=== PATIENT | female | born 1960 | race Caucasian/White ===

== ENCOUNTER 2020-01-01 11:15 | Outpatient (REF) | payer OTHER, SELFPAY ==
[2020-01-05 07:42] LABS: HPV mRNA E6/E7 rflx Not Detected (Not Detected)
== END 2020-01-01 11:16 | disposition home or self-care (01) ==
LOC: HO.LNP 11:15
PROVIDERS: PCP Internal Medicine; Referring Provider Internal Medicine; Visit Provider Obstetrics & Gynecology
DX: Z12.4 Encounter for screening for malignant neoplasm of cervix (principal); N87.0 Mild cervical dysplasia; Z78.0 Asymptomatic menopausal state
CPT/HCPCS: 87624; 87625; 88142

== ENCOUNTER 2020-01-02 09:49 | Outpatient (REF) | payer OTHER, SELFPAY | END 2020-01-02 09:50 | disposition home or self-care (01) | LOC: HO.LAB 09:49 | PROVIDERS: Visit Provider Obstetrics & Gynecology | DX: N87.1 Moderate cervical dysplasia (principal); Z78.0 Asymptomatic menopausal state | CPT/HCPCS: 88141; 88142 ==

== ENCOUNTER 2020-01-29 14:01 | Outpatient (REF) | payer OTHER, SELFPAY | END 2020-01-29 14:02 | disposition home or self-care (01) | LOC: HO.LNP 14:01 | PROVIDERS: Visit Provider Obstetrics & Gynecology | DX: R87.610 Atypical squamous cells of undetermined significance on cytologic smear of cervix (ASC-US) (principal) | CPT/HCPCS: 57455; 88305; 88341; 88342; 88360 ==

== ENCOUNTER → 2020-02-18 15:10 | Outpatient (BNVA) | payer OTHER, SELFPAY | PROVIDERS: Visit Provider Obstetrics & Gynecology | DX: Z76.89 Persons encountering health services in other specified circumstances (principal) ==

== ENCOUNTER 2020-03-19 13:57 | Outpatient (REF) | payer OTHER, SELFPAY ==
--- NOTE | ~2020-03-19 | MM_ITS ---
EXAMINATION: MM SCREENING DIGITAL BREAST TOMOSYNTHESIS, BILATERAL CLINICAL INFORMATION: Screening. Asymptomatic. The lifetime risk of breast cancer based on the Tyrer-Cuzick Model is 5.9%. COMPARISON: Mammography: July 19, 2018 and studies dating back to May 13, 2011 TECHNIQUE: Digital breast tomosynthesis is performed in both the craniocaudal and mediolateral oblique views along with computer-aided detection (CAD). Synthesized 2D images are generated from the tomosynthesis. FINDINGS: The breasts are extremely dense, which lowers the sensitivity of mammography (ACR BI-RADS breast composition Category d). There are no significant masses, abnormal calcifications, or other abnormalities. MM/MM tomosynthesis screening BI IMPRESSION: There are no significant changes from prior study. ASSESSMENT: BI-RADS 1: Negative RECOMMENDATION: Routine annual mammography screening. This patient's information was entered into a reminder system with a target due date for their next mammogram.
== END 2020-03-19 13:58 | disposition home or self-care (01) ==
LOC: HO.MAMMO 13:57
PROVIDERS: PCP Internal Medicine; Visit Provider Internal Medicine
DX: Z12.31 Encounter for screening mammogram for malignant neoplasm of breast (principal)
CPT/HCPCS: 77063; 77067

== ENCOUNTER 2020-07-15 10:12 | Outpatient (REF) | payer OTHER, SELFPAY ==
[2020-07-15 12:22] LABS: Free T4 (Free Thyroxine) 1.21 ng/dL (0.71-1.85); Thyroid Stimulating Hormone 1.14 uIU/mL (0.32-4.0)
[2020-07-19 06:11] LABS: Thyroglobulin Antibody <1 IU/mL (<=1); Thyroglobulin Level <0.1 ng/mL
== END 2020-07-15 10:13 | disposition home or self-care (01) ==
LOC: HO.HMGCLDS 10:12
PROVIDERS: PCP Internal Medicine; Visit Provider Internal Medicine Endocrinology, Diabetes & Metabolism
DX: C73 Malignant neoplasm of thyroid gland (principal)
CPT/HCPCS: 36415; 84432; 84439; 84443; 86800

== ENCOUNTER 2021-02-18 15:14 | Outpatient (REF) | payer OTHER, SELFPAY ==
[2021-02-21 17:07] LABS: HPV mRNA E6/E7 rflx Not Detected (Not Detected)
== END 2021-02-18 15:15 | disposition home or self-care (01) ==
LOC: HO.LAB 15:14
PROVIDERS: Visit Provider Advanced Practice Midwife
DX: Z01.419 Encounter for gynecological examination (general) (routine) without abnormal findings (principal); Z11.51 Encounter for screening for human papillomavirus (HPV); E89.0 Postprocedural hypothyroidism; M81.0 Age-related osteoporosis without current pathological fracture; N95.1 Menopausal and female climacteric states; Z88.2 Allergy status to sulfonamides
CPT/HCPCS: 87624; 88142

== ENCOUNTER 2021-05-01 13:37 | Outpatient (REF) | payer OTHER, SELFPAY ==
--- NOTE | ~2021-05-01 | MM_ITS ---
EXAMINATION: MM SCREENING DIGITAL BREAST TOMOSYNTHESIS, BILATERAL CLINICAL INFORMATION: Screening. Asymptomatic. The lifetime risk of breast cancer based on the Tyrer-Cuzick Model is 5.7%. COMPARISON: Mammography: March 19, 2020 and studies dating back to September 27, 2013 TECHNIQUE: Digital breast tomosynthesis is performed in both the craniocaudal and mediolateral oblique views along with computer-aided detection (CAD). Synthesized 2D images are generated from the tomosynthesis. FINDINGS: The breasts are extremely dense, which lowers the sensitivity of mammography (ACR BI-RADS breast composition Category d). There are no significant masses, abnormal calcifications, or other abnormalities. MM/MM tomosynthesis screening BI IMPRESSION: There are no significant changes from prior study. ASSESSMENT: BI-RADS 1: Negative RECOMMENDATION: Routine annual mammography screening. This patient's information was entered into a reminder system with a target due date for their next mammogram.
== END 2021-05-01 13:38 | disposition home or self-care (01) ==
LOC: HO.MAMMO 13:37
PROVIDERS: PCP Internal Medicine; Visit Provider Internal Medicine
DX: Z12.31 Encounter for screening mammogram for malignant neoplasm of breast (principal)
CPT/HCPCS: 77063; 77067

== ENCOUNTER 2021-05-19 06:23 | Outpatient (REF) | payer OTHER, SELFPAY ==
[2021-05-19 06:49] LABS: MANUAL DIFF FLAG NO
[2021-05-19 07:40] LABS: Basophils Absolute Auto 0.1 X10*3/uL (0.0-0.2); Basophils Percent Auto 1.2 % (0-2); Eosinophils Absolute Auto 0.2 X10*3/uL (0.0-0.4); Eosinophils Percent Auto 3.4 % (0-4); Hematocrit 41.8 % (37.0-47.0); Hemoglobin 13.7 g/dl (12.0-16.0); Imm Gran Abs Auto 0.01 X10*3/uL (0.00-0.03); Imm Gran Pct Auto 0.2 % (0.0-0.4); Lymphocytes Absolute Auto 1.6 X10*3/uL (1.2-4.9); Lymphocytes Percent Auto 33.1 % (20-40); Mean Corpuscular HGB Conc 32.8 g/dl (31.0-35.0); Mean Corpuscular Hemoglobin 30.1 pg (27.0-33.0); Mean Corpuscular Volume 91.9 fL (80.0-98.0); Mean Platelet Volume 10.9 fL (9.4-12.3); Monocytes Absolute Auto 0.4 X10*3/uL (0.1-1.2); Monocytes Percent Auto 7.7 % (2-11); Neutrophils Absolute Auto 2.7 x10*3/uL (2.0-8.3); Neutrophils Percent Auto 54.4 % (45-73); Platelet Count 212 X10*3/uL (160-400); Red Blood Count 4.55 X10*6/uL (4.20-5.50); Red Cell Distribution Width 13.4 % (11.0-16.0); White Blood Count 4.9 X10*3/uL (4.8-10.8)
[2021-05-19 08:07] LABS: Alanine Aminotransferase 13 U/L (0-31); Albumin Level 4.2 g/dL (3.5-5.0); Alkaline Phosphatase 79 U/L (39-117); Anion Gap 10 (12-20); Aspartate Amino Transferase 13 U/L (5-31); Bilirubin Total 0.4 mg/dL (0.0-1.0); Blood Urea Nitrogen 12 mg/dL (9-16); C Reactive Protein 0.02 mg/dL (< or = 0.50); Calcium 9.5 mg/dL (8.4-10.2); Carbon Dioxide 28 mmol/L (22-29); Chloride 107 mmol/L (96-108); Cholesterol 262 mg/dL; Estimated Glomerular Filt Rate > 60; Glucose Random 82 mg/dL (60-115); HDL Cholesterol 82 mg/dL; LDL Cholesterol Calculated 164 mg/dl; Potassium 4.3 mmol/L (3.3-5.1); Sodium 141 mmol/L (135-145); Total Protein 6.6 g/dL (6.5-8.0); Triglycerides 81 mg/dL
[2021-05-19 08:19] LABS: Erythrocyte Sedimentation Rate 2 MM/HR (0-20)
[2021-05-19 08:26] LABS: TSH reflex Free T4 0.54 uIU/mL (0.32-4.0)
[2021-05-19 08:46] LABS: Folate 12.3 ng/mL (> or = 4.0); Vitamin B12 390 pg/mL (200-900)
[2021-05-21 01:51] LABS: Lyme Abs Screen <0.90 index
[2021-05-22 23:28] LABS: Anti Nuclear Antibody Screen NEGATIVE (NEGATIVE)
[2021-05-24 13:42] LABS: Vitamin D 25-OH, D2 <4 ng/mL; Vitamin D 25-OH, D3 24 ng/mL; Vitamin D 25-OH, Total 24 ng/mL (30-100)
== END 2021-05-19 06:24 | disposition home or self-care (01) ==
LOC: HO.LAB 06:23
PROVIDERS: PCP Internal Medicine; Visit Provider Physician Assistant
DX: Z00.00 Encounter for general adult medical examination without abnormal findings (principal); M25.542 Pain in joints of left hand
CPT/HCPCS: 36415; 80053; 80061; 82306; 82607; 82746; 84443; 85025; 85652; 86038; 86039; 86140; 86617; 86618

== ENCOUNTER 2021-05-21 11:02 | Outpatient (REF) | payer OTHER, SELFPAY ==
--- NOTE | ~2021-05-21 | MR_ITS ---
EXAMINATION: MR BREAST WITHOUT AND WITH CONTRAST, BILATERAL CLINICAL INFORMATION: 60-year-old for MRI for dense breasts COMPARISON: Correlation to mammogram of 05/01/2021 TECHNIQUE: Imaging was performed with a dedicated breast coil. Prior to the administration of contrast, bilateral axial T1 and bilateral axial T2 weighted sequences were obtained. After the uneventful administration of?4.5 mL of Gadavist, dynamic contrast-enhanced VIBRANT series through the breasts in the axial plane were performed. Subtracted images were performed and reviewed. A delayed sagittal sequence through both breasts was acquired. Additionally, CAD post-processing, including maximum intensity projections, 3-D reconstructions and kinetic analysis, were performed an independent workstation and reviewed by the interpreting radiologist is a portion of this exam. FINDINGS: The patient's fibroglandular tissue demonstrates minimal background enhancement. LEFT BREAST: No suspicious masslike or non-masslike enhancement. No abnormal skin thickening or nipple retraction. No abnormal architectural distortion. Review of the T2 weighted images demonstrates no fibrocystic changes or dilated ducts. Review of kinetic images reveals no additional findings. RIGHT BREAST: No suspicious masslike or non-masslike enhancement. No abnormal skin thickening or nipple retraction. No abnormal architectural distortion. Review of the T2 weighted images demonstrates no fibrocystic changes or dilated ducts. Review of kinetic images reveals no additional findings. There is no suspicious internal mammary chain or axillary adenopathy. Limited views of the chest and abdomen are unremarkable. MR/MR breast BI wo/w con IMPRESSION: No MR specific evidence of malignancy. ASSESSMENT: LEFT BREAST: BI-RADS 1-Negative RIGHT BREAST: BI-RADS 1-Negative RECOMMENDATIONS: Routine mammographic imaging as per most recent study. MRI if patient meets screening criteria.
== END 2021-05-21 11:03 | disposition home or self-care (01) ==
LOC: HO.MRI 11:02
PROVIDERS: Visit Provider Physician Assistant
DX: R92.2 Inconclusive mammogram (principal)
CPT/HCPCS: 77049; A9585

== ENCOUNTER 2021-08-10 16:48 | Outpatient (REF) | payer OTHER, SELFPAY ==
[2021-08-10 18:29] LABS: Free T4 (Free Thyroxine) 1.09 ng/dL (0.71-1.85); Thyroid Stimulating Hormone 0.51 uIU/mL (0.32-4.0)
[2021-08-14 05:52] LABS: Thyroglobulin Antibody <1 IU/mL (<=1); Thyroglobulin Level <0.1 ng/mL
== END 2021-08-10 16:49 | disposition home or self-care (01) ==
LOC: HO.LAB 16:48
PROVIDERS: PCP Internal Medicine; Visit Provider Internal Medicine Endocrinology, Diabetes & Metabolism
DX: E89.0 Postprocedural hypothyroidism (principal); C73 Malignant neoplasm of thyroid gland
CPT/HCPCS: 36415; 84432; 84439; 84443; 86800

== ENCOUNTER → 2022-02-22 14:24 | Outpatient (BNVA) | payer OTHER, SELFPAY | PROVIDERS: PCP Internal Medicine; Visit Provider Advanced Practice Midwife | DX: Z13.89 Encounter for screening for other disorder (principal) ==

== ENCOUNTER 2022-05-28 13:46 | Outpatient (REF) | payer OTHER, SELFPAY ==
--- NOTE | ~2022-05-28 | MM_ITS ---
EXAMINATION: MM SCREENING DIGITAL BREAST TOMOSYNTHESIS, BILATERAL CLINICAL INFORMATION: Screening. Asymptomatic. The lifetime risk of breast cancer based on the Tyrer-Cuzick Model is 7.9%. COMPARISON: Mammography: May 21, 2021 and studies dating back to September 27, 2013 TECHNIQUE: Digital breast tomosynthesis is performed in both the craniocaudal and mediolateral oblique views along with computer-aided detection (CAD). Synthesized 2D images are generated from the tomosynthesis. FINDINGS: The breasts are extremely dense, which lowers the sensitivity of mammography (ACR BI-RADS breast composition Category d). There are no significant masses, abnormal calcifications, or other abnormalities. MM/MM tomosynthesis screening BI IMPRESSION: No significant changes ASSESSMENT: BI-RADS 1: Negative RECOMMENDATION: Routine annual mammography screening. This patient's information was entered into a reminder system with a target due date for their next mammogram.
== END 2022-05-28 13:47 | disposition home or self-care (01) ==
LOC: HO.MAMMO 13:46
PROVIDERS: PCP Advanced Practice Midwife; Visit Provider Advanced Practice Midwife
DX: Z12.31 Encounter for screening mammogram for malignant neoplasm of breast (principal)
CPT/HCPCS: 77063; 77067

== ENCOUNTER 2022-07-01 15:11 | Outpatient (REF) | payer OTHER, SELFPAY ==
[2022-07-08 09:23] LABS: HPV mRNA E6/E7 rflx Not Detected (Not Detected)
== END 2022-07-01 15:12 | disposition home or self-care (01) ==
LOC: HO.LNP 15:11
PROVIDERS: Visit Provider Advanced Practice Midwife
DX: Z01.419 Encounter for gynecological examination (general) (routine) without abnormal findings (principal); Z11.51 Encounter for screening for human papillomavirus (HPV); N87.1 Moderate cervical dysplasia; N95.2 Postmenopausal atrophic vaginitis
CPT/HCPCS: 87624; 88142

== ENCOUNTER 2022-08-02 07:41 | Outpatient (REF) | payer OTHER, SELFPAY ==
[2022-08-02 12:19] LABS: Free T4 (Free Thyroxine) 1.09 ng/dL (0.71-1.85); Thyroid Stimulating Hormone 1.58 uIU/mL (0.32-4.0)
[2022-08-05 04:28] LABS: Thyroglobulin Antibody <1 IU/mL (<=1); Thyroglobulin Level <0.1 ng/mL
== END 2022-08-02 07:42 | disposition home or self-care (01) ==
LOC: HO.HMGCLDS 07:41
PROVIDERS: Visit Provider Internal Medicine Endocrinology, Diabetes & Metabolism
DX: E89.0 Postprocedural hypothyroidism (principal); C73 Malignant neoplasm of thyroid gland
CPT/HCPCS: 36415; 84432; 84439; 84443; 86800

== ENCOUNTER 2022-08-24 12:44 | Outpatient (AMB) | payer OTHER, SELFPAY ==
--- NOTE | 2022-08-24 12:46 | MHC.OFFVIS ---
Intake Vital Signs 08/24/22 12:51 Height 5 ft 2 in Weight 107 lb BMI 19.6 BP 134/80 Intake Visit Reasons: Colposcopy Tool Shaper Set Up Operator Required: No Information Interpreted: non-clinical & clinical Bondactor Machine Operator: Bondactor Machine Operator Present (Viry) Allergies Sulfa (Sulfonamide Antibiotics) Allergy (Unknown, Verified 08/24/22 12:52) UNKNOWN Sulfamethoxazole Allergy (Unknown, Uncoded 08/24/22 12:52) Unknown Is last menstrual period known: No Post menopausal: Yes PFSH Medical History EVELINE II (cervical intraepithelial neoplasia II) History of colon polyps Hypothyroid Osteoporosis Thyroid cancer Surgical History History of bunionectomy History of loop electrical excision procedure (LEEP) History of thyroidectomy Family History Father Malignant melanoma Mother Dementia Social History Household Members: None Housing: House Alcohol intake: never Patient Tobacco Use Status: Never used Tobacco service: No Current occupational status: employed 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[employer] [place] Sexual orientation: Straight/Heterosexual Gender identity: Female Female Reproductive History Menstrual Date of last pap smear: 07/06/22 (ASCUS) History of abnormal pap smear: Yes Date of Mammogram: 05/28/22 Physical Exam Vital Signs: Last Vital Signs BP 134/80 08/24/22 12:51 BMI result Body Mass Index 19.6 Office Procedures Colposcopy Before the procedure was started discussed with the patient the procedure, alternatives & all the risks associated with the procedure (bleeding, infection, injury to vagina, bladder, vessels, possible need for transfusion with all its risks) then patient signed the consent Pap smear = ascus/HPV negative, history of EVELINE 2 status post LEEP in 2019 Speculum inserted, acetic acid used Colposcopy done Transformation zone seen, acetowhite lesions identified at 6 o?clock, cervical biopsies taken from 6 o?clock, ECC done afterwards. Vaginoscopy of the upper vagina showed no evidence of any aceto-white lesions Monsel solution used for hemostasis. The patient tolerated well . At the end the patient was instructed to call if temp>100.4, abdominal pain, n/v, bleeding; The patient was given the following instructions: nothing per vagina, no intercourse or bath tub use. All questions answered the patient verbalized understanding. Instructed the patient to make an appointment in 2 weeks for follow-up This note was generated with a voice recognition program. Some errors may have been overlooked during the review of this note. Sometimes these errors may affect the content or meaning of a given sentence. 33300-[id number] of cervix including upper vagina with biopsy and ECC Procedure code (CPT) selection complete Assessment & Plan Assessment & Plan Orders: Orders AMB Colposcopy Today R87.610 - Atypical squamous cells of undetermined significance on cytologic smear of cervix (ASC-US) Coding Level of Care Code Procedure Only Diagnoses CPT Codes Colposcopy - CPT: 13574-Grljwyhxz of cervix including upper vagina with biopsy and ECC ([id number])
[2022-08-24 12:51] VITALS: BP 134/80; BMI 19.6
== END 2022-08-24 13:25 | disposition home or self-care (01) ==
LOC: HO.HWS 12:44
PROVIDERS: Visit Provider Obstetrics & Gynecology
DX: R87.610 Atypical squamous cells of undetermined significance on cytologic smear of cervix (ASC-US) (principal)
CPT/HCPCS: 57454

== ENCOUNTER 2022-08-24 12:44 | Outpatient (REF) | payer OTHER, SELFPAY | END 2022-08-24 12:45 | disposition home or self-care (01) | LOC: HO.LNP 12:44 | PROVIDERS: Visit Provider Obstetrics & Gynecology | DX: R87.610 Atypical squamous cells of undetermined significance on cytologic smear of cervix (ASC-US) (principal) | CPT/HCPCS: 57454; 88305 ==

== ENCOUNTER 2022-09-01 09:25 | Outpatient (AMB) | payer OTHER, SELFPAY ==
--- NOTE | 2022-09-01 09:23 | A.OFFVIS_ITS ---
Intake Vital Signs 09/01/22 09:26 Height 5 ft 2 in Weight 105 lb 13.15 oz BMI 19.4 BP 118/80 Intake Visit Reasons: post colpo bleeding Computer Numerical Control Operator Required: No Information Interpreted: non-clinical & clinical Restoration Ecologist: Restoration Ecologist Present Accompanied by: Self / Same As Patient Allergies Sulfa (Sulfonamide Antibiotics) Allergy (Unknown, Verified 09/01/22 09:27) UNKNOWN Sulfamethoxazole Allergy (Unknown, Uncoded 09/01/22 09:27) Unknown Post menopausal: Yes HPI HPI Comments History of Present Illness Details Presenting 1 week post colposcopy an episode of vaginal bleeding that started yesterday and and resolved this morning. The patient did not have any vaginal bleeding immediately post colposcopy. 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[employer] [place] Sexual orientation: Straight/Heterosexual Gender identity: Female Review of Systems Const All systems reviewed & are unremarkable except as noted in HPI and below Physical Exam Vital Signs: Last Vital Signs BP 118/80 09/01/22 09:26 BMI result Body Mass Index 19.4 General: Yes no CVA tenderness External Female Exam: normal external appearance and normal appearance of the urethra Speculum Exam - Vagina: normal appearance of the vagina, normal palpation, laceration (Small left vaginal wall abrasion), no lesions and no masses Speculum Exam - Cervix: normal palpation, no lesions, no masses, nontender and Other cervical findings present (Erythema of the cervix with no evidence of active bleeding) Bimanual exam- vagina & uterus: normal bimanual exam, normal palpation, uterine size normal, normal palpation, uterine shape normal, No Cervical tenderness present and non-tender Bimanual Exam- Adnexa, other: normal adnexae Back/Spine/Pelvis Back: no CVA tenderness Assessment & Plan Assessment & Plan (1) Vaginal bleeding: Code(s): N93.9 - Abnormal uterine and vaginal bleeding, unspecified Plan: Discussed with the patient the findings on pelvic exam and the possible causes of vaginal bleeding post colposcopy bleeding , including left vaginal wall abrasion, cervical biopsy site bleeding or uterine in origin. Monsel's solution was applied at the cervix and left vaginal wall, bleeding resolved. instructions given to patient to call in case bleeding recurs (2) Postmenopausal bleeding: Code(s): N95.0 - Postmenopausal bleeding Plan: Since the differential diagnosis includes postmenopausal bleeding. Discussed with the patient the differential diagnosis of post menopausal bleeding with normal pelvic exam including but not limited to, endometrial hyperplasia, cancer, polyps and other causes; co testing done, recommended ultrasound to measure the endometrial stripe; discussed with the patient that if the endometrial thickness is 4 mm or less the negative predictive value of endometrial pathology is 99%, otherwise If endometrial thickness is more than 4 mm will proceed with endometrial sampling versus hysteroscopy D&C polypectomy depending on the ultrasound findings. Instructed the patient to schedule an ultrasound follow-up appointment in 2 weeks. All questions answered, the patient verbalized understanding and agreed with the plan. Orders: Orders US pelvic and transvaginal Today N95.0 - Postmenopausal bleeding Coding Level of Care Code Est Pt Level 3 (59082) Diagnoses Vaginal bleeding N93.9 Postmenopausal bleeding N95.0
[2022-09-01 09:26] VITALS: BP 118/80; BMI 19.4
== END 2022-09-01 10:14 | disposition home or self-care (01) ==
LOC: HO.HWS 09:25
PROVIDERS: Visit Provider Obstetrics & Gynecology
DX: N93.9 Abnormal uterine and vaginal bleeding, unspecified (principal); N95.0 Postmenopausal bleeding
CPT/HCPCS: 99213

== ENCOUNTER → 2022-09-01 09:25 | Outpatient (BNVA) | payer OTHER, SELFPAY | PROVIDERS: Visit Provider Obstetrics & Gynecology ==

== ENCOUNTER 2022-09-10 12:53 | Outpatient (REF) | payer OTHER, SELFPAY ==
--- NOTE | ~2022-09-10 | US_ITS ---
EXAMINATION: US PELVIS CLINICAL INFORMATION: Postmenopausal bleeding. COMPARISON: 06/09/2019. TECHNIQUE: Ultrasound of the pelvis is performed using both transabdominal and transvaginal transducers along with Doppler. Transvaginal imaging is performed due to inadequate visualization transabdominally. FINDINGS: Uterus: The uterus is anteverted and measures 4.5 x 2.2 x 3.3 cm. The double wall endometrial thickness is 5 mm. Trace amount of fluid in the endometrial canal. The uterus is smooth in contour and has normal myometrial echogenicity. No visible fibroid. Adnexa: Both ovaries are visualized. There is normal color flow to the adnexa. There is no ovarian torsion. There is no pelvic ascites or fluid collection. Right ovary measures 1.6 x 0.8 x 1.2 cm. 0.8 mL. Left ovary measures 2.6 x 1.5 x 0.9 cm. 1.8 mL. US/US pelvic and transvaginal IMPRESSION: Trace fluid in the endometrial canal consistent with the history of bleeding. No discrete uterine or endometrial lesion.
== END 2022-09-10 12:54 | disposition home or self-care (01) ==
LOC: HO.US 12:53
PROVIDERS: Visit Provider Obstetrics & Gynecology
DX: N95.0 Postmenopausal bleeding (principal)
CPT/HCPCS: 76830; 76856

== ENCOUNTER 2022-09-16 10:12 | Outpatient (AMB) | payer OTHER, SELFPAY ==
--- NOTE | 2022-09-16 10:14 | MHC.OFFVIS ---
Intake Vital Signs 09/16/22 10:16 Height 5 ft 2 in Weight 105 lb 13.15 oz BMI 19.4 BP 120/68 Intake Visit Reasons: Colpo/ultra sound follow up Allergies Sulfa (Sulfonamide Antibiotics) Allergy (Unknown, Verified 09/01/22 09:27) UNKNOWN Sulfamethoxazole Allergy (Unknown, Uncoded 09/01/22 09:27) Unknown HPI HPI Comments History of Present Illness Details Presenting post colpo for follow-up. The patient is doing well with no complaints. The pathology showed the following: A. Cervix, biopsy: Predominantly denuded squamous and endocervical mucosa; negative for squamous intraepithelial lesion. B. Endocervix, curettage: Fragments of squamous mucosa with reactive epithelial changes and few fragments of benign endocervical mucosa; negative for a squamous intraepithelial lesion. COMMENT: The atypical cells noted on the patient's previous Pap smear ([id number]; ASCUS; HPV-) may represent the reactive changes seen above. Pelvic ultrasound showed the following: Uterus: The uterus is anteverted and measures 4.5 x 2.2 x 3.3 cm. The double wall endometrial thickness is 5 mm. Trace amount of fluid in the endometrial canal. The uterus is smooth in contour and has normal myometrial echogenicity. ? No visible fibroid. Adnexa: Both ovaries are visualized. There is normal color flow to the adnexa. There is no ovarian torsion.? There is no pelvic ascites or fluid collection. Right ovary measures 1.6 x 0.8 x 1.2 cm. 0.8 mL. Left ovary measures 2.6 x 1.5 x 0.9 cm. 1.8 mL. 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[employer] [place] Sexual orientation: Straight/Heterosexual Gender identity: Female Review of Systems Const All systems reviewed & are unremarkable except as noted in HPI and below Reports as per HPI and Reports no additional complaints GI Reports no additional complaints Reports no additional complaints Assessment & Plan Assessment & Plan (1) ASCUS of cervix with negative high risk HPV: Code(s): R87.610 - Atypical squamous cells of undetermined significance on cytologic smear of cervix (ASC-US) Plan: Discussed with the patient the pathology results of the colposcopy biopsies & endocervical curettage ( negative). Discussed with the patient the sensitivity specificity, positive and negative predictive value in detecting cervical cancer in addition discussed the regression, persistence and progression rates. Recommended co-testing in 12 months, if cytology and or HPV are abnormal will proceed was colposcopy biopsy and endocervical curettage. Instructions given to the patient to schedule a co test appointment in 1 year. All questions answered the patient verbalized understanding. (2) Postmenopausal bleeding: Code(s): N95.0 - Postmenopausal bleeding Plan: Discussed with the patient the pelvic ultrasound findings, the endometrial stripe thickenss measured by ultrasound was more than 4mm. The negative predictive value, positive predictive value, Sensitivity, specificity of using ultrasound measurement of endometrial stripe to detecting endometrial pathology including hyperplasia , polyp or cancer were discussed with the patient. Recommended to the patient that the next step is an endometrial sampling via hysteroscopy D&C possible polypectomy versus endometrial biopsy to r/o endometrial pathology including hyperplasia or cancer. All the pros and cons risks and benefits of each approach were discussed with the patient, endometrial biopsy being less invasive, office procedure with less sensitivity and inability diagnose a polyp and removal versus hysteroscopy done under anesthesia more invasive more sensitive to endometrial cancer and possibility of diagnosing and endometrial polyp with the possibility of polypectomy. All questions were answered pt verbalized understanding and decided to proceed with endometrial biopsy. Instructions given the patient to schedule endometrial biopsy in 2 weeks Coding Level of Care Code Est Pt Level 3 (33484) Diagnoses ASCUS of cervix with negative high risk HPV R87.610 Postmenopausal bleeding N95.0
[2022-09-16 10:16] VITALS: BP 120/68; BMI 19.4
== END 2022-09-16 12:50 | disposition home or self-care (01) ==
LOC: HO.HWS 10:12
PROVIDERS: Visit Provider Obstetrics & Gynecology
DX: R87.610 Atypical squamous cells of undetermined significance on cytologic smear of cervix (ASC-US) (principal); N95.0 Postmenopausal bleeding
CPT/HCPCS: 99213

== ENCOUNTER → 2022-09-16 10:12 | Outpatient (BNVA) | payer OTHER, SELFPAY | PROVIDERS: Visit Provider Obstetrics & Gynecology ==

== ENCOUNTER 2022-10-04 09:32 | Outpatient (AMB) | payer OTHER, SELFPAY ==
--- NOTE | 2022-10-04 09:34 | A.OFFVIS_ITS ---
Intake Vital Signs 10/04/22 09:37 Height 5 ft 2 in Weight 105 lb 13.15 oz BMI 19.4 BP 110/66 Intake Visit Reasons: EMB Clinical Orthoptist Required: No Information Interpreted: non-clinical & clinical Wind Turbine Design Engineer: Wind Turbine Design Engineer Present (Brittney ONEIL) Accompanied by: Self / Same As Patient Allergies Sulfa (Sulfonamide Antibiotics) Allergy (Unknown, Verified 10/04/22 09:42) UNKNOWN Sulfamethoxazole Allergy (Unknown, Uncoded 10/04/22 09:42) Unknown Post menopausal: Yes [facility] Medical History EVELINE II (cervical intraepithelial neoplasia II) History of colon polyps Hypothyroid Osteoporosis Thyroid cancer Surgical History History of bunionectomy History of loop electrical excision procedure (LEEP) History of thyroidectomy Family History Father Malignant melanoma Mother Dementia Social History Household Members: None Housing: House Alcohol intake: never Patient Tobacco Use Status: Never used Tobacco service: No Current occupational status: employed 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 hysteroscopy D&C) & the risks were discussed with the patient including but not limited: pain, uterine perforation, bleeding, infection, possible injury to bladder, bowel, ureter, possible need for blood transfusion with all its possible risks. The patient verbalized understanding all questions answered and signed consent. The patient was placed into the dorsal lithotomy position; a speculum was inserted in the vagina. Using aseptic technique for the procedure, the cervix was cleansed with Betadine. The anterior lip of the cervix was grasped with a single tooth tenaculum. The uterus was sounded to 7 cm with a 4 mm Pipelle was used. Tissues samples were obtained and placed in formalin, in a patient labeled container and sent to the pathology department. At the end of the procedure, there was minimal bleeding noted The patient tolerated the procedure well and was discharged in good condition with the following instructions: Nothing in the vagina until the bleeding stops. No sex until the bleeding stops, to call if any of the following occurs: fever (>100.4), flu-like symptoms, abdominal pain, heavy bleeding, four smelling vaginal discharge. The patient was instructed to schedule a Follow up appointment in 2 weeks to discuss pathology results of the biopsy and treatment options. This note was generated with a voice recognition program. Some errors may have been overlooked during the review of this note. Sometimes these errors may affect the content or meaning of a given sentence. [id number] Biopsy Assessment & Plan Assessment & Plan (1) Postmenopausal bleeding: Code(s): N95.0 - Postmenopausal bleeding Orders: Orders AMB Endometrial Biopsy Today N95.0 - Postmenopausal bleeding Coding Level of Care Code Procedure Only Diagnoses Postmenopausal bleeding N95.0 CPT Codes Endometrial Biopsy - CPT: 32504-Unzmjxkpsat Biopsy ([id number])
[2022-10-04 09:37] VITALS: BP 110/66; BMI 19.4
== END 2022-10-04 10:28 | disposition home or self-care (01) ==
LOC: HO.HWS 09:32
PROVIDERS: Visit Provider Obstetrics & Gynecology
DX: N95.0 Postmenopausal bleeding (principal)
CPT/HCPCS: 58100

== ENCOUNTER 2022-10-04 09:32 | Outpatient (REF) | payer OTHER, SELFPAY | END 2022-10-04 09:33 | disposition home or self-care (01) | LOC: HO.LNP 09:32 | PROVIDERS: Visit Provider Obstetrics & Gynecology | DX: N95.0 Postmenopausal bleeding (principal) | CPT/HCPCS: 58100; 88305 ==

== ENCOUNTER 2022-10-25 07:35 | Outpatient (AMB) | payer OTHER, SELFPAY ==
--- NOTE | 2022-10-25 07:37 | MHC.OFFVIS ---
Intake Vital Signs 10/25/22 07:39 Height 5 ft 2 in Weight 105 lb 13.15 oz BMI 19.4 BP 120/72 Intake Visit Reasons: pre op Sugar Drier Required: No Information Interpreted: non-clinical & clinical Assisted Living Housekeeper: Assisted Living Housekeeper Present Accompanied by: Self / Same As Patient Allergies Sulfa (Sulfonamide Antibiotics) Allergy (Unknown, Verified 10/25/22 07:41) UNKNOWN Sulfamethoxazole Allergy (Unknown, Uncoded 10/25/22 07:41) Unknown Is last menstrual period known: Yes Last menstrual period: 12/13/19 Post menopausal: Yes Patient : No Do you need a note to return to daycare/school/sports/work: Yes (for surgery on tuesday) HPI HPI Comments History of Present Illness Details Presenting post endometrial biopsy for follow-up. The pathology showed the following: Endometrium, biopsy: Predominantly blood and mucus with rare atrophic endometrial cells and scant benign endocervical glandular epithelium; insufficient for endometrial evaluation PFSH Medical History History of colon polyps Osteoporosis EVELINE II (cervical intraepithelial neoplasia II) Thyroid cancer Hypothyroid Surgical History History of loop electrical excision procedure (LEEP) History of thyroidectomy History of bunionectomy Family History Father Malignant melanoma Mother Dementia Social History Household Members: None Housing: House Alcohol intake: never Patient Tobacco Use Status: Never used Tobacco service: No Current occupational status: employed 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 [employer] Sexual orientation: Straight/Heterosexual Gender identity: Female Female Reproductive History Menstrual Date of last menstrual period: 12/13/19 Total pregnancies: 2 Full term: 2 Review of Systems Card Reports as per HPI and Reports no additional complaints Resp Reports as per HPI and Reports no additional complaints GI Reports as per HPI and Reports no additional complaints Reports as per HPI Physical Exam Const General: cooperative, healthy appearing and comfortable Chest Chest palpation & inspection: normal inspection of the chest and normal palpation of entire chest wall Breast/axilla inspection: normal inspection of the breasts and normal inspection of the axillae Breast/axilla palpation: normal palpation of the breasts, normal palpation of the axillae and no axillary lymphadenopathy Resp Effort & Inspection: normal respiratory effort Auscultation: clear to auscultation bilaterally Percussion: percussion normal Cardio Palpation: normal PMI Rate: regular rate Rhythm: regular rhythm Heart sounds: no murmurs and no rubs Peripheral pulses: Peripheral pulses 2+ throughout GI Inspection: Yes normal to inspection Palpation (GI): Soft to palpation, nontender, no guarding, not rigid and No hepatosplenomegaly present Percussion: Yes normal to percussion Auscultation: normal bowel sounds Rectal Exam - Female: deferred Assessment & Plan Assessment & Plan (1) Postmenopausal bleeding: Code(s): N95.0 - Postmenopausal bleeding Plan: Discussed with the patient the results of endometrial biopsy , insufficient for endometrial evaluation, recommended hysteroscopy D&C possible polypectomy/myomectomy. Discussed with the patient the procedure , all benefits and risks including but not limited to inability to complete the procedure , bleeding, infection, possible need for blood transfusion with all its risk ( HIV,syphilis, Hepatitis, anaphylaxis shock, others..), injury to bladder, rectum, possible need for laparoscopy/laparotomy or hysterectomy. The patient verbalized understanding and signed the consent. Instructions given the patient to schedule a 2 week postoperative appointment Coding Level of Care Code Est Pt Level 3 (12645) Diagnoses Postmenopausal bleeding N95.0
[2022-10-25 07:39] VITALS: BP 120/72; BMI 19.4
== END 2022-10-25 07:54 | disposition home or self-care (01) ==
PROVIDERS: Visit Provider Obstetrics & Gynecology
DX: N95.0 Postmenopausal bleeding (principal)
CPT/HCPCS: 99213

== ENCOUNTER → 2022-10-25 07:35 | Outpatient (BNVA) | payer OTHER, SELFPAY | PROVIDERS: Visit Provider Obstetrics & Gynecology ==

== ENCOUNTER 2022-11-01 08:37 | Emergency (ER) | payer OTHER, SELFPAY ==
--- NOTE | ~2022-11-01 | XR_ITS ---
EXAMINATION: XR CHEST 2 VIEW CLINICAL INFORMATION: Chest tightness COMPARISON: None TECHNIQUE: PA and lateral views of the chest obtained. FINDINGS: The lungs are clear. There are no pleural effusions. The cardiomediastinal silhouette is normal. XR/XR chest 2V IMPRESSION: No acute cardiopulmonary disease.
[2022-11-01 08:45] VITALS: BP 145/87; PULSE 78; RESP 18; TEMP 36.2; O2SAT 97; BMI 19.2
--- NOTE | 2022-11-01 09:45 | ECG_ITS ---
Test Reason : chest tightness Blood Pressure : / mmHG Vent. Rate : 071 BPM Atrial Rate : 071 BPM P-R Int : 140 ms QRS Dur : 128 ms QT Int : 396 ms P-R-T Axes : 072 074 051 degrees QTc Int : 430 ms Normal sinus rhythm with sinus arrhythmia Right bundle branch block Abnormal ECG When compared with ECG of 14-OCT-2009 15:40, No significant change was found Referred By: Marquita Aranda Electronically Signed By:LAN ARRIETA
--- NOTE | 2022-11-01 09:45 | ED_ITS ---
HPI - General Adult General Chief complaint: Upper Respiratory Symptoms Stated complaint: Chemical exposure Time Seen by Provider: 11/01/22 09:11 Source: patient and RN notes reviewed Mode of arrival: ambulatory Limitations: no limitations History of Present Illness HPI narrative: This is a 62-year-old female, with a past medical history of thyroid cancer with thyroidectomy, presenting to the emergency department for evaluation of sore throat, chest tightness and chest burning sensation x4 days. Patient reports that her house is being worked on with a chemical called [employer] on . She states that when she returned back into her home she noticed a chemical like smell. She states that she had no where else to go therefore she spent the night in her home. She states that Tuesday while she was at work she noticed that she had increasing burning in her chest and her throat. She states that she decided to open up her windows however her symptoms have remained. She states that her symptoms have improved. She describes this chest tightness as a burning and pressure like sensation, she denies any chest pain. She denies any fevers, chills headaches, dizziness, lightheadedness, chest pain, shortness of breath, difficulty swallowing, abdominal pain, nausea or vomiting. She denies history of similar symptoms in the past. She is concerned as she looked up the chemical and this is a known carcinogen and was not told by the company that this is a dangerous chemical. No other complaints or concerns at this time. complaint: Chemical exposure Onset (ago): day(s) Radiation: non-radiation Quality: burning Pain Consistency: constant Relieving factors: none Exacerbating factors: none Associated symptoms: chest pain Treatments prior to arrival: none Related Data Home Medications Medication Instructions Recorded Confirmed levothyroxine 88 mcg tablet 88 mcg PO DAILY 01/01/20 08/06/22 Previous Rx's Medication Instructions Recorded estradiol 10 mcg vaginal tablet 10 mcg vaginal DAILY 4 weeks #20 07/22/22 (Vagifem) tabs cyclobenzaprine 10 mg tablet 10 mg PO BEDTIME #14 tabs 08/06/22 meloxicam 15 mg tablet 15 mg PO DAILY #14 tabs 08/06/22 Allergies Allergy/AdvReac Type Severity Reaction Status Date / Time Sulfa (Sulfonamide Allergy Unknown UNKNOWN Verified 11/01/22 08:48 Antibiotics) Sulfamethoxazole Allergy Unknown Unknown Uncoded 09/11/23 07:41 Review of Systems 2 Review of Systems: Yes all other systems are reviewed and are negative Constitutional: Constitutional: Reports as per [facility] Past Medical History Attestation statement: The following information was validated with the patient. 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 Tolerating secretions well without any difficulty. No trismus, drooling or dysphonia. Head: Yes normal to inspection, Yes normocephalic and Yes atraumatic Ears: hearing grossly normal bilaterally General nose exam: Normal external nose present Face and sinus: Yes normal facial exam Throat: Yes posterior oropharynx normal Eyes General: appearance normal, both eyes and all related structures Eyelids: Yes eyelids normal Conjunctivae: conjunctivae normal Sclerae: sclerae normal Pupils: Equal, round and reactive pupils present EOM: EOMs intact bilaterally Neck Neck: Yes normal visual inspection, Yes full ROM and Yes no lymphadenopathy Lymphatic: no lymphadenopathy noted Chest Chest palpation & inspection: normal inspection of the chest Resp Effort & Inspection: normal respiratory effort and able to speak in complete sentences Auscultation: clear to auscultation bilaterally, no crackles, no rales, no rhonchi and no wheezes Cardio Rate: regular rate Rhythm: regular rhythm Heart sounds: S1 normal heart sound present and S2 normal heart sound present GI Inspection: Yes normal to inspection Skin General skin exam: no rashes or lesions noted Trauma: no lacerations or abrasions Wounds: no wounds Neuro General: patient oriented x3 and moves all extremities Cranial nerves: Yes Equal, round and reactive pupils present Extrem General: Yes normal to inspection Right upper extremity: normal to inspection Left upper extremity: normal to inspection Right lower extremity: normal to inspection Left lower extremity: normal to inspection Course Reevaluation(s) Reevaluation #1: Chest x-ray normal. CBC within normal limits, chemistry nondiagnostic. Negative viral swabs, negative strep. EKG with right bundle branch block that was seen on previous EKGs. Otherwise no ST elevation or depression. Troponin negative, carbon monoxide within normal limits. I discussed this workup with patient, likely chemical irritant versus reactive airway disease. Advised patient to stay well hydrated and to follow-up with primary care physician as needed. Given return precautions. Patient understands and agrees with plan. Patient stable for discharge. Time: 11:25 Medical Decision Making Medical Decision Making [facility] Narrative: 62-year-old female presenting to the emergency department for evaluation of chest tightness, chest burning, pressure, sore throat x4 days. She was recently exposed to a chemical called [employer] and is concerned as there are known carcinogenic products in the seal. Patient mildly hypertensive at 145/87, oxygen saturation 97% on room air. Oropharynx is mildly erythematous, no tonsillar hypertrophy or exudates. Lungs are clear to auscultation bilaterally. Patient is in no acute distress. Discussed case with my attending physician Dr. James. Will obtain chest x-ray, EKG, basic labs, cover monoxide. Also will get viral swabs and strep culture to rule out viral etiology. Differential Diagnosis Differential Diagnoses: The differential diagnosis associated with the presentation includes Reactive airway disease, chemical exposure, strep pharyngitis, viral pharyngitis, pneumonia Admission/Observation Consideration of admission/observation: Escalation of care including admission/observation considered Patient would have been admitted to the hospital had her work up had any findings where hospital admission was appropriate and her clinical presentation warranted hospital admission. Lab Data [facility] Lab Attestation statement: I reviewed the patient's lab results. See course 11/01/22 10:00 11/01/22 10:03 Labs: Lab Results 11/01/22 11/01/22 11/01/22 Range/Units 09:46 10:00 10:03 WBC 9.4 (4.8-10.8) X10*3/uL RBC 4.75 (4.20-5.50) X10*6/uL Hgb 14.1 (12.0-16.0) g/dl Hct 43.1 (37.0-47.0) % MCV 90.7 (80.0-98.0) fL MCH 29.7 (27.0-33.0) pg MCHC 32.7 (31.0-35.0) g/dl RDW 13.3 (11.0-16.0) % Plt Count 234 (160-400) X10*3/uL MPV 10.4 (9.4-12.3) fL Immature Gran % (Auto) 0.6 H (0.0-0.4) % Neut % (Auto) 78.7 H (45-73) % Lymph % (Auto) 14.0 L (20-40) % [place] % (Auto) 4.4 (2-11) % Eos % (Auto) 1.5 (0-4) % Baso % (Auto) 0.8 (0-2) % Lymph # (Auto) 1.3 (1.2-4.9) X10*3/uL [place] # (Auto) 0.4 (0.1-1.2) X10*3/uL Eos # (Auto) 0.1 (0.0-0.4) X10*3/uL Baso # (Auto) 0.1 (0.0-0.2) X10*3/uL Abs Immat Gran (auto) 0.06 H (0.00-0.03) X10*3/uL Absolute Neuts (auto) 7.4 (2.0-8.3) x10*3/uL Absolute Nucleated RBC 0.000 (0.0-0.012) X10*3/uL Nucleated RBC % (auto) 0.0 (0.0-0.2) /100WBC Carboxyhemoglobin % % Sodium 139 (135-145) mmol/L Potassium 4.2 (3.3-5.1) mmol/L Chloride 107 (96-108) mmol/L Carbon Dioxide 26 (22-29) mmol/L Anion Gap 10 L (12-20) BUN 11 (9-16) mg/dL Creatinine 0.86 (0.5-1.4) mg/dL Estim Creat Clear Calc 50.9 Estimated GFR > 60 Random Glucose 91 (60-115) mg/dL Calcium 9.9 (8.4-10.2) mg/dL Total Bilirubin 0.4 (0.0-1.0) mg/dL Direct Bilirubin 0.2 (0.0-0.5) mg/dL AST 15 (5-31) U/L ALT 10 (0-31) U/L Alkaline Phosphatase 78 (39-117) U/L Troponin I High Sens < 2.7 (<3.5-17.0) ng/L Total Protein 7.1 (6.5-8.0) g/dL Albumin 4.4 (3.5-5.0) g/dL Influenza Type A (PCR) NEGATIVE (Negative) Influenza Type B (PCR) NEGATIVE (Negative) RSV RNA Qual (PCR) NEGATIVE (Negative) SARS-CoV-2 RNA (RT-PCR) NEGATIVE (Negative) S. pyogenes GrpA SARABJIT Negative (Negative) 11/01/22 Range/Units 10:18 WBC (4.8-10.8) X10*3/uL RBC (4.20-5.50) X10*6/uL Hgb (12.0-16.0) g/dl Hct (37.0-47.0) % MCV (80.0-98.0) fL MCH (27.0-33.0) pg MCHC (31.0-35.0) g/dl RDW (11.0-16.0) % Plt Count (160-400) X10*3/uL MPV (9.4-12.3) fL Immature Gran % (Auto) (0.0-0.4) % Neut % (Auto) (45-73) % Lymph % (Auto) (20-40) % [place] % (Auto) (2-11) % Eos % (Auto) (0-4) % Baso % (Auto) (0-2) % Lymph # (Auto) (1.2-4.9) X10*3/uL [place] # (Auto) (0.1-1.2) X10*3/uL Eos # (Auto) (0.0-0.4) X10*3/uL Baso # (Auto) (0.0-0.2) X10*3/uL Abs Immat Gran (auto) (0.00-0.03) X10*3/uL Absolute Neuts (auto) (2.0-8.3) x10*3/uL Absolute Nucleated RBC (0.0-0.012) X10*3/uL Nucleated RBC % (auto) (0.0-0.2) /100WBC Carboxyhemoglobin % 2.2 % Sodium (135-145) mmol/L Potassium (3.3-5.1) mmol/L Chloride (96-108) mmol/L Carbon Dioxide (22-29) mmol/L Anion Gap (12-20) BUN (9-16) mg/dL Creatinine (0.5-1.4) mg/dL Estim Creat Clear Calc Estimated GFR Random Glucose (60-115) mg/dL Calcium (8.4-10.2) mg/dL Total Bilirubin (0.0-1.0) mg/dL Direct Bilirubin (0.0-0.5) mg/dL AST (5-31) U/L ALT (0-31) U/L Alkaline Phosphatase (39-117) U/L Troponin I High Sens (<3.5-17.0) ng/L Total Protein (6.5-8.0) g/dL Albumin (3.5-5.0) g/dL Influenza Type A (PCR) (Negative) Influenza Type B (PCR) (Negative) RSV RNA Qual (PCR) (Negative) SARS-CoV-2 RNA (RT-PCR) (Negative) S. pyogenes GrpA SARABJIT (Negative) Independent Interpretation I performed an independent interpretation of an: EKG Interpretation: EKG normal sinus rhythm with sinus arrhythmia without right bundle-branch block. Ventricular rate 71 beats per minute, AL interval 140, QTC 430. No ST elevation or depression noted. Similar appearing EKG from previous in 2009. I reviewed the chest x-ray, no consolidation appreciated. Radiology Impression Discussion of test interpretation with radiology: I have reviewed the radiologist's reading. Radiologist Impression: EXAMINATION: XR CHEST 2 VIEW CLINICAL INFORMATION: Chest tightness COMPARISON: None TECHNIQUE: PA and lateral views of the chest obtained. FINDINGS: The lungs are clear. There are no pleural effusions. The cardiomediastinal silhouette is normal. XR/XR chest 2V IMPRESSION: No acute cardiopulmonary disease. Dictated By: Donovan Bergman MD Discharge Plan Discharge Clinical Impression: Exposure to chemical inhalation Reactive airway disease Qualifiers: Asthma severity: unspecified severity Patient Disposition: Home, Self-Care Additional Instructions: You likely have irritated your trachea and the lining of your lungs due to the chemical exposure. Your labs were reassuring today. Your carbon monoxide level was within normal limits. You tested negative for COVID, RSV, flu, and strep throat. Your chest x-ray was normal. Your EKG shows a right bundle branch block which you had on your EKG previously. Please follow-up with your primary care physician regarding this visit. Please stay well hydrated and get plenty of rest. Keep your windows open as often as possible. Please return with any new or worsening symptoms including but not limited to chest pain, shortness of breath, difficulty swallowing or breathing. Prescriptions: No Action estradiol [Vagifem] 10 mcg tablet 10 mcg vaginal DAILY 28 Days Qty: 20 0RF Rx Instructions: start insertion at bedtime for 2 weeks, then use twice week meloxicam 15 mg tablet 15 mg PO DAILY Qty: 14 0RF cyclobenzaprine 10 mg tablet 10 mg PO BEDTIME Qty: 14 0RF levothyroxine 88 mcg tablet 88 mcg PO DAILY Interventions: ED Discharge Assessment Last Done: 11/01/22 11:56 Discharge Date/Time: 11/01/22 11:58
[2022-11-01 10:17] LABS: MANUAL DIFF FLAG NO
[2022-11-01 10:22] LABS: Carbon Monoxide Refer to POC result
[2022-11-01 10:22] LABS: Carbon Monoxide POC 2.2 %
[2022-11-01 10:24] LABS: Basophils Absolute Auto 0.1 X10*3/uL (0.0-0.2); Basophils Percent Auto 0.8 % (0-2); Eosinophils Absolute Auto 0.1 X10*3/uL (0.0-0.4); Eosinophils Percent Auto 1.5 % (0-4); Hematocrit 43.1 % (37.0-47.0); Hemoglobin 14.1 g/dl (12.0-16.0); Imm Gran Abs Auto 0.06 X10*3/uL (0.00-0.03); Imm Gran Pct Auto 0.6 % (0.0-0.4); Lymphocytes Absolute Auto 1.3 X10*3/uL (1.2-4.9); Mean Corpuscular HGB Conc 32.7 g/dl (31.0-35.0); Mean Corpuscular Hemoglobin 29.7 pg (27.0-33.0); Mean Corpuscular Volume 90.7 fL (80.0-98.0); Mean Platelet Volume 10.4 fL (9.4-12.3); Monocytes Absolute Auto 0.4 X10*3/uL (0.1-1.2); Monocytes Percent Auto 4.4 % (2-11); Neutrophils Absolute Auto 7.4 x10*3/uL (2.0-8.3); Neutrophils Percent Auto 78.7 % (45-73); Platelet Count 234 X10*3/uL (160-400); Red Blood Count 4.75 X10*6/uL (4.20-5.50); Red Cell Distribution Width 13.3 % (11.0-16.0); White Blood Count 9.4 X10*3/uL (4.8-10.8)
[2022-11-01 10:32] LABS: IDNOW Serial# 08D9AD1C; Strep A Nucleic Acid Negative (Negative)
[2022-11-01 11:11] LABS: Alanine Aminotransferase 10 U/L (0-31); Albumin Level 4.4 g/dL (3.5-5.0); Alkaline Phosphatase 78 U/L (39-117); Anion Gap 10 (12-20); Aspartate Amino Transferase 15 U/L (5-31); Bilirubin Direct 0.2 mg/dL (0.0-0.5); Bilirubin Total 0.4 mg/dL (0.0-1.0); Blood Urea Nitrogen 11 mg/dL (9-16); Calcium 9.9 mg/dL (8.4-10.2); Carbon Dioxide 26 mmol/L (22-29); Chloride 107 mmol/L (96-108); Creatinine Clr Calc Pharmacy 50.9; Estimated Glomerular Filt Rate > 60; Glucose Random 91 mg/dL (60-115); Potassium 4.2 mmol/L (3.3-5.1); Sodium 139 mmol/L (135-145); Total Protein 7.1 g/dL (6.5-8.0)
[2022-11-01 11:12] LABS: Troponin-I High Sensitivity < 2.7 ng/L (<3.5-17.0)
[2022-11-01 11:13] LABS: Influenza A PCR NEGATIVE (Negative); Influenza B PCR NEGATIVE (Negative); Resp Syncy Virus RNA Qual PCR NEGATIVE (Negative); SARS COV2 PCR INHOUSE NEGATIVE (Negative)
== END 2022-11-01 11:58 | disposition home or self-care (01) ==
PROVIDERS: Physician Assistant Medical; Emergency Provider Emergency Medicine
DX: R07.89 Other chest pain (principal); R06.02 Shortness of breath; Z57.5 Occupational exposure to toxic agents in other industries; Z20.822 Contact with and (suspected) exposure to COVID-19; Z20.828 Contact with and (suspected) exposure to other viral communicable diseases; Z79.899 Other long term (current) drug therapy
CPT/HCPCS: 0241U; 36415; 71046; 80048; 80076; 82375; 84484; 85025; 87651; 93005; 99283

== ENCOUNTER 2022-11-05 06:28 | Day surgery (SDC) | payer OTHER, SELFPAY ==
[2022-11-03 07:14] VITALS: BMI 19.2
--- NOTE | 2022-11-04 08:49 | P.CONAN_ITS ---
Documented by User: Ada Piedra NP 11/04/22 08:53 HPI - Anesthesia Eval Consult details Narrative: 62yo F for D&C Hysteroscopy,poss myomectomy,poss polpectomy [facility] [place] ED 11/01/22 for chest burning r/t chemical exposure. All work up negative and symptoms improved per pt. PMFSH Active Problems Active Problems: All Active Problems (Updated 11/02/22 @ 00:00 by Background Daemon) Postmenopausal bleeding (Acute) Vaginal bleeding (Acute) ASCUS of cervix with negative high risk HPV (Acute) Chronic lower back pain (Acute) EVELINE II (cervical intraepithelial neoplasia II) (Acute) Past Medical History Medical History History of colon polyps Osteoporosis EVELINE II (cervical intraepithelial neoplasia II) Thyroid cancer Hypothyroid Family History Family History Father Malignant melanoma Mother Dementia Surgical History Surgical History History of facial surgery History of loop electrical excision procedure (LEEP) History of thyroidectomy History of bunionectomy Social History Household Members: None Housing: House Alcohol intake: never Patient Tobacco Use Status: Never used Tobacco service: No Current occupational status: employed 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[employer] Sexual orientation: Straight/Heterosexual Gender identity: Female Meds Allergies Allergy/AdvReac Type Severity Reaction Status Date / Time Sulfa (Sulfonamide Allergy Severe Rash Verified 11/23/22 09:30 Antibiotics) Sulfamethoxazole Allergy Severe Rash Uncoded 11/17/22 10:53 Home Medications Medication Instructions Recorded Confirmed Last Taken Type levothyroxine 88 mcg tablet 88 mcg PO DAILY 01/01/20 11/17/22 Unknown History Exam Exam Date and Time: November 04, 2022 0849 Height,Weight and Vital Signs: Height 5 ft 2 in Weight 47.627 kg Pertinent Lab Results Pertinent Lab Results: Laboratory Tests 11/01/22 11/01/22 10:00 10:03 WBC 9.4 Hgb 14.1 Hct 43.1 Plt Count 234 Sodium 139 Potassium 4.2 Chloride 107 Carbon Dioxide 26 BUN 11 Creatinine 0.86 Narrative Narrative: EKG 10/2022 Vent. Rate : 071 BPM Atrial Rate : 071 BPM P-R Int : 140 ms QRS Dur : 128 ms QT Int : 396 ms P-R-T Axes : 072 074 051 degrees QTc Int : 430 ms Normal sinus rhythm with sinus arrhythmia Right bundle branch block Abnormal ECG When compared with ECG of 14-OCT-2009 15:40, No significant change was found Assessment and Plan Assessment Anesthesia Assessment: Chart Reviewed Documented by User: Waldemar Conway MD 01/06/23 19:32 [facility] Past Medical History Medical History History of colon polyps Osteoporosis EVELINE II (cervical intraepithelial neoplasia II) Thyroid cancer Hypothyroid Functional capacity: independent ambulation Family History Family History Father Malignant melanoma Mother Dementia Family history of problems with anesthesia: No Surgical History Surgical History History of facial surgery History of loop electrical excision procedure (LEEP) History of thyroidectomy History of bunionectomy History of Problems with Anesthesia: No Social History Household Members: None Housing: House Alcohol intake: never Patient Tobacco Use Status: Never used Tobacco service: No Current occupational status: employed 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[employer] [place] Sexual orientation: Straight/Heterosexual Gender identity: Female Meds Allergies Allergy/AdvReac Type Severity Reaction Status Date / Time Sulfa (Sulfonamide Allergy Severe Rash Verified 11/23/22 09:30 Antibiotics) Sulfamethoxazole Allergy Severe Rash Uncoded 11/17/22 10:53 Home Medications Medication Instructions Recorded Confirmed Last Taken Type levothyroxine 88 mcg tablet 88 mcg PO DAILY 01/01/20 11/17/22 Unknown History Exam Airway Mallampati Class: III Loose/Missing/Broken Teeth: Yes Assessment and Plan Assessment Anesthesia Assessment: Anesthesia Plan Discussed Final Anesthetic Review Family History of Problems with Anesthesia: No History of Problems with Anesthesia: No NPO: Yes ASA Class: III Final Preanesthetic Review: Meds/Allgs Chart Reviewed, Consent Obtained/Reviewed and Anes Risks/Benef Reviewed Patient Risk: Intermediate Procedure Risk: Intermediate Anesthetic Plan Anesthetic Plan: GA and Agree w/ Assess. and Plan Disposition: Standard PACU
[2022-11-05] VITALS (7 sets, daily range): BP systolic 135–165; BP diastolic 76–91; PULSE 58–76; RESP 16–17; TEMP 36.1–37.3; O2SAT 98–100; BMI 19.2
[2022-11-05] MEDS: Lactated Ringers 1,000 ML 100 ML IVCONT (07:32)
--- NOTE | 2022-11-05 07:52 | MHC.SHP ---
Pre-Procedural Eval Section A Date of Service: 11/05/22 The patient is an INPATIENT: No Changes since office visit: No Cold of Flu in the past 2 weeks, No New Medical Problems, No Changes in Medication and No Patient answered all questions The History & Physical has been completed within 30 days and I have reviewed it.: Yes Section B Chief Complaint: Postmenopausal bleeding Allergies: Allergies Allergy/AdvReac Type Severity Reaction Status Date / Time Sulfa (Sulfonamide Allergy Severe Rash Verified 11/05/22 07:12 Antibiotics) Sulfamethoxazole Allergy Severe Rash Uncoded 11/05/22 07:12 Plan Diagnosis/Plan: Unchanged I have reviewed the history and physical and performed a pertinent physical examination on my patient. No changes have occurred unless specified. Time Spent With Patient Time: Total time managing care of this patient today ____ minutes.
--- NOTE | 2022-11-05 10:01 | P.BOP_ITS ---
Brief Operative Note Date of Service: 11/05/22 Pre-op diagnosis: Postmenopausal bleed Post-op diagnosis: same (Normal endometrial cavity) Procedure: Hysteroscopy D&C Surgeon: Kenton Mckeon MD Anesthesia: GLMA Was an Crepe Machine Operator used for this Procedure?: No Estimated blood loss (mL): 0 Pathology: other (Endometrial Scrapping) Condition: stable Disposition: PACU
--- NOTE | 2022-11-05 10:02 | W.PM.OPN ---
Operative Note Operative Note Date of Service: 11/05/22 Narrative: Preop Diagnosis: Post Menopausal bleeding Operation: Diagnostic Hysteroscopy, Dilataion & Curettage Post Op Diagnosis: Normal endometrial cavity QBL: Minimal Anesthesia: GLMA Surgeon: Kenton Mckeon MD Dock Operations Supervisor: None Complication: None Pathology: Endometrial Scrapings Procedure: The patient was put in the dorsal lithotomy position, scrubbed, and draped in the usual manner. A sterile speculum was inserted in the patient's vagina. The anterior lip of the cervix was grasped with a single tooth tenaculum. The cervix was dilated up to 5 mm, then the scope was inserted in the patient's uterus. Inspection revealed Normal endometrial cavity. The Myosure Reach device was used; the scope was removed from the endometrial cavity , sharp curettings was carried on with minimal amount of tissues retrieved. At the end of the procedure, all instruments were taken out of the patient uterine and vaginal cavity. The single tooth tenaculum was removed and homeostasis was assured using pressure,. The patient tolerated the procedure well and was transferred to the PACU in a stable condition.
[2022-11-05] MEDS: Acetaminophen 325 MG TABLET 650 MG PO (10:45)
== END 2022-11-05 11:52 | disposition home or self-care (01) ==
PROVIDERS: Visit Provider Obstetrics & Gynecology
PROC: 0UDB8ZZ Extraction of Endometrium, Via Natural or Artificial Opening Endoscopic (ICD-10-PCS; CPT 58558; principal; 2022-11-05 08:30)
DX: N95.0 Postmenopausal bleeding (principal); M81.0 Age-related osteoporosis without current pathological fracture; E03.9 Hypothyroidism, unspecified; Z85.850 Personal history of malignant neoplasm of thyroid; Z86.010 Personal history of colon polyps; Z79.899 Other long term (current) drug therapy; Z88.2 Allergy status to sulfonamides
CPT/HCPCS: 58558; 88305; J1100; J2250; J2405; J3010

== ENCOUNTER → 2022-11-05 06:28 | Outpatient (BNV) | payer OTHER, SELFPAY | PROVIDERS: Visit Provider Obstetrics & Gynecology | DX: N95.0 Postmenopausal bleeding (principal) | CPT/HCPCS: 58558 ==

== ENCOUNTER 2022-11-17 10:40 | Outpatient (AMB) | payer OTHER, SELFPAY ==
--- NOTE | 2022-11-17 10:48 | A.OFFVIS_ITS ---
Intake Vital Signs 11/17/22 10:49 Height 5 ft 2 in Weight 104 lb BMI 19.0 BP 118/62 Blood Pressure Location Rt brachial Position Sitting Pulse 84 Pulse Source Pulse Oximeter Pulse Oximetry (%) 100 Intake Visit Reasons: Chemical Exposure Family Preservation Officer Required: No Clinical Engineer: Clinical Engineer offered & declined Accompanied by: Self / Same As Patient Allergies Sulfa (Sulfonamide Antibiotics) Allergy (Severe, Verified 11/17/22 10:53) Rash Sulfamethoxazole Allergy (Severe, Uncoded 11/17/22 10:53) Rash Medication List - Last Reconciled 11/17/22 by Brittney Alarcon LPN levothyroxine 88 mcg PO DAILY HPI Chemical Exposure HPI Details Bee is a pleasant 62 year old female, never smoker, with underlying hypothyroidism. She was referred by PCP for pulmonary evaluation after chemical exposure. She reports two weeks ago, she had her home foundation sealed on the outside with a product called solar seal. She states upon awakening the morning after it was applied, her entire home smelled of the product and had a burning sensation in the chest, throat and nose as well as intermittent cough. She denied any dyspnea or wheeze.She was evaluated in the ED with mild erythema of the oropharynx and CXR unremarkable. Today she states her symptoms are slowly improving and her upstairs no longer smells of the product but continues with intermittent cough and chest congestion/irritation. She denies any personal or family history of any respiratory conditions. Denies any history of environmental allergies. Denies any history of occupational exposures. [facility] Medical History (Updated 11/17/22 @ 13:14 by Марина Dill NP) History of colon polyps Osteoporosis EVELINE II (cervical intraepithelial neoplasia II) Thyroid cancer Hypothyroid Surgical History (Updated 11/05/22 @ 07:12 by Estelita Diez) History of facial surgery History of loop electrical excision procedure (LEEP) History of thyroidectomy History of bunionectomy Family History Father Malignant melanoma Mother Dementia Social History (Updated 11/17/22 @ 10:54 by Brittney Alarcon LPN) Household Members: None Housing: House Alcohol intake: never Patient Tobacco Use Status: Never used Tobacco service: No Current occupational status: employed 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[employer] [place] Sexual orientation: Straight/Heterosexual Gender identity: Female Review of Systems Const Denies chills, Denies excessive sweating, Denies fever(s), Denies headache(s) and Denies night sweats Eyes Denies dry eyes, Denies irritation and Denies itchy eyes ENT Reports Normal hearing present, Denies headache(s), Denies nasal congestion, Denies nasal discharge, Denies post nasal drip and Denies sore throat Card Denies chest pain, Denies chest pain at rest, Denies chest pain with activity, Denies claudication, Denies leg edema, Denies dyspnea, Denies dyspnea on exertion, Denies orthopnea and Denies paroxysmal nocturnal dyspnea Resp Denies excessive phlegm production, Denies pain on inspiration, Denies pain with cough, Denies dyspnea, Denies dyspnea on exertion, Denies stridor and Denies wheezing Musc Denies myalgias Neuro Reports Normal hearing present and Denies headache(s) Endo Denies excessive sweating John/Lymph Denies lymphadenopathy Aller/Immun Denies itchy eyes, Denies seasonal rhinorrhea and Denies wheezing Physical Exam Vital Signs: Last Vital Signs Pulse 84 11/17/22 10:49 BP 118/62 11/17/22 10:49 Pulse Ox 100 11/17/22 10:49 BMI result Body Mass Index 19.0 Const General: cooperative, healthy appearing, comfortable, no acute distress, well developed and alert Orientation/consciousness: patient oriented x3 Limitations: no limitations HEENT Head: Yes normal to inspection, Yes normocephalic and Yes atraumatic Ears: hearing grossly normal bilaterally and external ears normal Eyes General: appearance normal, both eyes and all related structures Eyelids: Yes eyelids normal Sclerae: sclerae normal EOM: EOMs intact bilaterally Neck Neck: Yes normal visual inspection and Yes no lymphadenopathy Lymphatic: no lymphadenopathy noted Chest Chest palpation & inspection: normal inspection of the chest Resp Effort & Inspection: normal respiratory effort, able to speak in complete sentences, no audible wheezes, no cough, no stridor, not tachypneic, no tripod positioning and no use of accessory muscles Auscultation: clear to auscultation bilaterally Cardio Jugular venous distension: no JVD Rate: regular rate Rhythm: regular rhythm Skin Other: warm, dry General skin exam: no rashes or lesions noted Neuro General: patient oriented x3 Cranial nerves: Yes Normal hearing present Cognition (Neuro): normal cognition Gait exam (Neuro): Normal gait present Extrem General: Yes normal to inspection, Yes capillary refill normal, Yes no clubbing, cyanosis or edema and Yes no pedal edema Psych Appearance: grossly normal and well kempt Speech and movement: Normal speech and movement present and Clear speech present Affect: normal affect Attitude: cooperative Thought process: Normal thought process present Thought content: Normal thought content present Insight: Good insight present (Psych) Judgement: Good judgement present (Psych) Results Reviewed Results Reviewed: [address] [address] XRay Report Signed Patient: Bee Zhou MR#: [id number] : 1960 Acct:[id number] Age/Sex: 62 / F ADM Date: 11/01/22 Loc: .ED Attending Dr: Ordering Physician: Marquita Aranda Date of Service: 11/01/22 Procedure(s): XR chest 2V Accession Number(s): [id number] cc: Marquita Aranda; Physician,None ~ EXAMINATION: XR CHEST 2 VIEW CLINICAL INFORMATION: Chest tightness COMPARISON: None TECHNIQUE: PA and lateral views of the chest obtained. FINDINGS: The lungs are clear. There are no pleural effusions. The cardiomediastinal silhouette is normal. XR/XR chest 2V IMPRESSION: No acute cardiopulmonary disease. Assessment & Plan Assessment & Plan (1) Cough: Code(s): R05.9 - Cough, unspecified (2) Exposure to chemical inhalation: Code(s): Z77.098 - Contact with and (suspected) exposure to other hazardous, chiefly nonmedicinal, chemicals Plan Bee presents with new onset burning sensation throughout upper airways after exposure to a product called solar seal. Two weeks post exposure she continues with intermittent symptoms, including cough. Likely resolving inflammatory process, will send in prednisone and send for PFT as well as Chest CT to thor oughly evaluate. All questions were answered and patient is in agreement of plan. Will follow up in 6 weeks to review results. Orders: Orders PFT pulmonary function test Today R05.9 - Cough, unspecified CT chest wo IV con Today R05.9 - Cough, unspecified Medications: New prednisone 40 mg (2 x 20 mg) PO DAILY 10 tabs 0RF Coding Level of Care Code New Pt Level 4 (37971) Diagnoses Cough R05.9 Exposure to chemical inhalation Z77.098
[2022-11-17 10:49] VITALS: BP 118/62; PULSE 84; O2SAT 100; BMI 19.0
== END 2022-11-17 11:23 | disposition home or self-care (01) ==
LOC: HO.HPSW 10:40
PROVIDERS: PCP Internal Medicine; Referring Provider Internal Medicine; Visit Provider Nurse Practitioner Family
DX: R05.9 Cough, unspecified (principal); Z77.098 Contact with and (suspected) exposure to other hazardous, chiefly nonmedicinal, chemicals
CPT/HCPCS: 99204

== ENCOUNTER 2022-11-23 09:25 | Outpatient (AMB) | payer OTHER, SELFPAY ==
[2022-11-23 09:30] VITALS: BP 122/72; BMI 19.0
--- NOTE | 2022-11-23 09:30 | MHC.OFFVIS ---
Intake Vital Signs 11/23/22 09:30 Height 5 ft 2 in Weight 104 lb BMI 19.0 BP 122/72 Intake Visit Reasons: post op Allergies Sulfa (Sulfonamide Antibiotics) Allergy (Severe, Verified 11/23/22 09:30) Rash Sulfamethoxazole Allergy (Severe, Uncoded 11/17/22 10:53) Rash HPI HPI Comments History of Present Illness Details The patient is presenting post hysteroscopy D&C no complaints minimal vaginal bleeding no feverishness chills or abdominal pain. The pathology showed the following: Endometrium, curettage: Superficial fragments of benign endometrium and blood; no atypia or hyperplasia identified [facility] Medical History History of colon polyps Osteoporosis EVELINE II (cervical intraepithelial neoplasia II) Thyroid cancer Hypothyroid Surgical History History of facial surgery History of loop electrical excision procedure (LEEP) History of thyroidectomy History of bunionectomy Family History Father Malignant melanoma Mother Dementia Social History Household Members: None Housing: House Alcohol intake: never Patient Tobacco Use Status: Never used Tobacco service: No Current occupational status: employed 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[employer] – [place] Sexual orientation: Straight/Heterosexual Gender identity: Female Review of Systems Const All systems reviewed & are unremarkable except as noted in HPI and below Reports as per HPI and Reports no additional complaints GI Reports no additional complaints Reports no additional complaints Physical Exam Vital Signs: Last Vital Signs BP 122/72 11/23/22 09:30 BMI result Body Mass Index 19.0 Assessment & Plan Assessment & Plan (1) Postmenopausal bleeding: Code(s): N95.0 - Postmenopausal bleeding Plan: Discussed with the patient the results of the pathology of D&C showing benign endometrium with no evidence of endometrial hyperplasia or malignant. Discussed with the patient the sensitivity, specificity, positive and negative predictive value, of endometrial biopsy in detecting endometrial pathology including but not limited to endometrial hyperplasia, cancer and other pathology; instructed the patient to call in case is vaginal bleeding bleeding recurs, the next step will be to proceed with further endometrial sampling evaluation to rule out endometrial pathology. All questions answered and the patient verbalized understanding and agreed with the plan. Coding Level of Care Code Est Pt Level 3 (72167) Diagnoses Postmenopausal bleeding N95.0
== END 2022-11-23 10:00 | disposition home or self-care (01) ==
PROVIDERS: Visit Provider Obstetrics & Gynecology
DX: N95.0 Postmenopausal bleeding (principal)
CPT/HCPCS: 99213

== ENCOUNTER → 2022-11-23 09:25 | Outpatient (BNVA) | payer OTHER, SELFPAY | PROVIDERS: Visit Provider Obstetrics & Gynecology ==

== ENCOUNTER 2022-12-22 07:22 | Outpatient (REF) | payer OTHER, SELFPAY ==
--- NOTE | ~2022-12-22 | CT_ITS ---
EXAMINATION: CT CHEST WITHOUT CONTRAST CLINICAL INFORMATION: Cough. COMPARISON: CTA chest 10/14/2009. TECHNIQUE: Multidetector volumetric CT imaging of the chest was done. Axial MIP volume rendering provided. Sagittal and coronal reformatted images were obtained. This CT examination was performed using dose optimization techniques as appropriate, variously including the following: *Automated exposure control *Adjustment of mA and/or kV according to patient size (this includes techniques or standardized protocols for targeted exams where dose is matched to indication/reason for exam; i.e. extremities or head) *Use of iterative reconstruction technique DLP: 86 mGy-cm FINDINGS: LUNGS: Mild airway wall thickening. Small airway nonocclusive filling defects in the right lower lobe. No consolidation. Subpleural micronodules in the right upper lobe are likely parenchymal lymph nodes. No follow-up imaging is recommended as per Fleischner Society guidelines.. MEDIASTINUM: No adenopathy. No pericardial effusion. Ascending aorta measures 3.1 cm. CORONARY ARTERY CALCIFICATION: None visualized on this study. PLEURA: There is no pleural effusion. No pleural mass or thickening. AXILLA: No adenopathy. UPPER ABDOMEN: No adrenal nodule. Small simple cyst in the upper pole of the left kidney. No follow-up imaging is recommended. OSSEOUS STRUCTURES: No suspicious osseous lesions. CT/CT chest wo IV con IMPRESSION: Mild diffuse airway wall thickening nonobstructive filling defects in subsegmental airways of the right lower lobe consistent with bronchitis. No focal pneumonia. Fleischner guidelines were followed.
== END 2022-12-22 07:23 | disposition home or self-care (01) ==
LOC: HO.CT 07:22
PROVIDERS: Visit Provider Nurse Practitioner Family
DX: R05.9 Cough, unspecified (principal)
CPT/HCPCS: 71250

== ENCOUNTER 2023-01-18 09:02 | Outpatient (REF) | payer OTHER, SELFPAY ==
--- NOTE | 2023-01-18 12:57 | PFT_ITS ---
Indication: Cough Spirometry [FEV1 to FVC 75%; FEV1 2.18 L which is 99% predicted; FVC 2.89 L which is 102% predicted. No significant response to bronchodilators noted. Maximum voluntary ventilation 116% predicted.] Lung Volumes [Total lung capacity 99% predicted] Diffusion Capacity [DLCO 103% predicted] Comparisons [None] Interpretation [No obstructive nor restrictive ventilatory defects identified. No significant response to bronchodilators noted. Normal maximum voluntary ventilation. Lung volumes and diffusing capacity also within normal limits. No clear explanation for the patient's symptoms at this time. If asthma is in the differential methacholine challenge may be helpful in assessing for hyperreactive airways. Otherwise clinical correlation warranted.] MTDD
== END 2023-01-18 09:03 | disposition home or self-care (01) ==
LOC: HO.RESP 09:02
PROVIDERS: Visit Provider Nurse Practitioner Family
DX: R05.9 Cough, unspecified (principal)
CPT/HCPCS: 94010; 94727; 94729

== ENCOUNTER 2023-01-19 13:09 | Outpatient (AMB) | payer OTHER, SELFPAY ==
[2023-01-19 13:10] VITALS: BP 114/64; PULSE 65; O2SAT 100; BMI 19.0
--- NOTE | 2023-01-19 13:10 | A.OFFVIS_ITS ---
Intake Vital Signs 3 01/19/23 13:10 Height 5 ft 2 in Weight 104 lb BMI 19.0 BP 114/64 Blood Pressure Location Rt brachial Position Sitting Pulse 65 Pulse Source Pulse Oximeter Pulse Oximetry (%) 100 Oxygen Delivery Method Room Air Intake Visit Reasons: Cough Toggler Required: No Car Shakeout Operator: Car Shakeout Operator offered & declined Accompanied by: Self / Same As Patient Allergies Sulfa (Sulfonamide Antibiotics) Allergy (Severe, Verified 01/19/23 13:16) Rash Sulfamethoxazole Allergy (Severe, Uncoded 01/19/23 13:16) Rash Medication List - Last Reconciled 01/19/23 by Brittney Alarcon LPN levothyroxine 88 mcg PO DAILY HPI Cough 2 HPI0 Details Bee is a pleasant 62 year old female, never smoker, with underlying hypothyroidism. She was referred by PCP for pulmonary evaluation after chemical exposure. Patient had her home foundation sealed on the outside with a product called solar seal and upon awakening the morning after it was applied, her entire home smelled of the product and had a burning sensation in the chest, throat and nose as well as intermittent cough. She denied any dyspnea or wheeze. She was evaluated in the ED with mild erythema of the oropharynx and CXR unremarkable. At the last visit, she was prescribed prednisone and notes symptoms are very mild and intermittent. Today she presents to review PFT and chest CT results. 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[employer] [place] Sexual orientation: Straight/Heterosexual Gender identity: Female Review of Systems Const Denies chills, Denies excessive sweating, Denies fever(s), Denies headache(s) and Denies night sweats Eyes Denies dry eyes, Denies irritation and Denies itchy eyes ENT Reports Normal hearing present, Denies headache(s), Denies nasal congestion, Denies nasal discharge, Denies post nasal drip and Denies sore throat Card Denies chest pain, Denies chest pain at rest, Denies chest pain with activity, Denies claudication, Denies leg edema, Denies dyspnea, Denies dyspnea on exertion, Denies orthopnea and Denies paroxysmal nocturnal dyspnea Resp Denies excessive phlegm production, Denies pain on inspiration, Denies pain with cough, Denies dyspnea, Denies dyspnea on exertion, Denies stridor and Denies wheezing Musc Denies myalgias Neuro Reports Normal hearing present and Denies headache(s) Endo Denies excessive sweating John/Lymph Denies lymphadenopathy Aller/Immun Denies itchy eyes, Denies seasonal rhinorrhea and Denies wheezing Physical Exam Vital Signs: Last Vital Signs Pulse 65 01/19/23 13:10 BP 114/64 01/19/23 13:10 Pulse Ox 100 01/19/23 13:10 Oxygen Delivery Method Room Air 01/19/23 13:10 BMI result Body Mass Index 19.0 Const General: cooperative, healthy appearing, comfortable, no acute distress, well developed and alert Orientation/consciousness: patient oriented x3 Limitations: no limitations HEENT Head: Yes normal to inspection, Yes normocephalic and Yes atraumatic Ears: hearing grossly normal bilaterally and external ears normal Eyes General: appearance normal, both eyes and all related structures Eyelids: Yes eyelids normal Sclerae: sclerae normal EOM: EOMs intact bilaterally Neck Neck: Yes normal visual inspection and Yes no lymphadenopathy Lymphatic: no lymphadenopathy noted Chest Chest palpation & inspection: normal inspection of the chest Resp Effort & Inspection: normal respiratory effort, able to speak in complete sentences, no audible wheezes, no cough, no stridor, not tachypneic, no tripod positioning and no use of accessory muscles Auscultation: clear to auscultation bilaterally Cardio Jugular venous distension: no JVD Rate: regular rate Rhythm: regular rhythm Skin Other: warm, dry General skin exam: no rashes or lesions noted Neuro General: patient oriented x3 Cranial nerves: Yes Normal hearing present Cognition (Neuro): normal cognition Gait exam (Neuro): Normal gait present Extrem General: Yes normal to inspection, Yes capillary refill normal, Yes no clubbing, cyanosis or edema and Yes no pedal edema Psych Appearance: grossly normal and well kempt Speech and movement: Normal speech and movement present and Clear speech present Affect: normal affect Attitude: cooperative Thought process: Normal thought process present Thought content: Normal thought content present Insight: Good insight present (Psych) Judgement: Good judgement present (Psych) Results Reviewed Results Reviewed: [address] [address] [address] Scan Report Signed Patient: Bee Zhou MR#: [id number] : 1960 Acct:[id number] Age/Sex: 62 / F ADM Date: 12/22/22 Loc: .CT Attending Dr: Марина Dill NP Ordering Physician: Марина Dill NP Date of Service: 12/22/22 Procedure(s): CT chest wo IV con Accession Number(s): [id number] cc: Physician,None ; Марина Dill NP~ EXAMINATION: CT CHEST WITHOUT CONTRAST CLINICAL INFORMATION: Cough. COMPARISON: CTA chest 10/14/2009. TECHNIQUE: Multidetector volumetric CT imaging of the chest was done. Axial MIP volume rendering provided. Sagittal and coronal reformatted images were obtained. This CT examination was performed using dose optimization techniques as appropriate, variously including the following: *Automated exposure control *Adjustment of mA and/or kV according to patient size (this includes techniques or standardized protocols for targeted exams where dose is matched to indication/reason for exam; i.e. extremities or head) *Use of iterative reconstruction technique DLP: 86 mGy-cm FINDINGS: LUNGS: Mild airway wall thickening. Small airway nonocclusive filling defects in the right lower lobe. No consolidation. Subpleural micronodules in the right upper lobe are likely parenchymal lymph nodes. No follow-up imaging is recommended as per Fleischner Society guidelines.. MEDIASTINUM: No adenopathy. No pericardial effusion. Ascending aorta measures 3.1 cm. CORONARY ARTERY CALCIFICATION: None visualized on this study. PLEURA: There is no pleural effusion. No pleural mass or thickening. AXILLA: No adenopathy. UPPER ABDOMEN: No adrenal nodule. Small simple cyst in the upper pole of the left kidney. No follow-up imaging is recommended. OSSEOUS STRUCTURES: No suspicious osseous lesions. CT/CT chest wo IV con IMPRESSION: Mild diffuse airway wall thickening nonobstructive filling defects in subsegmental airways of the right lower lobe consistent with bronchitis. No focal pneumonia. Fleischner guidelines were followed. Assessment & Plan Assessment & Plan (1) Cough: Code(s): R05.9 - Cough, unspecified (2) Exposure to chemical inhalation: Code(s): Z77.098 - Contact with and (suspected) exposure to other hazardous, chiefly nonmedicinal, chemicals (3) Multiple pulmonary nodules: Code(s): R91.8 - Other nonspecific abnormal finding of lung field Plan Reviewed PFT which revealed no obstructive or restrictive ventilatory defect. There was no significant response to bronchodilators. Lung volumes and diffusing capacity also within normal limits. She notes her cough has almost completely resolved. Reviewed chest CT which revealed mild diffuse airway wall thickening consistent with bronchitis and multiple small pulmonary nodules. Will send for repeat chest CT in one year to assess stability of nodules, unless new symptoms warrant repeat imaging sooner. All questions were answered and patient is in agreement of plan. Will follow up after repeat chest CT or sooner if needed. Orders: Orders 2 CT chest wo IV con 11 Months R91.8 - Other nonspecific abnormal finding of lung field Coding Level of Care Code Est Pt Level 4 (63365) Diagnoses Cough R05.9 Exposure to chemical inhalation Z77.098 Multiple pulmonary nodules R91.8
== END 2023-01-19 13:42 | disposition home or self-care (01) ==
PROVIDERS: Visit Provider Nurse Practitioner Family
DX: R05.9 Cough, unspecified (principal); Z77.098 Contact with and (suspected) exposure to other hazardous, chiefly nonmedicinal, chemicals; R91.8 Other nonspecific abnormal finding of lung field
CPT/HCPCS: 99214

== ENCOUNTER → 2023-01-19 13:09 | Outpatient (BNVA) | payer OTHER, SELFPAY | PROVIDERS: Visit Provider Nurse Practitioner Family ==

== ENCOUNTER 2023-03-08 13:47 | Outpatient (REF) | payer OTHER, SELFPAY ==
[2023-03-19 03:44] LABS: HPV mRNA E6/E7 rflx Not Detected (Not Detected)
== END 2023-03-08 13:48 | disposition home or self-care (01) ==
LOC: HO.LNP 13:47
PROVIDERS: Visit Provider Advanced Practice Midwife
DX: Z01.419 Encounter for gynecological examination (general) (routine) without abnormal findings (principal); Z11.51 Encounter for screening for human papillomavirus (HPV); N87.1 Moderate cervical dysplasia
CPT/HCPCS: 87491; 87591; 87624; 87661; 88142

== ENCOUNTER 2023-03-08 13:47 | Outpatient (AMB) | payer OTHER, SELFPAY ==
--- NOTE | 2023-03-08 13:50 | MHC.OFFVIS ---
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 She is doing well with no concerns. Attempting to eat a healthy diet with calcium and vitamin D and stays active with exercise. She is not sexually active. Denies any vaginal dryness or irritation. Last pap smear; colpo 2022. Last mammogram; 2022. Denies any family history of breast, ovarian or colon cancer. [facility] Medical History History of colon polyps Osteoporosis EVELINE II (cervical intraepithelial neoplasia II) Thyroid cancer Hypothyroid Surgical History Hx of dilation and curettage H/O colonoscopy History of facial surgery History of loop electrical excision procedure (LEEP) History of thyroidectomy History of bunionectomy Family History Father Malignant melanoma Mother Dementia Family/Other Uterine cancer Social History Household Members: None Housing: House Alcohol intake: never Patient Tobacco Use Status: Never used Tobacco service: No Current occupational status: employed 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 [employer] Sexual orientation: Straight/Heterosexual Gender identity: Female Female Reproductive History Menstrual Menopause type: natural Total pregnancies: 0 Date of last pap smear: 07/01/22 (ascus neg hpv) History of abnormal pap smear: Yes (see intake note) Date of Mammogram: 05/28/22 (Birad 1) Review of Systems Const All systems reviewed & are unremarkable except as noted in HPI and below Reports as per HPI Eyes Reports no additional complaints ENT Reports no additional complaints Card Reports no additional complaints Resp Reports no additional complaints GI Reports as per HPI and Reports no additional complaints Reports as per HPI Musc Reports no additional complaints Skin/Breast Reports as per HPI Neuro Reports no additional complaints Psych Reports no additional complaints Endo Reports no additional complaints John/Lymph Reports no additional complaints Aller/Immun Reports no additional complaints Physical Exam Vital Signs: Last Vital Signs BP 112/60 03/08/23 13:53 BMI result Body Mass Index 19.6 Const General: cooperative, healthy appearing, no acute distress, well developed and alert Orientation/consciousness: patient oriented x3 HEENT Head: Yes normal to inspection Eyes General: appearance normal, both eyes and all related structures Neck Neck: Yes normal visual inspection Thyroid: Thyroid normal Chest Chest palpation & inspection: normal inspection of the chest and other (no puckering, dimpling, peau de orange, retraction, discharge, masses) Breast/axilla inspection: normal inspection of the breasts Breast/axilla palpation: normal palpation of the breasts Resp Effort & Inspection: normal respiratory effort GI Inspection: Yes normal to inspection Palpation (GI): Soft to palpation Rectal Exam - Female: deferred Other: Vaginal atrophy loss of depth appears to have a fusion at the base of the vagina, cervix not visualized, blood with Pap General: Yes bladder normal to palpation External Female Exam: normal external appearance and normal appearance of the urethra Speculum Exam - Vagina: normal appearance of the vagina, normal palpation, normal vaginal discharge, vagina atrophic (Very short vaginal canal with significant atrophic changes ) and other (Small vaginal canal appears fused at the base not to visualize the cervix) Speculum Exam - Cervix: normal appearance of the cervix and normal palpation Bimanual exam- vagina & uterus: normal bimanual exam, normal palpation, uterine size normal, bladder normal to palpation, normal palpation and non-tender Bimanual Exam- Adnexa, other: no masses Skin General skin exam: no rashes or lesions noted Rashes: no rashes Neuro General: patient oriented x3 Cognition (Neuro): normal cognition Extrem General: Yes normal to inspection Psych Attitude: cooperative Thought process: Normal thought process present Assessment & Plan Assessment & Plan (1) Encounter for well woman exam with routine gynecological exam: Code(s): Z01.419 - Encounter for gynecological examination (general) (routine) without abnormal findings (2) Status post LEEP (loop electrosurgical excision procedure) of cervix: Code(s): Z98.890 - Other specified postprocedural states (3) History of abnormal cervical Pap smear: Code(s): Z87.42 - Personal history of other diseases of the female genital tract (4) Vaginal atrophy: Code(s): N95.2 - Postmenopausal atrophic vaginitis Plan Discussed: Current recommendations for pap smears per ASCCP guidelines. Breast awareness, periodic self breast exams and yearly mammogram. Maintain a healthy lifestyle, well balanced diet including Calcium 1,200 mg and Vitamin D 600 IU daily, and routine exercise. Contact the office with any postmenopausal bleeding. All of her questions and concerns were addressed to the best of my ability. RTO in 1 year for annual violin restorer exam. This note is constructed using voice recognition software. While every effort has been made to ensure accuracy, telecommunications facility examiner errors may have been included. Orders: Orders Pap Smear Today N87.1 - Moderate cervical dysplasia, Z01.419 - Encounter for gynecological examination (general) (routine) without abnormal findings MM tomosynthesis screening BI Today Z12.31 - Encounter for screening mammogram for malignant neoplasm of breast Coding Level of Care Code Est Pt Prev Care 40-64y(35952) Diagnoses Encounter for well woman exam with routine gynecological exam Z01.419 Status post LEEP (loop electrosurgical excision procedure) of cervix Z98.890 History of abnormal cervical Pap smear Z87.42 Vaginal atrophy N95.2
[2023-03-08 13:53] VITALS: BP 112/60; BMI 19.6
== END 2023-03-08 14:54 | disposition home or self-care (01) ==
LOC: HO.HWS 13:47
PROVIDERS: Visit Provider Advanced Practice Midwife
DX: Z01.419 Encounter for gynecological examination (general) (routine) without abnormal findings (principal); Z98.890 Other specified postprocedural states; Z87.42 Personal history of other diseases of the female genital tract; N95.2 Postmenopausal atrophic vaginitis
CPT/HCPCS: 99396

== ENCOUNTER 2023-06-17 14:56 | Outpatient (REF) | payer OTHER, SELFPAY ==
--- NOTE | ~2023-06-17 | MM_ITS ---
EXAMINATION: MM SCREENING DIGITAL BREAST TOMOSYNTHESIS, BILATERAL CLINICAL INFORMATION: Screening. Asymptomatic. COMPARISON: Mammography: This study is compared with prior exams dating back to 2018. TECHNIQUE: Digital breast tomosynthesis is performed in both the craniocaudal and mediolateral oblique views along with computer-aided detection (CAD). Synthesized 2D images are generated from the tomosynthesis. FINDINGS: The breasts are extremely dense, which lowers the sensitivity of mammography (ACR BI-RADS breast composition Category d). There are no significant masses, abnormal calcifications, or other abnormalities. MM/MM tomosynthesis screening BI IMPRESSION: No mammographic evidence of malignancy. ASSESSMENT: BI-RADS BI-RADS 1 - Negative RECOMMENDATION: Routine annual mammography screening. 1 year F/U This examination should not preclude the clinical evaluation of a suspicious palpable abnormality. This patient's information was entered into a reminder system with a target due date for their next mammogram.
== END 2023-06-17 14:57 | disposition home or self-care (01) ==
LOC: HO.MAMMO 14:56
PROVIDERS: Visit Provider Advanced Practice Midwife
DX: Z12.31 Encounter for screening mammogram for malignant neoplasm of breast (principal)
CPT/HCPCS: 77063; 77067

== ENCOUNTER → 2023-06-17 15:15 | Outpatient (BNV) | payer OTHER, SELFPAY | PROVIDERS: Visit Provider Radiology Diagnostic Radiology | DX: Z12.31 Encounter for screening mammogram for malignant neoplasm of breast (principal) | CPT/HCPCS: 77063; 77067 ==

== ENCOUNTER → 2023-06-28 14:17 | Outpatient (BNVA) | payer OTHER, SELFPAY | PROVIDERS: Visit Provider Obstetrics & Gynecology ==

== ENCOUNTER 2023-07-04 15:06 | Outpatient (AMB) | payer OTHER, SELFPAY ==
--- NOTE | 2023-07-04 15:46 | MHC.OFFVIS ---
Vital Signs 07/04/23 15:47 Height 5 ft 2 in Weight 105 lb 13.15 oz BMI 19.4 BP 130/88 Intake Visit Reasons: repeat pap per Francheska Allergies Sulfa (Sulfonamide Antibiotics) Allergy (Severe, Verified 06/28/23 14:17) Rash HPI Comments Details: Presenting for repeat Pap smear. Pap smear done in 03/09 was unsatisfactory , obscured by blood HPV negative [facility] Medical History History of colon polyps Osteoporosis EVELINE II (cervical intraepithelial neoplasia II) Thyroid cancer Hypothyroid Surgical History Hx of dilation and curettage H/O colonoscopy History of facial surgery History of loop electrical excision procedure (LEEP) History of thyroidectomy History of bunionectomy Family History Father Malignant melanoma Mother Dementia Family/Other Uterine cancer Social History Household Members: None Housing: House Alcohol intake: never Patient Tobacco Use Status: Never used Tobacco service: No Current occupational status: employed 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 Sexual orientation: Straight/Heterosexual Gender identity: Female Review of Systems Const All systems reviewed & are unremarkable except as noted in HPI and below Physical Exam Vital Signs: Last Vital Signs BP 130/88 07/04/23 15:47 BMI result Body Mass Index 19.4 General: Yes no CVA tenderness External Female Exam: normal external appearance and normal appearance of the urethra Speculum Exam - Vagina: normal palpation, no lesions, no masses and other (Vaginal atrophy with mid vaginal narrowing) Speculum Exam - Cervix: normal appearance of the cervix, normal palpation, no lesions, no masses and nontender Bimanual exam- vagina & uterus: normal bimanual exam, normal palpation, uterine size normal, normal palpation, uterine shape normal, No Cervical tenderness present and non-tender Bimanual Exam- Adnexa, other: normal adnexae Back/Spine/Pelvis Back: no CVA tenderness Assessment & Plan Assessment & Plan (1) Unsatisfactory cervical cytology smear: Comment: blood, HPV neg Code(s): R87.615 - Unsatisfactory cytologic smear of cervix Category: Medical Plan: Pap smear repeated. Will check the results and treat accordingly Discussed with the patient the finding on pelvic exam mid vaginal narrowing, recommended serial vaginal dilatation using vaginal dilators with estradiol vaginal cream. All questions answered, the patient verbalized understanding Orders: Orders Pap Smear Today R87.615 - Unsatisfactory cytologic smear of cervix Coding Level of Care Code Est Pt Level 3 (98438) Diagnoses Unsatisfactory cervical cytology smear R87.615
[2023-07-04 15:47] VITALS: BP 130/88; BMI 19.4
== END 2023-07-05 08:05 | disposition home or self-care (01) ==
LOC: HO.HWS 15:06
PROVIDERS: Visit Provider Obstetrics & Gynecology
DX: R87.615 Unsatisfactory cytologic smear of cervix (principal)
CPT/HCPCS: 99213

== ENCOUNTER 2023-07-04 15:06 | Outpatient (REF) | payer OTHER, SELFPAY | END 2023-07-04 15:07 | disposition home or self-care (01) | LOC: HO.LNP 15:06 | PROVIDERS: Visit Provider Obstetrics & Gynecology | DX: R87.615 Unsatisfactory cytologic smear of cervix (principal) | CPT/HCPCS: 88142 ==

== ENCOUNTER 2023-08-31 10:06 | Outpatient (REF) | payer OTHER, SELFPAY ==
[2023-08-31 12:16] LABS: Free T4 (Free Thyroxine) 1.24 ng/dL (0.71-1.85)
[2023-09-04 03:53] LABS: Thyroglobulin Antibody <1 IU/mL (<=1); Thyroglobulin Level <0.1 ng/mL
== END 2023-08-31 10:07 | disposition home or self-care (01) ==
LOC: HO.10HDL 10:06
PROVIDERS: Visit Provider Internal Medicine Endocrinology, Diabetes & Metabolism
DX: E89.0 Postprocedural hypothyroidism (principal); C73 Malignant neoplasm of thyroid gland
CPT/HCPCS: 36415; 84432; 84439; 84443; 86800

== ENCOUNTER 2023-11-09 06:06 | Emergency (ER) | payer OTHER, SELFPAY ==
[2023-11-09] VITALS (9 sets, daily range): BP systolic 123–139; BP diastolic 60–82; PULSE 66–89; RESP 14–21; TEMP 36.6–37.3; O2SAT 96–100; BMI 18.7
--- NOTE | 2023-11-09 | ECG_ITS ---
Test Reason : CHEST PAIN Blood Pressure : / mmHG Vent. Rate : 080 BPM Atrial Rate : 080 BPM P-R Int : 142 ms QRS Dur : 124 ms QT Int : 382 ms P-R-T Axes : 073 074 051 degrees QTc Int : 440 ms Normal sinus rhythm Right bundle branch block Abnormal ECG When compared with ECG of 01-NOV-2022 09:50, No significant change was found Referred By: Generic ED Physician Electronically Signed By:LAN ARRIETA
--- NOTE | ~2023-11-09 | CT_ITS ---
EXAMINATION: CT HEAD WITHOUT CONTRAST CLINICAL INFORMATION: Headache. COMPARISON: None available. TECHNIQUE: Contiguous axial imaging was performed from the skull base to vertex without intravenous administration of contrast. This CT examination was performed using dose optimization techniques as appropriate, variously including the following: *Automated exposure control *Adjustment of mA and/or kV according to patient size (this includes techniques or standardized protocols for targeted exams where dose is matched to indication/reason for exam; i.e. extremities or head) *Use of iterative reconstruction technique DLP: 549 mGy-cm FINDINGS: There is a probable mass measuring 3.4 x 2.7 x 2.4 cm centered in the left parietal lobe with surrounding vasogenic edema and associated mass effect. There is effacement of the temporal horn of the left lateral ventricle. No midline shift. No extra-axial fluid collections are identified. No hydrocephalus. The osseous structures and soft tissues are intact. There is opacification of the right mastoid air cells. Imaged paranasal sinuses are clear. CT/CT head/brain wo IV con IMPRESSION: There is a probable mass measuring 3.4 x 2.7 x 2.4 cm centered in the left parietal lobe with surrounding vasogenic edema and associated mass effect. There is effacement of the temporal horn of the left lateral ventricle. No midline shift. MRI brain without and with contrast recommended for further characterization of this lesion. Findings were reviewed and discussed with Dr. Dagoberto Mancini at 8:38 AM on 11/09/2023. Electronically signed by: Howard Florence MD 11/09/2023 08:47 AM EDT
--- NOTE | ~2023-11-09 | XR_ITS ---
EXAMINATION: XR CHEST CLINICAL INFORMATION: Chest pain COMPARISON: Prior chest radiograph 11/01/2022 TECHNIQUE: Frontal view of the chest was obtained. FINDINGS: Lungs fully expanded and clear. No pleural effusions. Heart and pulmonary vessels are normal. XR/XR chest 1V IMPRESSION: No active disease. Electronically signed by: Henry Shine MD 11/09/2023 08:09 AM EDT
--- NOTE | 2023-11-09 06:59 | ECG_ITS ---
Test Reason : CHEST PAIN Blood Pressure : / mmHG Vent. Rate : 065 BPM Atrial Rate : 065 BPM P-R Int : 154 ms QRS Dur : 130 ms QT Int : 412 ms P-R-T Axes : 069 072 055 degrees QTc Int : 428 ms Normal sinus rhythm Right bundle branch block Abnormal ECG When compared with ECG of 09-NOV-2023 06:06, No significant change was found Referred By: Dagoberto Arenas Electronically Signed By:LAN ARRIETA
--- NOTE | 2023-11-09 07:01 | ED_ITS ---
HPI - Chest Pain General Chief Complaint: Chest Pain Stated Complaint: chest pain, headache Time Seen by Provider: 11/09/23 06:57 Source: patient Mode of arrival: ambulatory Limitations: no limitations History of Present Illness HPI narrative: 63 year old female PMH: thyroid CA status post thyroidectomy presents to the ER with chest pain and headache. Has had the headache for a week. Past few days with chest pain after loss of uncle. Admits to working long hours. States that her main concern was that she has trouble focusing words when she is reading his hitting her head she states she has never had had in the past. Patient states she talked to a cousin who told her this could be a stroke or part of the brain sitting down told that several days ago comes in today with chest pain and headache. Related Data Home Medications ?Medication ?Instructions ?Recorded ?Confirmed levothyroxine 88 mcg tablet 88 mcg PO DAILY 01/01/20 02/24/23 Previous Rx's ?Medication ?Instructions ?Recorded estradiol 10 mcg vaginal tablet 10 mcg vaginal DAILY 4 weeks #20 04/01/23 (Vagifem) tabs Allergies Allergy/AdvReac Type Severity Reaction Status Date / Time Sulfa (Sulfonamide Allergy Severe Rash Verified 11/09/23 06:13 Antibiotics) Review of Systems 2 Review of Systems: Review of systems: General: Patient denies any fever chills recent illness or falls Musculoskeletal: Denies back pain or body aches or other injuries HEENT: Headache denies, runny nose, ear pain Respiratory: denies shortness of breath, cough Cardiovascular: Intermittent chest pain and then at this time denies any palpitations : denies dysuria, frequency Abdomen: no nausea vomiting denies abdominal pain Extremities: no swelling, no pain Skin: no diaphoresis Yes all other systems are reviewed and are negative [facility] Past Medical History Medical History History of colon polyps Osteoporosis EVELINE II (cervical intraepithelial neoplasia II) Thyroid cancer Hypothyroid Surgical History Hx of dilation and curettage H/O colonoscopy History of facial surgery History of loop electrical excision procedure (LEEP) History of thyroidectomy History of bunionectomy Family History Family History Father Malignant melanoma Mother Dementia Family/Other Uterine cancer Social History Social History Household Members: None Housing: House Alcohol intake: never Patient Tobacco Use Status: Never used Tobacco Smoked in Last 30 Days: No Use of substances other than those prescribed or required for medical reasons: No Advance Directives: No Advance Directives Information Provided: Yes Do you have a plan to hurt others: No Plan Patient : No service: No Current occupational status: employed 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 Patient is alert and oriented to person place and time. Patient has no dysphagia or dysarthia, denies good vision in all four vision higgins no nystagmus on exam, good strength to upper and lower extremities with normal reflexes to brachioradialis, wrist, patella and achilles. Negative romberg, good finger to nose and heel to lara. General: Well-appearing well-nourished in no signs of distress HEENT: Normocephalic atraumatic Neck: No signs of JVD, no masses no tenderness or lymphadenopathy Cardiovascular: Regular rate and rhythm Respiratory: Clear to auscultation bilaterally Abdomen: Soft nontender no masses Extremities: Normal pedal pulses no signs of edema Skin: Dry warm no rashes Back: No tenderness full ROM NIH Stroke Scale Internal: Initial- Upon Arrival Level of Consciousness: Alert Level of Consciousness Questions: Answers both questions correctly Level of Consciousness Commands: Performs both tasks correctly Best Gaze: Normal Visual: No visual loss Facial Palsy: Normal Motor Arm (Right): No drift Motor Arm (Left): No drift Motor Leg (Right): No drift Motor Leg (Left): No drift Limb Ataxia: Absent Sensory: Normal Best Language: No aphasia Dysarthia: Normal Extinction and Inattention: No abnormality Score: 0 Course Reevaluation(s) Reevaluation #1: [id number] I got a call from [facility] about CT head. Concern for left parietal lobe mass. Has lots of edema around the area. Time: 08:53 Reevaluation #2: I did speak with [facility] about potential transfer Time: 09:48 Reevaluation #3: I spoke with Nataly at Neurosurgery at [facility] who accepted Will send for Neurosurgery. Wanted decadron started will need MRI. Unfortunately they will not be able to take the patient till tomorrow as they have no inpatient beds at this time. Time: 10:17 Additional Reevaluation(s): I called Katlin at [facility] and [facility] and got the patient accepted to Dr. Ponce. I explained to the patient who was agreeable. I will set up for transfer. I explained there is no history of cancer. they will take the patient to the ER. Medications Administered Discontinued Medications Generic Name Dose Route Start Last Admin Trade Name Freq PRN Reason Stop Dose Admin Dexamethasone Sodium Phosphate 8 mg 11/09/23 09:49 11/09/23 10:15 Dexamethasone Sod Phosphate 4 Mg/Ml Vial IVPUSH 11/09/23 09:50 8 mg ONCE ONE Administration Diphenhydramine HCl 25 mg 11/09/23 06:59 11/09/23 07:23 Diphenhydramine Hcl 50 Mg/Ml Vial IVPUSH 11/09/23 07:00 25 mg ONCE ONE Administration Famotidine 20 mg 11/09/23 09:50 11/09/23 10:15 Famotidine/Pf 20 Mg/2 Ml Vial IVPUSH 11/09/23 09:51 20 mg ONCE ONE Administration Sodium Chloride 1,000 mls @ 999 mls/hr 11/09/23 07:00 11/09/23 07:23 Ns IV 11/09/23 08:00 999 mls/hr .Q1H1M CANDIDO Administration Ketorolac Tromethamine 15 mg 11/09/23 06:59 11/09/23 07:22 Ketorolac Tromethamine 15 Mg/Ml Vial IVPUSH 11/09/23 07:00 15 mg ONCE ONE Administration Lorazepam 1 mg 11/09/23 06:59 11/09/23 07:23 Lorazepam 2 Mg/Ml Vial IVPUSH 11/09/23 07:00 1 mg ONCE ONE Administration Metoclopramide HCl 10 mg 11/09/23 06:59 11/09/23 07:23 Metoclopramide Hcl 10 Mg/2 Ml Vial IVPUSH 11/09/23 07:00 10 mg ONCE ONE Administration Medical Decision Making Medical Decision Making [facility] Narrative: 63-year-old sent for CT to rule out any acute intracranial injury she has no focal deficits not sound like a stroke her focused could be explained with lack of sleep or trouble with her eyes the patient does wear glasses at baseline. 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 Lab Data [facility] Lab Attestation statement: I reviewed the patient's lab results. 11/09/23 07:16 11/09/23 08:30 Labs: Lab Results 11/09/23 11/09/23 Range/Units 07:16 08:30 WBC 9.5 (4.8-10.8) X10*3/uL RBC 4.24 (4.20-5.50) X10*6/uL Hgb 13.0 (12.0-16.0) g/dl Hct 38.3 (37.0-47.0) % MCV 90.3 (80.0-98.0) fL MCH 30.7 (27.0-33.0) pg MCHC 33.9 (31.0-35.0) g/dl RDW 13.4 (11.0-16.0) % Plt Count 204 (160-400) X10*3/uL MPV 10.6 (9.4-12.3) fL Immature Gran % (Auto) 0.3 (0.0-0.4) % Neut % (Auto) 76.3 H (45-73) % Lymph % (Auto) 16.3 L (20-40) % [place] % (Auto) 6.6 (2-11) % Eos % (Auto) 0.1 (0-4) % Baso % (Auto) 0.4 (0-2) % Lymph # (Auto) 1.5 (1.2-4.9) X10*3/uL [place] # (Auto) 0.6 (0.1-1.2) X10*3/uL Eos # (Auto) 0.0 (0.0-0.4) X10*3/uL Baso # (Auto) 0.0 (0.0-0.2) X10*3/uL Abs Immat Gran (auto) 0.03 (0.00-0.03) X10*3/uL Absolute Neuts (auto) 7.2 (2.0-8.3) x10*3/uL Absolute Nucleated RBC 0.000 (0.0-0.012) X10*3/uL Nucleated RBC % (auto) 0.0 (0.0-0.2) /100WBC Sodium Cancelled 136 Potassium Cancelled 3.9 Chloride Cancelled 104 Carbon Dioxide Cancelled 24 Anion Gap Cancelled 12 BUN Cancelled 15 Creatinine Cancelled 0.83 Estim Creat Clear Calc Cancelled 50.7 Estimated GFR Cancelled > 60 Random Glucose Cancelled Fasting Glucose Cancelled 102 H Calcium Cancelled 9.5 Total Bilirubin Cancelled 0.6 Direct Bilirubin 0.2 (0.0-0.5) mg/dL AST Cancelled 13 ALT Cancelled 9 Alkaline Phosphatase Cancelled 68 Troponin I High Sens 2.7 (<3.5-17.0) ng/L Total Protein Cancelled 6.6 Albumin Cancelled 4.2 Lipase 20 (8-78) U/L Independent Interpretation I performed an independent interpretation of an: EKG, Plain X-Ray and CT Scan Interpretation: EKG rate 65 normal sinus rhythm right bundle-branch pattern other than slightly widening of the QRS there is no other significant abnormalities no signs of ischemia no previous for comparison interpreted by me Radiology Impression Discussion of test interpretation with radiology: I discussed test interpretation with the radiologist and I have reviewed the radiologist's reading. External Record Review External record reviewed: Inpatient record, Office record, Outpatient record and Prior outpatient labs Social Determinants Patient?s care significantly limited by Social Determinants of Health including: Other Social Determinant of Health Core Measures AMI core measures followed: Yes Critical Care Time Critical Care Time Critical Care Time: Yes Total Critical Care Time: 45 Attestation: Patient with headache seen immediately by me treated for her headache and had a cardiac workup found to have a left parietal mass I did speak with our radiologist as well as [facility]. Discussion Neurosurgery and Dr. Ponce at the [facility]. Arranging transfer Discharge Plan Discharge Clinical Impression: Headache, Left parietal mass Patient Disposition: er [facility] Transfer Details: [facility] Prescriptions: No Action estradiol [Vagifem] 10 mcg tablet 10 mcg vaginal DAILY 28 Days Qty: 20 2RF Rx Instructions: then twice week levothyroxine 88 mcg tablet 88 mcg PO DAILY Print Language: Jordanian
[2023-11-09 07:20] LABS: MANUAL DIFF FLAG NO
--- NOTE | 2023-11-09 07:20 | PC.NURSE ---
20gIV placed in the left forearm - labs obtained/sent to lab. IVF/mdication administered per provider order. effectiveness pending.
[2023-11-09] MEDS: Ketorolac Tromethamine 15 MG/ML VIAL IVPUSH (07:22)
[2023-11-09] MEDS: LORazepam 2 MG/ML VIAL 1 MG IVPUSH (07:23)
[2023-11-09] MEDS: Metoclopramide HCl 10 MG/2 ML VIAL IVPUSH (07:23)
[2023-11-09] MEDS: 0.9 % Sodium Chloride 1,000 ML 999 ML IV (07:23)
[2023-11-09] MEDS: diphenhydrAMINE HCL 50 MG/ML VIAL 25 MG IVPUSH (07:23)
[2023-11-09 07:26] LABS: Basophils Percent Auto 0.4 % (0-2); Eosinophils Percent Auto 0.1 % (0-4); Hematocrit 38.3 % (37.0-47.0); Imm Gran Abs Auto 0.03 X10*3/uL (0.00-0.03); Imm Gran Pct Auto 0.3 % (0.0-0.4); Lymphocytes Absolute Auto 1.5 X10*3/uL (1.2-4.9); Lymphocytes Percent Auto 16.3 % (20-40); Mean Corpuscular HGB Conc 33.9 g/dl (31.0-35.0); Mean Corpuscular Hemoglobin 30.7 pg (27.0-33.0); Mean Corpuscular Volume 90.3 fL (80.0-98.0); Mean Platelet Volume 10.6 fL (9.4-12.3); Monocytes Absolute Auto 0.6 X10*3/uL (0.1-1.2); Monocytes Percent Auto 6.6 % (2-11); Neutrophils Absolute Auto 7.2 x10*3/uL (2.0-8.3); Neutrophils Percent Auto 76.3 % (45-73); Platelet Count 204 X10*3/uL (160-400); Red Blood Count 4.24 X10*6/uL (4.20-5.50); Red Cell Distribution Width 13.4 % (11.0-16.0); White Blood Count 9.5 X10*3/uL (4.8-10.8)
[2023-11-09 07:41] LABS: Troponin-I High Sensitivity 2.7 ng/L (<3.5-17.0)
--- NOTE | 2023-11-09 07:52 | PC.NURSE ---
pt to CT at this time.
--- NOTE | 2023-11-09 08:20 | PC.NURSE ---
pt verbalizing pain has subsisded at this time but still states she is feeling drowsy. CT results pending at this time. plan of care ongoing.
[2023-11-09 08:48] LABS: Alanine Aminotransferase 9 U/L (0-31); Albumin Level 4.2 g/dL (3.5-5.0); Alkaline Phosphatase 68 U/L (39-117); Anion Gap 12 (12-20); Aspartate Amino Transferase 13 U/L (5-31); Bilirubin Direct 0.2 mg/dL (0.0-0.5); Bilirubin Total 0.6 mg/dL (0.0-1.0); Blood Urea Nitrogen 15 mg/dL (9-16); Calcium 9.5 mg/dL (8.4-10.2); Carbon Dioxide 24 mmol/L (22-29); Chloride 104 mmol/L (96-108); Creatinine Clr Calc Pharmacy 50.7; Estimated Glomerular Filt Rate > 60; Glucose Fasting 102 mg/dL (60-99); Lipase 20 U/L (8-78); Potassium 3.9 mmol/L (3.3-5.1); Sodium 136 mmol/L (135-145); Total Protein 6.6 g/dL (6.5-8.0)
--- NOTE | 2023-11-09 08:55 | PC.NURSE ---
MD bedside speaking w/ pt in regards to CT results at this time. pt notified/aware of CT results/aware of plan of care moving forward in regards to being [facility]. continues to rest comfortably in no apparent distress. BLS ETA unknown at this time. will notify pt when able. plan of care ongoing.
[2023-11-09] MEDS: Famotidine/PF 20 MG/2 ML VIAL IVPUSH (10:15)
[2023-11-09] MEDS: dexAMETHasone sod phosphate 4 MG/ML VIAL 8 MG IVPUSH (10:15)
--- NOTE | 2023-11-09 14:03 | PC.NURSE ---
pt continues to rest comfortably w/ lights dimmed in stretcher in no apparent distress. pt continues to wait to be transferred to another facility at this time. no sob/wob noted. respirations remain even/unlabored. plan of care ongoing. call pina placed within reach.
[2023-11-09] MEDS: Acetaminophen 1,000 MG/100 ML PIGGYBACK 400 MG IV (16:40)
--- NOTE | 2023-11-09 16:45 | PC.NURSE ---
pt verbalizing increase in headache. provider notified/aware. IV tylenol infusing at this time. effectiveness pending.
[2023-11-09] MEDS: levETIRAcetam in NaCl (iso-os) 500 MG/100 ML PIGGYBACK 400 MG IV (17:53)
--- NOTE | 2023-11-09 17:58 | PC.NURSE ---
ED MD bedside speaking w/ pt in regards to plan of care at this time.
--- NOTE | 2023-11-09 20:02 | PC.NURSE ---
report given to SWATI Brown at [facility] at this time. bed assignment assigned. BLS transport being arranged. ETA unknown.
[2023-11-09] MEDS: dexAMETHasone sod phosphate 4 MG/ML VIAL IVPUSH (20:29)
--- NOTE | 2023-11-09 21:40 | PC.NURSE ---
report given to CANDELARIO anderson. pt being transported at this time.
== END 2023-11-09 21:42 | disposition short-term general hospital (02) ==
PROVIDERS: Student in an Organized Health Care Education/Training Program; Emergency Provider Emergency Medicine
DX: G93.89 Other specified disorders of brain (principal); R51.9 Headache, unspecified; R07.9 Chest pain, unspecified; R29.700 NIHSS score 0; R22.0 Localized swelling, mass and lump, head; Z85.850 Personal history of malignant neoplasm of thyroid
CPT/HCPCS: 36415; 70450; 71045; 80053; 80076; 83690; 84484; 85025; 93005; 96361; 96365; 96367; 96375; 99285; J0131; J1100; J1200; J1885; J1953; J2060; J2765

== ENCOUNTER 2023-12-22 15:00 | Outpatient (REF) | payer OTHER, SELFPAY | END 2023-12-22 15:01 | disposition home or self-care (01) | LOC: HO.CT 15:00 | PROVIDERS: Visit Provider Nurse Practitioner Family | DX: R91.8 Other nonspecific abnormal finding of lung field (principal) | CPT/HCPCS: 71250 ==

== ENCOUNTER → 2023-12-22 15:03 | Outpatient (BNV) | payer OTHER, SELFPAY | PROVIDERS: Visit Provider Radiology Diagnostic Radiology | DX: R91.8 Other nonspecific abnormal finding of lung field (principal) | CPT/HCPCS: 71250 ==

== ENCOUNTER 2024-03-14 07:20 | Outpatient (REF) | payer OTHER, SELFPAY ==
--- NOTE | ~2024-03-14 | CT_ITS ---
CLINICAL HISTORY: MIXED HEARING LOSS CT temporal bone without contrast Comparison: None Findings: No exterrnal auditory canal pathology. Tympanic membranes intact. Middle ear ossicles are intact. Unremarkable cochlea and semicircular canals. Normal course of 7th nerves. Temporomandibular joints are intact. Orbital contents within normal limits. There is severe bilateral mastoiditis and otitis with complete opacification of the bilateral mastoid air cells, attic and antrum. No foreign bodies. 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 The patient is status post left temporal craniotomy and partial left mastoidectomy. IMPRESSION: 1. 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 2. The patient is status post left temporal craniotomy and partial left mastoidectomy. 3. There is severe bilateral mastoiditis and otitis with complete opacification of the bilateral mastoid air cells, attics and antra. This document has been electronically signed by: Fernandez Dye MD on 03/14/2024 09:00:40
--- OUTSIDE RECORDS SUMMARY | 2024-03-14 07:22 | XMS_ITS ---
Author Organization [facility] Address [address] [place] [address] Care Team Providers Care Motion Picture Projectionist Name Role Phone Pelon Oliver Primary Care Provider Joseph Wilson [phone] REASON FOR VISIT cancel procedure Encounters Encounter Location Date Provider Diagnosis [facility] [address] [place] [address] 10/21/2023 Joseph Nunez PLAN OF TREATMENT No Information
--- OUTSIDE RECORDS SUMMARY | 2024-03-14 07:22 | XMS_ITS ---
Author Organization [facility] Address [address] [place] [address] Care Team Providers Care Burn Crew Member Name Role Phone Pelon Oliver Primary Care Provider Joseph Wilson [phone] REASON FOR VISIT screening,hx polyps Encounters Encounter Location Date Provider Diagnosis [facility] [place] Out[place] [address] [place] [phone] 10/24/2023 Joseph Nunez PLAN OF TREATMENT No Information
--- OUTSIDE RECORDS SUMMARY | 2024-03-14 07:23 | XMS_ITS ---
Author Organization [facility] Address [address] [facility] [address] [place] [address] Care Team Providers Care Machining Associate Name Role Phone NO PCP, NO PCP Primary Care Provider Unavailamarilis Candelaria M.D, M.P.H, Britney Unavailable Allergies Allergen (clinical drug ingredient) Drug/Non Drug Allergy documented on EMR Reaction Allergy Type Onset Date Status atovaquone Mepron Unknown Drug Allergy Active Substance with sulfonamide structure and antibacterial mechanism of action (substance) Sulfa Antibiotics Unknown Drug Allergy Active Results Component Value Reference Range Notes CT Temporal bones Reviewed date:02/29/2024 10:09:25 AM Interpretation: Performing Lab: Notes/Report: REASON FOR VISIT Hearing difficulty Medications Medication SIG (Take, Route, Frequency, Duration) Notes Start Date End Date Status Dapsone 50mg 2 times a day Active Esomeprazole Sodium 20mg daily Active Ondansetron 8mg daily Active Levothyroxine Sodium 88mcg 1 tab daily Active dexAMETHasone Decadron 2 x daily Active Temozolomide 105mg daily Activ e Encounters Encounter Location Date Provider Diagnosis [facility] [address] [facility] [address] [place] [address] 02/24/2024 Britney Candelaria Mixed hearing loss, bilateral H90.6 Assessments Encounter Date Diagnosis (ICD Code) Assessment Notes Treatment Notes Treatment Clinical Notes Section Notes 02/24/2024 Mixed hearing loss, bilateral (ICD-10 - H90.6) Patient with severe to profound mixed hearing loss. She has a large conductive component and flat tymps as well. While it's certainly possible that she has serous effusion after prolonged hospitalization etc, I am concerned about the possibility of CSF leak given her history. Will eval with CT temporal bone first and then consider BMT. In the meantime, she will also explore amplification Plan Of Treatment Treatment Notes Assessment Notes Mixed hearing loss, bilateral Patient wi th severe to profound mixed hearing loss. She has a large conductive component and flat tymps as well. While it's certainly possible that she has serous effusion after prolonged hospitalization etc, I am concerned about the possibility of CSF leak given her history. Will eval with CT temporal bone first and then consider BMT. In the meantime, she will also explore amplification Next Appt Details Follow Up: schedule CT, see afterwards with procedure (30 min), please also give patient copy of audio and list of [facility] dispensaries, Reason: Provider Name:Britney Candelaria, 01:15:00 PM, [address] [facility], [address]LO[address], [place], [address], Progress Notes * Bee BERRIOS MDOB:1960 (63 yo F)Acc No.[id number]:02/24/2024 Progress Note Patient:?Bee BERRIOS Provider:?Britney Candelaria M.D.,M.P.H :1960???Age:63 Y???Sex:Female D ate:02/24/2024 Address:[address] [place], [place] [id number] Pcp:NO PCP NO PCP Subjective: * Chief Complaints: * ???1. Hearing difficulty. * HPI: ???General:?63 year old female, new patient seen by AMPARO Olvera 01/2024 for hearing loss She is accompanied by her cousin She thinks she had a hearing test 10-15 years ago. She had her surgery 2 months ago at [facility] for glioblastoma?followed by chemo and 6 weeks of radiation. She is currently on a 28 day cycle of Temedrol.?She has needed the ears cleaned year ago. She did have hearing loss right after surgery but since then, her hearing has continued to decline. She had an MRI on 02/[address] prior to that when she was still in the hospital. She was told that she does have some swelling of the ventricles. ?Denies : fever.?Denies : nausea.?Denies : vomiting.? * Medical History:?Patient Med ical History: Neck or throat cancer, Patient Medical History Continued: Thyroid issues, cancer: Head and neck cancer,Thyroid/Parathyroid cancer, Surgical History: Thyroid/Parathyroid or neck surgery. * Medications:?Taking Temozolo mide , Notes to Pharmacist: 105mg daily, Taking dexAMETHasone , Notes to Pharmacist: Decadron 2 x daily, Taking Levothyroxine Sodium , Notes to Pharmacist: 88mcg 1 tab daily, Taking Ondansetron , Notes to Pharmacist: 8mg daily, Taking Esomeprazole Sodium , Notes to Pharmacist: 20mg daily, Taking Dapsone , Notes to Pharmacist: 50mg 2 times a day, Medication List reviewed and reconciled with the patient * Allergies:?Sulfa Antibiotics : Allergy, Mepron: Allergy. Objective: * Vitals:? * Examination: ???General: ?General appearance?wdwn, NAD.?Eyes?Normal lids, EOM intact, no erythema.?Voice:?normal.?Ears?normal pinnae bilaterally, normal ear canal bilaterally - cerumen is removed under microscopy, TM with serous effusion bilaterally. nose:?dorsum straight, normal, septum midline, turbinates normal, middle meati normal, mucosa normal.?Oral Cavity/Oropharynx:?lips normal.?Neck:?No adenopathy, No masses. Head and Face:?normal facial features, large scalp incision on the left, well healed.? * Physical Examination:?AUDIOLOGY:?Information Technology Teacher:?Audio/tymps completed., Dory Rojo, DARIEL-A.? Assessment: * Assessment: 1.?Mixed hearing loss, bilat eral - H90.6 (Primary)??? Plan: * Treatment: * Procedure Codes:?30528 AUDIO -Comprehensive, 53440 Tympanometry, G9903 Pt scrn tbco id as non user * Follow Up:?schedule CT, see afterwards with procedure (30 min), please also give patient copy of audio and list of [facility] dispensaries * Images: * Sign off status: Completed true * Provider:?Britney Candelaria M.D.,M.P.H Date:?0 02/24/2024 Generated for Timai yonathan/Jad/eTransmitting on:?03/14/2024 07:22 AM EST History and Physical Notes * HPI (History of Present Illness) Category Sub-Category Detail Notes Category Not es General fever nausea vomiting Physical Examination Category Sub-Category Detail Notes Section Note s AUDIOLOGY Information Technology Teacher: Audio/tymps comp letiris., Dory Rojo, CCC-A Examination Category Sub-Category Detail Notes Category Not es General General appearance wdwn, NAD Voice: normal Ears normal pinnae bilate rally, normal ear canal bilaterally - cerumen is removed under microscopy, TM with serous effusion bilaterally nose: dorsum straight, nor mal, septum midline, turbinates normal, middle meati normal, mucosa normal Oral Cavity/Oropharynx: lips normal Neck: No adenopathy, No ma sses Head and Face: normal facial featur es, large scalp incision on the left, well healed Eyes Normal lids, EOM int act, no erythema
--- OUTSIDE RECORDS SUMMARY | 2024-03-14 07:23 | XMS_ITS | Patient Health Record ---
Author Organization [facility] Address [address] [facility] [address] [place] [address] Care Team Providers Care Precision Jig Grinder Name Role Phone NO PCP, NO PCP Primary Care Provider Unavailamarilis Candelaria M.D, M.P.HBritney Unavailable Citlalli Olvera Unavailable [phone] Thais García Unavailable [phone] Allergies Allergen (clinical drug ingredient) Drug/Non Drug Allergy documented on EMR Reaction Allergy Type Onset Date Status atovaquone Mepron Unknown Drug Allergy Active Substance with sulfonamide structure and antibacterial mechanism of action (substance) Sulfa Antibiotics Unknown Drug Allergy Active Results Component Value Reference Range Notes CT Temporal bones Reviewed date:02/29/2024 10:09:25 AM Interpretation: Performing Lab: Notes/Report: Reason For Referral No Information Medications Medication SIG (Take, Route, Frequency, Duration) Notes Start Date End Date Status Dapsone 50mg 2 times a day Active Esomeprazole Sodium 20mg daily Active Ondansetron 8mg daily Active Levothyroxine Sodium 88mcg 1 tab daily Active dexAMETHasone Decadron 2 x daily Active Temozolomide 105mg daily Activ e Social History Tobacco Use: Social History Observation Description Date Details (start date - stop date) Never Smoker NA - NA Smoking: Question Answer Notes Are you a : Never Smoker Alcohol Screen Question Answer Notes Did you have a drink containing alcohol in the p ast year? No Problems Problem Type SNOMED Code ICD Code Onset Dates Problem Status W/U Status Risk Notes Problem Mixed conductive and sensorineural hearing loss, bilateral (144255045) Mixed hearing loss, bilateral (H90.6) Active confirmed Problem Hearing difficulty (987187027) Hearing difficulty (H91.90) Active confirmed Vital Signs Blood pressure diastolic 80 mm Hg 01/24/2024 Height 0 in 01/24/2024 Blood pressure systolic 100 mm Hg 01/24/2024 Weight 98 lbs 01/24/2024 Encounters Encounter Location Date Provider Diagnosis [facility] [address] [place] [address] 01/24/2024 Citlalli Olvera Bilateral impacted cerumen H61.23 and Hearing difficulty H91.90 [facility] [address] [place] [address] 02/24/2024 Thais García Mixed hearing loss, bilateral H90.6 [facility] [address] [place] [address] 02/24/2024 Britney Candelaria Mixed hearing loss, bilateral H90.6 Assessments Encounter Date Diagnosis (ICD Code) Assessment Notes Treatment Notes Treatment Clinical Notes Section Notes 01/24/2024 Hearing difficulty (ICD-10 - H91.90) Discussed. Pt recently had major surgery and is having processing issues since. She was told she would have this for six months. Will order audiogram for full evaluation. 01/24/2024 Bilateral impacted cerumen (ICD-10 - H61.23) Cerumen is removed, pt tolerates this well. Pt does not feel hearing is back to baseline. 02/24/2024 Mixed hearing loss, bilateral (ICD-10 - H90.6) 02/24/2024 Mixed hearing loss, bilateral (ICD-10 - [...] will also explore amplification Plan Of Treatment Next Appt Details Provider Name:Britney Candelaria, 01:15:00 PM, [address] [facility], [address], [place], [address], Insurance Providers Payer Name Payer Address Payer Phone Subscriber Number Group Number Insured Name Patient Relationship to Insured Coverage Start Date Coverage End Date [employer] [address] [address] [place] [address] [id number] Bee Zhou Self - patient is the insured Medical (General) History Medical History History ICD Code Patient Medical History: Neck or throat cancer Patient Medical History Continued: Thyro id issues cancer: Head and neck cancer,Thyroid/Par athyroid cancer Surgical History: Thyroid/Parathyroid or neck surgery Surgical History Surgery Date(Month/Year) Glioblastoma Hospitalization History Reason Date(Month/Year) Glioblastoma -left side 11/15/2023
--- OUTSIDE RECORDS SUMMARY | 2024-03-14 07:23 | XMS_ITS | Patient Health Record ---
Author Organization [facility] Address [address] [place] [address] Care Team Providers Care Lead Nuclear Medicine Technologist Name Role Phone Pelon Oliver Primary Care Provider Joseph Wilson [phone] ALLERGIES Allergen (clinical drug ingredient) Drug/Non Drug Allergy documented on EMR Reaction Allergy Type Onset Date Status Substance with sulfonamide structure and antibacterial mechanism of action (substance) sulfa (uncoded) Unknown Allergy Active REASON FOR REFERRAL No Information MEDICATIONS Medication SIG (Take, Route, Fr equency, Duration) Notes Start Date End Date Status Ondansetron 4 MG 1 tablet on the tong ue and allow to dissolve Orally Use every 6 hours as needed for nausea. You can take it before you start the prep and then again later on. for 1 days 03/06/2023 Active Ondansetron 4 MG 1 or 2 tablet on the tongue and allow to dissolve Orally Take 1 or 2 before you start the colonoscopy prep, and then 1 or 2 every 4 to 6 hours as needed for nausea. for 1 days 03/01/2023 Active Synthroid 88 MCG 1 tablet in the morn ing on an empty stomach Orally Once a day Active SOCIAL HISTORY Sex Assigned At : Social History Observation Description Sex Assigned At Unknown PROBLEMS Problem Type ICD Code Onset Dates Problem Status W/U Status Risk SNOMED Code Notes Problem Encounter for screening for malignant neoplasm of colon (Z12.11) Active confirmed 128435350 Problem History of adenomatous polyp of colon (Z86.010) Active confirmed 528104396 Problem Nausea (R11.0) Active confirmed 0479774 07 Problem Preprocedural examination (Z01.818) Active confirmed 262854065 Encounters Encounter Location Date Provider Diagnosis [facility] [place] [address] [place], [place] [phone] 06/13/2023 Joseph Nunez [facility] [place] [address] [place], [place] [phone] 10/24/2023 Joseph Nunez [facility] [address] [place] [phone] 06/13/2023 Joseph Nunez [facility] [address] [place] [phone] 10/14/2023 Joseph Nunez Nausea R11.0 [facility] [address] [place] [phone] 10/21/2023 Joseph Nunez ASSESSMENTS Encounter Date Diagnosis Assessment Notes Treatment Notes Treatment Clinical Notes 10/14/2023 Nausea (ICD-10 - R11.0) PLAN OF TREATMENT Future Test Test Name Order Date COLONOSCOPY 08/11/2011 COLONOSCOPY 01/19/2017 COLONOSCOPY 09/07/2022 Insurance Providers Payer Name Payer Address Payer Phone Subscriber Number Group Number Insured Name Patient Relationship to Insured Coverage Start Date Coverage End Date [employer] OF [place] [address] [address] [place] [address] [id number] LATHA BERRIOS Self - patient is the insured MEDICAL (GENERAL) HISTORY Medical History History ICD Code Denies ME,DM,CVA,Lung disease,renal dise ase Thyroid cancer at age 29, see below Previous history of migraines Screening colonoscopy 08/2011 --2 tubular adenomas removed near hepatic flexure--had N/V after the procedure and a postpolypectomy bleed--did not need transfusions Screening colonoscopy 04/2017 with 1 smal l tubular adenoma Surgical History Surgery Date(Month/Year) Thyroidectomy for cancer in 1990 Bunionectomy Cosmetic surgery on chin and nose
--- OUTSIDE RECORDS SUMMARY | 2024-03-14 07:23 | XMS_ITS ---
Author Organization [facility] Address [address] [facility] [address] [place] [address] Care Team Providers Care Dietary Server Name Role Phone NO PCP, NO PCP Primary Care Provider Unavailamarilis Candelaria M.D, M.P.H, Britney Unavailable Citlalli Olvera Unavailable [phone] Allergies Allergen (clinical drug ingredient) Drug/Non Drug Allergy documented on EMR Reaction Allergy Type Onset Date Status atovaquone Mepron Unknown Drug Allergy Active Substance with sulfonamide structure and antibacterial mechanism of action (substance) Sulfa Antibiotics Unknown Drug Allergy Active REASON FOR VISIT cerumen Medications Medication SIG (Take, Route, Frequency, Duration) [...] Problem Status W/U Status Risk Notes Problem Hearing difficulty ([id number]) Hearing difficulty (H91.90) Active confirmed Vital Signs Blood pressure systolic 100 mm Hg 01/24/20 24 Blood pressure diastolic 80 mm Hg 024 Height 0 in 01/24/2024 Weight 98 lbs 01/24/2024 Encounters Encounter Location Date Provider Diagnosis [facility] [address] [place] [address] 01/24/2024 Citlalli Olvera Bilateral impacted cerumen H61.23 and Hearing difficulty H91.90 Assessments Encounter Date Diagnosis (ICD Code) Assessment Notes Treatment Notes Treatment Clinical Notes Section Notes 01/24/2024 Bilateral impacted cerumen (ICD-10 - H61.23) Cerumen is removed, pt tolerates this well. Pt does not feel hearing is back to baseline. 01/24/2024 Hearing difficulty (ICD-10 - H91.90) Discussed. Pt recently had major surgery and is having processing issues since. She was told she would have this for six months. Will order audiogram for full evaluation. Plan Of Treatment Treatment Notes Assessment Notes Bilateral impacted cerumen Cerumen is re moved, pt tolerates this well. Pt does not feel hearing is back to baseline. Hearing difficulty Discussed. Pt recent ly had major surgery and is having processing issues since. She was told she would have this for six months. Will order audiogram for full evaluation. Next Appt Details Follow Up: February audiogram first then appt with VICENTE SHEETS Du,, Reason: Provider Name:Britney Candelaria, 01:15:00 PM, [address], [place], [address], Progress Notes * Bee BERRIOS MDOB:1960 (63 yo F)Acc No.[id number]:01/24/2024 Progress Notes Patient:?Bee BERRIOS Provider:?Citlalli Olvera :1960???Age:63 Y???Sex:Female D ate:01/24/2024 Address:[address] [place] [address], [id number] Pcp:NO PCP NO PCP Subjective: * Chief Complaints: * ???1. Cerumen. * HPI: ???General:?63 year old female, new pt, presents today with concenrns with the ears. Seh is buzz hard of hearing - she reports she has not had her ears checked in year. She thinks she had a hearing test 10-15 years ago. Riley tells me the right is better, slightly, the left ear is totally blocked. She had her surgery 2 months ago at [facility] and is still following with them. She has needed the ears cleaned year ago. ?Denies : fever.?Denies : nausea.?Denies : vomiting.?Nose:?Denies : nasal congestion.?Denies : rhinorrhea.?Denies : nasal discomfort.?Throat:?Denies : sore throat.?Denies : cough.?Denies : dyspnea.?Neck:?Denies : pain.?Denies : mass/swelling.? * ROS:?CONSTITUTIONAL:?fever?No.?weight loss?No.?fatigue?Yes.?Night Sweats?No.?DERMATOLOGY:?rash?Yes.?hives?No.?skin cancer?No.?skin lesion change?No.?Eczema?No.?ENT:?hearing loss?Yes.?sore throat?No.?ringing in ears?No.?dizziness?No.?snoring?No.?post nasal drip?No.?discharge from ears?No.?heartburn?No.?nasal congestion?No.?lump in neck or face?No.?prior nasal injury?No.?nosebleeds?No.?hoarseness?No. ear pain?No.?Trouble Swallowing?No.?Trouble Speaking?No.?GASTROENTEROLOGY:?constipation?Yes.?diarrhea?No.?jaundice?No.?HEMATOLOGY/LYMPH:?easy bruising?No.?easy bleeding?No.?anemia?No.?NEUROLOGY:?headache?Yes.?tingling numbness?No.?face weakness?No.?Weakness?Yes.?PSYCHOLOGY:?anxiety?No.?depression?No.?Stress?Yes.?RESPIRATORY:?trouble breathing?No.?cough?No.?wheezing?No.?hemoptysis?No.? * Medical History:?Patient Med ical History: Neck or throat cancer, Patient Medical History Continued: Thyroid issues, cancer: Head and neck cancer,Thyroid/Parathyroid cancer, Surgical History: Thyroid/Parathyroid or neck surgery. * Surgical History:?Tima carrasquillo . * Hospitalization/Major Diagno stic Procedure:?Glioblastoma -left side 11/15/2023. * Family History:?Father: dece ased.?Mother: .?Siblings: alive.?1 brother(s) . .? NO children? No sisters. * Social History:?Smoking?Are you a :?Never Smoker.?Alcohol Screen?Did you have a drink containing alcohol in the past year??No.? * Medications:?Taking Temozolo mide , Notes to [...] Antibiotics : Allergy, Mepron: Allergy. Objective: * Vitals:?BP:100/80mm Hg, Ht: 0 in, Wt:98lbs. * Examination: ???General: ?General appearance?wdwn, NAD.?Eyes?Normal lids, EOM intact, no erythema.?Neurologic exam:?A & O x 3, CN II-XII intact.?Voice:?normal.?Ears?normal pinnae bilaterally, normal ear canal bilaterally - cerumen is removed under microscopy, normal TM bilaterally, og does not lateralize.?nose:?dorsum straight, normal, septum midline, turbinates normal, middle meati normal, mucosa normal.?Oral Cavity/Oropharynx:?lips normal.?Neck:?No adenopathy, No masses.?Head and Face:?normal facial features.? * Physical Examination:? Assessment: * Assessment: 1.?Bilateral impacted cerume n - H61.23 (Primary)???2.?Hearing difficulty - H91.90??? Plan: * Treatment: 2.?Hearing difficulty? Notes: Discussed. Pt recently had major surgery and is having processing issues since. She was told she would have this for six months. Will order audiogram for full evaluation. ?? * Procedures:?The patient was reclined in the exam chair, under microscopy using an otic speculum. The external auditory canal is visualized, impacted cerumen is removed using suction, micro-cup forceps, and/or a cerumen loop. The middle ear space is visualized through the translucent tympanic membrane. The findings are reported in the exam section. The patient tolerated this well without complications. ? * Procedure Codes:?G9903 Pt sc rn tbco id as non user * Preventive Medicine:? ??Immunizations:?Influenza Immunization?Influenza Immunization?Yes 2023.? * Follow Up:?February audiogram first then appt with SUDEEP, VICENTE, Bari, * Images: * Sign off status: Completed Addendum: * ? true * Provider:?Citlalli Olvera Date:?2023 Generated for Eamon mcmanus/Jad/eTransmitting on:?03/14/2024 07:23 AM EST History and Physical Notes * HPI (History of Present Illness) Category Sub-Category Detail Notes Category Not es Throat sore throat cough dyspnea Nose nasal congestion nasal discomfort rhinorrhea Neck pain mass/swelling General fever nausea vomiting Examination Category Sub-Category Detail Notes Category Not es General General appearance wdwn, NAD Neurologic exam: A & O x 3, CN II-XII intact Voice: normal Ears normal pinnae bilate rally, normal ear canal bilaterally - cerumen is removed under microscopy, normal TM bilaterally, og does not lateralize nose: dorsum straight, nor mal, septum midline, turbinates normal, middle meati normal, mucosa normal Oral Cavity/Oropharynx: lips normal Neck: No adenopathy, No ma sses Head and Face: normal facial featur es Eyes Normal lids, EOM int act, no erythema
--- OUTSIDE RECORDS SUMMARY | 2024-03-14 07:23 | XMS_ITS ---
Author Organization [facility] Address [address] [facility] [address] [place] [address] Care Team Providers Care Senior Solutions Engineer Name Role Phone Pelon Oliver Primary Care Provider Joseph Wilson Unavailable [phone] REASON FOR VISIT H & P MEDICATIONS Medication SIG (Take, Route, Fr equency, Duration) Notes Start Date End Date Status Ondansetron 4 MG 1 or 2 tablet on the tongue and allow to dissolve Orally Take 1 or 2 before you start the colonoscopy prep, and then 1 or 2 every 4 to 6 hours as needed for nausea. for 1 days 03/01/2023 Active Encounters Encounter Location Date Provider Diagnosis [facility] [address] [address] 10/14/2023 Joseph Nunez Nausea R11.0 ASSESSMENTS Encounter Date Diagnosis Assessment Notes Treatment Notes Treatment Clinical Notes 10/14/2023 Nausea (ICD-10 - R11.0) PLAN OF TREATMENT Medication Medication Name Sig Start Date Stop Date Notes Ondansetron 4 MG 1 or 2 tablet on the tongue and allow to dissolve Orally Take 1 or 2 before you start the colonoscopy prep, and then 1 or 2 every 4 to 6 hours as needed for nausea. for 1 days 03/01/2023
== END 2024-03-14 07:21 | disposition home or self-care (01) ==
LOC: HO.CT 07:20
PROVIDERS: Visit Provider Otolaryngology Sleep Medicine
DX: H90.6 Mixed conductive and sensorineural hearing loss, bilateral (principal)
CPT/HCPCS: 70480

== ENCOUNTER → 2024-03-14 07:23 | Outpatient (BNV) | payer OTHER, SELFPAY | PROVIDERS: Visit Provider Radiology Diagnostic Radiology | DX: G93.89 Other specified disorders of brain (principal); H70.003 Acute mastoiditis without complications, bilateral; H66.93 Otitis media, unspecified, bilateral | CPT/HCPCS: 70480 ==

== ENCOUNTER 2024-06-18 12:02 | Outpatient (REF) | payer OTHER, SELFPAY ==
--- OUTSIDE RECORDS SUMMARY | 2024-06-18 13:39 | XMS_ITS | Data Portability ---
Author Organization [facility] Home Service Address [address] [place] [address] Assessment Encounter Date Assessment Date Assessment LastModified by Organization Details LastModified Time 05/08/2021 05/08/2021 vertigo > dizziness, discussed medications to use multiple joint pain and OA > given rheum work up tinnitus > discussed flonase, lipo-flavanoid to use neck and back pain > has notable cyst? on the back of her neck neck msk are tight discussed hot compresses, advil [email or web address] Not available 05/08/2021 16:21:54 Plan of Treatment Reminders Order Date Submit Date Provider Last Modified By Organization Details Last Modified Time Details Appointments None recorded. Lab ESR (erythrocy te sedimentat ion rate), blood 2021 [facility], [address] [place] [address], [id number], 16:10:11 C-reactive protein, quantitati ve, serum or plasma 2021 [facility], [address] [place] [address], [address], 16:10:11 lyme disease igg+igm, serum, reflex western blot 2021 [facility], [address] [place] [address], [address], 12:00:17 HALINA + rf (antinucle ar antibodies + rheumatoid factor), quantitati ve, serum 2021 [facility], [address] [place] [address], [address], 11:56:03 TSH + free T4, serum 2021 [facility], [address] [place] [address], [address], 08:53:50 vitamin B12 + folate, serum or blood 2021 [facility], [address] [place] [address], [address], 16:10:11 vitamin D, 25-hydroxy , total, serum 2021 [facility], [address] [place] [address], [address], 12:06:54 CBC w/ auto diff 2021 [facility], [address] [place] [address], [address], 16:10:10 CMP, serum or plasma 2021 [facility], [address] [place] [address], [address], 08:53:50 lipid panel, blood 2021 [facility], [address] [place] [address], [address], 16:10:11 CMP, serum or plasma [address] [facility], [address] [place] [address], [address], 08:07:16 CBC [address] [facility] [address] [facility], [address] [facility], [place], [address], 9 08:07:16 urinalysis , dipstick 2018 019 ashu [facility], [address] [facility], [address], [place], [address], 9 09:23:08 Referral None recorded. Procedures None recorded. Surgeries None recorded. Imaging MRI, breast, bilateral, w/o contrast 2021 022 [facility], [address] [facility], [place], [address], 2 13:48:41 exercise stress test 2019 020 [facility], [address] [facility], [place], [address], 0 10:13:04 US, echocardio gram 2019 020 [facility], [address] [facility], [place], [address], 0 10:12:49 electrocar diogram 2019 020 [facility], [address] [facility], [address], [place], [address], 0 16:42:46 XR, cervical spine 2018 019 [facility], [address] [place] [address] [place], [address], 9 08:13:24 bone density 2018 019 [facility], [address] [place] [address] [place], [address], 9 08:39:01 Medication Orders lorazepam 0.5 mg tablet 2019 020 [id number], [address] [place], [place], [id number], 2 15:44:01 Patient TargetsNo targets recorded. Patient InstructionsNo instructions recorded. Reason for Referral None Reported. Results Created Date Observation Date Name Description Value Unit Range Abnormal Flag Note LastModifiedBy Organization Detail LastModifiedTime 02/28/1902/28/2018 urina lysis , dipst ick Leukocytes Trace Not Available [facility] [address] [facility] [address], [place], [address], 02/28/2018 09:13:10 02/28/1902/28/2018 urina lysis , dipst ick Nitrite negati ve Not Available [address], [place], [address], 02/28/2018 09:13:10 02/28/1902/28/2018 urina lysis , dipst ick Urobilinogen .2 Not Available [facility] [address] [facility] [address], [place], [address], 02/28/2018 09:13:10 02/28/1902/28/2018 urina lysis , dipst ick Protein Negati ve Not Available [facility] [address] [facility] [address], [place], [address], 02/28/2018 09:13:10 02/28/1902/28/2018 urina lysis , dipst ick pH 6.0 Not Available [facility] [address] [facility] [address], [place], [address], 02/28/2018 09:13:10 02/28/1902/28/2018 urina lysis , dipst ick Blood Non-He molyze d: Trace Not Available [facility] [address] [facility] [address], [place], [address], 02/28/2018 09:13:10 02/28/19 19 02/28/2018 urina lysis , dipst ick Specific Lillian 1.015 Not Available [facility] [address] [facility] [address], [place], [address], 02/28/2018 09:13:10 02/28/19 19 02/28/2018 urina lysis , dipst ick Ketone Negati ve Not Available [facility] [address] [facility] [address], [place], [address], 02/28/2018 09:13:10 02/28/1902/28/2018 urina lysis , dipst ick Bilirubin Negati ve Not Available [facility] [address] [facility] [address], [place], [address], 02/28/2018 09:13:10 02/28/1902/28/2018 urina lysis , dipst ick Glucose Negati ve Not Available [facility] [address] [facility] [address], [place], [address], 02/28/2018 09:13:10 02/28/1902/28/2018 urina lysis , dipst ick Appearance Clear Not Available [facility] [address] [facility] [address], [place], [address], 02/28/2018 09:13:10 02/28/1902/28/2018 urina lysis , dipst ick Color Pale Yellow Not Available [facility] [address] [facility] [address], [place], [address], 02/28/2018 09:13:10 04/18/1904/18/2019 elect bigg frank am Rate & Rhythm Not Available [facility] [address] [facility] [address], [place], [address], 04/18/2019 16:39:22 04/18/1904/18/2019 elect rocar diogr am QRS Not Available [facility] [address] [facility] [address], [place], [address], 04/18/2019 16:39:22 04/18/19 20 04/18/2019 elect rocar diogr am UT Interval Not Available [facility] [address] [facility] [address], [place], [address], 04/18/2019 16:39:22 04/18/19 20 04/18/2019 elect rocar diogr am QRS Duration Not Available [facility] [address] [facility] [address], [place], [address], 04/18/2019 16:39:22 04/18/19 20 04/18/2019 elect rocar diogr am QT Interval Not Available [facility] [address] [facility] [address], [place], [address], 04/18/2019 16:39:22 03/09/19 19 03/09/2018 bone densi ty No observ ation record ed. tbalii [facility] [address] [facility], [place], [address], 03/10/2018 10:43:06 04/18/19 20 04/18/2019 rhyth m strip , EKG* No observ ation record ed. BARCODE [facility] [address] [facility], [place], [address], 04/18/2019 14:51:08 03/20/19 21 03/19/2020 MAMMO , scree marian, digit al, bilat eral No observ ation record ed. [email or web address] [address] [place], [address], 03/21/2020 08:55:29 05/05/19 22 05/01/2021 MAMMO , scree marian, digit al, bilat eral No observ ation record ed. [email or web address] [address] [place], [address], 05/05/2021 08:30:04 05/23/19 22 05/21/2021 MRI, heenaas t, kofi almeidal, w/o contr ast No observ ation record ed. [facility] (Medical Records) [address] [facility], [place], [address], 05/22/2021 11:56:46 Result Notes None recorded. Problems Name Problem SNOMED Code Status Onset Date Resolution Date Notes Provider Name and Address Organization Details Recorded Time Hypothyro idism 04312725 Active 2017 Columba Bowers NP, S [address] [place] [address], [address], [facility] 8 16:45:31 Migraine 80554744 Active 2018 Melva Diallo [facility] 9 16:56:03 History of malignant neoplasm of thyroid 744035806 Active 2018 Melva Diallo [facility] 9 16:56:30 Tubular adenoma 819652654 Active 2018 Melvaeder Diallo [facility] 9 16:56:43 Pain of right shoulder joint 926263084304 66335 Active 2021 AMPARO LUND [address] [place] [address], [address], [facility] 2 15:00:07 Problem Notes None recorded. Procedures Surgical History Date Name Laterality Status Provider Name and Address Organization Details Recorded Time 018 colonoscopy completed Columba Bowers NP, S [address] [place] [address], [address], [facility] 02/28/2018 08:50:54 015 Date of Last [facility]/27[facility]2018 16:57:38 012 [facility] 02/27/2018 16:57:56 thyroidectomy completed [facility] 02/27/2018 16:57:07 Imaging Results Imaging Date Name Status LastModified by Organiz ation Details LastModified Time 03/09/2018 bone density completed [facility] [address] [facility], [place], [address], 03/10/2018 10:43:06 04/18/2019 rhythm strip, EKG* completed BARCODE [facility] [address] [place], [address], 04/18/2019 14:51:08 03/19/2020 MAMMO, screening, digital, bilateral completed [address] [place], [address], 03/21/2020 08:55:29 05/01/2021 MAMMO, screening, digital, bilateral completed [email or web address] [place], [address], 05/05/2021 08:30:04 05/21/2021 MRI, breast, bilateral, w/o contrast completed [facility] (Medical Records) [address] [place], [address], 05/22/2021 11:56:46 Procedure Notes None recorded. Medical Equipment None Reported. Allergies Allergen ID Allergen Name Allergen Category Reaction Reaction Severity Criticality Documentation Date Start Date Code Code System Note Provider Name and Address Organization Details Recorded Time 2704 Substance with sulfonami de structure and antibacte rial mechanism of action (substanc e) medicatio n Not available Not available Not available 02/27/2018 15706 8003 SNOMED [facility] 9 16:55:11 Medications Name Sig Start Date Stop Date Status Note LastModified by Organization Details LastModified Time levothyroxi ne 88 mcg tablet TAKE 1 TABLET BY MOUTH ONCE DAILY IN THE MORNING active Not Available Not Available No t Available lorazepam 0.5 mg tablet Take 2 tablets 3 times a day by oral route for 7 days. 03/04/ 2020 03/25 /2022 completed Not Available Not Available Not Available Synthroid 75 mcg tablet Take 1 tablet every day by oral route. 04/17 completed Not Available Not Available Not Available estradiol 0.01% (0.1 mg/gram) vaginal cream 04/17 completed Not Available Not Available Not Available sodium fluoride 1.1 %-potassium nitrate 5 % dental paste USE TO BRUSH TEETH THOROUGHL Y ONCE DAILY FOR 2 MINUTES, PREFERABL Y AT BEDTIME. DO NOT EAT, DRINK OR RINSE FOR 30 MINUTES. active Not Available Not Available No t Available Yuvafem 10 mcg vaginal tablet 05/08 completed Not Available Not Available Not Available Vitals Date Recorded Body weight Heart rate Oxygen saturation Oxygen saturation in Arterial blood by Pulse oximetry Systolic blood pressure Diastolic blood pressure Provider Name and Address Organization Details Last Updated DateTime 0 41193.8 3 g 75 /min 98 % 98 % 114 mm[Hg] 74 mm[Hg] Melva Diallo [facility] 0 13:36:05 Date Recorded Body height Body mass index (BMI) Body weight Oxygen saturation Oxygen saturation in Arterial blood by Pulse oximetry Heart rate Systolic blood pressure Diastolic blood pressure Provider Name and Address Organization Details Last Updated DateTime 2 157.48 cm 19.2 kg/m2 02757.2 g 99 % 99 % 98 /min 130 mm[Hg] 70 mm[Hg] Ruth Borrero [facility] 2 15:45:50 Date Recorded Heart rate Oxygen saturation Oxygen saturation in Arterial blood by Pulse oximetry Body weight Body mass index (BMI) Body height Systolic blood pressure Diastolic blood pressure Provider Name and Address Organization Details Last Updated DateTime 9 80 /min 97 % 97 % 55216.9 6 g 18.3 kg/m2 157.48 cm 104 mm[Hg] 70 mm[Hg] Melva Diallo [facility] 9 09:06:59 Social History Question Answer Notes LastModified by Organizat ion Details LastModified Time Tobacco Smoking Status Never Smoker Not Available [facility] 03:36:23 What Was The Date Of Your Most Recent Tobacco Screening? 05/08/2021 [email or web address] Information not available 05/08/2021 Sex: Unknown Functional Status None recorded. Mental Status None recorded. Family History Relationship Description Onset Age of this Age Resolved Age Notes LastModified by Organization Details LastModified Time Father Malignant melanoma 81 ashu Not available 2018 08:47:44 Mother Dementia now in nursin g home ashu Not available 02/28/2018 09:15:44 Medical History Condition Response Coronary Artery Disease N Gout N Blood Diseases N Kidney Stones N Hyperthyroidism N Blood Transfusion N Depression Y COPD N Anxiety Disorder Y Obesity N Arthritis Y Polyps Y Mental Disorder N Cancer Y Headaches Y Kidney Disease N Heart Problems N Hospitalizations N Tuberculosis N Asthma N Hepatitis N Autism Spectrum Disorder (ASD) N Thrombophilias N Breast Cancer N Lung Disease N Hypothyroidism Y Defects or Inherited Disease N Anesthesia Complications Y Meniere's disease N Bladder or Kidney Problems N High Cholesterol N Liver Disease N Allergies/Hayfever N Thyroid Problems Y Anemia N Diabetes N Ovarian Cancer N Congestive Heart Failure (CHF) N Abuse/Domestic Violence N Diverticulitis N Heart Disease N Hypertension N Gynecological History Statement/Question Response Date of Last Pap Smear 12/15/2014 Obstetrics History GPAL:G 0 P 0 0 0 0 Immunizations Vaccine Type Date Status Note Provider Nam e and Address Organization Details Recorded Time COVID-19, mRNA, LNP-S, PF, 30 mcg/0.3 mL dose 02/04/2020 completed Not Available [facility] 3 15:30:10 COVID-19, mRNA, LNP-S, PF, 30 mcg/0.3 mL dose 02/26/2020 completed Not Available [facility] 3 15:30:10 COVID-19, mRNA, LNP-S, PF, 30 mcg/0.3 mL dose 02/18/2021 completed Not Available [facility] 3 15:30:10 Past Encounters Encounter ID Performer Location Encounter Start Date Encounter Closed Date Diagnosis/Indication Diagnosis SNOMED-CT Code Diagnosis ICD10 Code Diagnosis Note [id number] DO [facility] [address] [facility],[place] [address] 02/28/2018 09:01:09 02/28/2018 10:49:10 Adult health examination 890103266 Z00.00 Up to date with bi data modeler MD Active or passive immunization 374051067 Z23 Screening procedure 2012 5006 Z13.9 Neck pain 66809697 M54.2 History of malignant neoplasm of thyroid 196328104 Z85.850 Tubular adenoma 94063038 7 D36.9 Up to date with colonoscop ies Hypothyroidism 75239515 E03.[address] Roberson, meds being adjusted [id number] Pelon Oliver [facility] [address] [facility],[place] [address] 04/18/2019 13:29:49 04/18/2019 14:45:25 Chest pain 58326082 R07.9 pt states she had been having chest discomfort with left arm pain for one day though has had episodes in the past similar since the of her mother EKG performed > notable RBBB but nothing else of concern (probably normal) pt is dealing with a lot of stress recently [id number] [facility] [address] [facility],[place] [address] 05/08/2021 15:39:37 05/08/2021 16:43:38 Active or passive immunization 985619814 Z23 up to date Adult heal th examination 600881321 Z00.00 BP is fine today Pain of mu ltiple joints 17008179 M25.542 will check labs Screening mammography 24 082396 Z12.31 will fu with breast MRI Health Concerns Section Related Observation LastModified by Organization Detai ls LastModified Time None Recorded Concern Status LastModified by Organization Details LastModified Time None Recorded Advance Directives Directive None Recorded Payers Encounter Date Sequence Insurance Name Policy Number Policy Gray Covered Member ID Gray Member ID Guarantor Name 02/28/2018 1 [employer] [id number] Bee Zhou [id number] Bee Zhou 04/18/2019 1 [employer] [place] [id number] Bee Zhou [id number] Bee Zhou 05/08/2021 1 [employer] [place] [id number] Bee Zhou [id number] Bee Zhou Notes Date Note Type Note Provider Name a nd Address Organization Details Recorded Time 9 text/html Annual WellnessReported bypatient.Diet and Nutrition:healthy diet Fracture Risk:no history of fractures; no recent explained fracture; no sudden unexplained fractures; no previous musculoskeletal injuries Physical Activity:does not exercise on a regular basis; discussed weightbearing activities Additional Lifestyle Factors:no tobacco use; drinks alcohol (mild-moderate) Depression Risk:no loss of interest in activities; no significant changes in weight; no loss of energy; no thoughts of suicide; no history of mood disorders;feels sad, empty, or tearful;history of depression Hearing:loss of hearing in one ear only; right side Vision:no vision problems; wears contacts Now on [address] 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, has found it really hard with her loss she has had an abnormal Pap smear, has to have a LEEP procedure states during that time she started experiencing the chest discomfort and left arm pain has been having a stressful home life with no support system retrosternal chest discomfort intermittently left arm pain, though hx of back pain and shoulder no sob no ankle swelling AMPARO LUND [address] [place], [address], [facility] 04/18/2019 16:42:15 2 text/html Annual WellnessReported bypatient.Diet and Nutrition:healthy diet; discussed vitamin and supplement use; discussed portion control; discussed maintaining calcium balance; discussed diet improvement Fracture Risk:no history of fractures; no recent explained fracture; no sudden unexplained fractures; no previous musculoskeletal injuries; the patient last spring tripped over her shoes down the stairs residual left thumb pain at the base of the thumb > will hold on XRs Physical Activity:exercises on a regular basis; recent increase in physical activity; good physical condition; discussed weightbearing activities; discussed exercise habits; hikes Additional Lifestyle Factors:no tobacco use; drinks alcohol (mild-moderate) Depression Risk:never feels sad, empty, or tearful; no loss of interest in activities; no significant changes in weight; no sleep disturbances or insomnia; no agitation; no loss of energy; no feelings of worthlessness or guilt; no thoughts of suicide; no history of depression; no history of mood disorders Hearing:no loss of hearing Vision:no vision problems AMPARO LUND [address] [place] [address], [address], [facility] 05/08/2021 16:24:27 OBGyn Episode No OBEpisode recorded.
== END 2024-06-18 12:03 | disposition home or self-care (01) ==
LOC: HO.MAMMO 12:02
PROVIDERS: PCP Pediatrics; Visit Provider Obstetrics & Gynecology
DX: Z12.31 Encounter for screening mammogram for malignant neoplasm of breast (principal)
CPT/HCPCS: 77063; 77067

== ENCOUNTER → 2024-06-18 12:04 | Outpatient (BNV) | payer OTHER, SELFPAY | PROVIDERS: PCP Pediatrics; Visit Provider Internal Medicine | DX: Z12.31 Encounter for screening mammogram for malignant neoplasm of breast (principal) | CPT/HCPCS: 77063; 77067 ==

== ENCOUNTER 2024-11-14 15:12 | Inpatient (IN) | payer MEDICAID, SELFPAY ==
--- OUTSIDE RECORDS SUMMARY | 2024-11-09 11:00 | XMS_ITS | Encounter Summary ---
Author Organization [facility] Address [address] [place] [phone] Phone Care Team Providers Care Production Tool Engineer Name Role Phone Merced Eddy MBBS Unavailable [phone] Bibi Thurston SULFATE DRIER MACHINE OPERATOR Unavailable Juan David Yanez DO Primary Care Provider Reason for Visit * Auth/Cert (Routine) Specialty Diagnoses / Procedures Referred By Davina t Referred To Contact Referral ID Status Reason Start Date Expiration Date Visits Re quested Visits Authorized [id number] 1 1 Encounter Details Date Type Department Care Team (Late st Contact Info) Description 11/09/2024 11:00 AM EDT Home Care Visit [facility] [address] [place] [address] Gissell Delarosa, PT [address] [place] [address] PT HOME VISIT Social History Tobacco Use Types Packs/Day Years Used Date Smoking Tobacco: Never Smokeless Tobacco: Never Alcohol Use Standard Drinks/Week Comments Not Currently 0 (1 standard drink = 0.6 oz pur e alcohol) previously Home Health Assessment: Transportation Answer Date Recorded Lack of Transportation (Medical) No 10/29/2024 Lack of Transportation (Non-Medical) No 10/29/2024 Patient Unable or Declines to Respond No 10/29/2024 Child or Family Care Answer Date Record ed Do you have problems with on e of the following making it difficult for you to work, study, or receive health care? No 05/19/2024 Education Answer Date Recorded Are you interested in help w ith more adult education (for example, completing high school, GED, job training, learning the [place] language, technical skills, or developing parenting skills)? No 05/19/2024 Are you concerned about learning? Not on file 05/19/2024 No 05/19/2024 Yes 05/19/2024 Food Answer Date Recorded Within the past 6 months we worried whether our food would run out before we got money to buy more. Never True 05/19/2024 Within the past 6 months the food we bought just didn't last and we didn't have enough money to get more. Never True Residential Stability Answer Date Recor ded What is your housing situation today? I have ana sing 05/19/2024 How many times have you move d in the past 12 months? Zero (I did not move) 05/19/2024 Paying for Meds Answer Date Recorded Do you have trouble paying for medicines? No 05/19/2024 Paying Utility Bills Answer Date Record ed Do you have trouble paying your heating or elect ricity bill? No 05/19/2024 Transportation Answer Date Recorded Has the lack of transportati on kept you from medical appointments or from getting medications? No 05/19/2024 Digital Access Answer Date Recorded No 05/19/2024 Yes 05/19/2024 Do you have reliable internet access at home? Ye s 05/19/2024 Do you have a device (e.g., phone, tablet, computer) with a working camera? Yes 05/19/2024 Intimate Partner Violence Answer Date R ecorded Are you denied basic needs s uch as food, clothing, or medical care? No 05/19/2024 In the past 12 months have y ou been in a relationship with a person who hurts, threatens, or tries to control you? No 05/19/2024 Are you denied basic needs s uch as food, clothing, or medical care? No 05/19/2024 In the past 12 months have y ou been in a relationship with a person who hurts, threatens, or tries to control you? No 05/19/2024 Comments No Sex and Gender Information Value Date Recorded Sex Assigned at Female 11/22/2023 9:57 AM EDT Legal Sex Female 10:09 AM EDT Gender Identity Female 11/22/2023 9:57 AM EDT Sexual Orientation Choose not to disclose 2023 9:57 AM EDT documented as of this encounter Last Filed Vital Signs Vital Sign Reading Time Taken Comments Blood Pressure 124/74 11/09/2024 11:36 AM EDT Pulse 75 11/09/2024 11:36 AM EDT Temperature 36.8 C (98.2 F) 11/09/2024 11:36 AM EDT Respiratory Rate 16 11/09/2024 11:36 AM EDT Oxygen Saturation 95% 11/09/2024 11:36 AM EDT Inhaled Oxygen Concentration - - Weight - - Height - - Body Mass Index - - documented in this encounter Plan of Treatment Upcoming Encounters Date Type Department Care Team (Late st Contact Info) Description 11/15/2024 Home Care Visit [facility] [address] [place] [address] Gissell Delarosa, PT [address] [place] [address] [email or web address] 11/21/2024 7:00 AM EDT Home Care Visit [facility] [address] [place] [address] Steffany Hernández, PHOTOGRAPHIC EQUIPMENT ASSEMBLER [address] [place] [address] [email or web address] 11/22/2024 Home Care Visit [facility] [address] [place] [address] Steffany Hernández, PHOTOGRAPHIC EQUIPMENT ASSEMBLER [address] [place] [address] [email or web address] 11/28/2024 1:45 AM EDT Home Care Visit [facility] [address] [place] [address] Gissell Delarosa, PT [address] [place] [address] 12/13/2024 2:30 PM EDT Office Visit [facility] [address] [place] [address] [place] [address] Juan David Yanez DO [address] [facility], [address]nd [place] [address] 12/21/2024 10:30 AM EST Appointment [facility] [address] [place] [address] Merced Eddy MBBS [address] [place] [address] [email or web address] 12/21/2024 11:30 AM EST Office Visit [facility] [address] [place] [address] Alisia Alejo NP [address] [place] [address] 03/28/2025 11:30 AM EST Office Visit [facility] [address] [place] [address] Darrius Roberson DO [address] [place] [address] documented as of this encounter Visit Diagnoses Not on filedocumented in this encounter Additional Health Concerns Assessment Noted Time PHQ-2 Depression Total Score: 0 05/20/19 25 12:21 AM EDT documented as of this encounter Home Health Visit - Care Plan Visit Details Visit Type -PT HOME VISIT Discipline -Physical Therapy Problems Problem Description Start Date Status Goals Interve ntions HH - Medication Management Disciplines: All Active Home Health Disciplines 10/29/2024 Active 1 goal linked to scheduled/document ed intervention 2 goal interventions scheduled/document ed in this visit HH - Health Maintenance Disciplines: All Active Home Health Disciplines 10/29/2024 Active 1 goal linked to scheduled/document ed intervention HH - Focus of Care and Teaching Disciplines: All Active Home Health Disciplines w/RD 10/29/2024 Active 1 goal linked to scheduled/document ed intervention 1 goal intervention scheduled/document ed in this visit HH - Emergency Planning - Knowledge of Disciplines: All Active Home Health Disciplines 10/29/2024 Active 1 goal linked to scheduled/document ed intervention 2 goal interventions scheduled/document ed in this visit HH - Community Resources - Lack of Knowledge/Access Disciplines: All Active Home Health Disciplines 10/29/2024 Active 1 goal linked to scheduled/document ed intervention 1 goal intervention scheduled/document ed in this visit HH - Standard of Care Disciplines: All Active Home Health Disciplines 10/29/2024 Active 1 goal linked to scheduled/document ed intervention 4 goal interventions scheduled/document ed in this visit HH - Pain Disciplines: All Active Home Health Disciplines 10/29/2024 Active 1 goal linked to scheduled/document ed intervention 1 goal intervention scheduled/document ed in this visit HH - Mobility and Activity Tolerance - Impaired Disciplines: Physical Therapy 10/29/2024 Active 1 goal linked to scheduled/document ed intervention 1 goal intervention scheduled/document ed in this visit Goals Goal Associated Problem Outcome Goal Met? Visit Notes HH - Safe medication management, avoid unnecessary harm related to medication errors and/or interactions HH - Medication Management No HH - Patient preferences will be utilized to achieve optimal wellness and home safety. HH - Health Maintenance Progressing No HH - Communication and collaboration to achieve patient goals HH - Focus of Care and Teaching Progressing No HH - Knowledge of options for managing care in the event of an emergency related situation. HH - Emergency Planning - Knowledge of No HH - Demonstrate/verbalize knowledge of community resources HH - Community Resources - Lack of Knowledge/Access No HH - Achieve care management for a safe to home/community discharge from homecare HH - Standard of Care Progressing No HH - Frequency of pain interfering with patient's activity or movement will improve with activity or movement by discharge. Description: Pain will be managed over the course of care. Patient's acceptable level of pain is 1 - pain that doesn't interfere. HH - Pain Progressing No HH - Demonstrate maximum mobility and activity level for safe function Description: PT GOAL: patient /cg will demonstrate knowledge in fall prevention techniques so patient can remain safe at home by 11/24/24 Patient/cg will demonstrates understanding and ability to perform HEP with 90% accuracy so patient/cg can continue program without direction after DC by 11/24/24 patient /cg will demonstrate understanding of energy conservation and pacing activities so patient can perform ADLs with reported perceived effort < 4/10 by 11/24/24 Patient/cg will demonstrates understanding of all equipment and all safety recommendations allowing patient to remain safely in home; 11/24/24 Pt. will demonstrate sit<>stand transfers from toilet, chairs, and recliner chair SAUL by 11/24/2024 Pt. will demonstrate household ambulation SAUL by 11/24/2024 Pt. will demonstrate transfers in and OOB as well as shower and auto transfers including lifting legs so patient can independently transition from room to room by 12/27/2024 Patient will demonstrate improved Tinetti score to > 19/28 demonstrating improved ambulation safety with gait at least 150' allowing patient to transition to gait on uneven terrain by 12/27/2024 HH - Mobility and Activity Tolerance - Impaired Progressing No Interventions Intervention Associated Problem/Goal Status Variance Visit Notes HH - I/E medication management: administration, purpose, dosages, preparation, setup, scheduling, side effects, food/drug interactions, and potential complications as indicated Description: Update patient's copy of medication list as needed. Problem:HH - Medication Management Goal:HH - Safe medication management, avoid unnecessary harm related to medication errors and/or interactions Completed HH - Complete medication review every visit and medication reconciliation as indicated. Pharmacy information: Problem:HH - Medication Management Goal:HH - Safe medication management, avoid unnecessary harm related to medication errors and/or interactions Completed HH - Focus of care, teaching completed and plan for next visit Problem:HH - Focus of Care and Teaching Goal:HH - Communication and collaboration to achieve patient goals Completed Primary Clinical Focus this Visit & Instruction Provided: bed mobility training, durable medical equipment training, gait/stair training, home modification, manual therapy/soft tissue mobilization , therapeutic exercise/home exercise program and transfer training, including bathroom transfers Instruction Provided to: patient and caregiver Response to Instruction/Teaching: Is partially able to teach back topics as evidenced by verbal understanding. Plan for Next Visit Specific Focus & Education Needed: on above interventions New Orders: requested WET MIXER, ? OT services Updated Discharge Plan: to be determined Arrived to home with patient resting in new recliner chair in living room, added pillows strapped to the chair to promote and erect posture which is what is most comfortable for Bee. New [employer] in the home, very attentive and supportive to Bee. Ap Thakur present and reporting on updates since last visit. States they have been working on promoting a bowel movement- small BM this am according to [employer]. Added in psyillium fiber, prune juice- already taking stool softeners and does have glycerin suppositories . Pt had a hx of constipation in the past when receiving chemotherapy- Ofe is used to needing to manage. Educated on alternate bowel management and options to support regularity. Verbalized understanding. Reports pain level escalated last night and they were very close to calling for ambulance transport to ED. Pt was experiencing abdominal pain in conjunction with back pain I think if it wasn't for the fact that we knew she was constipated we would have insisted that she go to the ED . Pain level reduced this amd, but still at a mod to severe level of reporting. Pt is now scheduled for PCP appt on Tuesday to address ongoing pain reports without resolution. Caregiver using muscle relaxant, tylenol and ibuprofen to manage and layer pain control- have inreased Tizanidine from 1 tab to 2 tabs and some improvement with increased med use. Currently limited in ability to participate in rehab interventions due to pain level. HH - I/E management of care in an urgent or emergency (ER) situation: When to call your Home Care Team/911, ER plans, supplies, evacuation, when to contact local ER officials and how to stay informed Problem:HH - Emergency Planning - Knowledge of Goal:HH - Knowledge of options for managing care in the event of an emergency related situation. Completed HH - Emergency planning assessment: the emergency plan, supplies needed, emergency contact numbers and an evacuation plan were reviewed Description: Caregiver is/are knowledgeable of emergency plans. Problem:HH - Emergency Planning - Knowledge of Goal:HH - Knowledge of options for managing care in the event of an emergency related situation. Completed HH - Assess need for community resources Problem:HH - Community Resources - Lack of Knowledge/Access Goal:HH - Demonstrate/verbalize knowledge of community resources Completed HH - Assess vital signs, pulse oximetry, pain, and as indicated, orthostatic vital signs Description: use agency-specific parameters Problem:HH - Standard of Care Goal:HH - Achieve care management for a safe to home/community discharge from homecare Completed HH - Assess skin integrity Problem:HH - Standard of Care Goal:HH - Achieve care management for a safe to home/community discharge from homecare Completed HH - Assess safety needs of patient (other than falls) Problem:HH - Standard of Care Goal:HH - Achieve care management for a safe to home/community discharge from homecare Completed HH - I/E discharge plan Problem:HH - Standard of Care Goal:HH - Achieve care management for a safe to home/community discharge from homecare Completed HH - Assess pain Problem:HH - Pain Goal:HH - Frequency of pain interfering with patient's activity or movement will improve with activity or movement by discharge. Completed HH - Therapeutic interventions, as indicated: Description: bed mobility training, durable medical equipment training, gait/stair training, home modification, manual therapy/soft tissue mobilization , therapeutic exercise/home exercise program and transfer training, including bathroom transfers Problem:HH - Mobility and Activity Tolerance - Impaired Goal:HH - Demonstrate maximum mobility and activity level for safe function Completed This visit -bed mobility training, durable medical equipment training, gait/stair training, home modification, manual therapy/soft tissue mobilization , therapeutic exercise/home exercise program and transfer training, including bathroom transfers documented in this encounter Care Teams Production Tool Engineer Relationship Specialty Start Date End Date Juan David Yanez DO [address] [place] [address], [address] [place] [address] [email or web address] PCP - General Internal Medicine 05/25/24 Merced Eddy MBBS [email or web address] Primary Oncologist Medical Oncology 12/15/23 Bibi Thurston CNP [address] [place] [address] [email or web address] Nurse Practitioner Medical Oncology 03/14/24 documented as of this encounter Additional Source Comments The information contained in this document represents components of the legal health record. It is not the complete legal health record.[facility]
--- OUTSIDE RECORDS SUMMARY | 2024-11-12 14:00 | XMS_ITS | Encounter Summary ---
Author Organization [facility] Address [address] [facility] [address] [place] [address] Phone Care Team Providers Care Plumber'S Assistant Name Role Phone Merced Eddy MBBS Unavailable [phone] Bibi Thurston BLOOD BANK ASSISTANT Unavailable Juan David Yanze DO Primary Care Provider Reason for Referral * Consultation (Within 2 weeks) - New Request Specialty Diagnoses / Procedures Referred By Conttomi lamb Referred To Contact Licensed Clinical Marketing Rep Diagnoses Chronic bilateral low back pain without sciatica Spasm of muscle of lower back Nontraumatic compression fracture of vertebra, initial encounter Glioma Seizure Juan David Yanez DO [address] [facility], 2nd [place] [address] Phone: tel: fax: mailto:[email or web address] [address] [address] Referral ID Status Reason Start Date Expiration Date V isits Requested Visits Authorized [id number] New Request 11/14/2024 11/14/2025 1 1 * MRI/CAT Scan - New Request Specialty Diagnoses / Procedures Referred By Contac t Referred To Contact Diagnoses Chronic bilateral low back pain without sciatica Nontraumatic compression fracture of vertebra, initial encounter Procedures MRI Thoracic Spine Juan David Yanez DO [address] [facility], [address] [place] [address] Phone: tel: fax: mailto: [place] [address] Phone: tel: Referral ID Status Reason Start Date Expiration Date V isits Requested Visits Authorized [id number] New Request 11/14/2024 1 1 * MRI/CAT Scan - New Request Specialty Diagnoses / Procedures Referred By Conttomi t Referred To Contact Diagnoses Chronic bilateral low back pain without sciatica Nontraumatic compression fracture of vertebra, initial encounter Procedures MRI Lumbar Spine Juan David Yanez DO [address] [place] [address], [address] [place] [address] Phone: tel: fax: mailto:[email or web address] [place] [address] Phone: tel: Referral ID Status Reason Start Date Expiration Date V isits Requested Visits Authorized [id number] New Request 11/14/2024 1 1 Reason for Visit * Reason Comments Follow-up Pain management Constipation Back Pain Encounter Details Date Type Department Care Team (Late st Contact Info) Description 11/12/2024 2:00 PM EDT Office Visit [facility] [address] [place] [address] [place] [address] Juan David Yanez DO [address] [place] [address], [address] [place] [address] [email or web address] Chronic bilateral low back pain without sciatica (Primary Dx); Spasm of muscle of lower back; Slow transit constipation; Nontraumatic compression fracture of vertebra, initial encounter; Glioma; Seizure Social History Tobacco Use Types Packs/Day Years [...] high school, GED, job training, learning the Portuguese language, technical skills, or developing parenting skills)? [...] Sign Reading Time Taken Comments Blood Pressure 112/60 11/12/2024 2:18 PM EDT Pulse 74 11/12/2024 2:18 PM EDT Temperature - - Respiratory Rate - - Oxygen Saturation 95% 11/12/2024 2:18 PM EDT Inhaled Oxygen Concentration - - Weight - - Height - - Body Mass Index - - documented in this encounter Patient Instructions * Patient Instructions* Juan David Yanez DO - 11/12/2024 2:00 PM EDT 1 oz oral mineral oil with 1 oz milk of magnesia up to twice a day Maintenance with 1/2- 1 cap of miralax, nightly senna. documented in this encounter Progress Notes * Juan David Yanez DO - 11/12/2024 2:00 PM EDT Subjective: Patient ID: Bee Zhou is a 64 y.o. female . Patient seen today for follow-up on low back pain. Chronic low back pain has been worse since last visit difficulty controlling pain due to sedation with medications, even with sedation recently painhas not been well-controlled. We discussed further evaluation needed with MRI, will obtain lumbar spine x-ray as initial testing. We discussed adding hydrocodone for pain control. Regarding prior seizure-will remain on Keppra. No change at this time to current regimen. No further seizures since last visit. Constipation is very problematic-patient with minimal mobility and increased difficulty moving bowels. Feels bloated and uncomfortable in her stomach. Unfortunately hydrocodone may make this part worse. We discussed adding bowel regimen with MiraLAX and senna. To get cleaned out would try oral mineral oil with milk of magnesia. Monitor for effect. Review of Systems Constitutional: Negative. HENT: Negative. Eyes: Negative. Respiratory: Negative. Cardiovascular: Negative. Gastrointestinal: Negative. Neurological: Negative. Skin: Negative. Objective: Physical Exam Vitals reviewed. Constitutional: General: She is not in acute distress. Appearance: Normal appearance. HENT: Head: Normocephalic and atraumatic. Abdominal: General: Bowel sounds are normal. There is distension (Mild). Palpations: Abdomen is soft. Tenderness: There is no abdominal tenderness. Neurological: Mental Status: She is alert. Assessment/Plan: Problem List Items Addressed This Visit None Visit Diagnoses Chronic bilateral low back pain without sciatica - Primary Bilateral low back pain with significant muscle spasm in the area. Pain difficult to control. We discussed adding hydrocodone, check lumbar spine x-ray and MRI Relevant Orders XR Lumbar Spine (Completed) MRI Lumbar Spine (Completed) MRI Thoracic Spine (Completed) Spasm of muscle of lower back Significant spasms in low back noted with patient discomfort to palpation in that area. Will check x-ray, proceed to MRI next. Will need upright MRI Relevant Orders XR Lumbar Spine (Completed) Slow transit constipation Suspect slow transit constipation due to lack of mobility and medication side effect. Supportive care advice given for good bowel regimen. Nontraumatic compression fracture of vertebra, initial encounter Seen on back [id number] compression fractures present. Needs evaluation with MRI for possible repair. Relevant Orders MRI Lumbar Spine (Completed) MRI Thoracic Spine (Completed) Return for Next scheduled follow up. Juan David Yanez DO This office note has been dictated using dictation software. documented in this encounter Plan of Treatment Upcoming Encounters Date Type Department Care Team (Late st Contact Info) Description 11/15/2024 Home Care Visit [facility] [address] [place] [phone] [place], Gissell, PT [address] [place] [address] 11/21/2024 7:00 AM EDT Home [facility] Visit [facility] [address] [place] [phone] Steffany Hernández, TECHNICAL AID [address] [place] [address] 11/22/2024 Home Care Visit [facility] [address] [place] [phone] Steffany Hernández, TECHNICAL AID [address] [place] [address] 11/28/2024 1:45 AM EDT Home Care Visit [facility] [address] [place] [phone] Gissell Delarosa, PT [address] [place] [address] 12/13/2024 2:30 PM EDT Office Visit [facility] [address] [place], [place] [address] [address] Juan David Yanez, [address] [place] [address], [address] [place] [address] 12/21/2024 10:30 AM EST Appointment [facility] [address] [place] [address] Merced Eddy MBBS [address] [place] [address] [email or web address] 12/21/2024 11:30 AM EST Office Visit [facility] at [address] [address] Alisia Alejo, TRUDY [address] [place] [address] [email or web address] 03/28/2025 11:30 AM EST Office Visit [facility] [address] [place] [address] [place] [address] [email or web address] Scheduled Referrals Name Type Priority Associated Diagnoses Orde r Schedule Ambulatory Referral Medical Group Social Work Outpatient Referral Routine Chronic bilateral low back pain without sciatica Spasm of muscle of lower back Nontraumatic compression fracture of vertebra, initial encounter Glioma Seizure Ordered: 11/14/2024 documented as of this encounter Procedures Procedure Name Priority Date/Time Associated Diagnosis Comments MRI THORACIC SPINE Routine 11/14/2024 12:32 PM ED T Chronic bilateral low back pain without sciatica Nontraumatic compression fracture of vertebra, initial encounter MRI LUMBAR SPINE Routine 11/14/2024 12:32 PM EDT Chronic bilateral low back pain without sciatica Nontraumatic compression fracture of vertebra, initial encounter documented in this encounter Results * XR LUMBOSACRAL SPINE 2-3 VIEWS (11/12/2024 3:41 PM EDT) [facility] IMG RECOMMENDATION COMMENT compression deformities T11; compression deformities T12; compression deformities L1; significant loss vertebral body height L5 [facility] Anatomical Region Laterality Modality L-spine Computed Radiogr aphy 11/13/2024 11:4 3 AM EDT Impressions 11/13/2024 11:48 AM EDT Abnormal exam. There are compression deformities of T11, T12, and L1 new since prior examination. There is significant loss of vertebral body height of L5 of uncertain chronicity. Follow-up MRI recommended. Narrative 11/13/2024 11:48 AM EDT XR LUMBOSACRAL SPINE 2-3 VIEWS Referring clinician's provided indication for this examination in Epic: Lumbar radiculopathy, > 6 wks; Pain COMPARISON: No prior lumbar spine study available for comparison. Comparison made to lateral chest x-ray from 11/09/2023 and selected images from chest CT dated 04/19/2024 FINDINGS: Normal lumbar lordosis. There is moderate anterior wedge compression deformity of L1 new since prior examination. There is also moderate anterior wedge compression deformity of T11 and superior endplate of T12 new since prior examination. The lumbosacral junction is poorly visualized but there does appear to be significant loss of the vertebral body height of L5 of uncertain chronicity. Mild disc space narrowing at L1-2 and L2-3. Remainder the disc spaces appear preserved. Procedure Note Juice Cao MD - 11/13/2024 XR LUMBOSACRAL SPINE 2-3 VIEWS Referring clinician's provided indication for this examination in [facility]:Lumbar radiculopathy, > 6 wks; Pain COMPARISON: No prior lumbar spine study available for comparison.Comparison made to lateral chest x-ray from 11/09/[address] dated 04/19/2024 FINDINGS: Normal lumbar lordosis. There is moderate anterior wedge compressiondeformity of L1 new since prior examination. There is also moderateanterior wedge compression deformity of T11 and superior endplate of T12new since prior examination. The lumbosacral junction is poorly visualizedbut there does appear to be significant loss of the vertebral body heightof L5 of uncertain chronicity. Mild disc space narrowing at L1-2 and L2-3.Remainder the disc spaces appear preserved. IMPRESSION: Abnormal exam. There are compression deformities of T11, T12, and L1 new since priorexamination. There is significant loss of vertebral body height of L5 of uncertainchronicity. Follow-up MRI recommended. us Juan David Yanez DO IMG XR SPINE Final R esult documented in this encounter Visit Diagnoses Diagnosis Chronic bilateral low back pain without sciatica- Primary Spasm of muscle of lower back Slow transit constipation Nontraumatic compression fracture of vertebra, initial encounter Glioma Seizure Other convulsions Chronic bilateral low back pain without sciatica Spasm of muscle of lower back documented in this encounter Additional Health Concerns Assessment Noted Time PHQ-2 Depression Total Score: 0 05/20/19 12:21 AM EDT documented as of this encounter Care Teams Plumber'S Assistant Relationship Specialty Start Date End Date Juan David Yanez DO [address] [place] [address], [address] [place] [address] [email or web address] PCP - General Internal Medicine 05/25/24 Merced Eddy MBBS [email or web address] Primary Oncologist Medical Oncology 12/15/23 Bibi Thurston CNP [address] [place] [phone] [email or web address] Nurse Practitioner Medical Oncology 03/14/24 documented as of this encounter Additional Source Comments The information contained in this document represents components of the legal health record. It is not the complete legal health record.[facility]
--- OUTSIDE RECORDS SUMMARY | 2024-11-12 15:04 | XMS_ITS | Encounter Summary ---
Author Organization [facility] Address [address] [facility] [address] [place] [address] Phone Care Team Providers Care Capacity Planning Engineer Name Role Phone NunuDinaradha Marley MBBS Unavailable Bbii Thurston PILOT SAFETY INSPECTOR Unavailable Juan David Yanez DO Primary Care Provider Encounter Details Date Type Department Care Team (Late st Contact Info) Description 11/12/2024 3:04 PM EDT - 11/12/2024 11:59 PM EDT Hospital Encounter [facility], X-Ray - [address] [place] [address] Juan David Yanez DO [address] [facility], 2nd [place] [address] [email or web address] Arrived Discharge Disposition: Home or Self Care Social History Tobacco Use Types Packs/Day Years [...] high school, GED, job training, learning the [place] language, technical skills, or developing parenting skills)? [...] AM EDT documented as of this encounter Medications at Time of Discharge acetaminophen (TYLENOL) 500 MG tablet Take 1,000 mg by mouth every 8 (eight) hours as needed for pain (specific location in comments). 5 cyanocobalamin, vitamin B-12, 500 MCG tablet Take 1 tablet (500 mcg total) by mouth daily. 90 tablet 3 5 dapsone 100 MG tabletIndications:G lioma TAKE 1/2 A TABLET (50MG) BY MOUTH TWICE DAILY 60 tablet 1 5 dexAMETHasone (DECADRON) 4 MG tabletIndications:G lioma TAKE ONE (1) TABLET BY MOUTH EACH MORNING AND 1/2 TAB EACH EVENING 60 tablet 1 5 ELIQUIS 5 mg tabletIndications:O ther chronic pulmonary embolism without acute cor pulmonale,Pulmonary embolism, unspecified chronicity, unspecified pulmonary embolism type, unspecified whether acute cor pulmonale present TAKE ONE (1) TABLET BY MOUTH TWICE DAILY 60 tablet 3 5 esomeprazole (NEXIUM) 20 MG capsule TAKE ONE (1) CAPSULE BY MOUTH EVERY DAY 30 capsule 6 5 furosemide (LASIX) 20 MG tabletIndications:B ilateral leg edema TAKE FOUR (4) TABLETS (80MG) BY MOUTH EVERY DAY 90 tablet 1 5 HYDROcodone-acetami nophen (NORCO) 5-325 mg per tablet Take 1 tablet by mouth every 6 (six) hours as needed for pain (specific location in comments). Partial fill ok 20 tablet 5 11/18/19 25 ibuprofen (ADVIL,MOTRIN) 600 MG tablet Take 600 mg by mouth every 8 (eight) hours as needed for pain (specific location in comments). taking every 8 hours for back pain management caregivers aware of bleeding risk 5 levETIRAcetam (KEPPRA) 750 MG IMMEDIATE release tabletIndications:G lioma Take 1 tablet (750 mg total) by mouth 2 (two) times a day. 60 tablet 6 5 levothyroxine (SYNTHROID, LEVOTHROID) 88 MCG tabletIndications:P ostoperative hypothyroidism Take 1 tablet (88 mcg total) by mouth daily. 90 tablet 3 5 nystatin (MYCOSTATIN) 100,000 units/mL suspensionIndicatio ns:Glioma Take 5 mL (500,000 Units total) by mouth 4 (four) times a day as needed (mucositis). 473 mL 3 5 ondansetron (ZOFRAN) 8 MG tabletIndications:G lioma Take 1 tablet (8 mg total) by mouth every 8 (eight) hours as needed for nausea. Take 30-60 minutes prior to oral anti-cancer medication. May repeat every 8 hours as needed for nausea. Follow instructions given by provider. 60 tablet 6 5 potassium chloride (KLOR-CON) 20 mEq packetIndications:H ypokalemia Take 20 mEq by mouth 2 (two) times a day. 60 packet 5 senna (SENOKOT) 8.6 mg tablet Take 1 tablet by mouth nightly at bedtime as needed for constipation. 5 sodium fluoride-potassium nitrate (PREVIDENT 5000 SENSITIVE) 1.1-5 % Pste USE TO BRUSH TEETH THOROUGHLY ONCE DAILY FOR 2 MINUTES, PREFERABLY AT BEDTIME. DO NOT EAT, DRINK OR RINSE FOR 30 MINUTES. 2 tiZANidine (ZANAFLEX) 2 MG tabletIndications:C hronic bilateral low back pain without sciatica,Spasm of muscle of lower back Take 1-2 tablets (2-4 mg total) by mouth every 8 (eight) hours as needed (for muscle tightness/spasm). 60 tablet 1 5 documented as of this encounter Plan of Treatment Upcoming Encounters Date Type Department Care Team (Late st Contact Info) Description 11/15/2024 [facility] [address] [place] [phone] Gissell Delarosa, PT [address] [place] [address] 11/21/2024 7:00 AM EDT Home [facility] Visit [facility] [address] [place] [phone] Steffany Hernández, AUTOMATIC RIVETING MACHINE OPERATOR [address] [place] [address] 11/22/2024 Home Care Visit [facility] [address] [place] [phone] Steffany Hernández, AUTOMATIC RIVETING MACHINE OPERATOR [address] [place] [address] 11/28/2024 1:45 AM EDT Home Care Visit [facility] [address] [place] [phone] Gissell Delarosa, PT [address] [place] [address] 12/13/2024 2:30 PM EDT Office Visit [facility] [address] [place] [address] [place] [address] Juan David Yanez, [address] [place] [address], 2[address] [place] [address] 12/21/2024 10:30 AM EST Appointment [facility] [address] [place] [address] Merced Eddy, WAYNE [address] [place] [address] [email or web address] 12/21/2024 11:30 AM EST [facility] Visit [facility] [address] [place] [address] Alisia Alejo, TRUDY [address] [place] [address] 03/28/2025 11:30 AM EST Office Visit [facility] [address] [place] [address] Darrius Roberson DO [address] [place] [phone] [email or web address] documented as of this encounter Procedures Procedure Name Priority Date/Time Associated Diagnosis Comments XR LUMBOSACRAL SPINE 2-3 VIEWS Routine 11/12/2024 3:41 PM EDT Chronic bilateral low back pain without sciatica Spasm of muscle of lower back documented in this encounter Results * XR LUMBOSACRAL SPINE 2-3 VIEWS (11/12/2024 3:41 PM EDT) [facility] IMG RECOMMENDATION COMMENT compression deformities T11; compression deformities T12; compression deformities L1; significant loss vertebral body height L5 [facility] Anatomical Region Laterality Modality L-spine Computed [...] clinician's provided indication for this examination in Epic:Lumbar radiculopathy, > 6 wks; Pain COMPARISON: No [...] of L5 of uncertainchronicity. Follow-up MRI recommended. Juan David Yanez DO IMG XR SPINE Final R esult documented in this encounter Visit Diagnoses Diagnosis Chronic bilateral low back pain without sciatica Spasm of muscle of lower back documented in this encounter Additional Health Concerns Assessment Noted Time PHQ-2 Depression Total Score: 0 05/20/19 12:21 AM EDT documented as of this encounter Care Teams Capacity Planning Engineer Relationship Specialty Start Date End Date Juan David Yanez DO [address] [place] [address], [address] [place] [address] [email or web address] PCP - General Internal Medicine 05/25/24 Merced Eddy MBBS [email or web address] Primary Oncologist Medical Oncology 12/15/23 Bibi Thurston CNP [address] [place] [phone] [email or web address] Nurse Practitioner Medical Oncology 03/14/24 documented as of this encounter Additional Source Comments The information contained in this document represents components of the legal health record. It is not the complete legal health record.[facility]
--- OUTSIDE RECORDS SUMMARY | 2024-11-13 13:30 | XMS_ITS | Encounter Summary ---
Author Organization [facility] Address [address] [facility] [address] [place] [address] [place] [address] Phone Care Team Providers Care Blueberry Grower Name Role Phone Merced Eddy MBBS Unavailable [phone] Bibi Thurston COAT JOINER Unavailable Juan David Yanez DO Primary Care Provider Reason for Visit * Auth/Cert (Routine) Specialty Diagnoses / Procedures Referred By Davina t Referred To Contact Referral ID Status Reason Start Date Expiration Date Visits Re quested Visits Authorized [id number] 1 1 Encounter Details Date Type Department Care Team (Late st Contact Info) Description 11/13/2024 1:30 PM EDT Home Care Visit [facility] [address] [place] [phone] Renee Polk, [facility] [address] [place] [address] LOGISTICS TEAM LEADER HOME VISIT Social History Tobacco Use Types [...] high school, GED, job training, learning the Nepalese language, technical skills, or developing parenting skills)? [...] AM EDT documented as of this encounter Plan of Treatment Upcoming Encounters Date Type Department Care Team (Late st Contact Info) Description 11/15/2024 [facility] [address] [place] [phone] Gissell Delarosa, PT [address] [place] [address] [email or web address] 11/21/2024 7:00 AM EDT [facility] [address] [place] [phone] Steffany Hernández, NUTRITION PARTNER [address] [place] [address] [email or web address] 11/22/2024 Home Care Visit [facility] [address] [place] [phone] Steffany Hernández, NUTRITION PARTNER [address] [place] [address] [email or web address] 11/28/2024 1:45 AM EDT Home Care Visit [facility] [address] [place] [phone] Gissell Delarosa, PT [address] [place] [address] [email or web address] 12/13/2024 2:30 PM EDT Office Visit [facility] [address] [place] [address] [place] [address] Juan David Yanez, [address] [facility], 2nd Floor [place], [place] 12/21/2024 10:30 AM EST Appointment [facility] [address] [place] [address] Merced Eddy MBBS [address] [place] [address] [email or web address] 12/21/2024 11:30 AM EST Office Visit [facility] [address] [place] [address] Alisia Alejo NP [address] [place] [address] [email or web address] 03/28/2025 11:30 AM EST Office Visit [facility] [address] [place] [address] Darrius Roberson DO [address] [place] [address] documented as of this encounter Visit Diagnoses Not on filedocumented in this encounter Additional Health Concerns Assessment Noted Time PHQ-2 Depression Total Score: 0 05/20/19 25 12:21 AM EDT documented as of this encounter Home Health Visit - Care Plan Visit Details Visit Type -LOGISTICS TEAM LEADER HOME VISIT Discipline -Medical Social Work Problems Problem Description Start Date Status Goals Interve ntions HH - Medication Management Disciplines: All Active Home Health Disciplines 10/29/2024 Active 1 goal linked to scheduled/document ed intervention 2 goal interventions scheduled/document ed in this visit HH - Focus of Care and Teaching [...] goal interventions scheduled/document ed in this visit Goals Goal Associated Problem Outcome Goal Met? Visit Notes HH - Safe medication management, avoid unnecessary harm related to medication errors and/or interactions HH - Medication Management No HH - Communication and collaboration to achieve patient goals HH - Focus of Care and Teaching No HH - Knowledge of options for managing care in the event of an emergency related situation. HH - Emergency Planning - Knowledge of No HH - Achieve care management for a safe to home/community discharge from homecare HH - Standard of Care No Interventions Intervention Associated Problem/Goal Status Variance Visit Notes HH - I/E medication management: administration, purpose, dosages, preparation, setup, scheduling, side effects, food/drug interactions, and potential complications as indicated Description: Update patient's copy of medication list as needed. Problem:HH - Medication Management Goal:HH - Safe medication management, avoid unnecessary harm related to medication errors and/or interactions Scheduled with variance Not Applicable for Visiting Discipline LOGISTICS TEAM LEADER visit HH - Complete medication review every visit and medication reconciliation as indicated. Pharmacy information: Problem:HH - Medication Management Goal:HH - Safe medication management, avoid unnecessary harm related to medication errors and/or interactions Scheduled with variance Not Applicable for Visiting Discipline LOGISTICS TEAM LEADER visit HH - Focus of care, teaching completed and plan for next visit Problem:HH - Focus of Care and Teaching Goal:HH - Communication and collaboration to achieve patient goals Completed Primary Clinical Focus this Visit & Instruction Provided: Pt's CG/cousin, Ofe, greeted LOGISTICS TEAM LEADER and brought LOGISTICS TEAM LEADER to the kitchen to say hi to pt, who was just sitting down to eat lunch. Pt appeared alert and oriented to person and situation, not readily choosing an item from a small smorgasboard of leftovers. Pt's teaching aide seemed to have a good rapport with pt (24-hour care having begun last week). Pt agreed to LOGISTICS TEAM LEADER and Ofe talking 1:1 in a breezeway. Ofe said that private duty care has gone well, recounting that some aides are more skilled than others, and that pt takes well to the social time she now has given aides ongoing presence. Their presence also provides respite. LOGISTICS TEAM LEADER asked after Ofe's ability to alert pt's legal team of [id number] re: Medicaid and Ofe said that she has so alerted the team, which relayed that it would take on this change in financial status as it relates to pt's Medicaid eligibility. LOGISTICS TEAM LEADER had noted from the chart that pt was enrolled, over this past summer, in Adult Foster Care and Ofe denied that this enrollment has occurred. It seems that the process was begun, but not executed to being implemented as private duty help has now occurred. LOGISTICS TEAM LEADER provided Ofe with resources re: glio, glioblastoma, including online support groups. LOGISTICS TEAM LEADER had cc'd with the [facility] cancer center honey processor about how Ofe can best learn pt's prognosis, and one suggested that at December 2024 oncology provider visit, Ofe ask questions. Ofe acknolwedged that it is difficult to prognoticate re: such cancer and attendant developments, as each pt may present differently. LOGISTICS TEAM LEADER also provided a list of private duty CGs/services, including home foot care, haircuts. Ofe noted that pt had gone to PCP appt yesterday due to pain, and does now have new pain meds. Ofe seems to give them at once, when LOGISTICS TEAM LEADER asked after getting nursing advice around perhaps staggering them to get ahead of pt pain. Ofe did not think such approach would be useful. Nor did she think a different system of transferring pt is in order (LOGISTICS TEAM LEADER asked after a [id number], as currently, CGs have pt elevate via lift chair and then pull on their hands to lift herself up to standing). Ofe said that in such manner, pt is able to control any pain she might encounter when transferring. LOGISTICS TEAM LEADER will inquire with PT. As LOGISTICS TEAM LEADER finds no outstanding SW concerns, LOGISTICS TEAM LEADER d/c's pt from discipline. Instruction Provided to: CG/cousin Response to Instruction/Teach ing: Appreciative Plan for Next Visit Specific Focus & Education Needed: None New Orders: None Updated Discharge Plan: Pt d/c'ing after this visit. HH - I/E management of care in an urgent or emergency (ER) situation: When to call your Home Care Team/911, ER plans, supplies, evacuation, when to contact local ER officials and how to stay informed Problem:HH - Emergency Planning - Knowledge of Goal:HH - Knowledge of options for managing care in the event of an emergency related situation. Scheduled with variance Not Applicable for Visiting Discipline LOGISTICS TEAM LEADER visit HH - Emergency planning assessment: the emergency plan, supplies needed, emergency contact numbers and an evacuation plan were reviewed Description: Caregiver is/are knowledgeable of emergency plans. Problem:HH - Emergency Planning - Knowledge of Goal:HH - Knowledge of options for managing care in the event of an emergency related situation. Scheduled with variance Not Applicable for Visiting Discipline LOGISTICS TEAM LEADER visit HH - Assess vital signs, pulse oximetry, pain, and as indicated, orthostatic vital signs Description: use agency-specific parameters Problem:HH - Standard of Care Goal:HH - Achieve care management for a safe to home/community discharge from homecare Scheduled with variance Not Applicable for Visiting Discipline LOGISTICS TEAM LEADER visit HH - Assess skin integrity Problem:HH - Standard of Care Goal:HH - Achieve care management for a safe to home/community discharge from homecare Scheduled with variance Not Applicable for Visiting Discipline LOGISTICS TEAM LEADER visit documented in this encounter Care Teams Blueberry Grower Relationship Specialty Start Date End Date Juan David Yanez DO [address] [place] [address], [address] [place] [address] [email or web address] PCP - General Internal Medicine 05/25/24 Merced Eddy MBBS [email or web address] Primary Oncologist Medical Oncology 12/15/23 Bibi Thurston CNP [address] [place] [address] [email or web address] Nurse Practitioner Medical Oncology 03/14/24 documented as of this encounter Additional Source Comments The information contained in this document represents components of the legal health record. It is not the complete legal health record.[facility]
--- NOTE | ~2024-11-14 | CT_ITS ---
CLINICAL HISTORY: sbo eval CT abdomen and pelvis with contrast Comparison: None provided Findings: Trace right pleural effusion. Bibasilar atelectasis and/or consolidation. Diffuse steatotic change in fat deposition of the liver. Gallbladder is distended. Pancreas partly obscured and otherwise unremarkable. The adrenal glands are normal. Spleen is nonenlarged and partly obscured by artifacts. Artifacts including from superficial metal and from positioning of the upper extremities. No hydronephrosis. No suspicious features of the imaged cystic lesions in the kidneys. Multiple small retroperitoneal and mesenteric lymph nodes are nonspecific and likely reactive. Fluid and multiple small-bowel loops is nonspecific and can be seen with enteritis. No small bowel obstruction. Severe stool burden noted, particularly distally. Areas of wall thickening of the large intestine are nonspecific. Differential considerations include colitis. Imaged appendix measures at the upper limits of normal with nonspecific wall enhancement of the appendix. Moderate to severe height loss of the L5 compression fracture is age indeterminate by CT and likely old/chronic given sclerosis. Partial lumbarization of the S1 noted. Mild-moderate height losses of the L1 and L2 are age indeterminate and likely old/chronic given sclerosis. Mild height losses of the imaged thoracic vertebrae also likely old/chronic. Vacuum disc phenomenon is multifocal. Mild-moderate osteoarthritis of the hips. Mild pelvis deformities appear old/chronic. Partial ankylosis of the right SI joint. IMPRESSION: 1. Severe stool burden, particularly distally. Areas of wall thickening of the large intestine are nonspecific. 2. No small bowel obstruction. 3. Appendix measures at the upper limits of normal. Please correlate for any potential appendicitis given mild enhancement of the appendix wall at this time. This document has been electronically signed by: John Prajapati MD on 11/14/2024 20:24:22
--- NOTE | ~2024-11-14 | CT_ITS ---
CLINICAL HISTORY: back pain CT lumbar spine with contrast Comparison: CT of the abdomen and pelvis from 11/14/2024 Findings: Moderate to severe height loss of the L5 compression fracture is age indeterminate by CT and likely old/chronic given sclerosis. Partial lumbarization of the S1 noted. Mild-moderate height losses of the L1 and L2 are age indeterminate and likely old/chronic given sclerosis. Mild height losses of the imaged thoracic vertebrae also likely old/chronic. Vacuum disc phenomenon is multifocal. No significant retropulsion or significant listhesis. Vacuum disc phenomenon is multifocal particularly in the imaged thoracolumbar junction. Degenerative disc changes and facet arthropathy are multifocal with mild/minimal spinal stenosis, including foraminal narrowing of the L4-L5. Please refer to separate report for CT of the abdomen pelvis for evaluation of the prevertebral soft tissues. Ankylosis of the imaged right SI joint. Low bone mineralization suggested. IMPRESSION: 1. Multifocal vertebral height losses including imaged thoracic lumbar junction and L5 are age indeterminate by CT. Point tenderness may be deformity of the and/or confirmatory for acuity. 2. Degenerative changes include degenerative disc changes and facet arthropathy. This document has been electronically signed by: John Prajapati MD on 11/14/2024 20:24:08
--- NOTE | ~2024-11-14 | XR_ITS ---
EXAMINATION: XR ABDOMEN KUB CLINICAL INDICATION: Constipation, abdominal distention, follow up xray COMPARISON: November 2024. Correlated to CT dated November 14, 2024. TECHNIQUE: AP view of the abdomen. FINDINGS: Gas filled prominent small bowel large intestine. Gas throughout the intestine. No gross air-fluid levels. No metallic or radiopaque foreign body. Multilevel spondylosis. Osteopenia versus osteoporosis. XR/XR abdomen 1V IMPRESSION: Distal bowel obstruction versus pseudoobstruction versus ileus. Electronically signed by: Deep Lopez MD 11/16/2024 09:12 AM EDT
--- NOTE | ~2024-11-14 | XR_ITS ---
EXAMINATION: XR ABDOMEN KUB CLINICAL INDICATION: check stool burden after BM COMPARISON: Correlated to CT dated November 14, 2024. TECHNIQUE: AP view of the abdomen. FINDINGS: Gas filled prominent small and large intestine. Contrast-filled bladder from recent imaging. Multilevel thoracolumbar spondylosis. Atelectasis versus infiltrate, lung bases. XR/XR KUB IMPRESSION: Distal bowel obstruction cannot be excluded. Electronically signed by: Deep Lopez MD 11/15/2024 08:29 AM EDT
--- OUTSIDE RECORDS SUMMARY | 2024-11-14 12:00 | XMS_ITS | Encounter Summary ---
Author Organization [facility] Address [address] [facility] [address] [place] [address] Phone Care Team Providers Care Hull Outfit Supervisor Name Role Phone NunuDinaradha Marley MBBS Unavailable [phone] Bibi Thurston CNP Unavailable Juan David Yanez DO Primary Care Provider Reason for Visit * Auth/Cert (Routine) Specialty Diagnoses / Procedures Referred By Davina t Referred To Contact Referral ID Status Reason Start Date Expiration Date Visits Re quested Visits Authorized [id number] 1 1 Encounter Details Date Type Department Care Team (Late st Contact Info) Description 11/14/2024 12:00 PM EDT Home Care Visit [facility] [address] [place] [phone] Steffany Hernández, INSTRUMENTS SALES REPRESENTATIVE [address] [place] [address] [email or web address] INSTRUMENTS SALES REPRESENTATIVE HOME VISIT Social History Tobacco Use Types [...] high school, GED, job training, learning the [place] language, technical skills, or developing parenting skills)? [...] Info) Description 11/15/2024 Home Care Visit [facility] [address] [place] [phone] Gissell Delarosa, PT [address] [place] [address] 11/21/2024 7:00 AM EDT Home [facility] [address] [place] [phone] Steffany Hernández, INSTRUMENTS SALES REPRESENTATIVE [address] [place] [address] 11/22/2024 Home Care Visit [facility] [address] [place] [phone] Steffany Hernández, INSTRUMENTS SALES REPRESENTATIVE [address] [place] [address] 11/28/2024 1:45 AM EDT Home Care Visit [facility] [address] [place] [phone] Gissell Delarosa, PT [address] [place] [address] 12/13/2024 2:30 PM EDT Office Visit [facility] [address] [place] [address] [place] [address] Juan David Yanez, [address] [facility], 2nd [place] [address] 12/21/2024 10:30 AM EST Appointment [facility] [address] [place] [address] Merced Eddy MBBS [address] [place] [address] [email or web address] 12/21/2024 11:30 AM EST Office Visit [facility] [address] [place] [address] Alisia Alejo NP [address] [place] [address] 03/28/2025 11:30 AM EST Office Visit [facility] [address] [place] [address] Darrius Roberson DO [address] [place] [address] documented as of this encounter Visit Diagnoses Not on filedocumented in this encounter Additional Health Concerns Assessment Noted Time PHQ-2 Depression Total Score: 0 05/20/19 25 12:21 AM EDT documented as of this encounter Home Health Visit - Care Plan Visit Details Visit Type -INSTRUMENTS SALES REPRESENTATIVE HOME VISIT Discipline -Physical Therapy Problems Problem [...] Intervention Associated Problem/Goal Status Variance Visit Notes - I/E medication management: administration, purpose, dosages, preparation, setup, scheduling, side effects, food/drug interactions, and potential complications as indicated Description: Update patient's copy of medication list as needed. Problem: - Medication Management Goal:HH - Safe medication management, avoid unnecessary harm related to medication errors and/or interactions Scheduled - Complete medication review every visit and medication reconciliation as indicated. Pharmacy information: Problem: - Medication Management Goal:HH - Safe medication management, avoid unnecessary harm related to medication errors and/or interactions Scheduled - Focus of care, teaching completed and plan for next visit Problem: - Focus of Care and Teaching Goal: - Communication and collaboration to achieve patient goals Scheduled HH - I/E management of care in an urgent or emergency (ER) situation: When to call your Home Care Team/911, ER plans, supplies, evacuation, when to contact local ER officials and how to stay informed Problem: - Emergency Planning - Knowledge of Goal:HH - Knowledge of options for managing care in the event of an emergency related situation. Scheduled - Emergency planning assessment: the emergency plan, supplies needed, emergency contact numbers and an evacuation plan were reviewed Description: Caregiver is/are knowledgeable of emergency plans. Problem: - Emergency Planning - Knowledge of Goal:HH - Knowledge of options for managing care in the event of an emergency related situation. Scheduled HH - Assess vital signs, pulse oximetry, pain, and as indicated, orthostatic vital signs Description: use agency-specific parameters Problem: - Standard of Care Goal:HH - Achieve care management for a safe to home/community discharge from homecare Scheduled HH - Assess skin integrity Problem: - Standard of Care Goal:HH - Achieve care management for a safe to home/community discharge from homecare Scheduled documented in this encounter Care Teams Hull Outfit Supervisor Relationship Specialty Start Date End Date Juan David Yanez DO [address] [place] [address], [address] [place] [address] [email or web address] PCP - General Internal Medicine 05/25/24 Merced Eddy MBBS [email or web address] Primary Oncologist Medical Oncology 12/15/23 Bibi Thurston CNP [address] [place] [address] [email or web address] Nurse Practitioner Medical Oncology 03/14/24 documented as of this encounter Additional Source Comments The information contained in this document represents components of the legal health record. It is not the complete legal health record.[facility]
[2024-11-14 15:25] VITALS: BP 128/78; PULSE 80; O2SAT 93
--- NOTE | 2024-11-14 15:31 | ECG_ITS ---
Test Reason : RENA Blood Pressure : */* mmHG Vent. Rate : 74 BPM Atrial Rate : 74 BPM P-R Int : 146 ms QRS Dur : 138 ms QT Int : 430 ms P-R-T Axes : 50 1 -4 degrees QTcB Int : 477 ms Normal sinus rhythm Right bundle branch block Minimal voltage criteria for LVH, may be normal variant ( R in aVL ) T wave abnormality, consider inferior ischemia Abnormal ECG When compared with ECG of 09-Nov-2023 07:13, Questionable change in QRS axis T wave inversion now evident in Inferior leads T wave inversion more evident in Anterior leads Referred By: Generic ED Physician Electronically Signed By: JORDAN RODRIGUEZ
[2024-11-14 15:32] VITALS: BP 136/58; PULSE 40; RESP 18; TEMP 36.5; O2SAT 95; BMI 21.4
--- NOTE | 2024-11-14 16:14 | ED_ITS ---
HPI - General Adult General Chief complaint: General Medical Stated complaint: BACK PAIN,CONSTIPATION X4D PER EMS Time Seen by Provider: 11/14/24 16:13 Source: patient Mode of arrival: ambulatory Limitations: no limitations History of Present Illness ED Provider: Dr. Helms [facility] narrative: 64-year-old female history of glioblastoma status post resection and radiation. There is remaining glioblastoma in her brain history of seizure presented hospital today for evaluation of worsening low back pain, difficulty passing her stool. According to patient's caretakers patient has not had pass her stool for the past 10 days. Patient is not complaining of any rectal pain denies any groin paresthesia. Patient is able to move her lower extremity however she does have excruciating lower back pain. [employer] was concerned about this worsening lower back pain. Therefore patient was brought to the ER. They stated that patient mentation is normal for her after her surgery and her radiation. She is not altered. Patient's sister stated that patient may have a compression fracture based on the x-ray done at [facility]. However does not know the official results. Patient is able to make urine without any issues. No signs of bowel incontinence Related Data Home Medications ?Medication ?Instructions ?Recorded ?Confirmed levothyroxine 88 mcg tablet 88 mcg PO DAILY 01/01/20 0 02/24/23 dexamethasone 4 mg tablet 4 mg PO 03/13/24 esomeprazole magnesium 20 mg 20 mg PO DAILY 03/13/24 capsule,delayed release temozolomide 140 mg capsule mg PO 03/13/24 Allergies Allergy/AdvReac Type Severity Reaction Status Date / Time Sulfa (Sulfonamide Allergy Severe Rash Verified 11/14/24 15:35 Antibiotics) Review of Systems 2 Review of Systems: Pertinent review of systems as mentioned in [facility]. All other system otherwise negative. [facility] Past Medical History [facility] Narrative: Medical history as mentioned in [facility] Medical History (Updated 11/15/24 @ 03:25 by Penny Helms DO) Chronic confusion Decreased visual acuity Hearing loss Low back pain History of colon polyps Osteoporosis EVELINE II (cervical intraepithelial neoplasia II) Thyroid cancer Hypothyroid Surgical History Hx of dilation and curettage H/O colonoscopy History of facial surgery History of loop electrical excision procedure (LEEP) History of thyroidectomy History of bunionectomy Family History Family History Father Malignant melanoma Mother Dementia Family/Other Uterine cancer Social History Social History Household Members: None Housing: House Alcohol intake: never Patient Tobacco Use Status: Never used Tobacco Smoked in Last 30 Days: No Use of substances other than those prescribed or required for medical reasons: No Advance Directives: No Advance Directives Information Provided: No Patient : No service: No Current occupational status: employed 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 Tender in the right upper and lower quadrant of part of the abdomen. Extremities: No limb pain or swelling, no calf tenderness Neurological: Awake and alert, no facial droop noted Skin: Warm and dry Psychiatric: Appropriate mood and thoughts Vital Signs: Vital Signs - 24 hr 11/14/24 15:32 11/14/24 16:49 11/14/24 18:05 Temperature 97.7 F 97.7 F Pulse Rate 40 L 85 Respiratory Rate 18 18 16 Blood Pressure 136/58 L 151/54 H Pulse Oximetry 95 92 Oxygen Delivery Method Room Air Room Air 11/14/24 19:34 11/14/24 21:42 Temperature 97.5 F Pulse Rate 77 89 Respiratory Rate 15 15 Blood Pressure 152/60 H 144/78 H Pulse Oximetry 95 95 Oxygen Delivery Method Room Air Room Air BMI result Body Mass Index 21.4 Medications Administered Generic Name Dose Route Start Last Admin Trade Name Freq PRN Reason Stop Dose Admin Enoxaparin Sodium 40 mg 11/15/24 01:00 11/15/24 02:22 Enoxaparin Sodium 40 Mg/0.4 Ml Syringe SUBCUT 40 mg Q24H CANDIDO Administration Discontinued Medications Generic Name Dose Route Start Last Admin Trade Name Freq PRN Reason Stop Dose Admin Bisacodyl 10 mg 11/15/24 00:56 11/15/24 02:25 Bisacodyl 10 Mg Supp.Rect KS 11/15/24 00:57 10 mg ONCE ONE Administration Hydromorphone HCl 0.5 mg 11/14/24 16:36 11/14/24 16:49 Hydromorphone Hcl 0.5 Mg/0.5 Ml Syringe IVPUSH 11/14/24 16:37 0.5 mg ONCE ONE Administration Protocol Hydromorphone HCl 1 mg 11/14/24 22:13 11/14/24 22:35 Hydromorphone Hcl 2 Mg Tablet PO 11/14/24 22:14 1 mg ONCE ONE Administration Sodium Chloride 1,000 mls @ 999 mls/hr 11/14/24 16:45 11/14/24 20:08 Ns IV 11/14/24 17:45 Infused .Q1H1M CANDIDO Infusion Iohexol 100 ml 11/14/24 17:48 11/14/24 17:49 Iohexol 350 Mg/Ml 100 Ml Infus..Btl IV 11/14/24 17:49 85 ml ONCE ONE Administration Lactulose 20 gm 11/14/24 21:16 11/14/24 21:37 Lactulose 20 Gm/30 Ml Solution PO 11/14/24 21:17 20 gm ONCE ONE Administration Lorazepam 1 mg 11/14/24 22:14 11/14/24 22:35 Lorazepam 1 Mg Tablet PO 11/14/24 22:15 1 mg ONCE ONE Administration Magnesium Citrate 300 ml 11/14/24 21:16 11/14/24 21:37 Magnesium Citrate 300 Ml Solution PO 11/14/24 21:17 300 ml ONCE ONE Administration Medical Decision Making Medical Decision Making [facility] Narrative: This is a 64-year-old female history of glioblastoma and seizures presented hospital today for lower back pain and constipation. [employer] is concerned about signs of bowel obstruction. I discussed with them the option of obtain a CT imaging. The amenable to CT abdomen and pelvis. I did offer imaging of CT brain and chest however they kindly declined as the patient had recent MRI performed of her brain. On my differential is possible oncological fracture into the spinal cord. However family is worried about patient laying flat due to her back pain. They stated that they are trying to arrange MRI where patient's can sit upward. However patient does not have any signs of bowel incontinence or urinary retention. No saddle parethesia. Low suspicion of spinal cord involvement. We will obtain a CT abdomen and pelvis and lumbar spine imaging for the patient. IV Dilaudid will be given for pain. We will obtain basic lab work at this time. We will start patient on some IV fluid as well. Patient's pain was much controlled with IV Dilaudid. CBC is unremarkable, patient's chemistry did show signs of dehydration. Patient's UA is unremarkable. CT imaging shows signs of severe constipation no SBO. She does have a age indeterminate L5 compression fracture. I did perform a rectal exam on the patient. She does have hard stool higher up in the rectal vault. However I was unable to reach her to disimpact. Lactulose, magnesium citrate given to patient. Upon reassessment patient's was unable to have a bowel movement. Family has been trying Mag citrate and enema at home without any alleviation. At this time we will plan to admit the patient to the hospital for further management of her severe constipation. This may be the source of pain for the patient. Differential Diagnosis Differential Diagnoses: The differential diagnosis associated with the presentation includes Vertebral fracture, spinal cord injury, bowel obstruction, constipation Consult Healthcare Provider Management of the patient was discussed with: Hospitalist Lab Data MDM Lab Attestation statement: I reviewed the patient's lab results. 11/14/24 16:59 11/14/24 16:59 Labs: Lab Results 11/14/24 11/14/24 Range/Units 16:59 18:07 WBC 7.7 (4.8-10.8) X10*3/uL RBC 4.21 (4.20-5.50) X10*6/uL Hgb 13.7 (12.0-16.0) g/dl Hct 40.8 (37.0-47.0) % MCV 96.9 (80.0-98.0) fL MCH 32.5 (27.0-33.0) pg MCHC 33.6 (31.0-35.0) g/dl RDW 14.6 (11.0-16.0) % Plt Count 163 (160-400) X10*3/uL MPV 9.6 (9.4-12.3) fL Absolute Nucleated RBC 0.000 (0.0-0.012) X10*3/uL Nucleated RBC % (auto) 0.0 (0.0-0.2) /100WBC Sodium 138 (135-145) mmol/L Potassium 3.3 (3.3-5.1) mmol/L Chloride 95 L (96-108) mmol/L Carbon Dioxide 34 H (22-29) mmol/L Anion Gap 12 (12-20) BUN 27 H (9-16) mg/dL Creatinine 1.02 (0.5-1.4) mg/dL Estim Creat Clear Calc 44.0 Estimated GFR 55 Random Glucose 152 H (60-115) mg/dL Calcium 8.6 D (8.4-10.2) mg/dL Total Bilirubin 0.4 (0.0-1.0) mg/dL AST 25 (5-31) U/L ALT 41 H (0-31) U/L Alkaline Phosphatase 108 (39-117) U/L Total Protein 6.5 (6.5-8.0) g/dL Albumin 4.2 (3.5-5.0) g/dL TSH 2.05 (0.32-4.0) uIU/mL Urine Color Yellow Urine Appearance Turbid Urine pH 8.0 (5.0-9.0) Ur Specific [place] 1.010 (1.005-1.025) Urine Protein Negative (Neg-Trace) mg/dL Urine Glucose (UA) Negative (Negative) mg/dL Urine Ketones Negative (Negative) mg/dL Urine Blood Negative (Negative) Urine Nitrite Negative (Negative) Ur Leukocyte Esterase Trace H (Negative) Urine RBC 0-2 (0-2) /HPF Urine WBC 11-20 H (0-5) /HPF Ur Squamous Epith Cells 0-2 (0-2) /HPF Urine Bacteria None Seen (None Seen) Hyaline Casts 0-2 (0-2) /LPF Independent Interpretation I performed an independent interpretation of an: CT Scan Radiology Impression Discussion of test interpretation with radiology: I have reviewed the radiologist's reading. Chronic Conditions Glioblastoma Discharge Plan Discharge Clinical Impression: Constipation, Compression fracture of L5 vertebra Patient Disposition: Admitted As Inpatient
--- NOTE | 2024-11-14 16:24 | PC.NURSE ---
Presenting from home via EMS for uncontrolled back pain for past few months due to vertebrae fxs (atraumatic), taking pain meds at home. Reporting no BM X6 days. Increased confusion per family, has hx of brain cancer with brain tumor removal. Nausea and general malaise. HCP at bedside. Family reporting pt has been bradycardic which is new. HR noted to fluctuate between 40-80.
[2024-11-14 16:49] VITALS: RESP 18
[2024-11-14 17:29] LABS: Hematocrit 40.8 % (37.0-47.0); Hemoglobin 13.7 g/dl (12.0-16.0); Mean Corpuscular HGB Conc 33.6 g/dl (31.0-35.0); Mean Corpuscular Hemoglobin 32.5 pg (27.0-33.0); Mean Corpuscular Volume 96.9 fL (80.0-98.0); NRBC Abs Auto 0.000 X10*3/uL (0.0-0.012); NRBC Pct Auto 0.0 /100WBC (0.0-0.2); Platelet Count 163 X10*3/uL (160-400); Red Blood Count 4.21 X10*6/uL (4.20-5.50); White Blood Count 7.7 X10*3/uL (4.8-10.8)
[2024-11-14 17:45] LABS: Alanine Aminotransferase 41 U/L (0-31); Albumin Level 4.2 g/dL (3.5-5.0); Alkaline Phosphatase 108 U/L (39-117); Anion Gap 12 (12-20); Aspartate Amino Transferase 25 U/L (5-31); Blood Urea Nitrogen 27 mg/dL (9-16); Calcium 8.6 mg/dL (8.4-10.2); Carbon Dioxide 34 mmol/L (22-29); Chloride 95 mmol/L (96-108); Creatinine Clr Calc Pharmacy 44.0; Estimated Glomerular Filt Rate 55; Potassium 3.3 mmol/L (3.3-5.1); Sodium 138 mmol/L (135-145); Total Protein 6.5 g/dL (6.5-8.0)
[2024-11-14] MEDS: iohexoL 350 MG/ML 100 ML INFUS..BTL IV (17:49)
[2024-11-14 18:05] VITALS: BP 151/54; PULSE 85; RESP 16; TEMP 36.5; O2SAT 92
[2024-11-14 18:19] LABS: Appearance Urine Turbid; Glucose Urine UA Negative (Negative); PH 8.0 (5.0-9.0); Specific Gravity - Urine 1.010 (1.005-1.025); UMIC TRIGGER UA YES
--- OUTSIDE RECORDS SUMMARY | 2024-11-14 18:43 | XMS_ITS | Encounter Summary ---
Author Organization [facility] Address [facility] [address] [address] Phone Care Team Providers Care Supervisor Tan Room Name Role Phone Unknown, Unknown Primary Care Provider Merced Peres MBBS Unavailable [phone] Bibi Thurston AUTO RADIO MECHANIC Unavailable Juan David Yanez DO Primary Care Provider Encounter Details Date Type Department Care Team (Late st Contact Info) Description 04/13/2024 Procedure Pass [facility], [address] [address] Social History Tobacco Use Types Packs/Day Years Used Date Smoking Tobacco: Never Smokeless Tobacco: Never Alcohol Use Standard Drinks/Week Comments No 0 (1 standard drink = 0.6 oz pur e alcohol) Child or Family Care Answer Date Record ed Do you have problems with on e of the following making it difficult for you to work, study, or receive health care? No 12/01/2023 Education Answer Date Recorded Are you interested in help w ith more adult education (for example, completing high school, GED, job training, learning the [place] language, technical skills, or developing parenting skills)? No 12/01/2023 Are you concerned about learning? Not on file 12/01/2023 No 12/01/2023 Yes 12/01/2023 Food Answer Date Recorded Within the past 6 months we worried whether our food would run out before we got money to buy more. Never True 12/01/2023 Within the past 6 months the food we bought just didn't last and we didn't have enough money to get more. Never True Residential Stability Answer Date Recor ded What is your housing situation today? I have ana mclain 12/01/2023 How many times have you move d in the past 12 months? Zero (I did not move) 12/01/2023 Paying for Meds Answer Date Recorded Do you have trouble paying for medicines? No 12/01/2023 Paying Utility Bills Answer Date Record ed Do you have trouble paying y our heating or electricity bill? I choose not to answer 12/01/2023 Transportation Answer Date Recorded Has the lack of transportati on kept you from medical appointments or from getting medications? No 12/01/2023 Digital Access Answer Date Recorded No 11/10/2023 Yes 11/10/2023 Do you have reliable internet access at home? Ye s 11/10/2023 Do you have a device (e.g., phone, tablet, computer) with a working camera? Yes 11/10/2023 Intimate Partner Violence Answer Date R ecorded Are you denied basic needs s uch as food, clothing, or medical care? No 01/19/2024 In the past 12 months have y ou been in a relationship with a person who hurts, threatens, or tries to control you? No 01/19/2024 Are you denied basic needs s uch as food, clothing, or medical care? No 01/19/2024 In the past 12 months have y ou been in a relationship with a person who hurts, threatens, or tries to control you? No 01/19/2024 Comments No Sex and Gender Information Value [...] Info) Description 11/15/2024 [facility] [address] [place] [phone] Gissell Delarosa, PT [address] [place] [address] 11/21/2024 7:00 AM EDT [facility] [address] [place] [phone] Steffany Hernández, TRANSCRIPTION [address] [place] [address] 11/22/2024 Home Care Visit [facility] [address] [place] [phone] Steffany Hernández, TRANSCRIPTION [address] [place] [address] [email or web address] 11/28/2024 1:45 AM EDT Home Care Visit [facility] [address] [place] [phone] Gissell Delarosa, PT [address] [place] [address] 12/13/2024 2:30 PM EDT Office Visit [facility] [address] [address] Juan David Yanez DO [address] [facility], [address]nd [place] [address] 12/21/2024 10:30 AM EST Appointment [facility] [address] [place] [phone] Merced Eddy MBBS [address] [place] [phone] [email or web address] 12/21/2024 11:30 AM EST Office Visit [facility] at [address] [address] Alisia Alejo, TRUDY [address] [place] [address] 03/28/2025 11:30 AM EST Office [place] [address] [place] [address] documented as of this encounter Visit Diagnoses Not on filedocumented in this encounter Additional Health Concerns Assessment Noted Time PHQ-2 Depression Total Score: 0 05/20/19 12:21 AM EDT documented as of this encounter Care Teams Supervisor Tan Room Relationship Specialty Start Date End Date Unknown, Unknown, PCP - General 12/01/23 05/24/24 Juan David Yanez DO [address] [place] [address], [address] [place] [address] PCP - General Internal Medicine 05/25/24 Merced Eddy MBBS [email or web address] Primary Oncologist Medical Oncology 12/15/23 Bibi Thurston CNP [address] [place] [address] Nurse Practitioner Medical Oncology 03/14/24 documented as of this encounter Additional Source Comments The information contained in this document represents components of the legal health record. It is not the complete legal health record.[facility]
--- OUTSIDE RECORDS SUMMARY | 2024-11-14 18:43 | XMS_ITS | Encounter Summary ---
Author Organization [facility] Address [facility] [employer] [facility] [address] [place] [phone] Phone Care Team Providers Care Communications Professor Name Role Phone Elissa Columba Hall CNP Primary Care Provider Pcp, Not Required Primary Care Provider Unavaila ble Unknown, Unknown Primary Care Provider Merced Peres MBBS Unavailable [phone] Bibi Thurston FONDANT MACHINE OPERATOR Unavailable Juan David Yanez DO Primary Care Provider Encounter Details Date Type Department Care Team (Late st Contact Info) Description 11/10/2023 Procedure Pass [facility] Rad[facility] [address] [place] [address] Social History Tobacco Use Types Packs/Day Years Used Date Smoking Tobacco: Never Smokeless Tobacco: Never Alcohol Use Standard Drinks/Week Comments No 0 (1 standard drink = 0.6 oz pur e alcohol) Education Answer Date Recorded Are you interested in more education? Not on isra e 06/11/2022 Are you concerned about learning? Not on file 06/11/2022 No 06/11/2022 No 06/11/2022 Food Answer Date Recorded Within the past 6 months we worried whether our food would run out before we got money to buy more. Never True 11/10/2023 Within the past 6 months the food we bought just didn't last and we didn't have enough money to get more. Never True Residential Stability Answer Date Recor ded What is your housing situation today? I have ana sing 11/10/2023 How many times have you move d in the past 12 months? Zero (I did not move) 11/10/2023 Paying for Meds Answer Date Recorded Do you have trouble paying for medicines? No 11/10/2023 Paying Utility Bills Answer Date Record ed Do you have trouble paying your heating or elect ricity bill? No 11/10/2023 Transportation Answer Date Recorded Has the lack of transportati on kept you from medical appointments or from getting medications? No 11/10/2023 Digital Access Answer Date Recorded No 11/10/2023 Yes 11/10/2023 Do you have reliable internet access at home? Ye s 11/10/2023 Do you have a device (e.g., phone, tablet, computer) with a working camera? Yes 11/10/2023 Comments Unknown Sex and Gender Information Value Date Recorded Sex Assigned at Female 11/22/2023 9:57 AM EDT Legal Sex Female 10:09 AM EDT Gender Identity Female 11/22/2023 9:57 AM EDT Sexual Orientation Choose not to disclose 2023 9:57 AM EDT documented as of this encounter Functional Status * Calculated C-SSRS Risk Score (Lifetime/Recent) Answer Date of Assessment Author No Risk Indicated 11/10/2023 12:31 AM EDT Katarzyna Perrin RN * [place] Suicide Severity Rating Scale (Screener/Recent Self-Report) Question Answer Date of Assessment Author 1. Wish to be (Past 1 Month) No 024 12:31 AM EDT Katarzyna Pineda RN 2. Non-Specific Active Suici mehrdad Thoughts (Past 1 Month) No 11/10/2023 12:31 AM KIMOT Terrell Pineda RN 6. Suicidal Behavior (Lifetime) No 12:31 AM Katarzyna Chavarria RN documented as of this encounter Plan of Treatment Upcoming Encounters Date Type Department Care Team (Late st Contact Info) Description 11/15/2024 Home Care Visit [facility] [address] [place] [phone] Gissell Delarosa, PT [address] [place] [address] 11/21/2024 7:00 AM EDT Home [facility] Visit [facility] [address] [place] [phone] Steffany Hernández, BRASS CUTTER [address] [place] [address] 11/22/2024 Home Care Visit [facility] [address] [place] [phone] Steffany Hernández, BRASS CUTTER [address] [place] [address] 11/28/2024 1:45 AM EDT Home Care Visit [facility] [address] [place] [phone] Gissell Delarosa, PT [address] [place] [address] 12/13/2024 2:30 PM EDT Office Visit [facility] [address] [address] Juan David Yanez DO 170 [facility], 2nd [place] [address] 12/21/2024 10:30 AM EST Appointment [facility] [address] [place] [phone] Merced Eddy MBBS [address] [place] [phone] [email or web address] 12/21/2024 11:30 AM EST Office Visit [facility] at [address] [address] Alisia Alejo, TRUDY [address] [place] [address] 03/28/2025 11:30 AM EST Office Visit [place] [address] [place] [address] [email or web address] documented as of this encounter Visit Diagnoses Not on filedocumented in this encounter Additional Health Concerns Infection Onset Date Last Indicated Resolved Time CoV-Risk Comment:Per note documentation 12/01/2023 12/01/2023 1:23 PM EDT documented as of this encounter Care Teams Communications Professor Relationship Specialty Start Date End Date Columba Bowers CNP PCP - General Family Medicine 10/05/17 11/21/23 Pcp, Not Required [address] [place] [phone] PCP - General 11/22/23 11/30/23 Unknown, Unknown, PCP - General 12/01/23 05/24/24 Juan David Yanez DO [address] [place] [address], [address] [place] [address] PCP - General Internal Medicine 05/25/24 Merced Eddy MBBS [email or web address] Primary Oncologist Medical Oncology 12/15/23 Bibi Thurston CNP [address] [place] [address] [email or web address] Nurse Practitioner Medical Oncology 03/14/24 documented as of this encounter Additional Source Comments The information contained in this document represents components of the legal health record. It is not the complete legal health record.[facility]
--- OUTSIDE RECORDS SUMMARY | 2024-11-14 18:43 | XMS_ITS | Encounter Summary ---
Author Organization [facility] Address [facility] [address] [address] Phone Care Team Providers Care Supervisor Paste Mixing Name Role Phone Elissa Columba Hall CNP Primary Care Provider [phone] Pcp, Not Required Primary Care Provider Unavaila ble Unknown, Unknown Primary Care Provider Merced Peres MBBS Unavailable [phone] Bibi Thurston HYDROLOGY TEACHER Unavailable Juan David Yanez DO Primary Care Provider Encounter Details Date Type Department Care Team (Late st Contact Info) Description 11/15/2023 Procedure Pass [facility] Periop [address] [place] [address] Social History Tobacco Use Types Packs/Day Years [...] with a working camera? Yes 11/10/2023 Comments No Sex and Gender Information Value [...] Contact Info) Description 11/15/2024 [facility] Care Visit [facility] [address] [place] [address] Gissell Delarosa, PT [address] [place] [address] [email or web address] 11/21/2024 7:00 AM EDT Home Care Visit [facility] [address] [place], [place] [phone] Steffany Hernández, DIE INSPECTOR [address] [place] [address] 11/22/2024 Home Care Visit [facility] [address] [place], [place] [phone] Steffany Hernández, DIE INSPECTOR [address] [place] [address] 11/28/2024 1:45 AM EDT Home Care Visit [facility] [address] [place] [phone] WashingtonGissell sullivan, PT [address] [place] [address] 12/13/2024 2:30 PM EDT Office Visit [facility] [address] [place] [address] [place] [address] Juan David Yanez, DO 170 [facility], 2nd [place] [address] 12/21/2024 10:30 AM EST Appointment [facility] 30 [place] [address] Merced Eddy MBBS [address] [place] [address] [email or web address] 12/21/2024 11:30 AM EST Office Visit [facility] 30 [place] [address] Alisia Alejo NP 30 [place] [address] 03/28/2025 11:30 AM EST Office Visit [facility] 22 [place] [address] Darrius Roberson DO 22 [place] [address] documented as of this encounter Visit Diagnoses Not on filedocumented in this encounter Additional Health Concerns Infection Onset Date Last Indicated Resolved Time CoV-Risk Comment:Per note documentation 12/01/2023 12/01/2023 1:23 PM EDT documented as of this encounter Care Teams Supervisor Paste Mixing Relationship Specialty Start Date End Date Columba Bowers CNP [email or web address] PCP - General Family Medicine 10/05/17 11/21/23 Pcp, Not Required [address] [place] [address] PCP - General 11/22/23 11/30/23 Unknown, Unknown, MD PCP - General 12/01/23 05/24/24 Juan David Yanez DO [address] [place] [address], 2nd [place] [address] [email or web address] PCP - General Internal Medicine 05/25/24 Merced Eddy MBBS [email or web address] Primary Oncologist Medical Oncology 12/15/23 Bibi Thurston CNP [address] [place] [address] [email or web address] Nurse Practitioner Medical Oncology 03/14/24 documented as of this encounter Additional Source Comments The information contained in this document represents components of the legal health record. It is not the complete legal health record.[facility]
--- OUTSIDE RECORDS SUMMARY | 2024-11-14 18:43 | XMS_ITS | Encounter Summary ---
Author Organization [facility] Address [facility] [address] [place] [address] Phone Care Team Providers Care Jet Dyeing Machine Tender Name Role Phone Elissa Columba Hall CNP Primary Care Provider [phone] Pcp, Not Required Primary Care Provider Unavaila ble Unknown, Unknown Primary Care Provider Merced Peres MBBS Unavailable [phone] Bibi Thurston BENEFITS SALES CONSULTANT Unavailable Juan David Yanez DO Primary Care Provider Encounter Details Date Type Department Care Team (Late st Contact Info) Description 11/10/2023 Procedure Pass [facility] [address] [place] [address] Social History Tobacco Use Types Packs/Day Years [...] 12:31 AM EDT Katarzyna Perrin RN * [place] Suicide Severity Rating Scale (Screener/Recent Self-Report) Question [...] Visit [facility] 30 [place] [phone] Gissell Delarosa, PT [address] [place] [address] 11/21/2024 7:00 AM EDT Home Care Visit [facility] [address] [place] [phone] Steffany Hernández, MATRIX SUPERVISOR [address] [place] [address] 11/22/2024 Home Care Visit [facility] [address] [place] [phone] Steffany Hernández, MATRIX SUPERVISOR [address] [place] [address] 11/28/2024 1:45 AM EDT Home Care Visit [facility] [address] [place] [phone] Gissell Delarosa, PT [address] [place] [address] 12/13/2024 2:30 PM EDT Office Visit [facility] [address] [address] Juan David Yanez DO [address] [facility], 2nd [place] [address] 12/21/2024 10:30 AM EST Appointment [facility] [address] [place] [address] Merced Eddy MBBS [address] [place] [address] [email or web address] 12/21/2024 11:30 AM EST Office Visit [facility] at [address] [address] Alisia Alejo, TRUDY 30 [place] [address] 03/28/2025 11:30 AM EST Office Visit [place] [address] [place] [address] [email or web address] documented as of this encounter Visit Diagnoses Not on filedocumented in this encounter Additional Health Concerns Infection Onset Date Last Indicated Resolved Time CoV-Risk Comment:Per note documentation 12/01/2023 12/01/2023 1:23 PM EDT documented as of this encounter Care Teams Jet Dyeing Machine Tender Relationship Specialty Start Date End Date Columba Bowers CNP PCP - General Family Medicine 10/05/17 11/21/23 Pcp, Not Required [address] [place] [address] PCP - General 11/22/23 11/30/23 Unknown, Unknown, PCP - General 12/01/23 05/24/24 Juan David Yanez DO [address] [place] [address], 2nd [place] [address] PCP - General Internal Medicine 05/25/24 Merced Eddy MBBS [email or web address] Primary Oncologist Medical Oncology 12/15/23 Bibi Thurston CNP 30 [place] [address] [email or web address] Nurse Practitioner Medical Oncology 03/14/24 documented as of this encounter Additional Source Comments The information contained in this document represents components of the legal health record. It is not the complete legal health record.[facility]
--- OUTSIDE RECORDS SUMMARY | 2024-11-14 18:43 | XMS_ITS | Encounter Summary ---
Author Organization [facility] Address [facility] [address] [address] Phone Care Team Providers Care Receiving Coordinator Name Role Phone Unknown, Unknown Primary Care Provider Merced Peres MBBS Unavailable [phone] Bibi Thurston HEALTH PROGRAM MANAGER Unavailable Juan David Yanez DO Primary Care Provider Encounter Details Date Type Department Care Team (Late st Contact Info) Description 04/13/2024 Procedure Pass [facility], Ct Scan - [address] [id number] Social History Tobacco Use Types Packs/Day Years [...] high school, GED, job training, learning the [place] language, technical skills, or developing parenting skills)? [...] Care Visit [facility] 30 [place] [phone] Gissell Delarosa, PT [address] [place] [address] 11/21/2024 7:00 AM EDT Home Care Visit [facility] [address] [place] [phone] Steffany Hernández, INVESTMENT ASSOCIATE [address] [place] [address] 11/22/2024 Home Care Visit [facility] [address] [place] [phone] Steffany Hernández, INVESTMENT ASSOCIATE [address] [place] [address] 11/28/2024 1:45 AM EDT Home Care Visit [facility] [address] [place] [phone] Gissell Delarosa, PT [address] [place] [address] 12/13/2024 2:30 PM EDT Office Visit [facility] [address] [address] Juan David Yanez DO [address] [place] [address], 2nd [place] [address] 12/21/2024 10:30 AM EST Appointment [facility] [address] [place] [address] Merced Eddy MBBS [address] [place] [address] [email or web address] 12/21/2024 11:30 AM EST Office Visit [facility] at [address] [address] Alisia Alejo, TRUDY 30 [place] [address] 03/28/2025 11:30 AM EST Office Visit [facility] [address] [place] [address] [email or web address] documented as of this encounter Visit Diagnoses Not on filedocumented in this encounter Care Teams Receiving Coordinator Relationship Specialty Start Date End Date Unknown, Unknown, PCP - General 12/01/23 05/24/24 Juan David Yanez DO [address] [place] [address], 2nd [place] [address] PCP - General Internal Medicine 05/25/24 Merced Eddy MBBS [email or web address] Primary Oncologist Medical Oncology 12/15/23 Bibi Thurston CNP 30 [place] [address] Nurse Practitioner Medical Oncology 03/14/24 documented as of this encounter Additional Source Comments The information contained in this document represents components of the legal health record. It is not the complete legal health record.[facility]
--- OUTSIDE RECORDS SUMMARY | 2024-11-14 18:44 | XMS_ITS | Encounter Summary ---
Author Organization [facility] Address [facility] [employer] [facility] [address] [place] [address] Phone Care Team Providers Care Vest Presser Name Role Phone Elissa Columba Hall CNP Primary Care Provider Pcp, Not Required Primary Care Provider Unavaila ble Unknown, Unknown Primary Care Provider Merced Peres MBBS Unavailable [phone] Bibi Thurston ESTIMATING ENGINEER Unavailable Juan David Yanez DO Primary Care Provider Encounter Details Date Type Department Care Team (Late st Contact Info) Description 11/15/2023 Procedure Pass [facility] 75 [place] [address] Social History Tobacco Use Types Packs/Day Years [...] Visit [facility] [address] [place], [place] [phone] Gissell Delarosa, PT 168 [place] [address] [email or web address] 11/21/2024 7:00 AM EDT Home Care Visit [facility] 30 [place], [place] [phone] Steffany Hernández, MANAGER MOBILE [address] [place] [address] 11/22/2024 Home Care Visit [facility] 30 [place], [place] [phone] Steffany Hernández, MANAGER MOBILE 168 [place] [address] 11/28/2024 1:45 AM EDT Home Care Visit [facility] [address] [place] [phone] Gissell Delarosa, PT 168 [place] [address] 12/13/2024 2:30 PM EDT Office Visit [facility] [address] [place] [address] [place] [address] Juan David Yanez, DO 170 [facility], 2nd [place] [address] 12/21/2024 10:30 AM EST Appointment [facility] 30 [place] [address] Merced Eddy MBBS [address] [place] [address] [email or web address] 12/21/2024 11:30 AM EST Office Visit [facility] 30 [place] [address] Alisia Alejo, TRUDY [address] [place] [address] 03/28/2025 11:30 AM EST Office Visit [facility] [address] [place] [address] Darrius Roberson DO 22 [place] [address] documented as of this encounter Visit Diagnoses Not on filedocumented in this encounter Additional Health Concerns Infection Onset Date Last Indicated Resolved Time CoV-Risk Comment:Per note documentation 12/01/2023 12/01/2023 1:23 PM EDT documented as of this encounter Care Teams Vest Presser Relationship Specialty Start Date End Date Columba Bowers CNP [email or web address] PCP - General Family Medicine 10/05/17 11/21/23 Pcp, Not Required [address] [place] [address] PCP - General 11/22/23 11/30/23 Unknown, Unknown, MD PCP - General 12/01/23 05/24/24 Juan David Yanez DO [address] [place] [address], 2nd [place] [address] [email or web address] PCP - General Internal Medicine 05/25/24 Merced Eddy MBBS [email or web address] Primary Oncologist Medical Oncology 12/15/23 Bibi Thurston CNP [address] [place] [address] [email or web address] Nurse Practitioner Medical Oncology 03/14/24 documented as of this encounter Additional Source Comments The information contained in this document represents components of the legal health record. It is not the complete legal health record.[facility]
--- OUTSIDE RECORDS SUMMARY | 2024-11-14 18:44 | XMS_ITS | Encounter Summary ---
Author Organization [facility] Address [address] [facility] [address] [place] [address] Phone Care Team Providers Care State Game Warden Name Role Phone Unknown, Unknown Primary Care Provider Merced Peres MBBS Unavailable [phone] Bibi Thurston PRESENTATION TEAM MEMBER Unavailable Juan David Yanez DO Primary Care Provider Encounter Details Date Type Department Care Team (Late st Contact Info) Description 12/01/2023 Procedure Pass [facility] Radiology [address] [place] [address] Social History Tobacco Use Types Packs/Day Years [...] high school, GED, job training, learning the [place] language, technical skills, or developing parenting skills)? [...] Date of Assessment Author No Risk Indicated 12/01/2023 10:34 PM EDT Angi Tuttle RN * [place] Suicide Severity Rating Scale (Screener/Recent Self-Report) Question Answer Date of Assessment Author 1. Wish to be (Past 1 Month) No 12/01/2023 10:34 PM EDT Angi Son RN 2. Non-Specific Active Suicidal Thoughts (Past 1 Month) No 12/01/2023 10:34 PM EDT Angi Son RN 6. Suicidal Behavior (Lifetime) No 12/01/2023 10:34 PM EDT Angi Son RN documented as of this encounter Plan of Treatment Upcoming Encounters Date Type Department Care Team (Late st Contact Info) Description 11/15/2024 Home Care Visit [facility] [address] [place] [phone] Gissell Delarosa, PT [address] [place] [address] [email or web address] 11/21/2024 7:00 AM EDT Home Care [facility] [address] [place] [phone] Steffany Hernández, DIRECTOR MARKET INTELLIGENCE [address] [place] [address] [email or web address] 11/22/2024 Home Care Visit [facility] [address] [place] [phone] Steffany Hernández, DIRECTOR MARKET INTELLIGENCE [address] [place] [address] [email or web address] 11/28/2024 1:45 AM EDT Home Care Visit [facility] [address] [place] [phone] Gissell Delarosa, PT [address] [place] [address] [email or web address] 12/13/2024 2:30 PM EDT Office Visit [facility] [address] [place] [address] [place] [address] Juan David Yanez DO [address] [place] [address], 2nd [place] [address] [email or web address] 12/21/2024 10:30 AM EST Appointment [facility] [address] [place] [address] Merced Eddy, WAYNE [address] [place] [address] [email or web address] 12/21/2024 11:30 AM EST Office Visit [facility] 30 [place] [address] Alisia Alejo, TRUDY 30 [place] [address] [email or web address] 03/28/2025 11:30 AM EST Office Visit [facility] 22 [place] [address] [place] [address] [email or web address] documented as of this encounter Visit Diagnoses Not on filedocumented in this encounter Additional Health Concerns Infection Onset Date Last Indicated Resolved Time CoV-Risk Comment:Per note documentation 12/01/2023 12/01/2023 1:23 PM EDT documented as of this encounter Care Teams State Game Warden Relationship Specialty Start Date End Date Unknown, Unknown, PCP - General 12/01/23 05/24/24 Juan David Yanez DO [address] [place] [address], 2nd [place] [address] [email or web address] PCP - General Internal Medicine 05/25/24 Merced Eddy MBBS [email or web address] Primary Oncologist Medical Oncology 12/15/23 Bibi Thurston CNP [address] [place] [address] [email or web address] Nurse Practitioner Medical Oncology 03/14/24 documented as of this encounter Additional Source Comments The information contained in this document represents components of the legal health record. It is not the complete legal health record.[facility]
--- OUTSIDE RECORDS SUMMARY | 2024-11-14 18:44 | XMS_ITS | Encounter Summary ---
Author Organization [facility] Address [address] [facility] [address] [place] [address] Phone Care Team Providers Care Polysomnographic Technician Name Role Phone Unknown, Unknown Primary Care Provider Merced Peres MBBS Unavailable [phone] Bibi Thurston CONVERTER SKIMMER Unavailable Juan David Yanez DO Primary Care Provider Encounter Details Date Type Department Care Team (Late st Contact Info) Description 12/01/[address] [facility] [address] [place] [address] Social History Tobacco Use Types Packs/Day Years [...] high school, GED, job training, learning the [place] language, technical skills, or developing parenting skills)? [...] 10:34 PM EDT Angi Tuttle RN * [place] Suicide Severity Rating Scale (Screener/Recent Self-Report) Question [...] Care Visit [facility] [address] [place] [phone] Gissell Delarosa, PT [address] [place] [address] 11/21/2024 7:00 AM EDT Home Care Visit [facility] [address] [place] [phone] Steffany Hernández, SHIELD RUNNER [address] [place] [address] 11/22/2024 Home Care Visit [facility] [address] [place] [phone] Steffany Hernández, SHIELD RUNNER [address] [place] [address] 11/28/2024 1:45 AM EDT Home Care Visit [facility] [address] [place] [phone] Gissell Delarosa, PT [address] [place] [address] 12/13/2024 2:30 PM EDT Office Visit [facility] [address] [place] [address] [place] [address] Juan David Yanez DO [address] [place] [address], 2nd [place] [address] 12/21/2024 10:30 AM EST Appointment [facility] [address] [place] [address] Merced Eddy, WAYNE [address] [place] [address] [email or web address] 12/21/2024 11:30 AM EST Office Visit [facility] 30 [place] [address] Alisia Alejo, TRUDY 30 [place] [address] [email or web address] 03/28/2025 11:30 AM EST Office Visit [facility] 22 [place] [address] [place] [address] [email or web address] documented as of this encounter Visit Diagnoses Not on filedocumented in this encounter Additional Health Concerns Infection Onset Date Last Indicated Resolved Time CoV-Risk Comment:Per note documentation 12/01/2023 12/01/2023 1:23 PM EDT documented as of this encounter Care Teams Polysomnographic Technician Relationship Specialty Start Date End Date Unknown, Unknown, PCP - General 12/01/23 05/24/24 Juan David Yanez DO [address] [place] [address], 2nd [place] [address] [email or web address] PCP - General Internal Medicine 05/25/24 Merced Eddy MBBS [email or web address] Primary Oncologist Medical Oncology 12/15/23 Bibi Thurston CNP [address] [place] [address] [email or web address] Nurse Practitioner Medical Oncology 03/14/24 documented as of this encounter Additional Source Comments The information contained in this document represents components of the legal health record. It is not the complete legal health record.[facility]
--- OUTSIDE RECORDS SUMMARY | 2024-11-14 18:44 | XMS_ITS | Encounter Summary ---
Author Organization [facility] Address [facility] [address] [place] [address] Phone Care Team Providers Care Car Supervisor Name Role Phone Elissa Columba Hall CNP Primary Care Provider Pcp, Not Required Primary Care Provider Unavaila ble Unknown, Unknown Primary Care Provider Merced Peres MBBS Unavailable [phone] Bibi Thurston COMMUNITY HEALTH NURSING DIRECTOR Unavailable Juan David Yanez DO Primary Care Provider Encounter Details Date Type Department Care Team (Late st Contact Info) Description 11/15/2023 Procedure Pass [facility] 75 [place] [address] Social History Tobacco Use Types Packs/Day Years [...] [facility] [address] [place], [place] [phone] Gissell Delarosa, PT 168 [place] [address] 11/21/2024 7:00 AM EDT Home Care Visit [facility] [address] [place], [place] [phone] Steffany Hernández, CREDIT RISK OFFICER [address] [place] [address] 11/22/2024 Home Care Visit [facility] [address] [place], [place] [phone] Steffany Hernández, CREDIT RISK OFFICER [address] [place] [address] 11/28/2024 1:45 AM EDT Home Care Visit [facility] [address] [place] [phone] Gissell Delarosa, PT [address] [place] [address] 12/13/2024 2:30 PM EDT Office Visit [facility] [address] [place] [address] [place] [address] Juan David Yanez, DO [address] [facility], 2nd [place] [address] 12/21/2024 10:30 AM EST Appointment [facility] 30 [place] [address] Merced Eddy MBBS [address] [place] [address] [email or web address] 12/21/2024 11:30 AM EST Office Visit [facility] 30 [place] [address] Alisia Alejo, TRUDY [address] [place] [address] 03/28/2025 11:30 AM EST Office Visit [facility] [address] [place] [address] Darrius Roberson DO 22 [place] [address] documented as of this encounter Visit Diagnoses Not on filedocumented in this encounter Additional Health Concerns Infection Onset Date Last Indicated Resolved Time CoV-Risk Comment:Per note documentation 12/01/2023 12/01/2023 1:23 PM EDT documented as of this encounter Care Teams Car Supervisor Relationship Specialty Start Date End Date Columba Bowers CNP [email or web address] PCP - General Family Medicine 10/05/17 11/21/23 Pcp, Not Required [address] [place] [address] PCP - General 11/22/23 11/30/23 Unknown, Unknown, MD PCP - General 12/01/23 05/24/24 Juan David Yanez DO [address] [place] [address], 2nd [place] [address] [email or web address] PCP - General Internal Medicine 05/25/24 Merced Eddy MBBS [email or web address] Primary Oncologist Medical Oncology 12/15/23 Bibi Thurston CNP [address] [place] [address] [email or web address] Nurse Practitioner Medical Oncology 03/14/24 documented as of this encounter Additional Source Comments The information contained in this document represents components of the legal health record. It is not the complete legal health record.[facility]
--- OUTSIDE RECORDS SUMMARY | 2024-11-14 18:44 | XMS_ITS | Encounter Summary ---
Author Organization [facility] Address [facility] [employer] [facility] [place] [address] [place] [address] Phone Care Team Providers Care Bottom Liner Name Role Phone Elissa Columba Hall CNP Primary Care Provider [phone] Pcp, Not Required Primary Care Provider Unavaila ble Unknown, Unknown Primary Care Provider Merced Peres MBBS Unavailable [phone] Bibi Thurston SCALE INSTALLER Unavailable Juan David Yanez DO Primary Care Provider Encounter Details Date Type Department Care Team (Late st Contact Info) Description 11/16/[address] [facility]iology [address] [place] [address] Social History Tobacco Use Types Packs/Day Years [...] [facility] [address] [place], [place] [phone] Gissell Delarosa, PT [address] [place] [address] [email or web address] 11/21/2024 7:00 AM EDT Home Care Visit [facility] [address] [place], [place] [phone] Steffany Hernández, SECRETARY BOOK KEEPER [address] [place] [address] 11/22/2024 Home Care Visit [facility] [address] [place], [place] [phone] Steffany Hernández, SECRETARY BOOK KEEPER [address] [place] [address] 11/28/2024 1:45 AM EDT Home Care Visit [facility] [address] [place] [phone] Gissell Delarosa, PT [address] [place] [address] 12/13/2024 2:30 PM EDT Office Visit [facility] [address] [place] [address] [place] [address] Juan David Yanez, DO 170 [facility], 2nd [place] [address] 12/21/2024 10:30 AM EST Appointment [facility] 30 [place] [address] Merced Eddy MBBS [address] [place] [address] [email or web address] 12/21/2024 11:30 AM EST Office Visit [facility] 30 [place] [address] Alisia Alejo, TRUDY [address] [place] [address] 03/28/2025 11:30 AM EST Office Visit [facility] [address] [place] [address] Darrius Roberson DO [address] [place] [address] documented as of this encounter Visit Diagnoses Not on filedocumented in this encounter Additional Health Concerns Infection Onset Date Last Indicated Resolved Time CoV-Risk Comment:Per note documentation 12/01/2023 12/01/2023 1:23 PM EDT documented as of this encounter Care Teams Bottom Liner Relationship Specialty Start Date End Date Columba Bowers CNP [email or web address] PCP - General Family Medicine 10/05/17 11/21/23 Pcp, Not Required [address] [place] [address] PCP - General 11/22/23 11/30/23 Unknown, Unknown, MD PCP - General 12/01/23 05/24/24 Juan David Yanez DO [address] [place] [address], 2nd [place] [address] [email or web address] PCP - General Internal Medicine 05/25/24 Merced Eddy MBBS [email or web address] Primary Oncologist Medical Oncology 12/15/23 Bibi Thurston CNP [address] [place] [address] [email or web address] Nurse Practitioner Medical Oncology 03/14/24 documented as of this encounter Additional Source Comments The information contained in this document represents components of the legal health record. It is not the complete legal health record.[facility]
--- OUTSIDE RECORDS SUMMARY | 2024-11-14 18:44 | XMS_ITS | Encounter Summary ---
Author Organization [facility] Address [facility] [address] [address] Phone Care Team Providers Care Car Rental Clerk Name Role Phone Merced Eddy MBBS Unavailable [phone] Bibi Thurston WATER PUMPER Unavailable Juan David Yanez DO Primary Care Provider Encounter Details Date Type Department Care Team (Late st Contact Info) Description 08/09/2024 Procedure Pass [facility], [address] [phone] Social History Tobacco Use Types Packs/Day Years Used Date Smoking Tobacco: Never Smokeless Tobacco: Never Alcohol Use Standard Drinks/Week Comments Not Currently 0 (1 standard drink = 0.6 oz pur e alcohol) previously Home Health Assessment: Transportation Answer Date Recorded Lack of Transportation (Medical) No 07/27/2024 Lack of Transportation (Non-Medical) No 07/27/2024 Patient Unable or Declines to Respond No 07/27/2024 Child or Family Care Answer Date Record ed Do you have problems with on e of the following making it difficult for you to work, study, or receive health care? No 05/19/2024 Education Answer Date Recorded Are you interested in help w ith more adult education (for example, completing high school, GED, job training, learning the [place] language, technical skills, or developing parenting skills)? [...] housing situation today? I have ana mclain 05/19/2024 How many times have you move [...] [facility] [address] [place] [phone] Gissell Delarosa, PT 168 [place] [address] 11/21/2024 7:00 AM EDT Home Care Visit [facility] [address] [place] [phone] Steffany Hernández, DIRECTOR OF CLINICAL TRIALS 168 [place] [address] [email or web address] 11/22/2024 Home Care Visit [facility] [address] [place] [phone] Steffany Hernández, DIRECTOR OF CLINICAL TRIALS 168 [place] [address] [email or web address] 11/28/2024 1:45 AM EDT Home Care Visit [facility] [address] [place] [phone] Gissell Delarosa, PT 168 [place] [address] 12/13/2024 2:30 PM EDT Office Visit [facility] [address] [place] [address] [place] [address] Juan David Yanez, 170 [facility], 2nd [place] [address] 12/21/2024 10:30 AM EST Appointment [facility] [address] [place] [address] Merced Eddy MBBS 30 [place] [address] [email or web address] 12/21/2024 11:30 AM EST Office Visit [facility] [place] 30 [place] [address] Alisia Alejo NP 30 [place] [address] 03/28/2025 11:30 AM EST Office Visit [facility] 22 [place] [address] Darrius Roberson DO 22 [place] [address] documented as of this encounter Visit Diagnoses Not on filedocumented in this encounter Additional Health Concerns Assessment Noted Time PHQ-2 Depression Total Score: 0 05/20/19 12:21 AM EDT documented as of this encounter Care Teams Car Rental Clerk Relationship Specialty Start Date End Date Juan David Yanez DO [address] [place] [address], 2nd [place] [address] PCP - General Internal Medicine 05/25/24 Merced Eddy MBBS [email or web address] Primary Oncologist Medical Oncology 12/15/23 Bibi Thurston CNP [address] [place] [address] Nurse Practitioner Medical Oncology 03/14/24 documented as of this encounter Additional Source Comments The information contained in this document represents components of the legal health record. It is not the complete legal health record.[facility]
--- OUTSIDE RECORDS SUMMARY | 2024-11-14 18:44 | XMS_ITS | Encounter Summary ---
Author Organization [facility] Address [facility] [employer] [facility] [address] [place] [address] Phone Care Team Providers Care Rivet Maker Name Role Phone Elissa Columba Hall CNP Primary Care Provider Pcp, Not Required Primary Care Provider Unavaila ble Unknown, Unknown Primary Care Provider Merced Peres MBBS Unavailable [phone] Bibi Thurston MANAGER OF DIGITAL Unavailable Juan David Yanez DO Primary Care Provider Encounter Details Date Type Department Care Team (Late st Contact Info) Description 11/15/2023 Procedure Pass [facility]iology 75 [place] [address] Social History Tobacco Use Types Packs/Day Years [...] [facility] [address] [place], [place] [phone] Gissell Delarosa, PT 168 [place] [address] 11/21/2024 7:00 AM EDT Home Care Visit [facility] [address] [place], [place] [phone] Steffany Hernández, PRORATE CLERK 168 [place] [address] 11/22/2024 Home Care Visit [facility] [address] [place], [place] [phone] Steffayn Hernández, PRORATE CLERK 168 [place] [address] 11/28/2024 1:45 AM EDT Home Care Visit [facility] [address] [place] [phone] Gissell Delarosa, PT 168 [place] [address] 12/13/2024 2:30 PM EDT Office Visit [facility] [address] [place] [address] [place] [address] Juan David Yanez, DO 170 [facility], 2nd [place] [address] 12/21/2024 10:30 AM EST Appointment [facility] 30 [place] [address] Merced Eddy MBBS [address] [place] [address] [email or web address] 12/21/2024 11:30 AM EST Office Visit [facility] 30 [place] [address] Alisia Alejo, TRUDY [address] [place] [address] 03/28/2025 11:30 AM EST Office Visit [facility] [address] [place] [address] Darrius Roberson DO 22 [place] [address] documented as of this encounter Visit Diagnoses Not on filedocumented in this encounter Additional Health Concerns Infection Onset Date Last Indicated Resolved Time CoV-Risk Comment:Per note documentation 12/01/2023 12/01/2023 1:23 PM EDT documented as of this encounter Care Teams Rivet Maker Relationship Specialty Start Date End Date Columba Bowers CNP [email or web address] PCP - General Family Medicine 10/05/17 11/21/23 Pcp, Not Required [address] [place] [address] PCP - General 11/22/23 11/30/23 Unknown, Unknown, MD PCP - General 12/01/23 05/24/24 Juan David Yanez DO [address] [place] [address], 2nd [place] [address] [email or web address] PCP - General Internal Medicine 05/25/24 Merced Eddy MBBS [email or web address] Primary Oncologist Medical Oncology 12/15/23 Bibi Thurston CNP [address] [place] [address] [email or web address] Nurse Practitioner Medical Oncology 03/14/24 documented as of this encounter Additional Source Comments The information contained in this document represents components of the legal health record. It is not the complete legal health record.[facility]
--- OUTSIDE RECORDS SUMMARY | 2024-11-14 18:44 | XMS_ITS | Encounter Summary ---
Author Organization [facility] Address [facility] [employer] [facility] [address] [place] [address] Phone Care Team Providers Care Vending Machine Mechanic Name Role Phone Elissa Columba Hall CNP Primary Care Provider [phone] Pcp, Not Required Primary Care Provider Unavaila ble Unknown, Unknown Primary Care Provider Merced Peres MBBS Unavailable [phone] Bibi Thurston STEEL PLATE PRINTER Unavailable Juan David Yanez DO Primary Care Provider Encounter Details Date Type Department Care Team (Late st Contact Info) Description 11/15/2023 Procedure Pass [facility] 75 [place] [address] Social History Tobacco Use Types Packs/Day Years [...] Visit [facility] [address] [place], [place] [phone] Gissell Delarosa, PT 168 [place] [address] 11/21/2024 7:00 AM EDT Home Care Visit [facility] [place] [facility] [address] [place], [place] [phone] Steffany Hernández, WASHROOM CLEANER 168 [place] [address] 11/22/2024 Home Care Visit [facility] [address] [place], [place] [phone] Steffany Hernández, WASHROOM CLEANER 168 [place] [address] 11/28/2024 1:45 AM EDT Home Care Visit [facility] [address] [place] [phone] Gissell Delarosa, PT 168 [place] [address] 12/13/2024 2:30 PM EDT Office Visit [facility] [address] [place] [address] [place] [address] Juan David Yanez, DO 170 [facility], 2nd [place] [address] 12/21/2024 10:30 AM EST Appointment [facility] 30 [place] [address] Merced Eddy MBBS [address] [place] [address] [email or web address] 12/21/2024 11:30 AM EST Office Visit [facility] 30 [place] [address] Alisia Alejo, TRUDY [address] [place] [address] 03/28/2025 11:30 AM EST Office Visit [facility] 22 [place] [address] Darrius Roberson DO 22 [place] [address] documented as of this encounter Visit Diagnoses Not on filedocumented in this encounter Additional Health Concerns Infection Onset Date Last Indicated Resolved Time CoV-Risk Comment:Per note documentation 12/01/2023 12/01/2023 1:23 PM EDT documented as of this encounter Care Teams Vending Machine Mechanic Relationship Specialty Start Date End Date Columba Bowers CNP [email or web address] PCP - General Family Medicine 10/05/17 11/21/23 Pcp, Not Required [address] [place] [address] PCP - General 11/22/23 11/30/23 Unknown, Unknown, MD PCP - General 12/01/23 05/24/24 Juan David Yanez DO [address] [place] [address], 2nd [place] [address] [email or web address] PCP - General Internal Medicine 05/25/24 Merced Eddy MBBS [email or web address] Primary Oncologist Medical Oncology 12/15/23 Bibi Thurston CNP [address] [place] [address] [email or web address] Nurse Practitioner Medical Oncology 03/14/24 documented as of this encounter Additional Source Comments The information contained in this document represents components of the legal health record. It is not the complete legal health record.[facility]
--- OUTSIDE RECORDS SUMMARY | 2024-11-14 18:44 | XMS_ITS | Encounter Summary ---
Author Organization [facility] Address [address] [place] [address] Phone Care Team Providers Care Facilities Operator Name Role Phone Merced EddyBS Unavailable [phone] Bibi Thurston CNP Unavailable Juan David Yanez DO Primary Care Provider Reason for Visit * Reason Comments Medication Refill Encounter Details Date Type Department Care Team (Late st Contact Info) Description 08/20/2024 Refill [facility] [employer] 30 [place] [address] Merced Eddy, WAYNE 30 [place] [address] [email or web address] Medication Refill Social History Tobacco Use Types Packs/Day Years [...] high school, GED, job training, learning the [place]ian language, technical skills, or developing parenting skills)? [...] AM EDT documented as of this encounter Progress Notes * Shamika Lacey CMA - 08/20/2024 2:03 PM EDT TO: RN documented in this encounter Plan of Treatment Upcoming Encounters Date Type Department Care Team (Late st Contact Info) Description 11/15/2024 Home Care Visit [facility] [address] [place] [phone] Gissell Delarosa, PT 168 [place] [address] [email or web address] 11/21/2024 7:00 AM EDT Home Care [facility] [address] [place] [phone] Steffany Hernández, SOFTWARE QUALITY ENGINEER 168 [place] [address] [email or web address] 11/22/2024 Home Care Visit [facility] [address] [place] [phone] Steffany Hernández, SOFTWARE QUALITY ENGINEER [address] [place] [address] [email or web address] 11/28/2024 1:45 AM EDT Home Care Visit [facility] [address] [place] [phone] Gissell Delarosa, PT 168 [place] [address] [email or web address] 12/13/2024 2:30 PM EDT Office Visit [facility] [address] [place] [address] [place] [address] Juan David Yanez DO 170 [facility], 2nd [place] [address] [email or web address] 12/21/2024 10:30 AM EST Appointment [facility] 30 [place] [address] Merced Eddy MBBS 30 [place] [address] [email or web address] 12/21/2024 11:30 AM EST Office Visit [facility] [place] 30 [place] [address] Alisia Alejo NP 30 [place] [address] [email or web address] 03/28/2025 11:30 AM EST Office Visit [facility] [address] [place] [address] Darrius Roberson DO 22 [place] [address] documented as of this encounter Visit Diagnoses Diagnosis Bilateral leg edema Edema documented in this encounter Additional Health Concerns Assessment Noted Time PHQ-2 Depression Total Score: 0 05/20/19 25 12:21 AM EDT documented as of this encounter Care Teams Facilities Operator Relationship Specialty Start Date End Date Juan David Yanez DO 170 [facility], 2nd [place] [address] PCP - General Internal Medicine 05/25/24 Merced Eddy MBBS [email or web address] Primary Oncologist Medical Oncology 12/15/23 Bibi Thurston CNP [address] [place] [address] [email or web address] Nurse Practitioner Medical Oncology 03/14/24 documented as of this encounter Additional Source Comments The information contained in this document represents components of the legal health record. It is not the complete legal health record.[facility]
--- OUTSIDE RECORDS SUMMARY | 2024-11-14 18:45 | XMS_ITS | Encounter Summary ---
Author Organization [facility] Address Formerly [facility], later [facility] [employer] [address] [address] Phone Care Team Providers Care Surgical Elastic Knitter Name Role Phone Unknown, Unknown Primary Care Provider Merced Peres MBBS Unavailable [phone] Bibi Thurston ROTATING FIELD ASSEMBLER Unavailable Juan David Yanez DO Primary Care Provider Encounter Details Date Type Department Care Team (Late st Contact Info) Description 01/26/2024 Procedure Pass [facility], [address] [address] Social History Tobacco Use Types Packs/Day Years [...] GED, job training, learning the Citizen [place] language, technical skills, or developing parenting skills)? [...] Care Visit [facility] [address] [place] [phone] Gissell Delarosa, PT [address] [place] [address] 11/21/2024 7:00 AM EDT Home Care Visit [facility] [address] [place] [phone] Steffany Hernández, MESSENGER FLOORPERSON [address] [place] [address] 11/22/2024 Home Care Visit [facility] [address] [place] [phone] Steffany Hernández, MESSENGER FLOORPERSON [address] [place] [address] 11/28/2024 1:45 AM EDT Home Care Visit [facility] [address] [place] [phone] Gissell Delarosa, PT [address] [place] [address] 12/13/2024 2:30 PM EDT Office Visit [facility] [address] [address] Juan David Yanez DO [address] [facility], [address]nd [place] [address] 12/21/2024 10:30 AM EST Appointment [facility] [address] [place] [phone] Merced Eddy MBBS [address] [place] [address] [email or web address] 12/21/2024 11:30 AM EST Office Visit [facility] at [address] [address] Alisia Alejo, TRUDY [address] [place] [address] 03/28/2025 11:30 AM EST Office Visit [facility] [address] Dar[place] [address] [email or web address] documented as of this encounter Visit Diagnoses Not on filedocumented in this encounter Care Teams Surgical Elastic Knitter Relationship Specialty Start Date End Date Unknown, Unknown, PCP - General 12/01/23 05/24/24 Juan David Yanez DO [address] [place] [address], [address] [place] [address] PCP - General Internal Medicine 05/25/24 Merced Eddy MBBS [email or web address] Primary Oncologist Medical Oncology 12/15/23 Bibi Thurston CNP [address] [place] [address] Nurse Practitioner Medical Oncology 03/14/24 documented as of this encounter Additional Source Comments The information contained in this document represents components of the legal health record. It is not the complete legal health record.[facility]
--- OUTSIDE RECORDS SUMMARY | 2024-11-14 18:45 | XMS_ITS | Encounter Summary ---
Author Organization [facility] Address [address] [facility] [address] [place] [address] Phone Care Team Providers Care Carport Erector Name Role Phone Merced Eddy MBBS Unavailable [phone] Bibi Thurston CNP Unavailable Juan David Yanez DO Primary Care Provider Reason for Visit * Auth/Cert (Routine) Specialty Diagnoses / Procedures Referred By Davina t Referred To Contact Referral ID Status Reason Start Date Expiration Date Visits Re quested Visits Authorized [id number] 1 1 Encounter Details Date Type Department Care Team (Late st Contact Info) Description 11/14/2024 Home Care Visit [facility] [address] [place] [phone] Renee Polk, TAXATION AGENT [address] [place] [address] [email or web address] TRANSFORMATION SPECIALIST DISCIPLINE DISCHARGE NON VISIT/TELEPHONE Social History Tobacco Use Types Packs/Day Years [...] high school, GED, job training, learning the [place] language, technical skills, or developing parenting skills)? [...] Care Visit [facility] [address] [place] [phone] Gissell Delarosa, PT [address] [place] [address] 11/21/2024 7:00 AM EDT Home Care [facility] [address] [place] [phone] Steffany Hernández, ALARM INSTALLATION TECHNICIAN [address] [place] [address] 11/22/2024 Home Care Visit [facility] [address] [place] [phone] Steffany Hernández, ALARM INSTALLATION TECHNICIAN [address] [place] [address] 11/28/2024 1:45 AM EDT Home Care [facility] [address] [place] [phone] Gissell Delarosa, PT [address] [place] [address] 12/13/2024 2:30 PM EDT Office Visit [facility] [address] [place] [address] [place] [address] Juan David Yanez, [address] [facility], 2nd [place] [address] 12/21/2024 10:30 AM EST Appointment [facility] [address] [place] [address] Merced Eddy MBBS [address] [place] [address] [email or web address] 12/21/2024 11:30 AM EST Office Visit [facility] 30 [place] [address] Alisia Alejo NP [address] [place] [address] 03/28/2025 11:30 AM EST Office Visit [facility] [address] [place] [address] Darrius Roberson DO [address] [place] [address] documented as of this encounter Visit Diagnoses Not on filedocumented in this encounter Additional Health Concerns Assessment Noted Time PHQ-2 Depression Total Score: 0 05/20/19 25 12:21 AM EDT documented as of this encounter Home Health Visit - Care Plan Visit Details Visit Type -TRANSFORMATION SPECIALIST DISCIPLINE D /C NON VST/TC Discipline -Medical Social Work Problems Problem Description [...] related to medication errors and/or interactions Scheduled HH - Complete medication review every visit and medication reconciliation as indicated. Pharmacy information: Problem: - Medication Management Goal:HH - Safe medication management, avoid unnecessary harm related to medication errors and/or interactions Scheduled - Focus of care, teaching completed and plan for next visit Problem: - Focus of Care and Teaching Goal:HH [...] homecare Scheduled HH - Assess skin integrity Problem:HH - Standard of Care Goal:HH - Achieve care management for a safe to home/community discharge from homecare Scheduled documented in this encounter Care Teams Carport Erector Relationship Specialty Start Date End Date Juan David Yanezw, [address] [place] [address], [address] [place] [address] [email or web address] PCP - General Internal Medicine 05/25/24 Merced Eddy MBBS [email or web address] Primary Oncologist Medical Oncology 12/15/23 Bibi Thurston CNP [address] [place] [phone] [email or web address] Nurse Practitioner Medical Oncology 03/14/24 documented as of this encounter Additional Source Comments The information contained in this document represents components of the legal health record. It is not the complete legal health record.[facility]
--- OUTSIDE RECORDS SUMMARY | 2024-11-14 18:45 | XMS_ITS | Data Portability ---
Author Organization [facility], Telehealth Patient Home Address [address] [place] [address] Assessment Encounter Date Assessment Date Assessment LastModified [...] (erythrocy te sedimentat ion rate), blood 2021 [facility], [address] [place] [address], [address], 16:10:11 C-reactive protein, quantitati ve, serum or plasma 2021 [facility], [address] [place] [address], [address], 16:10:11 lyme disease igg+igm, serum, reflex western blot 2021 [facility], [address] [place] [address], [address], 12:00:17 HALINA + rf (antinucle ar antibodies + rheumatoid factor), quantitati ve, serum 2021 [facility], [address] [place] [address], [address], 11:56:03 TSH + free T4, serum 2021 [facility], [address] [place] [address], [address], 08:53:50 vitamin B12 + folate, serum or blood 2021 [facility], [address] [place] [address], [address], 16:10:11 vitamin D, 25-hydroxy , total, serum 2021 [facility], [address] [place] [address], [address], 12:06:54 CBC w/ auto diff 2021 [facility], [address] [place] [address], [address], 16:10:10 CMP, serum or plasma 2021 [facility], [address] [place] [address], [address], 08:53:50 lipid panel, blood 2021 [facility], [address] [place] [address], [address], 16:10:11 CMP, serum or plasma [address] [facility], [address] [place] [address], [address], 08:07:16 CBC [address] [facility], [address] [facility], [place], [address], 9 08:07:16 urinalysis , dipstick 2018 019 ashu [facility], [address], [place], [address], 9 09:23:08 Referral None recorded. Procedures None recorded. Surgeries None recorded. Imaging MRI, breast, bilateral, w/o contrast 2021 022 [facility] Sched[facility], [address] [place], [address], 2 13:48:41 exercise stress test 2019 020 [facility], [address] [place], [address], 0 10:13:04 US, echocardio gram 2019 020 [facility] Sched[facility], [address] [facility], [place], [address], 0 10:12:49 electrocar diogram 2019 020 Count includes the [facility], [address], [place], [address], 0 16:42:46 XR, cervical spine 2018 019 [facility], [address] [place] [address] [place], [address], 9 08:13:24 bone density 2018 019 [facility], [address] [place] [address] [place], [address], 9 08:39:01 Medication Orders lorazepam 0.5 mg tablet 2019 020 [id number], [address], [place], [id number], 2 15:44:01 Patient TargetsNo targets recorded. Patient InstructionsNo instructions recorded. Reason for Referral None Reported. Results Created Date Observation Date Name Description Value Unit Range Abnormal Flag Note LastModifiedBy Organization Detail LastModifiedTime 02/28/1902/28/2018 urina lysis , dipst ick Leukocytes Trace Not Available [facility] [address], [place], [address], 02/28/2018 09:13:10 02/28/1902/28/2018 urina lysis , dipst ick Nitrite negati ve Not Available [facility] [address] [facility] [address], [place], [address], 02/28/2018 09:13:10 02/28/1902/28/2018 urina lysis , dipst ick Urobilinogen .2 Not Available [facility] [address], [place], [address], 02/28/2018 09:13:10 02/28/1902/28/2018 urina lysis , dipst ick Protein Negati ve Not Available [facility] [address], [place], [address], 02/28/2018 09:13:10 02/28/1902/28/2018 urina lysis , dipst ick pH 6.0 Not Available [facility] [address], [place], [address], 02/28/2018 09:13:10 02/28/1902/28/2018 urina lysis , dipst ick Blood Non-He molyze d: Trace Not Available [facility] [address], [place], [address], 02/28/2018 09:13:10 02/28/1902/28/2018 urina lysis , dipst ick Specific [place] 1.015 Not Available [facility] [address], [place], [address], 02/28/2018 09:13:10 02/28/1902/28/2018 urina lysis , dipst ick Ketone Negati ve Not Available [facility] [address], [place], [address], 02/28/2018 09:13:10 02/28/1902/28/2018 urina lysis , dipst ick Bilirubin Negati ve Not Available [facility] [address], [place], [address], 02/28/2018 09:13:10 02/28/1902/28/2018 urina lysis , dipst ick Glucose Negati ve Not Available [facility] [address], [place], [address], 02/28/2018 09:13:10 02/28/1902/28/2018 urina lysis , dipst ick Appearance Clear Not Available [facility] [address], [place], [address], 02/28/2018 09:13:10 02/28/1902/28/2018 urina lysis , dipst ick Color Pale Yellow Not Available [facility] [address], [place], [address], 02/28/2018 09:13:10 04/18/1904/18/2019 timmy frank am Rate & Rhythm Not Available [facility] [address], [place], [address], 04/18/2019 16:39:22 04/18/1904/18/2019 elect rocar diogr am QRS Not Available [facility] [address], [place], [address], 04/18/2019 16:39:22 04/18/19 20 04/18/2019 elect rocar diogr am [place] Interval Not Available [facility] [address], [place], [address], 04/18/2019 16:39:22 04/18/19 20 04/18/2019 elect rocar diogr am QRS Duration Not Available [facility] [address], [place], [address], 04/18/2019 16:39:22 04/18/19 20 04/18/2019 elect rocar diogr am QT Interval Not Available [facility] [address], [place], [address], 04/18/2019 16:39:22 03/09/19 19 03/09/2018 bone densi ty No observ ation record ed. tbalii [facility] [address] [facility], [place], [address], 03/10/2018 10:43:06 04/18/19 20 04/18/2019 rhyth m strip , EKG* No observ ation record ed. BARCODE [facility] Scheduling [address] [facility], [place], [address], 04/18/2019 14:51:08 03/20/19 21 03/19/2020 MAMMO , jime marian, digit al, bilat eral No observ ation record ed. [email or web address] [address] [place], [address], 03/21/2020 08:55:29 05/05/19 22 05/01/2021 MAMMO , scree marian, digit al, bilat eral No observ ation record ed. [facility] [place] [address] [place], [address], 05/05/2021 08:30:04 05/23/19 22 05/21/2021 MRI, breas t, bilat ellel, w/o contr ast No observ ation record ed. [facility] (Medical Records) [address] [facility], [place], [address], 05/22/2021 11:56:46 Result Notes None recorded. Problems Name Problem SNOMED Code Status Onset Date Resolution Date Notes Provider Name and Address Organization Details Recorded Time Hypothyro idism 72073999 Active 2017 Columba Bowers NP, [address] [place] [address], [address], [facility] 8 16:45:31 Migraine 33343917 Active 2018 Melvaeder Diallo [facility] 9 16:56:03 History of malignant neoplasm of thyroid 216131591 [facility] 16:[facility]30 Tubular adenoma 692412047 Active 2018 Melva Diallo [facility] 9 16:56:43 Pain of right shoulder joint 695862815261 12403 Active 2021 AMPARO LUND [address] [place], [address], [facility] 2 15:00:07 Problem Notes Documentation Provider Name and Address Organization Details Recorded Time 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 Attached please find the visit note which outlines my findings and recommendations. Thank you very much for allowing me to participate in the care of your patient. Sincerely, Joseph Aquino. AMPARO LUND [address] [place], [address], [facility] 09/24/2022 16:16:42 Procedures Surgical History Date Name Laterality Status Provider Name and Address Organization Details Recorded Time 018 colonoscopy completed Columba Bowers NP, [address] [facility], [place], [address], [facility] 02/28/2018 08:50:54 015 Date of Last [facility] 16:57:38 012 Colonoscopy completed [facility] 02/27/2018 16:57:56 thyroidectomy completed [facility] 02/27/2018 16:57:07 Imaging Results None recorded. Procedure Notes None recorded. Medical Equipment None Reported. Allergies Allergen ID Allergen Name Allergen Category Reaction Reaction Severity Criticality Documentation Date Start Date Code Code System Note Provider Name and Address Organization Details Recorded Time 2704 Substance with sulfonami de structure and antibacte rial mechanism of action (substanc e) medicatio n Not available Not available Not available 02/27/2018 77434 8003 SNOMED Melvaeder Diallo [facility] 9 16:55:11 Medications Name Sig Start Date Stop Date Status Note LastModified by Organization Details LastModified Time levothyroxi ne 88 mcg tablet TAKE 1 TABLET BY MOUTH ONCE DAILY IN THE MORNING active Not Available Not Available No t Available lorazepam 0.5 mg tablet Take 2 tablets 3 times a day by oral route for 7 days. 05/08 completed Not Available Not Available Not [...] Not Available Not Available Vitals Date Recorded Heart rate Oxygen saturation Oxygen saturation in Arterial blood by Pulse oximetry Body weight Body mass index (BMI) Body height Systolic And Diastolic Provider Name and Address Organization Details Last Updated DateTime 9 80 /min 97 % 97 % 46044.9 6 g 18.3 kg/m2 157.48 cm 104/70 mm[Hg] [facility] 9 09:06:59 Date Recorded Body weight Heart rate Oxygen saturation Oxygen saturation in Arterial blood by Pulse oximetry Systolic And Diastolic Provider Name and Address Organization Details Last Updated DateTime 0 04280.8 3 g 75 /min 98 % 98 % 114/74 mm[Hg] Melva [facility] 0 13:36:05 Date Recorded Body height Body mass index (BMI) Body weight Oxygen saturation Oxygen saturation in Arterial blood by Pulse oximetry Heart rate Systolic And Diastolic Provider Name and Address Organization Details Last Updated DateTime 2 157.48 cm 19.2 kg/m2 07731.2 g 99 % 99 % 98 /min 130/70 mm[Hg] Ruth Borrero [facility] 2 15:45:50 Social History Question Answer Notes LastModified by Organizat ion Details LastModified Time Tobacco Smoking Status Never Smoker Not Available [facility] 12/18/2019 03:36:23 What Was The Date Of Your Most Recent Tobacco Screening? 05/08/2021 [email or web address] Information not available 05/08/2021 Sex: Unknown Functional Status None recorded. Mental Status None recorded. Family History Relationship Description Onset Age of this Age Resolved Age Notes LastModified by Organization Details LastModified Time Father Malignant melanoma 81 [email or web address] Not available 2018 08:47:44 Mother Dementia now in nursin g home [email or web address] Not available 02/28/2018 09:15:44 Medical History Condition Response Allergies/Hayfever N Coronary Artery Disease N Heart Problems N Gout N Kidney Stones N Blood Diseases N Hyperthyroidism N Breast Cancer N Blood Transfusion N Hospitalizations N Thyroid Problems Y Lung Disease N Hypothyroidism Y COPD N Depression Y Defects or Inherited Disease N Anemia N Anesthesia Complications Y Ovarian Cancer N Meniere's disease N Diabetes N Anxiety Disorder Y Obesity N Arthritis Y Polyps Y Mental Disorder N Tuberculosis N Congestive Heart Failure (CHF) N Cancer Y Diverticulitis N Abuse/Domestic Violence N Asthma N Bladder or Kidney Problems N High Cholesterol N Hepatitis N Liver Disease N Heart Disease N Headaches Y Hypertension N Autism Spectrum Disorder (ASD) N Thrombophilias N Kidney Disease N Gynecological History Statement/Question Response Date of Last Pap Smear 12/15/2014 Obstetrics History GPAL:G 0 P 0 0 0 0 Immunizations Vaccine Type Date Status Note Provider Nam e and Address Organization Details Recorded Time COVID-19, mRNA, LNP-S, PF, 30 mcg/0.3 mL dose 02/04/2020 completed Not Available [facility] 3 15:30:10 COVID-19, mRNA, LNP-S, PF, 30 mcg/0.3 mL dose 02/26/2020 completed Not Available [facility] 3 15:30:10 COVID-19, mRNA, LNP-S, PF, 30 mcg/0.3 mL dose 02/18/2021 completed Not Available [facility] 3 15:30:10 Past Encounters Encounter ID Performer Location Encounter Start Date Encounter Closed Date Diagnosis/Indication Diagnosis SNOMED-CT Code Diagnosis ICD10 Code Diagnosis IMO Codes Diagnosis Note [id number] Pelon Oliver [facility] [address] [place] [address] 02/28/2018 09:01:09 02/28/2018 10:49:10 Adult health examination 940250757 Z00.00 Up to date with employee representative MD Active or passive immunization 126070874 Z23 Screening procedure 2012 5006 Z13.9 Neck pain 29010248 M54.2 History of malignant neoplasm of thyroid 543720378 Z85.850 Tubular adenoma 28316098 7 D36.9 Up to date with colonoscop ies Hypothyroidism 11862288 E03.[address] Roberson, meds being adjusted [id number] Pelon Oliver DO [facility] [address] [place] [address] 04/18/2019 13:29:49 04/18/2019 14:45:25 Chest pain 89972032 R07.9 pt states she had been having chest discomfort with left arm pain for one day though has had episodes in the past similar since the of her mother EKG performed > notable RBBB but nothing else of concern (probably normal) pt is dealing with a lot of stress recently [id number] Pelon Oliver DO [facility] [address] [facility] [address],[place] [facility] [place] [address] 05/08/2021 15:39:37 05/08/2021 16:43:38 Active or passive immunization 817616214 Z23 up to date Adult heal th examination 989851226 Z00.00 BP is fine today Pain of mu ltiple joints 29356999 M25.542 will check labs Screening mammography 24 192773 Z12.31 will fu with breast MRI Health Concerns Section Related Observation LastModified by Organization Detai ls LastModified Time None Recorded Concern Status LastModified by Organization Details LastModified Time None Recorded Advance Directives Directive None Recorded Payers Insurance Date Sequence Insurance Name Policy Number Policy Gray Covered Member ID Gray Member ID Guarantor Name 05/08/2021 1 R [id number] Bee Zhou [id number] Bee Zhou 05/10/2022 1 [employer] [place] [id number] Bee Zhou [id number] Bee Zhou Notes Date Note Type Note Provider Name a nd Address Organization Details Recorded Time 9 text/html Annual WellnessReported by PatientSocial/Behavior al HistoryFor physical activity, patient reportsdoes not exercise on a regular basisbut reportsdiscussed weightbearing activities. For diet and nutrition, patient reportshealthy diet. For fracture risk, patient reportsno history of fractures,no recent explained fracture,no sudden unexplained fractures, andno previous musculoskeletal injuries. For additional lifestyle factors, patient reportsno tobacco useanddrinks alcohol (mild-moderate).Mental Status:For depression risk, patient reportsfeels sad, empty, or tearfulandhistory of depressionbut reportsno loss of interest in activities,no significant changes in weight,no loss of energy,no thoughts of suicide, andno history of mood disorders.Functional AbilityFor hearing, patient reportsloss of hearing in one ear only(right side). For vision, patient reportsno vision problems(wears contacts). Now on [address] 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 For fracture risk, patient reportsno history of fractures,no recent explained fracture,no sudden unexplained fractures, andno previous musculoskeletal injuries(the patient last spring tripped over her shoes down the stairsresidual left thumb pain at the base of the thumb > will hold on xrs). For physical activity, patient reportsexercises on a regular basis,recent increase in physical activity,good physical condition,discussed weightbearing activities, anddiscussed exercise habits(hikes). For additional lifestyle factors, patient reportsno tobacco useanddrinks alcohol (mild-moderate).Mental Status:For depression risk, patient reportsnever feels sad, empty, or tearful,no loss of interest in activities,no significant changes in weight,no sleep disturbances or insomnia,no agitation,no loss of energy,no feelings of worthlessness or guilt,no thoughts of suicide,no history of depression, andno history of mood disorders.Functional AbilityFor hearing, patient reportsno loss of hearing. For vision, patient reportsno vision problems. AMPARO LUND [address] [facility], [place], [address], [facility] 05/08/2021 16:24:27 OBGyn Episode No OBEpisode recorded.
--- OUTSIDE RECORDS SUMMARY | 2024-11-14 18:45 | XMS_ITS | Encounter Summary ---
Author Organization [facility] Address [facility] [employer] [facility] [place] [address] [place] [address] Phone Care Team Providers Care Rampman Name Role Phone Merced Eddy MBBS Unavailable [phone] Bibi Thurston SENIOR JAVA UI DEVELOPER Unavailable Juan David Yanez DO Primary Care Provider Encounter Details Date Type Department Care Team (Late st Contact Info) Description 10/19/2024 Orders Only [facility] at [address] [address] Shamika Lacey [facility] 30 [place] [address] Glioma (Primary Dx) Social History Tobacco Use Types Packs/Day Years [...] high school, GED, job training, learning the Kittitian language, technical skills, or developing parenting skills)? [...] Care Visit [facility] [address] [place] [phone] Gissell Delarosa, PT [address] [place] [address] [email or web address] 11/21/2024 7:00 AM EDT Home Care Visit [facility] [address] [place] [phone] Steffany Hernández, INVESTOR RELATIONS SPECIALIST [address] [place] [address] [email or web address] 11/22/2024 Home Care Visit [facility] [address] [place] [phone] Steffany Hernández, INVESTOR RELATIONS SPECIALIST [address] [place] [address] [email or web address] 11/28/2024 1:45 AM EDT Home Care Visit [facility] [address] [place] [phone] Gissell Delarosa, PT [address] [place] [address] [email or web address] 12/13/2024 2:30 PM EDT Office Visit [facility] [address] [place] [address] [place] [address] Juan David Yanez DO 170 [facility], 2nd [place] [address] [email or web address] 12/21/2024 10:30 AM EST Appointment [facility] [address] [place] [address] Merced Eddy MBBS [address] [place] [address] [email or web address] 12/21/2024 11:30 AM EST Office Visit [facility] at [facility] 30 [place] [address] Alisia Alejo NP 30 [place] [address] [email or web address] 03/28/2025 11:30 AM EST Office Visit [facility] 22 [place] [address] Darrius Roberson DO 22 [place] [address] [email or web address] documented as of this encounter Results * (ABNORMAL) Comprehensive metabolic panel (10/22/2024 3:05 PM EDT) SODIUM 136 133 - 146 mmol/L [facility] POTASSIUM 4.0 3.3 - 5.1 mmol/L [facility] CHLORIDE 103 96 - 108 mmol/L [facility] CO2 22 21 - 35 mmol/L [facility] BUN 15 6 - 19 mg/dL [facility] CREATININE 0.60 0.5 - 1.5 mg/dL [facility] GLUCOSE 179(H) 70 - 99 mg/dL [facility] ALBUMIN 4.1 3.9 - 4.8 g/dL [facility] TOTAL PROTEIN 6.3(L) 6.5 - 8.0 g/dL [facility] CALCIUM 8.9 8.4 - 10.3 mg/dL [facility] ALKALINE PHOSPHATASE 162(H) 39 - 117 U/L [facility] TOTAL BILIRUBIN <0.2 0.0 - 1.2 mg/dL [facility] AST 21 0 - 37 U/L [facility] ALT 40 0 - 40 U/L [facility] GLOBULIN 2.2 1 - 4.8 g/dL [facility] EGFR 100 >59 mL/min/1.7 3m2 [facility] Comment:Estimated glomerular filtration rate calculated using the CKD-EPI refit equation. ANION GAP 15 10 - 20 mmol/L [facility] Blood 10/22/2024 3:05 PM EDT 10/22/2024 3:13 PM EDT Merced Eddy MBBS LAB BLOOD ORDERABLES Final Result [address] [address] * (ABNORMAL) CBC and differential (10/22/2024 3:05 PM EDT) WBC 7.51 4.00 - 11.00 K/uL [facility] RBC 3.69(L) 4.00 - 5.20 M/uL [facility] HGB 12.8 12.0 - 16.0 g/dL [facility] HCT 38.4 36.0 - 46.0 % [facility] PLT 166 150 - 450 K/uL [facility] MCV 104.1(H) 80.0 - 100.0 fL [facility] Comment:VERIFIED BY REPEAT A NALYSIS MCH 34.7(H) 27.0 - 31.0 pg [facility] MCHC 33.3 32.0 - 36.0 g/dL [facility] RDW 14.6(H) 11.5 - 14.5 % [facility] MPV 9.0 8.4 - 12.0 fL [facility] NRBC 0.00 0.00 /100 WBCs [facility] ABSOLUTE NRBC 0.00 0.00 K/uL [facility] DIFF METHOD Manual [facility] TOTAL CELLS COUNTED 200 [facility] NEUTS 93.0(H) 48.0 - 76.0 % [facility] LYMPHS 3.0(L) 18.0 - 41.0 % [facility] MONOS 1.0(L) 4.0 - 11.0 % [facility] BASOS 1.0 0.0 - 1.5 % [facility] MYELOS 2.0(H) 0 % [facility] ABSOLUTE NEUTS 6.98 1.92 - 7.60 K/uL [facility] ABSOLUTE LYMPHS 0.23(L) 0.72 - 4.10 K/uL [facility] ABSOLUTE MONOS 0.08(L) 0.16 - 1.10 K/uL [facility] ABSOLUTE BASOS 0.08 0.00 - 0.15 K/uL [facility] ABSOLUTE MYELOS 0.15 K/uL [facility]ON CELLS PRESENT(A) None [facility] ELLIPTOCYTES PRESENT(A) None [facility] Blood 10/22/2024 3:05 PM EDT 10/22/2024 3:13 PM EDT Merced BLACK LAB BLOOD ORDERABLES Final Result [address] [address] documented in this encounter Visit Diagnoses Diagnosis Glioma- Primary documented in this encounter Additional Health Concerns Assessment Noted Time PHQ-2 Depression Total Score: 0 05/20/19 25 12:21 AM EDT documented as of this encounter Care Teams Rampman Relationship Specialty Start Date End Date Juan David Yanez DO [address] [place] [address], 2[address] [place] [address] [email or web address] PCP - General Internal Medicine 05/25/24 Merced Eddy MBBS [email or web address] Primary Oncologist Medical Oncology 12/15/23 Bibi Thurston CNP [address] [place] [address] [email or web address] Nurse Practitioner Medical Oncology 03/14/24 documented as of this encounter Additional Source Comments The information contained in this document represents components of the legal health record. It is not the complete legal health record.[facility]
--- OUTSIDE RECORDS SUMMARY | 2024-11-14 18:45 | XMS_ITS | Encounter Summary ---
Author Organization [facility] Address [address] [place] [address] Phone Care Team Providers Care Quality Control Representative Name Role Phone NunuLulusebastien Marley MBBS Unavailable Bibi Thurston WEBSITE ADMIN Unavailable Juan David Yanez DO Primary Care Provider Reason for Visit * Reason Onset Date Comments [facility] 11/14/2024 Encounter Details Date Type Department Care Team (Late st Contact Info) Description 11/14/2024 Telephone [facility] [address] [place] [address] [place] [address] Juan David Yanez DO 170 [facility], 2nd [place] [address] [email or web address] [facility] Social History Tobacco Use Types Packs/Day Years [...] high school, GED, job training, learning the Slovenian language, technical skills, or developing parenting skills)? [...] as of this encounter Progress Notes * Michael Leon RN - 11/14/2024 1:24 PM EDT Spoke with Dasia. States patient's pain is uncontrolled and does not believe hydrocodone has been helpful. Advised will speak with Ofe to review. Spoke with Ofe. States she has not been giving hydrocodone q6h as this makes patient confused. Pain is not consistent but turning her back causes pain to worsen and pain lasts for a while. Her lastBM was five days ago. She has used senna, cod liver oil, milk of mag twice daily, and gave a suppository tow hours ago. Patient cannot lay down or recline. Repositioning, supports with pillows, lidocaine patches, and heating pad have not been helpful. Ofe expressed concern that she did not hear back regarding xray. Reviewed results, recommendations, and provided contact info for Ray[facility]. Advised given pain and constipation to seek ED eval. Ofe agrees to plan and will call for an ambulance. * Estelita Anthony - 11/14/2024 1:06 PM EDT Dasia Therapist with [facility]na lm on the triage line concerned as pt hr is low 44 beats per min bp is 118/68 no fever 94% oxygen. Difficulty with pain management and unable to move bowels requesting call back. CSS Agent (Please do not reply to this user, as this inbox is not monitored. Thank you.) Thank you. documented in this encounter Plan of Treatment Upcoming Encounters Date Type Department Care Team (Late st Contact Info) Description 11/15/2024 Home Care Visit [facility] [address] [place] [phone] Gissell Delarosa, PT 168 [place] [address] 11/21/2024 7:00 AM EDT Home Care Visit [facility] [address] [place] [phone] Steffany Hernández, PROCUREMENT COST COORDINATOR 168 [place] [address] 11/22/2024 Home Care Visit [facility] [address] [place] [phone] Steffany Hernández, PROCUREMENT COST COORDINATOR 168 [place] [address] 11/28/2024 1:45 AM EDT Home Care Visit [facility] [address] [place] [phone] Gissell Delarosa, PT 168 [place] [address] 12/13/2024 2:30 PM EDT Office Visit [facility] [address] [place] [address] Juan David Yanez DO [address] [place] [address], 2nd [place] [address] 12/21/2024 10:30 AM EST Appointment [facility] [address] [place] [address] Merced Eddy, WAYNE [address] [place] [address] [email or web address] 12/21/2024 11:30 AM EST Office Visit [facility] at [address] [address] Alisia Alejo NP [address] [place] [address] 03/28/2025 11:30 AM EST Office Visit [place] [address] [place] [address] documented as of this encounter Visit Diagnoses Not on filedocumented in this encounter Additional Health Concerns Assessment Noted Time PHQ-2 Depression Total Score: 0 05/20/19 12:21 AM EDT documented as of this encounter Care Teams Quality Control Representative Relationship Specialty Start Date End Date Juan David Yanez DO [address] [place] [address], 2nd [place] [address] PCP - General Internal Medicine 05/25/24 Merced Eddy MBBS [email or web address] Primary Oncologist Medical Oncology 12/15/23 Bibi Thurston CNP 30 [place] [address] Nurse Practitioner Medical Oncology 03/14/24 documented as of this encounter Additional Source Comments The information contained in this document represents components of the legal health record. It is not the complete legal health record.[facility]
--- OUTSIDE RECORDS SUMMARY | 2024-11-14 18:45 | XMS_ITS | Encounter Summary ---
Author Organization Located Within [facility] Address [facility] [facility] [address] [place] [phone] Phone Care Team Providers Care Mixer Tender Name Role Phone Unknown, Unknown Primary Care Provider Merced Peres MBBS Unavailable [phone] Bibi Thurston ED TECH Unavailable Juan David Yanez DO Primary Care Provider Encounter Details Date Type Department Care Team (Late st Contact Info) Description 01/27/2024 Documentation Located Within [facility] [address] [place] [address] Susan Perez [address] [address] Social History Tobacco Use Types Packs/Day Years [...] high school, GED, job training, learning the Stateless language, technical skills, or developing parenting skills)? [...] Care Visit [facility] [address] [place] [phone] Gissell Delarosa, PT 168 [place] [address] 11/21/2024 7:00 AM EDT Home Care Visit [facility] [address] [place] [phone] Steffany Hernández, AGRICULTURAL PRODUCE WASHER [address] [place] [address] [email or web address] 11/22/2024 Home Care Visit [facility] [address] [place] [phone] Steffany Hernández, AGRICULTURAL PRODUCE WASHER 168 [place] [address] 11/28/2024 1:45 AM EDT Home Care Visit [facility] [address] [place] [phone] Gissell Delarosa, PT 168 [place] [address] 12/13/2024 2:30 PM EDT Office Visit [facility] [address] [place] [address] [place] [address] Juan David Yanez, 170 [facility], 2nd [place] [address] 12/21/2024 10:30 AM EST Appointment [facility] [address] [place] [address] Merced Eddy MBBS [address] [place] [address] [email or web address] 12/21/2024 11:30 AM EST Office Visit [facility] 30 [place] [address] Alisia Alejo NP 30 [place] [address] 03/28/2025 11:30 AM EST Office Visit [facility] 22 [place] [address] Darrius Roberson DO 22 [place] [address] documented as of this encounter Visit Diagnoses Not on filedocumented in this encounter Care Teams Mixer Tender Relationship Specialty Start Date End Date Unknown, Unknown, PCP - General 12/01/23 05/24/24 Juan David Yanez DO [address] [place] [address], 2nd [place] [address] PCP - General Internal Medicine 05/25/24 Merced Eddy MBBS [email or web address] Primary Oncologist Medical Oncology 12/15/23 Bibi Thurston CNP 30 [place] [address] Nurse Practitioner Medical Oncology 03/14/24 documented as of this encounter Additional Source Comments The information contained in this document represents components of the legal health record. It is not the complete legal health record.[facility]
--- OUTSIDE RECORDS SUMMARY | 2024-11-14 18:45 | XMS_ITS | Encounter Summary ---
Author Organization [facility] Address [address] [place] [address] Phone Care Team Providers Care Shipping Associate Name Role Phone Eddy, Ahmad Donell MBBS Unavailable Bibi Thurston PAPER CAP MACHINE OPERATOR Unavailable Juan David Yanez DO Primary Care Provider Reason for Visit * Reason Onset Date Comments Symptom Management 11/09/2024 Encounter Details Date Type Department Care Team (Late st Contact Info) Description 11/09/2024 Telephone [facility] [address] [place] [address] [place] [address] Juan David Yanez DO 170 [facility], 2nd [place] [address] [email or web address] Symptom Management Social History Tobacco Use Types Packs/Day Years [...] high school, GED, job training, learning the Paraguayan language, technical skills, or developing parenting skills)? [...] Progress Notes * Michael Leon RN - 11/09/2024 9:49 AM EDT This is an old message. See 11/06 TE * Estelita Anthony - 11/09/2024 9:44 AM EDT Yessenia dove on the triage line reports that she had spoke with Delores yesterday, and Ofe is requesting to f/u with her regarding pt pain level. Please advise. CSS Agent (Please do not reply to this user, as this inbox is not monitored. Thank you.) Thank you. documented in this encounter Plan of Treatment Upcoming Encounters Date Type Department Care Team (Late st Contact Info) Description 11/15/2024 Home Care Visit [facility] [address] [place] [address] Gissell Delarosa, PT 168 [place] [address] 11/21/2024 7:00 AM EDT Home Care Visit [facility] 30 [place], [place] [phone] Steffany Hernández, MATCHER OPERATOR 168 [place] [address] 11/22/2024 Home Care Visit [facility] [address] [place] [address] Steffany Hernández, MATCHER OPERATOR 168 [place] [address] 11/28/2024 1:45 AM EDT Home Care Visit [facility] 30 [place] [address] Gissell Delarosa, PT 168 [place] [address] 12/13/2024 2:30 PM EDT Office Visit [facility] [address] [place] [address] [place] [address] Juan David Yanez, 170 [facility], 2nd [place] [address] 12/21/2024 10:30 AM EST Appointment [facility] 30 [place] [address] Merced Eddy, WAYNE 30 [place] [address] [email or web address] 12/21/2024 11:30 AM EST Office [facility] 30 [place] [address] Alisia Alejo NP 30 [place] [address] [email or web address] 03/28/2025 11:30 AM EST Office Visit [facility] 22 [place] [address] Darrius Roberson DO 22 [place] [address] documented as of this encounter Visit Diagnoses Not on filedocumented in this encounter Additional Health Concerns Assessment Noted Time PHQ-2 Depression Total Score: 0 05/20/19 25 12:21 AM EDT documented as of this encounter Care Teams Shipping Associate Relationship Specialty Start Date End Date Juan David Yanez, DO YATESI: [id number] [address] [place] [address], 2nd [place] [address] [email or web address] PCP - General Internal Medicine 05/25/24 Merced Eddy MBBS [email or web address] Primary Oncologist Medical Oncology 12/15/23 Bibi Thurston CNP [address] [place] [address] [email or web address] Nurse Practitioner Medical Oncology 03/14/24 documented as of this encounter Additional Source Comments The information contained in this document represents components of the legal health record. It is not the complete legal health record.[facility]
--- OUTSIDE RECORDS SUMMARY | 2024-11-14 18:45 | XMS_ITS | Encounter Summary ---
Author Organization [facility] Address [facility] [employer] [address] [address] Phone Care Team Providers Care Regulatory Assistant Name Role Phone Unknown, Unknown Primary Care Provider Merced Peres MBBS Unavailable [phone] Bibi Thurston CONDUCTOR PULLMAN Unavailable Juan David Yanez DO Primary Care Provider Encounter Details Date Type Department Care Team (Late st Contact Info) Description 01/19/2024 Procedure Pass [facility], Ct Scan - [address] [address] Social History Tobacco Use Types Packs/Day Years [...] high school, GED, job training, learning the Indonesian language, technical skills, or developing parenting skills)? [...] Date of Assessment Author No Risk Indicated 01/19/2024 9:06 PM SASCHA michaudDiana RN * [place] Suicide Severity Rating Scale (Screener/Recent Self-Report) Question Answer Date of Assessment Author 1. Wish to be (Past 1 Month) No 01/19/2024 9:06 PM Diana Viveros RN 2. Non-Specific Active Suicidal Thoughts (Past 1 Month) No 01/19/2024 9:06 PM Diana Viveros RN 6. Suicidal Behavior (Lifetime) No 01/19/2024 9:06 PM Diana Viveros RN documented as of this encounter Plan of Treatment Upcoming Encounters Date Type Department Care Team (Late st Contact Info) Description 11/15/2024 Home [facility] [address] [place] [phone] Gissell Delarosa, PT [address] [place] [address] 11/21/2024 7:00 AM EDT Home [facility] [address] [place] [phone] Steffany Hernández, COORDINATOR OF EVALUATION [address] [place] [address] 11/22/2024 Home Care Visit [facility] [address] [place] [phone] Steffany Hernández, COORDINATOR OF EVALUATION [address] [place] [address] 11/28/2024 1:45 AM EDT Home Care Visit [facility] [address] [place] [phone] Gissell Delarosa, PT [address] [place] [address] 12/13/2024 2:30 PM EDT Office Visit [facility] [address] [place] [address] [place] [address] Juan David Yanez DO [address] [address] 12/21/2024 10:30 AM EST Appointment [facility] 30 [place] [address] Merced Eddy MBBS 30 [place] [address] [email or web address] 12/21/2024 11:30 AM EST Office [facility] 30 [place] [address] Alisia Alejo NP 30 [place] [address] 03/28/2025 11:30 AM EST Office Visit [facility] 22 [place] [address] Darrius Roberson DO 22 [place] [address] documented as of this encounter Visit Diagnoses Not on filedocumented in this encounter Care Teams Regulatory Assistant Relationship Specialty Start Date End Date Unknown, Unknown, PCP - General 12/01/23 05/24/24 Juan David Yanez DO [address] [place] [address] PCP - General Internal Medicine 05/25/24 Merced Eddy MBBS [email or web address] Primary Oncologist Medical Oncology 12/15/23 Bibi Thurston CNP [address] [place] [address] [email or web address] Nurse Practitioner Medical Oncology 03/14/24 documented as of this encounter Additional Source Comments The information contained in this document represents components of the legal health record. It is not the complete legal health record.[facility]
--- OUTSIDE RECORDS SUMMARY | 2024-11-14 18:45 | XMS_ITS | Encounter Summary ---
Author Organization [facility] Address [address] [place] [address] Phone Care Team Providers Care Patient Appointment Coordinator Name Role Phone Merced EddyBS Unavailable Bibi Thurston CNP Unavailable Juan David Yanez DO Primary Care Provider Reason for Visit * Reason Onset Date Comments Seizures 10/10/2024 Encounter Details Date Type Department Care Team (Late st Contact Info) Description 10/10/2024 Telephone [facility] [employer] [address] [place] [address] Merced Eddy, MBBS 30 [place] [address] [email or web address] Seizures () Social History Tobacco Use Types Packs/Day Years [...] as of this encounter Progress Notes * Lorin Swanson RN - 10/10/2024 2:24 PM EDT Contacted [facility]. Medical records from emergency visit faxed. Bee did not have Brain MRI in [place]. She had a Head CT. Reports scanned into [facility] for review. * Irasema Schulz RN - 10/10/2024 12:29 PM EDT Ofe calls in for Mary stating she was in the ED last Tuesday with a seizure and didn't know if Dr Eddy had been made aware. States they are still awaiting call for appt with neuro at [facility] Questioning if Dr Eddy needs to see her sooner than planned (10/22) documented in this encounter Plan of Treatment Upcoming Encounters Date Type Department Care Team (Late st Contact Info) Description 11/15/2024 [facility] Care Visit [facility] [address] [place], [place] [phone] Gissell Delarosa, PT [address] [place] [address] 11/21/2024 7:00 AM EDT Home Care Visit [facility] [address] [place], [place] [phone] Steffany Hernández, APERTURE MASK ETCHER [address] [place] [address] 11/22/2024 Home Care Visit [facility] [address] [place] [phone] Steffany Hernández, APERTURE MASK ETCHER [address] [place] [address] 11/28/2024 1:45 AM EDT Home Care Visit [facility] [address] [place] [phone] Gissell Delarosa, PT 168 [place] [address] 12/13/2024 2:30 PM EDT Office Visit [facility] [address] [place] [address] [place] [address] Juan David Yanez, DO 170 [facility], 2nd [place] [address] 12/21/2024 10:30 AM EST Appointment [facility] [address] [place] [address] Merced Eddy, WAYNE [address] [place] [address] [email or web address] 12/21/2024 11:30 AM EST Office Visit [facility] [employer] [address] [place] [address] Alisia Alejo, TRUDY 30 [place] [address] 03/28/2025 11:30 AM EST Office Visit [facility] 22 [place] [address] Darrius Roberson DO 22 [place] [address] documented as of this encounter Visit Diagnoses Not on filedocumented in this encounter Additional Health Concerns Assessment Noted Time PHQ-2 Depression Total Score: 0 05/20/19 12:21 AM EDT documented as of this encounter Care Teams Patient Appointment Coordinator Relationship Specialty Start Date End Date Juan David Yanez DO [address] [place] [address], 2nd [place] [address] [email or web address] PCP - General Internal Medicine 05/25/24 Merced Eddy MBBS [email or web address] Primary Oncologist Medical Oncology 12/15/23 Bibi Thurston CNP [address] [place] [address] [email or web address] Nurse Practitioner Medical Oncology 03/14/24 documented as of this encounter Additional Source Comments The information contained in this document represents components of the legal health record. It is not the complete legal health record.[facility]
--- OUTSIDE RECORDS SUMMARY | 2024-11-14 18:45 | XMS_ITS | Encounter Summary ---
Author Organization [facility] Address [address] [facility] [address] [place] [address] Phone Care Team Providers Care Furniture Rental Consultant Name Role Phone Merced Eddy MBBS Unavailable [phone] Bibi Thurston COMMERCIAL INSTRUCTOR SUPERVISOR Unavailable Juan David Yanez DO Primary Care Provider Reason for Visit * Auth/Cert (Routine) Specialty Diagnoses / Procedures Referred By Davina t Referred To Contact Referral ID Status Reason Start Date Expiration Date Visits Re quested Visits Authorized [id number] 1 1 Encounter Details Date Type Department Care Team (Late st Contact Info) Description 11/13/2024 Home Care Visit [facility] 30 [place] [phone] Renee Polk, HOT OILER [address] [place] [address] [email or web address] TELEPHONE ENCOUNTER Social History Tobacco Use Types Packs/Day Years [...] high school, GED, job training, learning the Greenlandic language, technical skills, or developing parenting skills)? [...] Care Visit [facility] [address] [place] [phone] Gissell Delarosa, PT [address] [place] [address] 11/21/2024 7:00 AM EDT Home [facility] [address] [place] [phone] Steffany Hernández, LEACHER [address] [place] [address] 11/22/2024 Home Care [facility] [address] [place] [phone] Steffany Hernández, LEACHER [address] [place] [address] 11/28/2024 1:45 AM EDT Home Care [facility] [address] [place] [phone] Gissell Delarosa, PT [address] [place] [address] 12/13/2024 2:30 PM EDT Office Visit [facility] [address] [place] [address] [place] [address] Juan David Yanez, [address] [place] [address], 2nd [place] [address] 12/21/2024 10:30 AM EST Appointment [facility] 30 [place] [address] Merced Eddy MBBS 30 [place] [address] [email or web address] 12/21/2024 11:30 AM EST Office Visit [facility] [place] 30 [place] [address] Alisia Alejo NP 30 [place] [address] [email or web address] 03/28/2025 11:30 AM EST Office Visit [facility] 22 [place] [address] Darrius Roberson DO 22 [place] [address] documented as of this encounter Visit Diagnoses Not on filedocumented in this encounter Additional Health Concerns Assessment Noted Time PHQ-2 Depression Total Score: 0 05/20/19 12:21 AM EDT documented as of this encounter Care Teams Furniture Rental Consultant Relationship Specialty Start Date End Date Juan David Yanez DO [address] [place] [address], 2nd [place] [address] PCP - General Internal Medicine 05/25/24 Merced Eddy MBBS [email or web address] Primary Oncologist Medical Oncology 12/15/23 Bibi Thurston CNP [address] [place] [address] Nurse Practitioner Medical Oncology 1/29/25 documented as of this encounter Additional Source Comments The information contained in this document represents components of the legal health record. It is not the complete legal health record.[facility]
--- OUTSIDE RECORDS SUMMARY | 2024-11-14 18:45 | XMS_ITS | Encounter Summary ---
Author Organization [facility] Address [facility] [employer] [address] [address] Phone Care Team Providers Care Plumber And Tinner Name Role Phone Merced Eddy MBBS Unavailable [phone] Bibi Thurston DEBURRING MACHINE OPERATOR Unavailable Juan David Yanez DO Primary Care Provider Encounter Details Date Type Department Care Team (Late st Contact Info) Description 10/10/2024 Procedure [facility], [address] [phone] Social History Tobacco Use Types Packs/Day Years [...] high school, GED, job training, learning the Guatemalan language, technical skills, or developing parenting skills)? [...] Sign Reading Time Taken Comments Blood Pressure - - Pulse - - Temperature - - Respiratory Rate - - Oxygen Saturation - - Inhaled Oxygen Concentration - - Weight 49.9 kg (110 lb) 10/12/2024 5:54 PM EDT Height 157.5 cm (5' 2 ) 10/12/2024 5:54 PM EDT Body Mass Index 20.12 10/12/2024 5:54 PM EDT documented in this encounter Plan of Treatment Upcoming Encounters Date Type Department Care Team (Late st Contact Info) Description 11/15/2024 Home Care Visit [facility] [address] [place] [phone] Gissell Delarosa, PT 168 [place] [address] 11/21/2024 7:00 AM EDT Home Care Visit [facility] [address] [place] [address] Steffany Hernández, [facility] 168 [place] [address] 11/22/2024 Home Care Visit [facility] [address] [place] [phone] Steffany Hernández, [facility] 168 [place] [address] 11/28/2024 1:45 AM EDT Home Care Visit [facility] [address] [place] [address] Gissell Delarosa, PT 168 [place] [address] 12/13/2024 2:30 PM EDT Office Visit [facility] [address] [place] [address] [place] [address] Juan David Yanez DO 170 [facility], 2nd Floor [place], [place] 12/21/2024 10:30 AM EST Appointment [facility] 30 [place] [address] Merced Eddy MBBS 30 [place] [address] [email or web address] 12/21/2024 11:30 AM EST Office Visit [facility] 30 [place] [address] Alisia Alejo NP 30 [place] [address] [email or web address] 03/28/2025 11:30 AM EST Office Visit [facility] 22 [place] [address] Darrius Roberson DO 22 [place] [address] [email or web address] documented as of this encounter Visit Diagnoses Not on filedocumented in this encounter Additional Health Concerns Assessment Noted Time PHQ-2 Depression Total Score: 0 05/20/19 12:21 AM EDT documented as of this encounter Care Teams Plumber And Tinner Relationship Specialty Start Date End Date Juan David Yanez DO [address] [place] [address], 2nd [place] [address] PCP - General Internal Medicine 05/25/24 Merced Eddy MBBS [email or web address] Primary Oncologist Medical Oncology 12/15/23 Bibi Thurston CNP [address] [place] [address] Nurse Practitioner Medical Oncology 03/14/24 documented as of this encounter Additional Source Comments The information contained in this document represents components of the legal health record. It is not the complete legal health record.[facility]
--- OUTSIDE RECORDS SUMMARY | 2024-11-14 18:45 | XMS_ITS | Encounter Summary ---
Author Organization [facility] Address [address] [facility] [address] [place] [address] Phone Care Team Providers Care Healthcare Economics Consultant Name Role Phone NunuLulusebastien Marley MBBS Unavailable Bibi Thurston FOOD PRESERVATION SCIENTIST Unavailable Juan David Yanez DO Primary Care Provider Reason for Visit * Reason Onset Date Comments [facility] PT 11/06/2024 Encounter Details Date Type Department Care Team (Late st Contact Info) Description 11/06/2024 Telephone [facility] [address] [place] [address] [place] [address] Juan David Yanez DO 170 [facility], 2nd [place] [address] [email or web address] [facility] PT Social History Tobacco Use Types Packs/Day Years [...] high school, GED, job training, learning the Chadian language, technical skills, or developing parenting skills)? [...] as of this encounter Progress Notes * Linda Duran RN - 11/09/2024 9:33 AM EDT Call made to Katrina Gamboa answers and we discussed sedating effects of muscle relaxer's, as well as fOe's request that Dr. Yanez order a back xray to assess what might be occurring- stated that this can be discussed during appt with Renata- booked them for Tuesday at 2p * Matti Young MD - 11/07/2024 3:11 PM EDT This would be best addressed by Dr. Yanez. * Maggi Allred RN - 11/07/2024 1:59 PM EDT Spoke with with Gissell regarding pain management of patient during the day. Stated that the Tizanidine puts patient out for the afternoon when taken during the day. Patient wants to be awake during the day. Takes Ibuprofen and Tylenol with little effect of pain. Would like a different pain medication or a diagnostic test for patient. No same day appointment available today. Advised to go to Urgent Care, declined. * Estelita Anthony - 11/07/2024 12:57 PM EDT Gissell penam on the triage line to f/u up with RN on the possability of either looking to further diagnostics or additional medication support for her back pain. CSS Agent (Please do not reply to this user, as this inbox is not monitored. Thank you.) Thank you. * Michael Leon RN - 11/06/2024 2:03 PM EDT Spoke with Gissell. Verbal order given. She is wondering if imaging can be ordered as patient's backpain has not improved. * Estelita Anthony - 11/06/2024 1:44 PM EDT [facility] PT LVM on the triage line reports on pt back pain level, it is still painful and escalated. Only taking tizanidine, it has some benefit, but does not help her manage pain through out the day. Only able to tolerate minimal to no therapy at this time. Requesting verbal for ot. CSS Agent (Please do not reply to this user, as this inbox is not monitored. Thank you.) Thank you. documented in this encounter Plan of Treatment Upcoming Encounters Date Type Department Care Team (Late st Contact Info) Description 11/15/2024 Home Care Visit [facility] [address] [place] [address] Gissell Delarosa, PT [address] [place] [address] 11/21/2024 7:00 AM EDT Home Care Visit [facility] 30 [place], [place] [phone] Steffany Hernández, RAILROAD CAR INSPECTOR [address] [place] [address] 11/22/2024 Home Care Visit [facility] 30 [place], [place] [phone] Steffany Hernández, RAILROAD CAR INSPECTOR [address] [place] [address] 11/28/2024 1:45 AM EDT Home Care Visit [facility] [address] [place] [phone] WashingtonGissell sullivan, PT [address] [place] [address] 12/13/2024 2:30 PM EDT Office Visit [facility] [address] [place] [address] [place] [address] Juan David Yanez, DO 170 [facility], 2nd [place] [address] 12/21/2024 10:30 AM EST Appointment [facility] 30 [place] [address] Merced Eddy MBBS 30 [place] [address] [email or web address] 12/21/2024 11:30 AM EST Office Visit [facility] 30 [place] [address] Alisia Alejo NP [address] [place] [address] 03/28/2025 11:30 AM EST Office Visit [facility] 22 [place] [address] Darrius Roberson DO 22 [place] [address] documented as of this encounter Visit Diagnoses Not on filedocumented in this encounter Additional Health Concerns Assessment Noted Time PHQ-2 Depression Total Score: 0 05/20/19 25 12:21 AM EDT documented as of this encounter Care Teams Healthcare Economics Consultant Relationship Specialty Start Date End Date Juan David Yanez DO [address] [place] [address], 2nd [place] [address] [email or web address] PCP - General Internal Medicine 05/25/24 Merced Eddy MBBS [email or web address] Primary Oncologist Medical Oncology 12/15/23 Bibi Thurston CNP [address] [place] [address] [email or web address] Nurse Practitioner Medical Oncology 03/14/24 documented as of this encounter Additional Source Comments The information contained in this document represents components of the legal health record. It is not the complete legal health record.[facility]
--- OUTSIDE RECORDS SUMMARY | 2024-11-14 18:45 | XMS_ITS | Encounter Summary ---
Author Organization [facility] Address [address] [employer] [facility] [address] [place] [address] Phone Care Team Providers Care Vc++ Developer Name Role Phone Eddy, Ahmad Donell MBBS Unavailable Bibi Thurston VENEER PULLER Unavailable Juan David Yanez DO Primary Care Provider Reason for Visit * Reason Onset Date Comments Follow-up 10/05/2024 ER 10/05- seizur e Encounter Details Date Type Department Care Team (Late st Contact Info) Description 10/10/2024 Telephone [facility] [address] [place] [address] Juan David Yanez DO 170 [facility], 2nd [place] [address] [email or web address] Follow-up (ER 10/05- seizure ) Social History Tobacco Use Types Packs/Day Years [...] high school, GED, job training, learning the Tuvaluan language, technical skills, or developing parenting skills)? [...] as of this encounter Progress Notes * Mirna Ribeiro - 10/10/2024 11:26 AM EDT LVM to c/b to schedule ED f/u for next week. Faxed request for records to [facility] * Dalia Fisher - 10/10/2024 10:52 AM EDT Ofe cousin caller LVM on triage line stating pt had a seizure on Tuesday and went to the ED in [place], [place]. Ofe stated that pt was put on keppra(?). Ofe stated they have an appointment on 10/23but are unsure if pt should be seen before then. Please contact and advise. Central Support Legal Nurse Consultant (Please do not reply to this user; this inbox is not monitored.) Thank you. documented in this encounter Plan of Treatment Upcoming Encounters Date Type Department Care Team (Late st Contact Info) Description 11/15/2024 Home Care Visit [facility] 30 [place], [place] [phone] Gissell Delarosa, PT [address] [place] [address] 11/21/2024 7:00 AM EDT Home Care Visit [facility] 30 [place], [place] [phone] Steffany Hernández, ART DEPARTMENT HEAD [address] [place] [address] 11/22/2024 Home Care Visit [facility] 30 [place] [phone] Steffany Hernández, ART DEPARTMENT HEAD [address] [place] [address] 11/28/2024 1:45 AM EDT Home Care Visit [facility] 30 [place] [phone] Gissell Delarosa, PT 168 [place] [address] 12/13/2024 2:30 PM EDT Office Visit [facility] [address] [place] [address] [place] [address] Juan David Yanez, DO 170 [facility], 2nd [place] [address] 12/21/2024 10:30 AM EST Appointment [facility] 30 [place] [address] Merced Eddy, WAYNE [address] [place] [address] [email or web address] 12/21/2024 11:30 AM EST Office Visit [facility] 30 [place] [address] Alisia Alejo, TRUDY 30 [place] [address] 03/28/2025 11:30 AM EST Office Visit [facility] 22 [place] [address] Darrius Roberson DO 22 [place] [address] documented as of this encounter Visit Diagnoses Not on filedocumented in this encounter Additional Health Concerns Assessment Noted Time PHQ-2 Depression Total Score: 0 05/20/19 12:21 AM EDT documented as of this encounter Care Teams Vc++ Developer Relationship Specialty Start Date End Date Juan David Yanez DO [address] [place] [address], 2nd [place] [address] [email or web address] PCP - General Internal Medicine 05/25/24 Merced Eddy MBBS [email or web address] Primary Oncologist Medical Oncology 12/15/23 Bibi Thurston CNP [address] [place] [address] [email or web address] Nurse Practitioner Medical Oncology 03/14/24 documented as of this encounter Additional Source Comments The information contained in this document represents components of the legal health record. It is not the complete legal health record.[facility]
--- OUTSIDE RECORDS SUMMARY | 2024-11-14 18:45 | XMS_ITS | Encounter Summary ---
Author Organization [facility] Address Replaced by [facility] [email or web address] [address] [address] Phone Care Team Providers Care Rn Mental Health Name Role Phone Nunu Lulusebastien BLACK Unavailable [phone] Bibi Thurston CNP Unavailable Juan David Yanez DO Primary Care Provider Reason for Referral * MRI/CAT Scan - Closed Specialty Diagnoses / Procedures Referred By Davina lamb Referred To Contact Radiology Diagnoses Glioma Procedures MRI Brain Bibi Thurston CNP [address] [place] [address] Phone: tel: fax: [email or web address] Referral ID Status Reason Start Date Expiration Date Visits Re quested Visits Authorized [id number] Closed 10/10/2024 10/10/2025 1 1 Encounter Details Date Type Department Care Team (Late st Contact Info) Description 10/10/2024 Orders Only [facility] [address] [place] [address] Bibi Thurston CNP [address] [place] [address] [email or web address] Glioma (Primary Dx) Social History Tobacco Use [...] high school, GED, job training, learning the Mosotho language, technical skills, or developing parenting skills)? [...] Care Visit [facility] [address] [place] [address] Gissell Delarosa, PT [address] [place] [address] 11/21/2024 7:00 AM EDT Home Care [facility] [address] [place] [address] Steffany Hernández, SURVEYOR MINE [address] [place] [address] [email or web address] 11/22/2024 Home Care Visit [facility] [address] [place] [address] Steffany Hernández, SURVEYOR MINE [address] [place] [address] [email or web address] 11/28/2024 1:45 AM EDT Home Care Visit [facility] [address] [place] [address] Gissell Delarosa, PT [address] [place] [address] 12/13/2024 2:30 PM EDT Office Visit [facility] [address] [place] [address] Juan David Yanez, DO [address] [facility], [address]nd [place] [address] 12/21/2024 10:30 AM EST Appointment [facility] [address] [place] [address] Merced Eddy, MBYOEL [address] [place] [address] [email or web address] 12/21/2024 11:30 AM EST Office Visit [facility] [address] [place] [address] Alisia Alejo, TRUDY [address] [place] [address] 03/28/2025 11:30 AM EST Office Visit [facility] [address] [place] [address] Darrius Roberson DO [address] [place] [address] documented as of this encounter Results * MRI BRAIN WITH AND WITHOUT CONTRAST (10/19/2024 3:27 PM EDT) Anatomical Region Laterality Modality Head Magnetic Resonan ce 10/22/2024 11:4 8 AM EDT Impressions 10/22/2024 11:53 AM EDT No appreciable change in size of the large cystic/necrotic mass in the left temporal lobe since the most recent prior study from August 2024, but which has undergone mild involution since the more remote study from May 2024. No evidence of tumor progression. 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 COMPARISON: MRI BRAIN (SKULL BASE) WITH AND WITHOUT CONTRAST ; MRI BRAIN (SKULL BASE) WITH AND WITHOUT CONTRAST ; MRI BRAIN WITH AND WITHOUT CONTRAST FINDINGS: MRI BRAIN: Post-Treatment Tumor Post-surgical changes: Postoperative changes from prior left-sided craniotomy including a resection cavity in the left temporal lobe are again demonstrated. Primary Tumor Site: Surgical cavity: Unchanged in size and configuration. Enhancement: The previously seen large cystic/necrotic mass in the left temporal lobe has not appreciably changed in size since the prior study from August 2024 but has undergone mild involution since the more remote study from May 2024. No new foci of suspicious enhancement. FLAIR: No appreciable progression of extensive T2/FLAIR hyperintensity surrounding the enhancing mass immediate prior study. Diffusion: No restricted diffusion. SWI: Stable postsurgical blood products subjacent to the craniotomy site and along the margins of the surgical cavity. Mass effect: Stable local mass effect without midline shift or hydrocephalus. Additional sites of tumoral involvement: None. Additional intracranial findings: Compared to prior MRI, the left temporal horn is similar in signal characteristics compared to rest of ventricular system, possibly representing resolution of entrapment. 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 COMPARISON: MRI BRAIN (SKULL BASE) WITH AND WITHOUT CONTRAST ;MRI BRAIN (SKULL BASE) WITH AND WITHOUT CONTRAST ; MRI BRAINWITH AND WITHOUT CONTRAST FINDINGS: MRI BRAIN: Post-Treatment Tumor Post-surgical changes: Postoperative changes from prior left-sidedcraniotomy including a resection cavity in the left temporal lobe areagain demonstrated. Primary Tumor Site: Surgical cavity: Unchanged in size and configuration. Enhancement: The previously seen large cystic/necrotic mass in the lefttemporal lobe has not appreciably changed in size since the prior studyfrom August 2024 but has undergone mild involution since the more remotestudy from May 2024. No new foci of suspicious enhancement. FLAIR: No appreciable progression of extensive T2/FLAIR hyperintensitysurrounding the enhancing mass immediate prior study. Diffusion: No restricted diffusion. SWI: Stable postsurgical blood products subjacent to the craniotomy siteand along the margins of the surgical cavity. Mass effect: Stable local mass effect without midline shift orhydrocephalus. Additional sites of tumoral involvement: None. Additional intracranial findings: Compared to prior MRI, the left temporalhorn is similar in signal characteristics compared to rest of ventricularsystem, possibly representing resolution of entrapment. IMPRESSION: No appreciable change in size of the large cystic/necrotic mass in theleft temporal lobe since the most recent prior study from August 2024, butwhich has undergone mild involution since the more remote study from May2024. No evidence of tumor progression. Bibi Thurston CNP [facility] MR HEAD/NECK Final Result documented in this encounter Visit Diagnoses Diagnosis Glioma- Primary Glioma documented in this encounter Additional Health Concerns Assessment Noted Time PHQ-2 Depression Total Score: 0 05/20/19 25 12:21 AM EDT documented as of this encounter Care Teams Rn Mental Health Relationship Specialty Start Date End Date Juan David Yanez DO [address] [place] [address], [address] [place] [address] [email or web address] PCP - General Internal Medicine 05/25/24 Merced Eddy MBBS [email or web address] Primary Oncologist Medical Oncology 12/15/23 Bibi Thurston CNP [address] [place] [id number] [email or web address] Nurse Practitioner Medical Oncology 03/14/24 documented as of this encounter Additional Source Comments The information contained in this document represents components of the legal health record. It is not the complete legal health record.[facility]
--- OUTSIDE RECORDS SUMMARY | 2024-11-14 18:46 | XMS_ITS | Encounter Summary ---
Author Organization [facility] Address [address] [place] [address] Phone Care Team Providers Care Reconciliation Analyst Name Role Phone Merced Eddy MBBS Unavailable [phone] Bibi Thurston AIR CONDITIONING ENGINEER Unavailable Juan David Yanez DO Primary Care Provider Encounter Details Date Type Department Care Team (Late st Contact Info) Description 11/12/2024 [facility] RISK SCORES SYSTEM GENERATED External System Generated Encounter [address] [place] [address] Unknown, Unknown, Social History Tobacco Use Types Packs/Day Years [...] high school, GED, job training, learning the Bangl[place] language, technical skills, or developing parenting skills)? [...] Care Visit [facility] [address] [place] [phone] Gissell Delarosa, PT [address] [place] [address] 11/21/2024 7:00 AM EDT Home [facility] [address] [place] [phone] Steffany Hernández, BRAND REPRESENTATIVE [address] [place] [address] 11/22/2024 Home [facility] [address] [place] [phone] Steffany Hernández, BRAND REPRESENTATIVE [address] [place] [address] 11/28/2024 1:45 AM EDT Home [facility] [address] [place] [phone] Gissell Delarosa, PT [address] [place] [address] 12/13/2024 2:30 PM EDT Office Visit [facility] [address] [place] [phone] Juan David Yanez, 170 [facility], [address] [place] [address] 12/21/2024 10:30 AM EST Appointment [facility] [address] [place] [phone] Merced Eddy, MBYOEL [address] [place] [address] [email or web address] 12/21/2024 11:30 AM EST Office Visit [facility] [place] [address] [place] [address] Alisia Alejo NP [address] [place] [address] [email or web address] 03/28/2025 11:30 AM EST Office Visit [facility] [address] [place] [address] Darrius Roberson DO [address] [place] [address] [email or web address] documented as of this encounter Visit Diagnoses Not on filedocumented in this encounter Additional Health Concerns Assessment Noted Time PHQ-2 Depression Total Score: 0 05/20/19 12:21 AM EDT documented as of this encounter Care Teams Reconciliation Analyst Relationship Specialty Start Date End Date Juan David Yanez DO [address] [place] [address], [address] [place] [address] [email or web address] PCP - General Internal Medicine 05/25/24 Merced Eddy MBBS [email or web address] Primary Oncologist Medical Oncology 12/15/23 Bibi Thurston CNP [address] [place] [address] [email or web address] Nurse Practitioner Medical Oncology 03/14/24 documented as of this encounter Additional Source Comments The information contained in this document represents components of the legal health record. It is not the complete legal health record.[facility]
--- OUTSIDE RECORDS SUMMARY | 2024-11-14 18:46 | XMS_ITS ---
Author Organization [facility] Address [address] [address] [place] [id number] Phone Care Team Providers Care Block Tester Name Role Phone NunuLulusebastien Marley MBBS Unavailable Bibi Thurston MANAGER EPIC Unavailable Juan David Yanez DO Primary Care Provider Active Problems Patient Care Coordination No te Formatting of this note migh t be different from the original. Ramakrishna James, Nurse Database Reporting Consultant from [facility] of [place] reference number ([id number]), code ([id number]), and also stated they are certifying for 42 visits. [phone]. 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 No evidence of IDH1/2, EGFR, 1p/19q codeletion, ATRX, BRAF, NTRK1/2/3 aberrations. 04/19/2024: Pulmonary Embolism: Small subsegmental pulmonary emboli in the right lower lobe Lower extremity swelling Oral thrush New seizure episode DISCUSSION: I discussed overall impression, natural history of the disease, prognosis and further management in this regard. For patients with newly diagnosed MGMT-methylated gli?bl??t?ma who are 70 years of age or younger, current guidelines recommend use of concurrent temozolomide in combination with radiation therapy followed by monthly adjuvant t?m?z?l?mi?e. Median survival is around prognosis. Median survival is around 14 months with around 25% 2-year survival and 10% 5-year survival. In terms of toxicity from temozolomide chemotherapy, grade 3 or 4 hematologic toxicity is seen with t?m?z?lomid?, primarily thrombocytopenia (12 percent) and lymphopenia (7 percent), Methylation of the MGMT promoter is a major prognostic factor for improved survival and is predictive of benefit from ?h?m?th?ra?y. For those with MGMT methylation, the addition of temozolomide is associated with a doubling of two-year overall survival compared with radiation alone. Patient completed initial concurrent phase of RT with temozolomide without any significant side effects or toxicity. 02/07/2024: Restaging brain MRI did not show any obvious evidence of recurrence. I discussed the case with Dr. Rodriguez at [facility] who recommended to initiate next treatment phase with monthly temozolomide for 6 cycles. 05/21/2024: Patient underwent restaging brain MRI after completing 3 cycles of adjuvant temozolomide chemotherapy. MRI showed stable changes. I discussed the case with [facility] team and consensus was that she had stable disease and continue the same course. She completed planned 6 cycles of adjuvant temozolomide chemotherapy without any significant side effects or complications. 08/2024: Brain MRI showed stable changes, no evidence of cancer progression. 10/01/2024: Patient presented with a seizure-like episode. CT scan was unremarkable. Patient was started on Keppra. 10/2024: Brain MRI did not show any evidence of progression, stable changes. I reassured her about this. Patient has been doing well from oncological standpoint without any obvious evidence of cancer progression although overall she has been experiencing a decline in her memory and cognition which may be secondary to radiation therapy. Pneumocystis prophylaxis -- Antimicrobial prophylaxis for pneumocystis pneumonia is recommended in the temozolomide during the concomitant radiation phase of treatment or for patients were on high doses of steroids. She is on PCP prophylaxis because of concomitant need for steroids. Since she continues to be on steroids and lymphopenic, I recommended continuing PCP prophylaxis. I discussed surveillance as per NCCN guidelines. RECOMMENDATIONS: Continue Keppra 750 mg p.o. twice daily Restaging brain MRI in 3 months Continue nystatin swish and swallow for oral thrush Continue Lasix to 20 mg p.o. 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 No evidence of IDH1/2, EGFR, 1p/19q codeletion, ATRX, BRAF, NTRK1/2/3 aberrations. 04/19/2024: Pulmonary Embolism: Small subsegmental pulmonary emboli in the right lower lobe Bilateral worsening lower extremity swelling Oral thrush Anemia, thrombocytopenia and lymphopenia from chemotherapy DISCUSSION: I discussed overall impression, natural history of the disease, prognosis and further management in this regard. For patients with newly diagnosed MGMT-methylated gli?bl??t?ma who are 70 years of age or younger, current guidelines recommend use of concurrent temozolomide in combination with radiation therapy followed by monthly adjuvant t?m?z?l?mi?e. Median survival is around prognosis. Median survival is around 14 months with around 25% 2-year survival and 10% 5-year survival. In terms of toxicity from temozolomide chemotherapy, grade 3 or 4 hematologic toxicity is seen with t?m?z?lomid?, primarily thrombocytopenia (12 percent) and lymphopenia (7 percent), Methylation of the MGMT promoter is a major prognostic factor for improved survival and is predictive of benefit from ?h?m?th?ra?y. For those with MGMT methylation, the addition of temozolomide is associated with a doubling of two-year overall survival compared with radiation alone. Patient completed initial concurrent phase of RT with temozolomide without any significant side effects or toxicity. 02/07/2024: Restaging brain MRI did not show any obvious evidence of recurrence. I discussed the case with Dr. Rodriguez at [facility] who recommended to initiate next treatment phase with monthly temozolomide for 6 cycles. 05/21/2024: Patient underwent restaging brain MRI after completing 3 cycles of adjuvant temozolomide chemotherapy. MRI showed stable changes. I discussed the case with [facility] team and consensus was that she had stable disease and continue the same course. She completed planned 6 cycles of adjuvant temozolomide chemotherapy without any significant side effects or complications. Pneumocystis prophylaxis -- Antimicrobial prophylaxis for pneumocystis pneumonia is recommended in the temozolomide during the concomitant radiation phase of treatment or for patients were on high doses of steroids. She is on PCP prophylaxis because of concomitant need for steroids. Since she continues to be on steroids and lymphopenic, I recommended continuing PCP prophylaxis. I discussed surveillance as per NCCN guidelines. RECOMMENDATIONS: Restaging brain MRI in 2 to 3 weeks Continue nystatin swish and swallow for oral thrush Continue Lasix to 40 mg p.o. daily Continue dapsone for PCP prophylaxis She will maintain close follow-up with [facility] neuro-oncology multidisciplinary clinic Continue Eliquis 5 mg every 12 hours Return for follow-up in 4 weeks Thank you very much for allowing to participate in this patient's care Assessment & Plan (07/28/2024 4:33 PM EDT): Reviewed previous imaging, notes from oncology, will continue monitoring. 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 No evidence of IDH1/2, EGFR, 1p/19q codeletion, ATRX, BRAF, NTRK1/2/3 aberrations. 04/19/2024: Pulmonary Embolism: Small subsegmental pulmonary emboli in the right lower lobe Bilateral worsening lower extremity swelling Rash - resolved - no recurrence DISCUSSION: I discussed overall impression, natural history of the disease, prognosis and further management in this regard. For patients with newly diagnosed MGMT-methylated gli?bl??t?ma who are 70 years of age or younger, current guidelines recommend use of concurrent temozolomide in combination with radiation therapy followed by monthly adjuvant t?m?z?l?mi?e. Median survival is around prognosis. Median survival is around 14 months with around 25% 2-year survival and 10% 5-year survival. In terms of toxicity from temozolomide chemotherapy, grade 3 or 4 hematologic toxicity is seen with t?m?z?lomid?, primarily thrombocytopenia (12 percent) and lymphopenia (7 percent), Methylation of the MGMT promoter is a major prognostic factor for improved survival and is predictive of benefit from ?h?m?th?ra?y. For those with MGMT methylation, the addition of temozolomide is associated with a doubling of two-year overall survival compared with radiation alone. Temozolomide. Dose and schedule. During radiation, t?m?z?l?mide is given daily (seven days per week) at a dose of 75 mg/m2. ??m?z?l?mi?? is taken on an empty stomach, at least two hours after the last meal. During the concomitant phase, weekly complete blood counts (CBCs) are required for monitoring. Temozolomide should be held if platelets fall below 100,000/microL or absolute neutrophil count (ANC) falls below 1500/microL, as counts can fall precipitously. More frequent monitoring may be necessary thereafter until nadirs are determined. Patient has been tolerating chemotherapy fairly well without any significant side effects or toxicity. She has completed concurrent chemo RT uneventfully. The first postradiation cycle of temozolomide typically begins four weeks after completion of radiation therapy and is given at a dose of 150 mg/m2 daily for 5 days out of a 28-day cycle. Subsequent cycles (2 through 6) are dosed at 200 mg/m2 if blood counts are acceptable. A CBC should be obtained on days 22 and 29 of each cycle, along with monthly basic metabolic panel and liver function tests, to monitor for toxicity and help guide dose adjustments. Antiemetics -- Temozolomide is moderately emetogenic, and premedication with an oral serotonin 5-hydroxytryptamine (5-HT3) antagonist such as ondansetron 8 mg orally should be given 30 minutes before each dose. Both t?m?z?lomi?e and ondansetron can cause constipation. Pneumocystis prophylaxis -- Antimicrobial prophylaxis for pneumocystis pneumonia is recommended in the temozolomide during the concomitant radiation phase of treatment or for patients were on high doses of steroids. She is on PCP prophylaxis because of concomitant need for steroids. Patient completed initial concurrent phase of RT with temozolomide without any significant side effects or toxicity. 02/07/2024: Restaging brain MRI did not show any obvious evidence of recurrence. I discussed the case with Dr. Rodriguez at [facility] who recommended to initiate next treatment phase with monthly temozolomide for 6 cycles. 05/21/2024: Patient underwent restaging brain MRI after completing 3 cycles of adjuvant temozolomide chemotherapy. MRI showed stable changes. I discussed the case with [facility] team and consensus was that she had stable disease and continue the same course. She has been tolerating adjuvant temozolomide without any side effects or complication and will continue as planned. Side effects from chemotherapy were discussed. RECOMMENDATIONS: C5/6 of adjuvant temozolomide in the dose of 200 mg/m (total dose 300 mg) -She will take it daily for 5 days out of a 28-day cycle I recommended tapering dexamethasone slowly to 6 mg p.o. daily for a week or 2 and then 4 mg p.o. daily Nystatin swish and swallow for oral thrush Increase Lasix to 80 mg p.o. daily with weekly CMP check Restaging MRI to be scheduled (08/2024) Continue dapsone for PCP prophylaxis She will maintain close follow-up with [facility] neuro-oncology multidisciplinary clinic Continue Eliquis 5 mg every 12 hours Return for follow-up in 3 weeks Thank you very much for allowing to participate in this patient's care Assessment & Plan (05/27/2024 12:21 PM EDT): She continues to follow with oncology, no change at this time. Referral placed today. Also follows with radiation oncology-referral placed today. 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 No evidence of IDH1/2, EGFR, 1p/19q codeletion, ATRX, BRAF, NTRK1/2/3 aberrations. 04/19/2024: Pulmonary Embolism: Small subsegmental pulmonary emboli in the right lower lobe Bilateral worsening lower extremity swelling Rash - resolved - no recurrence DISCUSSION: I discussed overall impression, natural history of the disease, prognosis and further management in this regard. For patients with newly diagnosed MGMT-methylated gli?bl??t?ma who are 70 years of age or younger, current guidelines recommend use of concurrent temozolomide in combination with radiation therapy followed by monthly adjuvant t?m?z?l?mi?e. Median survival is around prognosis. Median survival is around 14 months with around 25% 2-year survival and 10% 5-year survival. In terms of toxicity from temozolomide chemotherapy, grade 3 or 4 hematologic toxicity is seen with t?m?z?lomid?, primarily thrombocytopenia (12 percent) and lymphopenia (7 percent), Methylation of the MGMT promoter is a major prognostic factor for improved survival and is predictive of benefit from ?h?m?th?ra?y. For those with MGMT methylation, the addition of temozolomide is associated with a doubling of two-year overall survival compared with radiation alone. Temozolomide. Dose and schedule. During radiation, t?m?z?l?mide is given daily (seven days per week) at a dose of 75 mg/m2. ??m?z?l?mi?? is taken on an empty stomach, at least two hours after the last meal. During the concomitant phase, weekly complete blood counts (CBCs) are required for monitoring. Temozolomide should be held if platelets fall below 100,000/microL or absolute neutrophil count (ANC) falls below 1500/microL, as counts can fall precipitously. More frequent monitoring may be necessary thereafter until nadirs are determined. Patient has been tolerating chemotherapy fairly well without any significant side effects or toxicity. She has completed concurrent chemo RT uneventfully. The first postradiation cycle of temozolomide typically begins four weeks after completion of radiation therapy and is given at a dose of 150 mg/m2 daily for 5 days out of a 28-day cycle. Subsequent cycles (2 through 6) are dosed at 200 mg/m2 if blood counts are acceptable. A CBC should be obtained on days 22 and 29 of each cycle, along with monthly basic metabolic panel and liver function tests, to monitor for toxicity and help guide dose adjustments. Antiemetics -- Temozolomide is moderately emetogenic, and premedication with an oral serotonin 5-hydroxytryptamine (5-HT3) antagonist such as ondansetron 8 mg orally should be given 30 minutes before each dose. Both t?m?z?lomi?e and ondansetron can cause constipation. Pneumocystis prophylaxis -- Antimicrobial prophylaxis for pneumocystis pneumonia is recommended in the temozolomide during the concomitant radiation phase of treatment or for patients were on high doses of steroids. She is on PCP prophylaxis because of concomitant need for steroids. Patient completed initial concurrent phase of RT with temozolomide without any significant side effects or toxicity. 02/07/2024: Restaging brain MRI did not show any obvious evidence of recurrence. I discussed the case with Dr. Rodriguez at [facility] who recommended to initiate next treatment phase with monthly temozolomide for 6 cycles. She has been tolerating adjuvant temozolomide without any side effects or complication and will continue as planned. Side effects from chemotherapy were discussed. RECOMMENDATIONS: C4/6 of adjuvant temozolomide in the dose of 200 mg/m (total dose 300 mg) -She will take it daily for 5 days out of a 28-day cycle Continue dexamethasone 4 mg p.o. bid -will consider tapering after next brain MRI Restaging MRI scheduled (05/2024) Continue dapsone for PCP prophylaxis She will maintain close follow-up with [facility] neuro-oncology multidisciplinary clinic Continue Eliquis 5 mg every 12 hours Start Lasix 20 to 40 mg p.o. 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 No evidence of IDH1/2, EGFR, 1p/19q codeletion, ATRX, BRAF, NTRK1/2/3 aberrations. Rash from Mepron - resolved DISCUSSION: I discussed overall impression, natural history of the disease, prognosis and further management in this regard. For patients with newly diagnosed MGMT-methylated gli?bl??t?ma who are 70 years of age or younger, current guidelines recommend use of concurrent temozolomide in combination with radiation therapy followed by monthly adjuvant t?m?z?l?mi?e. Median survival is around prognosis. Median survival is around 14 months with around 25% 2-year survival and 10% 5-year survival. In terms of toxicity from temozolomide chemotherapy, grade 3 or 4 hematologic toxicity is seen with t?m?z?lomid?, primarily thrombocytopenia (12 percent) and lymphopenia (7 percent), Methylation of the MGMT promoter is a major prognostic factor for improved survival and is predictive of benefit from ?h?m?th?ra?y. For those with MGMT methylation, the addition of temozolomide is associated with a doubling of two-year overall survival compared with radiation alone. Temozolomide. Dose and schedule. During radiation, t?m?z?l?mide is given daily (seven days per week) at a dose of 75 mg/m2. ??m?z?l?mi?? is taken on an empty stomach, at least two hours after the last meal. During the concomitant phase, weekly complete blood counts (CBCs) are required for monitoring. Temozolomide should be held if platelets fall below 100,000/microL or absolute neutrophil count (ANC) falls below 1500/microL, as counts can fall precipitously. More frequent monitoring may be necessary thereafter until nadirs are determined. Patient has been tolerating chemotherapy fairly well without any significant side effects or toxicity. She has completed concurrent chemo RT uneventfully. The first postradiation cycle of temozolomide typically begins four weeks after completion of radiation therapy and is given at a dose of 150 mg/m2 daily for 5 days out of a 28-day cycle. Subsequent cycles (2 through 6) are dosed at 200 mg/m2 if blood counts are acceptable. A CBC should be obtained on days 22 and 29 of each cycle, along with monthly basic metabolic panel and liver function tests, to monitor for toxicity and help guide dose adjustments. Antiemetics -- Temozolomide is moderately emetogenic, and premedication with an oral serotonin 5-hydroxytryptamine (5-HT3) antagonist such as ondansetron 8 mg orally should be given 30 minutes before each dose. Both t?m?z?lomi?e and ondansetron can cause constipation. Pneumocystis prophylaxis -- Antimicrobial prophylaxis for pneumocystis pneumonia is recommended in the temozolomide during the concomitant radiation phase of treatment or for patients were on high doses of steroids. She is on PCP prophylaxis because of concomitant need for steroids. Patient completed initial concurrent phase of RT with temozolomide without any significant side effects or toxicity. 02/07/2024: Restaging brain MRI did not show any obvious evidence of recurrence. I discussed the case with Dr. Rodriguez at [facility] who recommended to initiate next treatment phase with monthly temozolomide for 6 cycles. Side effects from chemotherapy were discussed. RECOMMENDATIONS: Start postradiation temozolomide in the dose of 150 mg/m (total dose 215 mg) -She will take it daily for 5 days out of a 28-day cycle - if she is able to tolerate this dose, subsequent cycles will be 200 mg/m and total of 6 cycles are usually recommended in this setting. Continue dexamethasone 4 mg p.o. 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 No evidence of IDH1/2, EGFR, 1p/19q codeletion, ATRX, BRAF, NTRK1/2/3 aberrations. Rash from Mepron - resolved DISCUSSION: I discussed overall impression, natural history of the disease, prognosis and further management in this regard. For patients with newly diagnosed MGMT-methylated gli?bl??t?ma who are 70 years of age or younger, current guidelines recommend use of concurrent temozolomide in combination with radiation therapy followed by monthly adjuvant t?m?z?l?mi?e. Median survival is around prognosis. Median survival is around 14 months with around 25% 2-year survival and 10% 5-year survival. In terms of toxicity from temozolomide chemotherapy, grade 3 or 4 hematologic toxicity is seen with t?m?z?lomid?, primarily thrombocytopenia (12 percent) and lymphopenia (7 percent), Methylation of the MGMT promoter is a major prognostic factor for improved survival and is predictive of benefit from ?h?m?th?ra?y. For those with MGMT methylation, the addition of temozolomide is associated with a doubling of two-year overall survival compared with radiation alone. Temozolomide. Dose and schedule. During radiation, t?m?z?l?mide is given daily (seven days per week) at a dose of 75 mg/m2. ??m?z?l?mi?? is taken on an empty stomach, at least two hours after the last meal. During the concomitant phase, weekly complete blood counts (CBCs) are required for monitoring. Temozolomide should be held if platelets fall below 100,000/microL or absolute neutrophil count (ANC) falls below 1500/microL, as counts can fall precipitously. More frequent monitoring may be necessary thereafter until nadirs are determined. Patient has been tolerating chemotherapy fairly well without any significant side effects or toxicity. She has completed concurrent chemo RT uneventfully. The first postradiation cycle of temozolomide typically begins four weeks after completion of radiation therapy and is given at a dose of 150 mg/m2 daily for 5 days out of a 28-day cycle. Subsequent cycles (2 through 6) are dosed at 200 mg/m2 if blood counts are acceptable. A CBC should be obtained on days 22 and 29 of each cycle, along with monthly basic metabolic panel and liver function tests, to monitor for toxicity and help guide dose adjustments. Antiemetics -- Temozolomide is moderately emetogenic, and premedication with an oral serotonin 5-hydroxytryptamine (5-HT3) antagonist such as ondansetron 8 mg orally should be given 30 minutes before each dose. Both t?m?z?lomi?e and ondansetron can cause constipation. Pneumocystis prophylaxis -- Antimicrobial prophylaxis for pneumocystis pneumonia is recommended in the temozolomide during the concomitant radiation phase of treatment or for patients were on high doses of steroids. Side effects from chemotherapy were discussed. RECOMMENDATIONS: 4 weeks from now (around 02/23/2024) she will start postradiation temozolomide in the dose of 150 mg/m (total dose 215 mg) -She will take it daily for 5 days out of a 28-day cycle - if she is able to tolerate this dose, subsequent cycles will be 200 mg/m and total of 6 cycles are usually recommended in this setting. Continue dexamethasone 4 mg p.o. 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 No evidence of IDH1/2, EGFR, 1p/19q codeletion, ATRX, BRAF, NTRK1/2/3 aberrations. Rash likely from Mepron DISCUSSION: I discussed overall impression, natural history of the disease, prognosis and further management in this regard. For patients with newly diagnosed MGMT-methylated gli?bl??t?ma who are 70 years of age or younger, current guidelines recommend use of concurrent temozolomide in combination with radiation therapy followed by monthly adjuvant t?m?z?l?mi?e. Median survival is around prognosis. Median survival is around 14 months with around 25% 2-year survival and 10% 5-year survival. In terms of toxicity from temozolomide chemotherapy, grade 3 or 4 hematologic toxicity is seen with t?m?z?lomid?, primarily thrombocytopenia (12 percent) and lymphopenia (7 percent), Methylation of the MGMT promoter is a major prognostic factor for improved survival and is predictive of benefit from ?h?m?th?ra?y. For those with MGMT methylation, the addition of temozolomide is associated with a doubling of two-year overall survival compared with radiation alone. Temozolomide. I discussed side effects from this approach at length and patient signed the informed consent today. Dose and schedule. During radiation, t?m?z?l?mide is given daily (seven days per week) at a dose of 75 mg/m2. ??m?z?l?mi?? is taken on an empty stomach, at least two hours after the last meal. During the concomitant phase, weekly complete blood counts (CBCs) are required for monitoring. Temozolomide should be held if platelets fall below 100,000/microL or absolute neutrophil count (ANC) falls below 1500/microL, as counts can fall precipitously. More frequent monitoring may be necessary thereafter until nadirs are determined. The first postradiation cycle of temozolomide typically begins four weeks after completion of radiation therapy and is given at a dose of 150 mg/m2 daily for 5 days out of a 28-day cycle. Subsequent cycles (2 through 6) are dosed at 200 mg/m2 if blood counts are acceptable. A CBC should be obtained on days 22 and 29 of each cycle, along with monthly basic metabolic panel and liver function tests, to monitor for toxicity and help guide dose adjustments. Antiemetics -- Temozolomide is moderately emetogenic, and premedication with an oral serotonin 5-hydroxytryptamine (5-HT3) antagonist such as ondansetron 8 mg orally should be given 30 minutes before each dose. Both t?m?z?lomi?e and ondansetron can cause constipation. Pneumocystis prophylaxis -- Antimicrobial prophylaxis for pneumocystis pneumonia is recommended in the temozolomide during the concomitant radiation phase of treatment. Patient has been tolerating chemotherapy fairly well without any significant side effects or toxicity. I think the rash is secondary to Mepron. Rash has mostly resolved. I recommended to resume chemotherapy with temozolomide. She has resumed her radiation therapy today. If rash does not recur for the next 3 days, then I would recommend starting dapsone for PCP prophylaxis. She will undergo G6PD screen prior to starting that. RECOMMENDATIONS: Continue dexamethasone 2 mg p.o. bid Discontinue Mepron permanently Resume temozolomide chemotherapy and the same dose concurrently with radiation therapy, continuously 7 days a week If no recurrence of the rash for the next 3 days, will start dapsone for PCP prophylaxis Patient will undergo G6PD screening test CBC monitoring on weekly basis She will maintain close follow-up with [facility] neuro-oncology multidisciplinary clinic Return for follow-up on 01/26/2024 and sooner if necessary Thank you very much for allowing to participate in this patient's care Assessment & Plan (12/09/2023 10:15 PM EDT): IMPRESSION: This is a 63-year-old woman with 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 IDH 1/IDH 2 status - pending DISCUSSION: I discussed overall impression, natural history of the disease, prognosis and further management in this regard. For patients with newly diagnosed MGMT-methylated gli?bl??t?ma who are 70 years of age or younger, current guidelines recommend use of concurrent temozolomide in combination with radiation therapy followed by monthly adjuvant t?m?z?l?mi?e. Median survival is around prognosis. Median survival is around 14 months with around 25% 2-year survival and 10% 5-year survival. In terms of toxicity from temozolomide chemotherapy, grade 3 or 4 hematologic toxicity is seen with t?m?z?lomid?, primarily thrombocytopenia (12 percent) and lymphopenia (7 percent), Methylation of the MGMT promoter is a major prognostic factor for improved survival and is predictive of benefit from ?h?m?th?ra?y. For those with MGMT methylation, the addition of temozolomide is associated with a doubling of two-year overall survival compared with radiation alone. Temozolomide. I discussed side effects from this approach at length and patient signed the informed consent today. Dose and schedule. During radiation, t?m?z?l?mide is given daily (seven days per week) at a dose of 75 mg/m2. ??m?z?l?mi?? is taken on an empty stomach, at least two hours after the last meal. During the concomitant phase, weekly complete blood counts (CBCs) are required for monitoring. Temozolomide should be held if platelets fall below 100,000/microL or absolute neutrophil count (ANC) falls below 1500/microL, as counts can fall precipitously. More frequent monitoring may be necessary thereafter until nadirs are determined. The first postradiation cycle of temozolomide typically begins four weeks after completion of radiation therapy and is given at a dose of 150 mg/m2 daily for 5 days out of a 28-day cycle. Subsequent cycles (2 through 6) are dosed at 200 mg/m2 if blood counts are acceptable. A CBC should be obtained on days 22 and 29 of each cycle, along with monthly basic metabolic panel and liver function tests, to monitor for toxicity and help guide dose adjustments. Antiemetics -- Temozolomide is moderately emetogenic, and premedication with an oral serotonin 5-hydroxytryptamine (5-HT3) antagonist such as ondansetron 8 mg orally should be given 30 minutes before each dose. Both t?m?z?lomi?e and ondansetron can cause constipation. Pneumocystis prophylaxis -- Antimicrobial prophylaxis for pneumocystis pneumonia is recommended in the temozolomide during the concomitant radiation phase of treatment. RECOMMENDATIONS: Continue dexamethasone 4 mg p.o. daily Continue pneumocystis prophylaxis with Mepron -patient is allergic to sulfa drugs Instructed how to take antinausea medication prior to temozolomide Patient will start concurrent temozolomide every day throughout radiation therapy, 7 days a week. CBC monitoring on weekly basis She will maintain close follow-up with [facility] neuro-oncology multidisciplinary clinic Return for follow-up in 2 weeks Thank you very much for allowing to participate in this patient's care Assessment & Plan (12/03/2023 12:16 PM EDT): Pt with high grade glioma s/p L temporal craniotomy for resection with Dr. Ponce on 11/15/2023. Pathology results consistent with a high grade glioma with evidence of necrosis and neovascularization and MGMT promother methylation. Of note IDH IHC reported as equivocal and currently oncopanel is pending. Pt was taken off dexamethasone earlier this week and is now presenting with headache, nausea and vomiting. Imaging in the ED consistent with post surgical edema and evidence of possible progression of tumor. There was no bleed evident on scan. NSGY consulted and recommended no acute surgical interventions at this time. Pt started on IV dex 4mg q6h with minimal relief. Per Dr. Rodriguez, recommend radiation therapy as soon as possible and transitioning to PO dex. - Primary neuro-oncologist: Shawn Rodriguez MD - Radiation oncologist: Dr. Buchanan - Per conversation, decision was made to defer re-resection given rapid rate of progression. Plan to start RT joyce in the outpatient setting. His team will transition care to [facility] -- RT scheduled for 12/05/2022 - Plan to decrease to 4mg daily starting tomorrow, if worsening FELIX unable to control with PRN pain meds consider going back up to 4 mg BID - cnt Mepron for PJP ppx (sulfa allergy) and Nexium Hyponatremia 12/02/2023 Assessment & Plan (12/02/2023 10:20 AM EDT): Probable from poor PO intake, and hypovolemic in nature. - CTM Anemia 12/02/2023 Assessment & Plan (12/02/2023 10:21 AM EDT): Likely anemia of chronic disease from malignancy exacerbated by recent procedure. - CTM Vasogenic edema 12/01/2023 Brain mass 11/10/2023 Postoperative hypothyroidism 08/11/2020 Assessment & Plan (05/27/2024 12:21 PM EDT): Follows with endocrinology-no change at this time. Referral placed today. Assessment & Plan (03/28/2024 11:48 AM EST): Chemically and clinically euthyroid with levothyroxine 88 mcg daily continue current regimen repeat thyroid function studies prior to the follow-up visit return for follow-up in 1 year. Assessment & Plan (12/19/2023 10:05 AM EST): The patient is having symptoms of hypothyroidism but she has been treated with chemotherapy and radiation therapy of course she will be fatigue because of these things and she can have many of the same symptoms associated with hypothyroidism. She is in a very mild subclinical hypothyroid state. I will increase the dose of levothyroxine back up from 75 to 88 mcg daily and she should repeat thyroid function studies in 3 months. Assessment & Plan (09/14/2023 4:22 PM EDT): Clinically euthyroid but she is in a subclinical hyperthyroid state. May be because she lost 5 pounds. I will decrease the dose of levothyroxine to 75 mcg and repeat thyroid function studies in 3 months. Assessment & Plan (08/04/2022 9:38 AM EDT): Chemically and clinically euthyroid with levothyroxine 88 mcg continue current dose. Repeat thyroid function studies in a year. Assessment & Plan (08/13/2021 9:49 AM EDT): The patient is chemically and clinically euthyroid with levothyroxine 88 mcg we will continue the current medications. Assessment & Plan (08/11/2020 11:29 AM EDT): Chemically and clinically euthyroid on levothyroxine 88 mcg and we can continue the current dose. Of course this is pending thyroglobulin levels. Papillary thyroid carcinoma 01/09/2018 Assessment & Plan (05/27/2024 12:21 PM EDT): Continues to follow with endocrinology, no concerns at this time. Will continue monitoring. Assessment & Plan (03/28/2024 11:48 AM EST): The patient is in remission and does not require TSH suppression. However that we do check thyroglobulin tumor markers yearly and this is undetectable with negative antibodies. Assessment & Plan (12/19/2023 10:05 AM EST): She is in remission she does not require TSH suppression even with elevated TSH thyroglobulin level is undetectable and is accurate as evidenced by negative thyroglobulin antibodies. Assessment & Plan (12/02/2023 10:20 AM EDT): Hypothyroidism 2/2 to thyroidectomy - Continue synthroid 75 mcg daily Assessment & Plan (09/14/2023 4:20 PM EDT): Thyroglobulin previously undetectable but I have not had a thyroglobulin tumor marker in 3 years despite constantly reordering it. The problem is that the patient needs to go to [facility] and then not doing the test. This time around the aorta thyroglobulin antibody instead of thyroglobulin tumor marker. The thyroglobulin antibody is undetectable but I need the Thyrogen level. I will reorder this test and have the patient come back in 3 months. Assessment & Plan (08/04/2022 9:37 AM EDT): Thyroglobulin tumor marker undetectable in the past current study pending. She does not require TSH suppression since she is in remission. Assessment & Plan (08/13/2021 9:49 AM EDT): The patient is in remission. She does not require TSH suppression her TSH presently is on the lower reference range not intentional but she feels fine. Thyroglobulin tumor markers in the past have been in the normal reference range the most recent thyroglobulin level is pending. Assessment & Plan (08/11/2020 11:38 AM EDT): The patient is in remission for papillary thyroid carcinoma based on negative for thyroglobulin levels. Also ultrasound reports and whole-body scans. Nevertheless we continue monitoring thyroglobulin tumor markers. Assessment & Plan (07/17/2019 8:57 AM EDT): The patient is chemically and clinically euthyroid. She has history of papillary thyroid carcinoma so I checked thyroglobulin tumor marker on a yearly basis. Thyroglobulin antibody was done this year and was not detectable but there was a note in the lab that stated that the thyroglobulin was not indicated. This is incorrect. Obviously on checking thyroglobulin level to see if it is detectable because of her history of papillary thyroid carcinoma. I checked last year's results and they did added on that time and the thyroglobulin level was not detectable. I assume is the same but I do this test on a yearly basis to ensure that this continues to be the case. I have suggested to the patient that she may still be able to get this lab result done, and she should call the lab and see if anyone there can add the thyroglobulin level. In the meantime I have requested thyroglobulin tumor marker and thyroid function studies for next year. I have renew her medications for the year I would not change the dose she should continue on levothyroxine 88 mcg daily. Assessment & Plan (07/06/2018 3:34 PM EDT): She is chemically and clinically euthyroid on the current dose of levothyroxine which is 88 mcg and I could not make any changes. She will return for follow-up in a year. We will give her a prescription for 90 days with 3 refills of levothyroxine. For the follow-up visit we will check an ultrasound of the thyroid gland despite the fact that everything is been negative so far for residual persistent thyroid carcinoma. I will also check thyroglobulin tumor markers. Assessment & Plan (04/10/2018 3:22 PM EST): The patient for the most part is clinically euthyroid although she complains of cold intolerance. She has a subclinical hypothyroid pattern. I will increase the dose of levothyroxine from 75-88 mcg daily. Hopefully this will normalize her TSH. In the past she used 100 mcg of levothyroxine her TSH remains suppressed so will be a problem if we do not get the right level in terms of adjusting her medications. She will repeat thyroid function studies in 3 months time assuming that her levels are within the reference range I can see her yearly thereafter. Assessment & Plan (01/09/2018 4:27 PM EST): The patient is clinically euthyroid. However chemically she has subclinical hyperthyroidism and this has been done purposely because of her history of papillary thyroid carcinoma. Whole-body scan, ultrasounds have been negative for residual thyroid tissue or metastatic disease. Thyroglobulin antibodies less than 1 and thyroglobulin tumor marker is less than 0.1 which is good sign that she does not have persistent thyroid carcinoma. However the thyroglobulin tumor marker is suppressed with a suppressed TSH. At this point I would like to decrease the dose of levothyroxine from 100-75 mcg and repeat thyroid function studies in 3 months including thyroglobulin tumor marker and thyroglobulin antibodies. If the TSH normalizes and the thyroglobulin tumor marker remains below 0.1 this is very good evidence that she does not have residual/persistent/or recurrent disease. Current Treatment and Therapy Plans TEMOZOLOMIDE* Plan Start Date:02/23/2024 Plan Provider:Merced Eddy MBBS Linked Problems Glioma Treatment Medications temozolomide (TEMODAR) Past Treatment and Therapy Plans TREATMENT PLAN Plan Name Start Date Discontinue Date Treatment Medications Discontinue Reason Plan Provider Cycles TEMOZOLOMIDE 75MG/M2/DAY 12/14/1901/27/2024 temozolomide (TEMODAR) a. Therapy Complete Merced Eddy MBBS 1 of 1 cycle started Resolved Problems Problem Noted Date Diagnosed Date Resolved Date Rash 01/15/2024 08/11/2024
--- OUTSIDE RECORDS SUMMARY | 2024-11-14 18:47 | XMS_ITS | Clinical Summary ---
Author Organization [facility] Address [address] [place] [phone] Phone Care Team Providers Care Beam Dyer Operator Name Role Phone Merced Eddy MBBS Unavailable [phone] Bibi Thurston ELEVATOR CONSTRUCTOR ELECTRIC Unavailable Juan David Yanez DO Primary Care Provider Allergies Active Allergy Reactions Criticality Noted Date Comments Atovaquone Rash,Unknown Low 01/11/2024 Sulfa (Sulfonamide Antibiotics) Rash,Unknown Low Medications sodium fluoride-potassiu m nitrate (PREVIDENT 5000 SENSITIVE) 1.1-5 % Pste USE TO BRUSH TEETH THOROUGHLY ONCE DAILY FOR 2 MINUTES, PREFERABLY AT BEDTIME. DO NOT EAT, DRINK OR RINSE FOR 30 MINUTES. 022 Active ondansetron (ZOFRAN) 8 MG tabletIndications :Glioma Take 1 tablet (8 mg total) by mouth every 8 (eight) hours as needed for nausea. Take 30-60 minutes prior to oral anti-cancer medication. May repeat every 8 hours as needed for nausea. Follow instructions given by provider. 60 tablet 6 025 Active levothyroxine (SYNTHROID, LEVOTHROID) 88 MCG tabletIndications :Postoperative hypothyroidism Take 1 tablet (88 mcg total) by mouth daily. 90 tablet 3 025 Active cyanocobalamin, vitamin B-12, 500 MCG tablet Take 1 tablet (500 mcg total) by mouth daily. 90 tablet 3 025 Active potassium chloride (KLOR-CON) 20 mEq packetIndications :Hypokalemia Take 20 mEq by mouth 2 (two) times a day. 60 packet 025 Active dapsone 100 MG tabletIndications :Glioma TAKE 1/2 A TABLET (50MG) BY MOUTH TWICE DAILY 60 tablet 1 025 Active esomeprazole (NEXIUM) 20 MG capsule TAKE ONE (1) CAPSULE BY MOUTH EVERY DAY 30 capsule 6 025 Active ELIQUIS 5 mg tabletIndications :Other chronic pulmonary embolism without acute cor pulmonale,Pulmona ry embolism, unspecified chronicity, unspecified pulmonary embolism type, unspecified whether acute cor pulmonale present TAKE ONE (1) TABLET BY MOUTH TWICE DAILY 60 tablet 3 025 Active nystatin (MYCOSTATIN) 100,000 units/mL suspensionIndicat ions:Glioma Take 5 mL (500,000 Units total) by mouth 4 (four) times a day as needed (mucositis). 473 mL 3 025 Active tiZANidine (ZANAFLEX) 2 MG tabletIndications :Chronic bilateral low back pain without sciatica,Spasm of muscle of lower back Take 1-2 tablets (2-4 mg total) by mouth every 8 (eight) hours as needed (for muscle tightness/spasm ). 60 tablet 1 025 Active furosemide (LASIX) 20 MG tabletIndications :Bilateral leg edema TAKE FOUR (4) TABLETS (80MG) BY MOUTH EVERY DAY 90 tablet 1 025 Active levETIRAcetam (KEPPRA) 750 MG IMMEDIATE release tabletIndications :Glioma Take 1 tablet (750 mg total) by mouth 2 (two) times a day. 60 tablet 6 025 Active dexAMETHasone (DECADRON) 4 MG tabletIndications :Glioma TAKE ONE (1) TABLET BY MOUTH EACH MORNING AND 1/2 TAB EACH EVENING 60 tablet 1 025 Active senna (SENOKOT) 8.6 mg tablet Take 1 tablet by mouth nightly at bedtime as needed for constipation. 025 Active acetaminophen (TYLENOL) 500 MG tablet Take 1,000 mg by mouth every 8 (eight) hours as needed for pain (specific location in comments). Active ibuprofen (ADVIL,MOTRIN) 600 MG tablet Take 600 mg by mouth every 8 (eight) hours as needed for pain (specific location in comments). taking every 8 hours for back pain management caregivers aware of bleeding risk Active HYDROcodone-aceta minophen (NORCO) 5-325 mg per tablet Take 1 tablet by mouth every 6 (six) hours as needed for pain (specific location in comments). Partial fill ok 20 tablet 2024 Active acetaminophen (OFIRMEV) 1,000 mg/100 mL (10 mg/mL) injection 2024 Discontinued(O ther) dexAMETHasone (DECADRON) 4 MG tabletIndications :Glioma [The details of the medication are not available because there are pending changes by a home health clinician.] 60 tablet 1 2024 Discontinued levETIRAcetam (KEPPRA) 750 MG IMMEDIATE release tablet Take 1 tablet by mouth 2 (two) times a day. 2024 Discontinued(R eorder) levETIRAcetam (KEPPRA) 750 MG IMMEDIATE release tabletIndications :Glioma Take 1 tablet (750 mg total) by mouth 2 (two) times a day. 60 tablet 6 2024 Discontinued(R eorder) Active Problems Patient Care Coordination No te Formatting of this note migh t be different from the original. Ramakrishna James, Nurse Business Services Vice President from [facility] reference number ([id number]), code ([id number]), and also stated they are certifying for 42 visits. [phone]. Problem Noted Date Diagnosed Date Oral thrush [...] discussed the case with Dr. Rodriguez at [facility] who recommended to initiate next treatment phase with monthly temozolomide for 6 cycles. 05/21/2024: Patient underwent restaging brain MRI after completing 3 cycles of adjuvant temozolomide chemotherapy. MRI showed stable changes. I discussed the case with [facility] team and consensus was that she [...] prophylaxis She will maintain close follow-up with [facility] neuro-oncology multidisciplinary clinic Continue Eliquis 5 [...] discussed the case with Dr. Rodriguez at [facility] who recommended to initiate next treatment phase with monthly temozolomide for 6 cycles. 05/21/2024: Patient underwent restaging brain MRI after completing 3 cycles of adjuvant temozolomide chemotherapy. MRI showed stable changes. I discussed the case with [facility] team and consensus was that she [...] prophylaxis She will maintain close follow-up with [facility] neuro-oncology multidisciplinary clinic Continue Eliquis 5 [...] discussed the case with Dr. Rodriguez at [facility] who recommended to initiate next treatment phase with monthly temozolomide for 6 cycles. 05/21/2024: Patient underwent restaging brain MRI after completing 3 cycles of adjuvant temozolomide chemotherapy. MRI showed stable changes. I discussed the case with [facility] team and consensus was that she [...] prophylaxis She will maintain close follow-up with [facility] neuro-oncology multidisciplinary clinic Continue Eliquis 5 [...] discussed the case with Dr. Rodriguez at [facility] who recommended to initiate next treatment [...] prophylaxis She will maintain close follow-up with [facility] neuro-oncology multidisciplinary clinic Continue Eliquis 5 [...] discussed the case with Dr. Rodriguez at [facility] who recommended to initiate next treatment [...] prophylaxis She will maintain close follow-up with [facility] neuro-oncology multidisciplinary clinic Return for follow-up [...] weeks She will maintain close follow-up with [facility] neuro-oncology multidisciplinary clinic Return for follow-up [...] basis She will maintain close follow-up with [facility] neuro-oncology multidisciplinary clinic Return for follow-up [...] basis She will maintain close follow-up with [facility] neuro-oncology multidisciplinary clinic Return for follow-up [...] setting. His team will transition care to [facility] -- RT scheduled for 12/05/2022 - [...] that the patient needs to go to [facility] and then not doing the test. This [...] she does not have residual/persistent/or recurrent disease. Resolved Problems Problem Noted Date Diagnosed Date Resolved Date Rash 01/15/2024 08/11/2024 Encounters Date Type Department Care Team Description 11/14/2024 12:00 PM EDT Home Care Visit [facility] [address] [place] [phone] Steffany Hernández, CORE LAYER MACHINE OPERATOR CORE LAYER MACHINE OPERATOR HOME VISIT 11/14/2024 Telephone [facility] [address] [place] [address] [place] [address] Juan David Yanez, DO [facility] 11/14/2024 Home Care Visit [facility] [address] [place] [phone] Renee Polk LCSW CORPORATE ADMINISTRATOR DISCIPLINE DISCHARGE NON VISIT/TELEPHONE 11/13/2024 1:30 PM EDT Home Care Visit [facility] [address] [place] [phone] Renee Polk LCSW CORPORATE ADMINISTRATOR HOME VISIT 11/13/2024 Home Care Visit [facility] [address] [place] [phone] Renee Polk LCSW TELEPHONE ENCOUNTER 11/12/2024 3:04 PM EDT - 11/12/2024 11:59 PM EDT Hospital Encounter [facility], X-Ray - [address] [place] [address] Juan David Yanez, Arrived Discharge Disposition: Home or Self Care 11/12/2024 2:00 PM EDT Office Visit [address] [place] [address] Juan David Yanez, Chronic bilateral low back pain without sciatica (Primary Dx); Spasm of muscle of lower back; Slow transit constipation; Nontraumatic compression fracture of vertebra, initial encounter; Glioma; Seizure 11/12/2024 [facility] RISK SCORES SYSTEM GENERATED External System Generated Encounter [address] [place] [address] Unknown, Unknown, 11/09/2024 11:00 AM EDT Home Care Visit [facility] [address] [place] [phone] Gissell Delarosa, PT PT HOME VISIT 11/09/[address] [place] [address] Juan David Yanez DO Symptom Management 11/07/2024 11:00 AM EDT Home Care Visit [facility] [address] [place] [phone] Gissell Delarosa, PT PT HOME VISIT 11/06/[address] [place] [address] Juan David Yanez DO [facility] PT 11/02/2024 1:00 PM EDT Home Care Visit [facility] [address] [place] [phone] Renee Polk LCSW CORPORATE ADMINISTRATOR EVALUATION 11/02/2024 Home Care Visit [facility] [address] [place] [phone] Renee Polk LCSW TELEPHONE ENCOUNTER 11/01/2024 1:00 PM EDT Home Care Visit [facility] [address] [place] [phone] Gissell Delarosa, PT PT HOME VISIT 10/29/2024 2:30 PM EDT Home Care Visit [facility] [address] [place] [phone] Lorin Ackerman, PT PT OASIS START OF CARE (SOC) 10/29/2024 Plan of Care Documentation [facility] [address] [place] [phone] 10/29/2024 Refill [facility] at [address] [address] iBbi Thurston CNP Medication Refill 10/26/2024 Refill [facility] at [address] [address] Merced Eddy MBBS 10/22/2024 4:00 PM EDT Office Visit [facility] at [address] [address] Merced Eddy MBBS Glioma (Primary Dx); Other chronic pulmonary embolism without acute cor pulmonale 10/22/2024 3:05 PM EDT - 10/22/2024 11:59 PM EDT Hospital Encounter [facility] Laboratory [address] [place] [address] Merced Eddy MBBS Discharge Disposition: Home or Self Care 10/19/2024 1:47 PM EDT - 10/19/2024 11:59 PM EDT Hospital Encounter [facility], [address] [address] Bibi Thurston CNP Discharge Disposition: Home or Self Care 10/19/2024 Orders Only [facility] at [address] [address] Shamika Lacey CMA Glioma (Primary Dx) 10/17/2024 Orders Only [facility] [address] [place] [phone] Homehealth, Interface ProviderMD 10/16/2024 1:00 PM EDT Office Visit [address] [place] [address] Juan David Yanez DO Seizure (Primary Dx); Chronic bilateral low back pain without sciatica; Spasm of muscle of lower back 10/11/2024 Telephone [facility] at [address] [address] Lorin Swanson RN 10/10/2024 Procedure Pass [facility], [facility] - [address] [address] 10/10/2024 Orders Only [facility] at [address] [address] Merced Eddy MBBS Glioma (Primary Dx) 10/10/2024 Orders Only [facility] at [address] [address] Bibi Thurston CNP Glioma (Primary Dx) 10/10/2024 Telephone [facility] at [address] [address] Merced Eddy MBBS Seizures () 10/10/[address] [place] [address] Juan David Yanez DO Follow-up (ER 10/05- seizure ) 10/05/2024 Telephone [facility] [address] [place] [address], 9[address] Floor, [address] [place] [address] Sarah Sow MD, PhD 10/02/2024 Refill [facility] at [address] [address] Merced Eddy MBBS Medication Refill 09/07/2024 9:00 AM EDT Office Visit [facility] at [address] [address] Bibi Thurston CNP Glioma (Primary Dx); Other chronic pulmonary embolism without acute cor pulmonale; Bilateral leg edema; Oral thrush; 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 09/07/2024 7:52 AM EDT - 09/07/2024 11:59 PM EDT Hospital Encounter [address] [address] Merced Eddy MBBS Discharge Disposition: Home or Self Care 09/07/2024 Refill [facility] at [address] [address] Bibi Thurston CNP Medication Refill 09/06/2024 2:00 PM EDT Office Visit [address] [place] [address] Kathie Rivas CNP 08/29/[address] [place] [address] Juan David Yanez, DO Back Pain 08/20/2024 9:26 AM EDT - 08/20/2024 11:59 PM EDT Hospital Encounter [address] [address] Merced Eddy MBBS Discharge Disposition: Home or Self Care 08/20/2024 Refill [facility] at [address] [address] Merced Eddy MBBS Medication Refill 08/09/2024 Procedure Pass [address] [address] from Last 3 Months Immunizations Immunization Administration Dates Next Due INFLUENZA, SPLIT VIRUS, TRIVALENT PF 11/18/2023 INFLUENZA, SPLIT VIRUS, TRIV ALENT W/ PRESERVATIVE IM 12/25/2015 Influenza Quadrivalent Prese rvative Free IM 01/03/2023,01/31/2022,12/16/2020,2018,11/25/2017 Influenza Quadrivalent w/ Preservative IM 12/10/2016 Family History Medical History Relation Comments Prostate cancer Brother Melanoma Father Alzheimer's disease Mother Dementia Mother Hypertension Mother Heart attack Neg Hx Stroke Neg Hx Relation Status Comments Brother Alive Father Mother Social History Tobacco Use Types Packs/Day Years Used Date Smoking Tobacco: Never Smokeless Tobacco: Never Tobacco Cessation:Counseling Given: Not Answered Alcohol Use Standard Drinks/Week Comments Not Currently [...] GED, job training, learning the [place] language, technical skills, or developing parenting skills)? [...] not to disclose 2023 9:57 AM EDT Last Filed Vital Signs Vital Sign Reading Time Taken Comments Blood Pressure 112/60 11/12/2024 2:18 PM EDT Pulse 74 11/12/2024 2:18 PM EDT Temperature 36.8 C (98.2 F) 11/09/2024 11:36 AM EDT Respiratory Rate 16 11/09/2024 11:36 AM EDT Oxygen Saturation 95% 11/12/2024 2:18 PM EDT Inhaled Oxygen Concentration - - Weight 53.8 kg (118 lb 9.6 oz) 10/22/2024 3:51 P M EDT Height 160 cm (5' 2.99 ) 10/22/2024 3:51 PM EDT Body Mass Index 21.01 10/22/2024 3:51 PM EDT Plan of Treatment Upcoming Encounters Date Type Department Care Team (Late st Contact Info) Description 11/15/2024 Home Care Visit [facility] [address] [place] [phone] Gissell Delarosa, PT [address] [place] [address] 11/21/2024 7:00 AM EDT Home Care Visit [facility] [address] [place] [phone] Steffany Hernández, CORE LAYER MACHINE OPERATOR [address] [place] [address] 11/22/2024 Home Care Visit [facility] [address] [place] [phone] Steffany Hernández, CORE LAYER MACHINE OPERATOR [address] [place] [address] 11/28/2024 1:45 AM EDT Home Care Visit [facility] [address] [place] [phone] Gissell Delarosa, PT [address] [place] [address] 12/13/2024 2:30 PM EDT Office Visit [facility] [address] [place] [address] [place] [address] Juan David Yanez, [address] [place] [address], [address] [place] [address] 12/21/2024 10:30 AM EST Appointment [facility] [address] [place] [address] Merced Eddy MBBS [address] [place] [phone] [email or web address] 12/21/2024 11:30 AM EST Office Visit [facility] [address] [place] [address] Alisia Alejo NP [address] [place] [address] 03/28/2025 11:30 AM EST Office Visit [facility] [address] [place] [address] Darrius Roberson DO [address] [place] [address] [email or web address] Health Maintenance Due Date Last Done Comments Adult Td,Tdap Booster 1960 LIPID PANEL 1960 HEPATITIS C SCREENING 1978 HIV ONE-TIME SCREENING (18-65 YEARS) 1978 PNEUMOCOCCAL VACCINES (50+ years) (1 of 2 - PCV) 06/22/1979 ZOSTER VACCINES (1 of 2) 06/22/1979 PAP SMEAR 1981 COLOGUARD 2005 COLONOSCOPY 2005 COLORECTAL CANCER SCREENING 2005 FIT TEST 2005 FOBT 2005 SIGMOIDOSCOPY 2005 VIRTUAL COLONOSCOPY 2005 RSV VACCINE (1 - Risk 60-74 years 1-dose series) 2020 INFLUENZA VACCINE (#1) 2024 , 01/03/2023, 01/31/2022, Additional history exists COVID-19 VACCINE ( season) 2024 01/25/2023, 12/16/2021, 02/18/2021, Additional history exists TSH LEVEL 04/13/2025 04/13/2024, 02/0 08/2024, 12/15/2023, Additional history exists DEPRESSION SCREENING 05/19/2025 05/19/2024 CREATININE LEVEL 10/22/2025 10/22/2024, , 08/09/2024, Additional history exists POTASSIUM LEVEL 10/22/2025 10/22/2024, 08/15, 08/09/2024, Additional history exists MAMMOGRAM 06/18/2026 06/18/2024, 040 09/2021, 05/21/2021 SMOKING STATUS SCREENING (Once After 26 Yrs) Completed 11/12/2024 HEPATITIS A VACCINES Aged Out No long er eligible based on patient's age to complete this topic HIB VACCINES Aged Out No longer eligi ble based on patient's age to complete this topic MENINGOCOCCAL VACCINES (ACWY) Aged Out No longer eligible based on patient's age to complete this topic MENINGOCOCCAL VACCINES (B) Aged Out N o longer eligible based on patient's age to complete this topic Medical Devices Implanted Type Area Upscale Security Officer Device Identifier Shelf Expiration Date Model / Serial / Lot Plate Craniomaxillofacial .4mm Med Matrixneuro Titanium Contourable Mesh Malleable Temporal Silver - Sn/A Implanted:Qty: 1 on 11/15/2023 by Kenneth Ponce MD at [facility] NODATA Left: Cranial J DEPUY SYNTHES SPINE 04.503.0 57 / N/A / N/A Screw Bone 1.5x4mm Ti Self Drilling Matrixneuro - Sn/A Implanted:Qty: 13 on 11/15/2023 by Kenneth Ponce MD at [facility] STANDARD Left: Cranial JNJ DEPUY SYNTHES SPINE 04.503.1 04.01 / N/A / N/A Graft Tissue 3x3in Duragen Plus Ultra Pure Collagen Regeneration Matrix Dural Pk/5ea - Sn/A Implanted:Qty: 1 on 11/15/2023 by Kenneth Ponce MD at [facility] Left: Brain [employer] 08/13/2026 [id number] / N/A / [id number] Matrix Tissue 4x7cm Thin 1-.2mm Thickness Range Rectangle Alloderm Select Regenerative - Sn/A Implanted:Qty: 1 on 11/15/2023 by Kenneth Ponec MD at [facility] Left: Brain QRuso [id number] 07/14/2024 [id number] / N/A / [id number] Cover Hanson 17mm Hole Cranial Matrixneuro Titanium Ultra Low Profile - Sn/A Implanted:Qty: 1 on 11/15/2023 by Kenneth Ponce MD at [facility] Left: Cranial JNJ DEPUY SYNTHES SPINE 04.502.0 23 / N/A / N/A Cover Hanson 17mm Hole Cranial Matrixneuro Titanium Shunt Drainage Ultra Low Profile - Sn/A Implanted:Qty: 1 on 11/15/2023 by Kenneth Ponce MD at [facility] Left: Cranial JNJ DEPUY SYNTHES SPINE 04.502.0 28 / N/A / N/A Procedures Procedure Name Priority Date/Time Associated Diagnosis Comments MRI THORACIC SPINE Routine 11/14/2024 12 :32 PM EDT Chronic bilateral low back pain without sciatica Nontraumatic compression fracture of vertebra, initial encounter MRI LUMBAR SPINE Routine 11/14/2024 12:3 2 PM EDT Chronic bilateral low back pain without sciatica Nontraumatic compression fracture of vertebra, initial encounter XR LUMBOSACRAL SPINE 2-3 VIEWS Routine 11/12/2024 3:41 PM EDT Chronic bilateral low back pain without sciatica Spasm of muscle of lower back COMPREHENSIVE METABOLIC PANEL Routine 10/22/2024 3:05 PM EDT Glioma CBC AND DIFFERENTIAL Routine 10/22/2024 3:05 PM EDT Glioma MRI BRAIN WITH AND WITHOUT CONTRAST Routine 10/19/2024 3:27 PM EDT Glioma COMPREHENSIVE METABOLIC PANEL Routine 09/07/2024 7:52 AM EDT Glioma CBC AND DIFFERENTIAL Routine 09/07/2024 7:52 AM EDT Glioma MRI BRAIN (SKULL BASE) WITH AND WITHOUT CONTRAST Routine 08/20/2024 11:17 AM EDT Glioma HM MAMMOGRAPHY Routine 06/18/2024 10:28 AM EDT TSH WITH REFLEX Routine 04/13/2024 2:00 PM EST Postoperative hypothyroidism from Last 3 Months or Most Recently Relevant to Health Maintenance Results * XR LUMBOSACRAL SPINE 2-3 VIEWS (11/12/2024 3:41 PM EDT) [facility]GB IMG RECOMMENDATION COMMENT compression deformities T11; compression deformities T12; compression deformities L1; significant loss vertebral body height L5 [facility] Anatomical Region Laterality Modality L-spine Computed [...] clinician's provided indication for this examination in [facility]: Lumbar radiculopathy, > 6 wks; Pain COMPARISON: [...] clinician's provided indication for this examination in [facility]:Lumbar radiculopathy, > 6 wks; Pain COMPARISON: [...] uncertainchronicity. Follow-up MRI recommended. us Juan David Grayson Yanez DO IMG XR SPINE Final R esult * (ABNORMAL) Comprehensive metabolic panel (10/22/2024 3:05 PM EDT) Only the most recent of2 resultswithin the time period is included. SODIUM 136 133 - 146 mmol/L [facility] POTASSIUM 4.0 3.3 - 5.1 mmol/L [facility] CHLORIDE 103 96 - 108 mmol/L [facility] CO2 22 21 - 35 mmol/L [facility] BUN 15 6 - 19 mg/dL [facility] CREATININE 0.60 0.5 - 1.5 mg/dL [facility] GLUCOSE 179(H) 70 - 99 mg/dL [facility] ALBUMIN 4.1 3.9 - 4.8 g/dL [facility] TOTAL PROTEIN 6.3(L) 6.5 - 8.0 g/dL [facility] CALCIUM 8.9 8.4 - 10.3 mg/dL [facility] ALKALINE PHOSPHATASE 162(H) 39 - 117 U/L [facility] TOTAL BILIRUBIN <0.2 0.0 - 1.2 mg/dL [facility] AST 21 0 - 37 U/L [facility] ALT 40 0 - 40 U/L [facility] GLOBULIN 2.2 1 - 4.8 g/dL [facility] EGFR 100 >59 mL/min/1.7 3m2 [facility] Comment:Estimated glomerular filtration rate calculated using the CKD-EPI refit equation. ANION GAP 15 10 - 20 mmol/L [facility] Blood 10/22/2024 3:05 PM EDT 10/22/2024 3:13 PM EDT us [facility] BLOOD ORDERABLES Final Result [facility] [address] [place] [address] * (ABNORMAL) CBC and differential (10/22/2024 3:05 PM EDT) Only the most recent of2 resultswithin the time period is included. WBC 7.51 4.00 - 11.00 K/uL [facility] RBC 3.69(L) 4.00 - 5.20 M/uL [facility] HGB 12.8 12.0 - 16.0 g/dL [facility] HCT 38.4 36.0 - 46.0 % [facility] PLT 166 150 - 450 K/uL [facility] MCV 104.1(H) 80.0 - 100.0 fL [facility] Comment:VERIFIED BY REPEAT A NALYSIS MCH 34.7(H) 27.0 - 31.0 pg [facility] MCHC 33.3 32.0 - 36.0 g/dL [facility] RDW 14.6(H) 11.5 - 14.5 % [facility] MPV 9.0 8.4 - 12.0 fL [facility] NRBC 0.00 0.00 /100 WBCs [facility] ABSOLUTE NRBC 0.00 0.00 K/uL [facility] DIFF METHOD Manual [facility] TOTAL CELLS COUNTED 200 [facility] NEUTS 93.0(H) 48.0 - 76.0 % [facility] LYMPHS 3.0(L) 18.0 - 41.0 % [facility] MONOS 1.0(L) 4.0 - 11.0 % [facility] BASOS 1.0 0.0 - 1.5 % [facility] MYELOS 2.0(H) 0 % [facility] ABSOLUTE NEUTS 6.98 1.92 - 7.60 K/uL [facility] ABSOLUTE LYMPHS 0.23(L) 0.72 - 4.10 K/uL [facility] ABSOLUTE MONOS 0.08(L) 0.16 - 1.10 K/uL [facility] ABSOLUTE BASOS 0.08 0.00 - 0.15 K/uL [facility] ABSOLUTE MYELOS 0.15 K/uL [facility] LEON CELLS PRESENT(A) None [facility] ELLIPTOCYTES PRESENT(A) None [facility] Blood 10/22/2024 3:05 PM EDT 10/22/2024 3:13 PM EDT us [facility] BLACK LAB BLOOD ORDERABLES Final Result [facility] [address] [place] [address] * MRI BRAIN WITH AND WITHOUT CONTRAST [...] clinician's provided indication for this examination in [facility]: * Anaplastic gliomas/glioblastoma, 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 No evidence of tumor progression. Bibi Bertrand ELEVATOR CONSTRUCTOR ELECTRIC IMG MR HEAD/NECK Final Result * MRI BRAIN (SKULL BASE) WITH AND WITHOUT CONTRAST (08/20/2024 11:17 AM EDT) Anatomical Region Laterality Modality Head Magnetic Resonan ce 08/21/2024 3:37 PM EDT Impressions 08/21/2024 3:44 PM EDT Mild involution of the previously seen large cystic/necrotic mass in the left temporal lobe, with minimally increased surrounding FLAIR hyperintensity. This is nonspecific and most likely reflects treatment-related changes. No evidence of tumor progression. 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 COMPARISON: MRI BRAIN (SKULL BASE) WITH AND WITHOUT CONTRAST ; MRI BRAIN WITH AND WITHOUT CONTRAST ; MRI BRAIN WITH AND WITHOUT CONTRAST FINDINGS: MRI BRAIN: Post-Treatment Tumor Post-surgical changes: Postoperative changes from prior left-sided craniotomy including a resection cavity in the left temporal lobe are again demonstrated. Primary Tumor Site: Surgical cavity: Unchanged in size and configuration. Enhancement: The previously seen large cystic/necrotic mass left temporal lobe has mildly involuted since the immediate prior MRI there are no new areas of enhancement. FLAIR: There is minimally increased FLAIR hyperintensity surrounding the left temporal mass, most evident in the posterior left frontal regions (for example, compare series 4 image 42 on the current study to series 4 image 43 on the immediate prior MRI). Diffusion: No restricted diffusion. SWI: Stable postsurgical blood products subjacent to the craniotomy site and along the margins of the surgical cavity. Mass effect: Stable local mass effect with stable mild rightward midline shift. Stable ventricular size and configuration. Additional sites of tumoral involvement: None. Additional intracranial findings: No evidence of acute infarct or new intracranial hemorrhage. Procedure Note Bro French MD - 08/21/2024 MRI BRAIN (SKULL BASE) WITH AND WITHOUT CONTRAST Referring clinician's provided indication for this examination in [facility]: *Anaplastic gliomas/glioblastoma, monitor (Age 19-70y); h/o GBM - s/presection - chemo RT - needs restaging TECHNIQUE: MRI BRAIN (SKULL BASE) WITH AND WITHOUT CONTRAST Multi-sequence, multi-planar MRI of the brain was performed before andafter intravenous contrast. COMPARISON: MRI BRAIN (SKULL BASE) WITH AND WITHOUT CONTRAST ;MRI BRAIN WITH AND WITHOUT CONTRAST ; MRI BRAIN WITH ANDWITHOUT CONTRAST 2023- FINDINGS: MRI BRAIN: Post-Treatment Tumor Post-surgical changes: Postoperative changes from prior left-sidedcraniotomy including a resection cavity in the left temporal lobe areagain demonstrated. Primary Tumor Site: Surgical cavity: Unchanged in size and configuration. Enhancement: The previously seen large cystic/necrotic mass left temporallobe has mildly involuted since the immediate prior MRI there are no newareas of enhancement. FLAIR: There is minimally increased FLAIR hyperintensity surrounding theleft temporal mass, most evident in the posterior left frontal regions(for example, compare series 4 image 42 on the current study to series 4image 43 on the immediate prior MRI). Diffusion: No restricted diffusion. SWI: Stable postsurgical blood products subjacent to the craniotomy siteand along the margins of the surgical cavity. Mass effect: Stable local mass effect with stable mild rightward midlineshift. Stable ventricular size and configuration. Additional sites of tumoral involvement: None. Additional intracranial findings: No evidence of acute infarct or newintracranial hemorrhage. IMPRESSION: Mild involution of the previously seen large cystic/necrotic mass in theleft temporal lobe, with minimally increased surrounding FLAIRhyperintensity. This is nonspecific and most likely reflectstreatment-related changes. No evidence of tumor progression. [facility] MUNOZBS IMG MR HEAD/NECK Final Res ult * HM MAMMOGRAPHY FOR RESULT ENTRY ONLY (06/18/2024 10:28 AM EDT) Historical Provider HEALTH MAINTENANCE Edited Result - Final * TSH with reflex (04/13/2024 2:00 PM EST) TSH 0.67 0.27 - 4.20 uIU/mL [facility] Blood 04/13/2024 2:00 PM EST 04/13/2024 2:17 PM EST Bibi Bertrand ELEVATOR CONSTRUCTOR ELECTRIC LAB BLOOD ORDERABLES Final Resul t [address] [phone] from Last 3 Months or Most Recently Relevant to Health Maintenance Insurance [facility] [place] [id number] [facility] [place] [address] [place] [address] ACO Advance Directives For more information, please contact: [phone] (9AM - 5PM [place], Tuesday-Tuesday) Documents on File Type Date Recorded 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 11/22/2023 3:44 PM Durable Power of Brain Wave Technician 05/25/2024 Power of Brain Wave Technician - Incomplete (Told to bring all pages) * Full Code (Latest Code Status on File) Date Activated Date Inactivated Comments 12/01/2023 10:16 PM Question Answer Comments Code Status Confirmed With: Patient * Full Code Date Activated Date Inactivated Comments 11/10/2023 12:31 AM 12/01/2023 10:16 PM Question Answer Comments Code Status Confirmed With: Patient Code Status Communicated To: Inpatient Attending Care Teams Beam Dyer Operator Relationship Specialty Start Date End Date Juan David Yanez DO [address] [place] [address], [address] [place] [address] [email or web address] PCP - General Internal Medicine 05/25/24 Merced Eddy MBBS [email or web address] Primary Oncologist Medical Oncology 12/15/23 Bibi Thurston CNP [address] [place] [id number] [email or web address] Nurse Practitioner Medical Oncology 03/14/24 Additional Source Comments The information contained in this document represents components of the legal health record. It is not the complete legal health record.[facility]
[2024-11-14 19:34] VITALS: BP 152/60; PULSE 77; RESP 15; TEMP 36.4; O2SAT 95
[2024-11-14 21:42] VITALS: BP 144/78; PULSE 89; RESP 15; O2SAT 95
[2024-11-15] VITALS (8 sets, daily range): BP systolic 120–177; BP diastolic 64–89; PULSE 48–89; RESP 16–19; TEMP 36.2–36.5; O2SAT 95–98
--- NOTE | 2024-11-15 00:05 | PC.NURSE ---
PT medication Gavilyte currently not available due to internal pharmacy not accessible
--- NOTE | 2024-11-15 01:02 | PM.IMHP ---
History of Present Illness Date of Service: 11/15/24 Attending physician on admission: Joel Salcedo Chief Complaint: constipation Pt is a 64 yo female with PMH glioblastoma left temporal lobe completed chemotherapy and radiation and has had history of surgery being managed at [facility], decreased visual acuity left eye, hearing loss secondary to cancer treatment, persistent confusion requiring 24/7 care, chronic back pain and back spasms, hypothyroidism, thyroid cancer, osteopenia recently started on narcotics for pain, seizure secondary to cancer diagnosis on ra was BIBA for worsening pain in both the back and abdomen and profound constipation with no bowel movements since this past Tuesday. Family were trying glycerin suppositories and cod liver oil with some success. But these items were no longer working as of this past Tuesday. Patient has not had any known GI, vomiting or overflow incontinence. Patient currently is not incontinent of urine. Patient did have the ability or the urge to move her bowels as of 2 weeks ago and then that urge was no longer apparent. Patient is considered homebound at this time secondary to symptoms related to her diagnosis of glioblastoma and has profound confusion and needs redirection. Patient has not yet made the decision to go with hospice or palliative care. Patient's cousin from [place] is currently staying with the patient and as of last week they now have 24/7 professional care. Patient's last seizure was 11/05/2024. Patient's seizures are being managed by her oncology group at [facility] [place]. Patient has not seen a neurologist. Healthcare proxy denies any injury associated with that is seizure. Patient has been also having difficulty possibly with swallowing as she has a persistent cough especially when eating. Patient has not yet been evaluated by a speech therapist. There is no reported weight loss and BMI is currently 21.4. Patient has no current skin breakdown issues. Per healthcare proxy patient's goal is to remain in her home for as long as possible. Per healthcare proxy if patient did not have the support she has she would be in a shelter. Workup in the ED included lactulose and magnesium citrate. Patient currently has notable bowel sounds. Patient also underwent a digital rectal exam but disimpaction was not possible as the stool burden was too high. Patient had a CT of the abdomen which identified no bowel obstruction and severe distal stool burden. Patient does have chronic back pain issues and lumbar spine CT notes degenerative spine disease and patient does have history of compression fractures. Patient has no obvious signs of infection as white count is normal, UA negative for obvious UTI. Patient is afebrile with hemodynamics that are stable. Review of Systems Review of Systems: Yes Unobtainable due to mental status (Extreme hearing loss, hearing aids are not available, baseline confusion se) [facility] Medical History (Updated 11/15/24 @ 02:05 by LAWANDA Vazquez) Chronic confusion Decreased visual acuity Hearing loss Low back pain History of colon polyps Osteoporosis EVELINE II (cervical intraepithelial neoplasia II) Thyroid cancer Hypothyroid Cognitive capacity: Awake, interactive Functional capacity: wheelchair bound Patient : No Family History Father Malignant melanoma Mother Dementia Family/Other Uterine cancer Surgical History Hx of dilation and curettage H/O colonoscopy History of facial surgery History of loop electrical excision procedure (LEEP) History of thyroidectomy History of bunionectomy Social History Household Members: None Housing: House Alcohol intake: never Patient Tobacco Use Status: Never used Tobacco service: No Current occupational status: employed 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 [employer] Sexual orientation: Straight/Heterosexual Gender identity: Female Ebola Risk: Travel/Contact With Anyone From Affected Area/s: No Has Patient Experienced Ebola Symptoms: No Meds Allergies Allergy/AdvReac Type Severity Reaction Status Date / Time Sulfa (Sulfonamide Allergy Severe Rash Verified 11/14/24 15:35 Antibiotics) Active Medications: Current Medications Acetaminophen (Acetaminophen 325 Mg Tablet) 650 mg PO Q6H PRN PRN Reason: Pain, Mild 1-3,fever,headache Calcium Carbonate (Calcium Carbonate 750 Mg Tab.Chew) 750 mg PO Q4H PRN PRN Reason: Heartburn Calcium Polycarbophil (Calcium Polycarbophil Tablet) 1 tab PO BID CANDIDO Docusate Sodium (Docusate Sodium 100 Mg Capsule) 100 mg PO BID CANDIDO Enoxaparin Sodium (Enoxaparin Sodium 40 Mg/0.4 Ml Syringe) 40 mg SUBCUT Q24H CANDIDO Magnesium Hydroxide (Milk Of Magnesia 30 Ml Oral.Susp) 30 ml PO DAILY PRN PRN Reason: Constipation Melatonin (Melatonin 3 Mg Tablet) 6 mg PO BEDTIME PRN PRN Reason: Insomnia Ondansetron HCl (Ondansetron Hcl 4 Mg/2 Ml Vial) 4 mg IVPUSH Q8H PRN PRN Reason: Nausea and Vomiting Polyethylene Glycol (Polyethylene Glycol 3350 17 Gm Powd.Pack) 17 gm PO DAILY CANDIDO Senna (Sennosides 8.6 Mg Tablet) 17.2 mg PO BEDTIME CANDIDO Sodium Biphosphate/Sodium Phosphate (Sodium Phosphate,Gilliam-Dibasic 133 Ml Enema) 133 ml OK ONCE PRN PRN Reason: Constipation Sodium Chloride (0.9 % Sodium Chloride Flush 3 Ml Syringe) 3 ml IVFLUSH QSHIFT [facility] Home Medications ?Medication ?Instructions ?Recorded ?Confirmed ?Last Taken ?Type levothyroxine 88 mcg tablet 88 mcg PO DAILY 01/01/20 02/24/23 Unknown History dexamethasone 4 mg tablet 4 mg PO 03/13/24 Unknown History esomeprazole magnesium 20 mg 20 mg PO DAILY 03/13/24 Unknown History capsule,delayed release temozolomide 140 mg capsule mg PO 03/13/24 Unknown History Physical Exam Vital Signs and Narrative: Vital Signs: Last Vital Signs Temp 97.5 F 11/14/24 19:34 Pulse 89 11/14/24 21:42 Resp 15 11/14/24 21:42 BP 144/78 H 11/14/24 21:42 Pulse Ox 95 11/14/24 21:42 O2 Del Method Room Air 11/14/24 21:42 BMI result Body Mass Index 21.4 Alert and interactive Neuro: Due to severe hearing loss unable to complete exam EYES: PERRLA, , glasses on, sclerae nonicteric, decreased visual acuity in left eye ENT: Severe hearing loss, lips moist, nares patent no epistaxis Cardiac: S1 S2 RRR, no murmur, no JVD, no edema in Lower ext Pulmonary: lungs clear to auscultation B Abdominal: Tinkering hyperactive bowel sounds noted on exam, abdomen is soft but distended, no rebound tenderness or guarding on exam MSK: Unable to assess : no CVA tenderness no bladder distension Extremities: no edema in lower extremities, PT and DP pulses palpable +2 Psych: mood stable, judgement and insight poor Results Labs 11/14/24 16:59 11/14/24 16:59 Labs: Laboratory Results - last 24 hr 11/14/24 11/14/24 16:59 18:07 MCV 96.9 MCH 32.5 MCHC 33.6 RDW 14.6 Plt Count 163 MPV 9.6 Absolute Nucleated RBC 0.000 Nucleated RBC % (auto) 0.0 Anion Gap 12 Estim Creat Clear Calc 44.0 Estimated GFR 55 Random Glucose 152 H Calcium 8.6 D Total Bilirubin 0.4 AST 25 ALT 41 H Alkaline Phosphatase 108 Total Protein 6.5 Albumin 4.2 Urine Color Yellow Urine Appearance Turbid Urine pH 8.0 Ur Specific [place] 1.010 Urine Protein Negative Urine Glucose (UA) Negative Urine Ketones Negative Urine Blood Negative Urine Nitrite Negative Ur Leukocyte Esterase Trace H Urine RBC 0-2 Urine WBC 11-20 H Ur Squamous Epith Cells 0-2 Urine Bacteria None Seen Hyaline Casts 0-2 ECG Attestation: I personally reviewed and interpreted this ECG as follows: (Normal sinus rhythm, RBBB not new, QTC 477) Prior ECG tracings: available for review Imaging Radiologist's Impressions: CT ABD IMPRESSION: 1. Severe stool burden, particularly distally. Areas of wall thickening of the large intestine are nonspecific. 2. No small bowel obstruction. 3. Appendix measures at the upper limits of normal. Please correlate for any potential appendicitis given mild enhancement of the appendix wall at this time. Lumbar Spine CT IMPRESSION: 1. Multifocal vertebral height losses including imaged thoracic lumbar junction and L5 are age indeterminate by CT. Point tenderness may be deformity of the and/or confirmatory for acuity. 2. Degenerative changes include degenerative disc changes and facet arthropathy. Assessment and Plan (1) Constipation: Qualifiers: Constipation type: slow transit constipation Qualified Code(s): K59.01 - Slow transit constipation Status: Acute (2) Low back pain: Qualifiers: Back pain laterality: bilateral Chronicity: chronic Sciatica presence: without sciatica Qualified Code(s): M54.50 - Low back pain, unspecified; G89.29 - Other chronic pain Status: Acute Plan Pt is a 64 yo female with PMH glioblastoma left temporal lobe completed chemotherapy and radiation and has had history of surgery being managed at [facility], decreased visual acuity left eye, hearing loss secondary to cancer treatment, persistent confusion requiring 24/7 care, chronic back pain and back spasms, hypothyroidism, thyroid cancer, osteopenia recently started on narcotics for pain, seizure secondary to cancer diagnosis on Keppra was BIBA for worsening pain in both the back and abdomen and profound constipation with no bowel movements since this past Tuesday. Patient's cousin, Ofe from [place] is patient's healthcare proxy and has been staying with patient's for a good length of time. Patient now has 24/7 professional care in the home as it has been deemed that patient is not safe to live alone. Patient has not yet decided on hospice and palliative care. Healthcare proxy very supportive and involved in patient's care and would be considered the point person for any follow-up this admission. Constipation Patient recently started narcotics for chronic back pain Patient was using called liver oil and glycerin suppositories with good effect until this past Tuesday CT scan negative for bowel obstruction GI consultation placed Disimpaction attempted in the ED, stool burden too high Patient is started on lactulose and magnesium citrate. Patient is passing gas. Dulcolax suppository also ordered. Fleets enema p.r.n. Adding MiraLax and fiber, senna, docusate sodium Currently no nausea or vomiting, antiemetics as needed Avoid narcotics in the interim but patient will likely need long-term narcotics for pain control, consider lubiprostone? Chronic low back pain/spasms Per healthcare proxy patient takes tizanidine with good effect Continue Tylenol Avoid narcotics if possible, patient did receive Dilaudid in the ED good effect Glioblastoma left temporal lobe with noted deficits to include hearing loss, decreased visual acuity left eye, chronic confusion and need for redirection, patient requires 24/7 care Patient follows with [facility] Patient has expressed to healthcare proxy that she is not ready to make decision for hospice and palliative care at this time Patient will continue to follow with the Oncology group as an outpatient Med rec pending, appears the patient is on dexamethasone daily and temozolomide Seizure secondary to glioblastoma Per healthcare proxy patient has been taking Keppra twice daily, currently being managed by Oncology group. Patient has not been evaluated by a neurologist. Most recent seizure was November 05 Since being on Keppra patient has had no seizures Seizure precautions ordered noting most recent seizure Suspected dysphagia but no evidence of aspiration Speech therapy consult requested for swallow eval Await recommendations Hypothyroidism with history of thyroid cancer Check TSH with reflex Continue levothyroxine DVT prophylaxis: Lovenox Med rec pending Full code status Quality Stroke Does the patient have a stroke diagnosis?: No Reason for No Anti-thrombotic by Day Two: N/A - Med Ordered VTE Prior VTE?: No VTE Risk Level:: Medical - moderate - high VTE Device Contraindication: N/A - Device Ordered VTE Drug Contraindication: N/A - Med Ordered
[2024-11-15 05:34] LABS: MANUAL DIFF FLAG NO
[2024-11-15 05:35] LABS: Hematocrit 42.0 % (37.0-47.0); Hemoglobin 13.8 g/dl (12.0-16.0); Imm Gran Abs Auto 0.18 X10*3/uL (0.00-0.03); Imm Gran Pct Auto 2.2 % (0.0-0.4); Lymphocytes Absolute Auto 0.5 X10*3/uL (1.2-4.9); Mean Corpuscular HGB Conc 32.9 g/dl (31.0-35.0); Mean Corpuscular Hemoglobin 32.7 pg (27.0-33.0); Mean Corpuscular Volume 99.5 fL (80.0-98.0); NRBC Abs Auto 0.000 X10*3/uL (0.0-0.012); NRBC Pct Auto 0.0 /100WBC (0.0-0.2); Platelet Count 186 X10*3/uL (160-400); Red Blood Count 4.22 X10*6/uL (4.20-5.50); White Blood Count 8.1 X10*3/uL (4.8-10.8)
[2024-11-15 05:58] LABS: Anion Gap 13 (12-20); Blood Urea Nitrogen 20 mg/dL (9-16); Calcium 9.0 mg/dL (8.4-10.2); Carbon Dioxide 30 mmol/L (22-29); Chloride 102 mmol/L (96-108); Creatinine Clr Calc Pharmacy 56.9; Estimated Glomerular Filt Rate > 60; Potassium 3.0 mmol/L (3.3-5.1); Sodium 142 mmol/L (135-145)
--- NOTE | 2024-11-15 06:14 | PC.NURSE ---
PT had a large BM, mix of liquid and formed stool, perineum cleansed, linen changed
--- NOTE | 2024-11-15 06:41 | PM.EVENT ---
Event Note Date of Service: 11/15/24 Event Note: Pt moved to overflow, experiencing pain with transfer from stretcher to bed. Dilaudid 1 mg IV ordered as pt did have very large BM in ED. KUB now ordered to check status of bowel and stool burden. Time Spent With Patient Time: Total time managing care of this patient today ____ minutes.
--- NOTE | 2024-11-15 06:46 | PC.NURSE ---
Assumed care of patient at 0630 from ED. Patient is confused, hard of hearing. Complaining of back pain with transfer from stretcher. ED reports extra large bowel movement prior to arrival in ED Overflow. Reported to provider owner professional engineer. Provider to order IV pain medication and KUB. Bed in lowest setting, call pina in reach. Alarm On.
--- NOTE | 2024-11-15 07:06 | PC.NURSE ---
Addendum entered by Carito Ernst RN 11/15/24 09:05: Pt is a 64 yo female with PMH glioblastoma left temporal lobe completed chemotherapy and radiation and has had history of surgery being managed at [facility], decreased visual acuity left eye, hearing loss secondary to cancer treatment, persistent confusion requiring 24/7 care, chronic back pain and back spasms, hypothyroidism, thyroid cancer, osteopenia recently started on narcotics for pain, seizure secondary to cancer diagnosis on ra was BIBA for worsening pain in both the back and abdomen and profound constipation with no bowel movements since this past Tuesday. Family were trying glycerin suppositories and cod liver oil with some success. But these items were no longer working as of this past Tuesday. Patient did have the ability or the urge to move her bowels as of 2 weeks ago and then that urge was no longer apparent. Patient is considered homebound at this time secondary to symptoms related to her diagnosis of glioblastoma and has profound confusion and needs. redirection. Patient lethargic but arrousable. Slow to follow commands. Lungs with BBR. Respirations even and non-labored. Abdomen sl firm distended with positive bowel sounds. KUB completed this morning - see results. Positive pedal pulses with no edema. 24/7 caregiver at the bedside. Original Note: Medical History Chronic confusion Decreased visual acuity Hearing loss Low back pain History of colon polyps Osteoporosis EVELINE II (cervical intraepithelial neoplasia II) Thyroid cancer Hypothyroid
[2024-11-15] MEDS: 0.9 % Sodium Chloride Flush 3 ML SYRINGE IVFLUSH ×2 (07:30→21:40)
--- NOTE | 2024-11-15 08:01 | PHA.MEDREC ---
Pharmacy Consult ? Medication Reconciliation Pharmacy has completed the medication reconciliation. Spoke with primary contact, Ofe, on the phone who is the primary caregiver and was able to confirm patient's home meds and last time she took them.
[2024-11-15] MEDS: calcium polycarbophiL TABLET 1 TAB PO (08:27)
--- NOTE | 2024-11-15 11:09 | PC.NURSE ---
Patient noted to have a large BM. Incontinence care provided.
[2024-11-15 12:50] LABS: Magnesium 3.8 mg/dL (1.6-2.6)
[2024-11-15] MEDS: Potassium Chloride/H20 10 MEQ/100 ML PIGGYBACK 100 MEQ IV ×4 (13:02→17:18)
[2024-11-15] MEDS: oxyCODONE HCl Immed Release 5 MG TABLET PO ×2 (15:06→19:37)
--- NOTE | 2024-11-15 16:13 | MHC.CM.PN ---
CM MET WITH PTS SISTER/HCP AT BEDSIDE SHE REPORTS SHE HAS BEEN STAYING WITH THE PT SINCE HER SURGERY PT ALSO HAS 06/09 PRIVATE PAY CARE AT HOME SHE HAS A HOSPITAL BED, COMMODE, TRIPOD WALKER AND LIFT RECLINER COPY OF HCP REQUESTED PCP: HUNTER ASHRAF DCP: HOME RESUME 06/09 CARE BLS TRANSPORT
--- NOTE | 2024-11-15 16:17 | P.EN_ITS ---
Event Note Date of Service: 11/15/24 Event Note: GI Consult-Full note dictated-History from patient but very limited, her cousin, her RN and the EMR Imp: Progressive and persistent constipation since the development of back pain and relative decreased mobility, along with the need for pain relief with narcotics. She has been receiving an oral clean out with some response in the form of soft stools, but she remains distended and tympanitic. Her abdominal xray from this morning shows some air-filled loops of SI and colon. Rec: Continue oral clean out, but will add some enemas to see if that can facilitate further response as she probably has a lower GI stool burden. Maintain normal electrolytes and check thyroid studies if not done recently. Try to increase mobility if at all possible. I don't think a colonoscopy would be helpful at this time. Will recheck abdominal xray in AM. D/W patient and her cou sin in detail. They were comfortable with this plan. Thanks Time Spent With Patient Time: Total time managing care of this patient today ____ minutes.
--- NOTE | 2024-11-15 16:49 | P.PNIM_ITS ---
Subjective Subjective Date of Service: 11/15/24 Interval History: Patient lying comfortably in bed. Had 2 large bowel motions, nonbloody. Gastroenterology has evaluated the patient-recommendations greatly appreciated- focus on medications and enemas to relieve constipation-no colonoscopy planned. Review of Systems Review of Systems: Yes all other systems are reviewed and are negative Physical Exam 2 Exam: Exam: General: A&O x3, oriented to time place person and situation, comfortable, no pain - hard of hearing Cardiac: S1, S2 auscultated with no S3/4, no MRG. Well perfused. Respiratory: Normal breath sounds auscultated throughout all lung zones, without wheezing, rales. Normal rate. GI/ : Abdominal distention throughout abdomen, nontender to palpation, bowel sounds normal, borygorbori noted. No hepatosplenomegaly MSK: Normal ambulation without pain at bony prominences or musculature. Significant muscular atrophy noted throughout upper and lower extremities Neurological: Normal neurological examination on overview, without obvious CN II-XII abnormalities. Vital Signs: Vital Signs: Last Vital Signs Temp 97.3 F 11/15/24 16:00 Pulse 80 11/15/24 16:00 Resp 19 11/15/24 16:00 BP 139/64 11/15/24 16:00 Pulse Ox 95 11/15/24 16:00 O2 Del Method Room Air 11/15/24 16:00 BMI result Body Mass Index 21.4 Objective Data Active Medications Acetaminophen (Acetaminophen 325 Mg Tablet) 650 mg PO Q6H PRN PRN Reason: Pain, Mild 1-3,fever,headache Calcium Carbonate (Calcium Carbonate 750 Mg Tab.Chew) 750 mg PO Q4H PRN PRN Reason: Heartburn Calcium Polycarbophil (Calcium Polycarbophil Tablet) 1 tab PO BID [facility] Last Admin: 11/15/24 08:27 Dose: 1 tab Documented By: PHYLLIS Cyclobenzaprine HCl (Cyclobenzaprine Hcl 5 Mg Tablet) 5 mg PO TID [facility] Last Admin: 11/15/24 15:06 Dose: 5 mg Documented By: DOBROB Docusate Sodium (Docusate Sodium 100 Mg Capsule) 100 mg PO BID [facility] Last Admin: 11/15/24 08:27 Dose: 100 mg Documented By: PHYLLIS Enoxaparin Sodium (Enoxaparin Sodium 40 Mg/0.4 Ml Syringe) 40 mg SUBCUT Q24H [facility] Last Admin: 11/15/24 02:22 Dose: 40 mg Documented By: N-MATTE Magnesium Hydroxide (Milk Of Magnesia 30 Ml Oral.Susp) 30 ml PO DAILY PRN PRN Reason: Constipation Melatonin (Melatonin 3 Mg Tablet) 6 mg PO BEDTIME PRN PRN Reason: Insomnia Ondansetron HCl (Ondansetron Hcl 4 Mg/2 Ml Vial) 4 mg IVPUSH Q8H PRN PRN Reason: Nausea and Vomiting Oxycodone HCl (Oxycodone Hcl Immed Release 5 Mg Tablet) 5 mg PO Q4H PRN PRN Reason: Pain, Severe (Pain Scale 7-10) Last Admin: 11/15/24 15:06 Dose: 5 mg Documented By: JOY Polyethylene Glycol (Polyethylene Glycol 3350 17 Gm Powd.Pack) 17 gm PO DAILY [facility] Last Admin: 11/15/24 08:27 Dose: 17 gm Documented By: SCIRPOS Senna (Sennosides 8.6 Mg Tablet) 17.2 mg PO BEDTIME [facility] Sodium Biphosphate/Sodium Phosphate (Sodium Phosphate,[place]-Dibasic 133 Ml Enema) 133 ml [place] ONCE PRN PRN Reason: Constipation Sodium Biphosphate/Sodium Phosphate (Sodium Phosphate,[place]-Dibasic 133 Ml Enema) 133 ml [place] ONCE ONE Stop: 11/15/24 20:01 Sodium Chloride (0.9 % Sodium Chloride Flush 3 Ml Syringe) 3 ml IVFLUSH QSHIFT [facility] Last Admin: 11/15/24 16:21 Dose: Not Given Documented By: JOY Non-Admin Reason: IV Running Labs 11/15/24 04:14 11/15/24 04:14 Labs: Laboratory Results - last 24 hr 11/14/24 11/14/24 11/15/24 16:59 18:07 04:14 MCV 96.9 99.5 H MCH 32.5 32.7 MCHC 33.6 32.9 RDW 14.6 14.6 Plt Count 163 186 MPV 9.6 9.8 Immature Gran % (Auto) 2.2 H Neut % (Auto) 83.3 H Lymph % (Auto) 5.8 L [place] % (Auto) 7.7 Eos % (Auto) 0.5 Baso % (Auto) 0.5 Lymph # (Auto) 0.5 L [place] # (Auto) 0.6 Eos # (Auto) 0.0 Baso # (Auto) 0.0 Abs Immat Gran (auto) 0.18 H Absolute Neuts (auto) 6.7 Absolute Nucleated RBC 0.000 0.000 Nucleated RBC % (auto) 0.0 0.0 Anion Gap 12 13 Estim Creat Clear Calc 44.0 56.9 Estimated GFR 55 > 60 Random Glucose 152 H 82 Calcium 8.6 D 9.0 Magnesium 3.8 H* Total Bilirubin 0.4 AST 25 ALT 41 H Alkaline Phosphatase 108 Total Protein 6.5 Albumin 4.2 TSH 2.05 Urine Color Yellow Urine Appearance Turbid Urine pH 8.0 Ur Specific [place] 1.010 Urine Protein Negative Urine Glucose (UA) Negative Urine Ketones Negative Urine Blood Negative Urine Nitrite Negative Ur Leukocyte Esterase Trace H Urine RBC 0-2 Urine WBC 11-20 H Ur Squamous Epith Cells 0-2 Urine Bacteria None Seen Hyaline Casts 0-2 Assessment and Plan (1) FTT (failure to thrive) in adult: Status: Acute (2) Constipation: Status: Acute (3) Decreased visual acuity: Status: Acute (4) Hearing loss: Status: Acute (5) Chronic lower back pain: Status: Acute (6) Low back pain: Status: Acute (7) Chronic confusion: Status: Acute (8) Compression fracture of L5 vertebra: Status: Acute (9) Multiple pulmonary nodules: Status: Acute Plan 64 yo female with PMH glioblastoma left temporal lobe completed chemotherapy and radiation and has had history of surgery being managed at [facility], decreased visual acuity left eye, hearing loss secondary to cancer treatment, FTT with weakness requiring 24/7 care, chronic back pain and back spasms 2/2 multiple compression fractures, hypothyroidism, thyroid cancer, osteopenia recently started on narcotics for pain, seizure secondary to cancer diagnosis on Keppra was BIBA for worsening pain in both the back and abdomen and profound constipation with no bowel movements since this past Tuesday. Constipation - Opioid induced - Functional Patient recently started narcotics for chronic back pain Patient was using called liver oil and glycerin suppositories with good effect until this past Tuesday CT scan negative for bowel obstruction GI consultation placed Disimpaction attempted in the ED, stool burden too high Patient is started on lactulose and magnesium citrate. Patient is passing gas. Dulcolax suppository also ordered. Fleets enema p.r.n. Currently no nausea or vomiting, antiemetics as needed Gastroenterology recommendations greatly appreciated Chronic low back pain/spasms Per healthcare proxy patient takes tizanidine with good effect - but sedating. Continue Tylenol Start cyclobenzaprine 5 mg t.i.d. Hold tizanidine Start oxycodone 5 mg q.i.d. p.r.n. for severe pain On laxative therapy currently Encourage hydration Glioblastoma left temporal lobe with noted deficits to include hearing loss, decreased visual acuity left eye, chronic confusion and need for redirection, patient requires 24/7 care Patient follows with [facility] Patient has expressed to healthcare proxy that she is not ready to make decision for hospice and palliative care at this time Patient will continue to follow with the Oncology group as an outpatient Med rec pending, appears the patient is on dexamethasone daily and temozolomide Seizure secondary to glioblastoma Per healthcare proxy patient has been taking Keppra twice daily, currently being managed by Oncology group. Patient has not been evaluated by a neurologist. Most recent seizure was November 05 Since being on Keppra patient has had no seizures Seizure precautions ordered noting most recent seizure Suspected dysphagia but no evidence of aspiration Speech therapy consult requested for swallow eval Await recommendations Hypothyroidism with history of thyroid cancer Check TSH with reflex Continue levothyroxine QUALITY METRICS - VTE: Enoxaparin - CODE STATUS: Full code - DIET: Regular diet Total time managing care of this patient today: 35 minutes. Quality Stroke Does the patient have a stroke diagnosis?: No Reason for No Anti-thrombotic by Day Two: N/A - Med Ordered VTE Prior VTE?: No VTE Risk Level:: Medical - moderate - high VTE Device Contraindication: N/A - Device Ordered VTE Drug Contraindication: N/A - Med Ordered
[2024-11-15 18:09] LABS: Anion Gap 11 (12-20); Blood Urea Nitrogen 20 mg/dL (9-16); Calcium 8.7 mg/dL (8.4-10.2); Carbon Dioxide 31 mmol/L (22-29); Chloride 104 mmol/L (96-108); Creatinine Clr Calc Pharmacy 60.7; Estimated Glomerular Filt Rate > 60; Potassium 3.6 mmol/L (3.3-5.1); Sodium 142 mmol/L (135-145)
--- NOTE | 2024-11-15 22:55 | CONS_ITS ---
DATE OF SERVICE: 11/15/2024 REASON FOR CONSULTATION: Constipation. HISTORY OF PRESENT ILLNESS: History has been obtained a little bit from the patient, but she is unable to give a significant amount of history due to some neurocognitive problems in relation to a brain tumor. History has been obtained primarily from her cousin, her missile inspector, her nurse, and the medical record. The patient is a 64-year-old female who was diagnosed with a glioblastoma 1 year ago and subsequently underwent surgery, radiation treatments, and chemotherapy. She subsequently has had a decline in overall function both physically and cognitively. However, she had not been having any particular GI issues up until the past week or 2 when she developed progressive back pain in relation to having had a seizure and having developed some vertebral fractures. Subsequent to that, she has required narcotics for pain relief and has developed progressive constipation. She came to the ER yesterday primarily for management of her back pain, but also for constipation and abdominal discomfort. She was noted to have abdominal distention and a CT scan described a large amount of stool burden in the colon. There has been no report of vomiting. There has been no report of hematochezia nor melena. She has had 2 previous colonoscopies with me in 2011 and 2017, both of which revealed a small tubular adenoma. I last saw her in 2022 when we had scheduled her for routine followup colonoscopy, but she had to cancel that due to some family issues and then subsequently developed the diagnosis of her brain tumor and obviously deferred further colonoscopies at that timean oral bowel clean out and received only 1 suppository. She has not received any enemas. She has been putting out some small amounts of soft stool. However, she does remain distended and with some discomfort, although she does report that it has improved. She has reportedly been eating and without any vomiting. She is still receiving narcotics here for pain relief. MEDICATIONS: Her current medications include acetaminophen, Tums, fiber, Flexeril, Colace, Lovenox, melatonin, milk of magnesia, Zofran, oxycodone, MiraLAX, Senokot, and Fleet's enema p.r.n. PAST MEDICAL HISTORY: Colonoscopies as above. Thyroidectomy for cancer in 1990. Bunionectomy. Cosmetic surgery on chin and nose. Previous history of migraines. Glioblastoma as above. There is no reported history of [place] or diabetes. She has developed seizures. 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 She is single. She does not smoke nor use any significant amounts of alcohol. FAMILY HISTORY: Negative for GI malignancy. REVIEW OF SYSTEMS: This has been obtained from her cousin. PULMONARY: No coughing nor hemoptysis. CARDIOVASCULAR: No report of chest pain. GI: As above. NEUROLOGIC: She has had recent seizures. PHYSICAL EXAMINATION: GENERAL: The patient is an alert female. She does seem to recognize me from her days working here in the hospital. She answers some questions. SKIN: Warm and dry. Anicteric sclerae. ABDOMEN: Distended and tympanitic. There is some mild diffuse tenderness. There is no mass or rebound. IMAGING STUDIES: Her abdominal x-ray from today describes a gas-filled small and large intestine raising suspicion of a lower bowel obstruction. Her CT scan on admission, described a severe stool burden, particularly in the distal colon. There was no small-bowel obstruction. She had a normal CBC and normal electrolytes. BUN 27, creatinine 1.0. Normal LFTs except for an ALT of 41. TSH is normal at 2.1. Chemistries today showed a potassium 3.0. IMPRESSION: The patient presents with worsening constipation and abdominal distention after having to start on narcotics due to refractory back pain. I do feel the narcotics and her relative immobility have certainly contributed to the worsening constipation. While she is having some small bowel movements, she remains distended and tympanitic on exam. Her abdominal x-ray this morning also shows some evidence of dilated loops of intestine with gas. Therefore, I do think she needs further clean out and would ideally recommend a clean out from below with some enemas to try to relieve any lower stool burden, as well as continuing oral clean out. Orders have been placed for some enemas. She will continue her oral clean out as well. Her electrolytes should be kept normal particularly in regard to the potassium. Her normal TSH is noted and therefore that does not need to be repeated. I do not think a colonoscopy would be very helpful at this time as I do not think we are dealing with any type of mass or other type of primary bowel pathology. I have ordered a repeat abdominal x-ray in the morning. This has all been discussed with her cousin and missile inspector in detail. They were comfortable with the plan. Thank you for the consultation. MD RONDA Ribeiro/MISHA / [phone] MTDDonell
[2024-11-16] MEDS: oxyCODONE HCl Immed Release 5 MG TABLET PO ×2 (00:07→04:11)
[2024-11-16 03:29] VITALS: BP 135/86; PULSE 88; RESP 18; TEMP 36.6; O2SAT 94
--- NOTE | 2024-11-16 05:19 | PC.NURSE ---
Multiple home meds ordered, including Keppra stat and BID. Pain inadequately managed with oxycodone. notified. Oxycodone d/c. New orders for prn ativan and IV dilaudid.
[2024-11-16 06:08] LABS: MANUAL DIFF FLAG NO
[2024-11-16 06:23] LABS: Hematocrit 40.1 % (37.0-47.0); Hemoglobin 13.1 g/dl (12.0-16.0); Imm Gran Abs Auto 0.15 X10*3/uL (0.00-0.03); Imm Gran Pct Auto 1.8 % (0.0-0.4); Lymphocytes Absolute Auto 0.3 X10*3/uL (1.2-4.9); Mean Corpuscular HGB Conc 32.7 g/dl (31.0-35.0); Mean Corpuscular Hemoglobin 32.7 pg (27.0-33.0); Mean Corpuscular Volume 100.0 fL (80.0-98.0); NRBC Abs Auto 0.000 X10*3/uL (0.0-0.012); NRBC Pct Auto 0.0 /100WBC (0.0-0.2); Platelet Count 156 X10*3/uL (160-400); Red Blood Count 4.01 X10*6/uL (4.20-5.50); White Blood Count 8.1 X10*3/uL (4.8-10.8)
[2024-11-16 06:55] LABS: Anion Gap 11 (12-20); Blood Urea Nitrogen 14 mg/dL (9-16); Calcium 8.4 mg/dL (8.4-10.2); Carbon Dioxide 34 mmol/L (22-29); Chloride 101 mmol/L (96-108); Creatinine Clr Calc Pharmacy 59.9; Estimated Glomerular Filt Rate > 60; Magnesium 2.3 mg/dL (1.6-2.6); Potassium 2.6 mmol/L (3.3-5.1); Sodium 143 mmol/L (135-145)
[2024-11-16 07:51] VITALS: BP 112/70; PULSE 81; RESP 18; TEMP 36.3; O2SAT 92
[2024-11-16] MEDS: 0.9 % Sodium Chloride Flush 3 ML SYRINGE IVFLUSH ×3 (09:01→21:24)
[2024-11-16] MEDS: Potassium Chloride/H20 10 MEQ/100 ML PIGGYBACK 100 MEQ IV ×4 (09:01→12:39)
[2024-11-16] MEDS: Potassium Chloride Packet 20 MEQ PACKET PO ×2 (09:09→21:21)
--- NOTE | 2024-11-16 13:35 | PC.NURSE ---
Patient Due to void at 12:40am. Pt hasn't voided and was bladder scanned for 458. Provider notified about urinary retention and previous straight cath x2. Provider denied need for indwelling bolden at this time and advised RN to straight cath. Patient drained 600ml of cloudy, strong smelling urine via straight cath
[2024-11-16 14:23] LABS: Blood Urea Nitrogen 13 mg/dL (9-16); Calcium 8.6 mg/dL (8.4-10.2); Creatinine Clr Calc Pharmacy 78.8; Estimated Glomerular Filt Rate > 60
[2024-11-16 14:33] LABS: Anion Gap 11 (12-20); Carbon Dioxide 27 mmol/L (22-29); Chloride 104 mmol/L (96-108); Potassium 4.1 mmol/L (3.3-5.1); Sodium 138 mmol/L (135-145)
--- NOTE | 2024-11-16 14:45 | HO.PM.IMPN ---
Subjective Subjective Date of Service: 11/17/24 Interval History: Patient asleep for the majority of the visit today. She received Dilaudid and benzodiazepines last night for pain and agitation, which lead to sedation. Discussion was held between the patient's PCT and her cousin (healthcare proxy) by bedside. Extensive discussion by bedside today regarding the patient's care. Main concern is regarding the patient's compression fractures and the patient's pain. They are requesting surgical intervention to alleviate the patient's pain around the spine. Extensive discussion was held regarding treatment and discharge plan, including pain management while inpatient, with pursuing neurosurgery consultation at outpatient setting to see if surgery is even offered. Family requesting transfer to another facility for immediate surgical intervention. Discussed that urgent surgical intervention is not warranted at this time however can be pursued in the outpatient setting. Discussed goals of care briefly, with end agreement on focus of the patient's quality of life Reoriented that surgical intervention via Neurosurgery would not lead to immediate alleviation of pain, and would likely not be within scope of goals of care. Discussed consultation with palliative Care, to which they were agreeable to. Review of Systems Review of Systems: Yes Unobtainable due to mental status Physical Exam Exam: Exam: General: A&O x3, oriented to time place person and situation, comfortable, no pain - hard of hearing Cardiac: S1, S2 auscultated with no S3/4, no MRG. Well perfused. Respiratory: Normal breath sounds auscultated throughout all lung zones, without wheezing, rales. Normal rate. GI/ : Abdominal distention throughout abdomen, nontender to palpation, bowel sounds normal, borygorbori noted. No hepatosplenomegaly MSK: Normal ambulation without pain at bony prominences or musculature. Significant muscular atrophy noted throughout upper and lower extremities Neurological: Normal neurological examination on overview, without obvious CN II-XII abnormalities. Vital Signs: Vital Signs: Last Vital Signs Temp 97.4 F 11/16/24 07:51 Pulse 81 11/16/24 07:51 Resp 18 11/16/24 07:51 BP 112/70 11/16/24 07:51 Pulse Ox 92 11/16/24 07:51 O2 Del Method Room Air 11/16/24 07:51 BMI result Body Mass Index 21.4 Objective Data Active Medications Acetaminophen (Acetaminophen 325 Mg Tablet) 650 mg PO Q6H PRN PRN Reason: Pain, Mild 1-3,fever,headache Apixaban (Apixaban 5 Mg Tablet) 5 mg PO BID [facility] Last Admin: 11/16/24 05:01 Dose: 5 mg Documented By: GRETCHEN Calcium Carbonate (Calcium Carbonate 750 Mg Tab.Chew) 750 mg PO Q4H PRN PRN Reason: Heartburn Cyanocobalamin (Cyanocobalamin (Vitamin B-12) 1,000 Mcg Tablet) 1,000 mcg PO DAILY [facility] Last Admin: 11/16/24 09:10 Dose: 1,000 mcg Documented By: KIEL Cyclobenzaprine HCl (Cyclobenzaprine Hcl 5 Mg Tablet) 5 mg PO TID [facility] Last Admin: 11/16/24 09:10 Dose: 5 mg Documented By: KIEL Dexamethasone (Dexamethasone 4 Mg Tablet) 4 mg PO DAILY [facility] Last Admin: 11/16/24 05:01 Dose: 4 mg Documented By: GRETCHEN Docusate Sodium (Docusate Sodium 100 Mg Capsule) 100 mg PO BID [facility] Last Admin: 11/16/24 09:10 Dose: 100 mg Documented By: KIEL Furosemide (Furosemide 20 Mg Tablet) 20 mg PO DAILY PRN; Protocol PRN Reason: Leg Swelling Hydromorphone HCl (Hydromorphone Hcl 0.5 Mg/0.5 Ml Syringe) 0.5 mg IVPUSH Q3H PRN; Protocol PRN Reason: Pain, Severe (Pain Scale 7-10) Last Admin: 11/16/24 06:55 Dose: 0.5 mg Documented By: GRETCHEN Levetiracetam (Levetiracetam 250 Mg Tablet) 750 mg PO BID [facility] Levothyroxine Sodium (Levothyroxine Sodium 88 Mcg Tablet) 88 mcg PO DAILY@0630 [facility] Last Admin: 11/16/24 06:55 Dose: 88 mcg Documented By: GRETCHEN Lorazepam (Lorazepam 0.5 Mg Tablet) 0.5 mg PO Q6H PRN PRN Reason: Anxiety Last Admin: 11/16/24 06:55 Dose: 0.5 mg Documented By: GRETCHEN Magnesium Hydroxide (Milk Of Magnesia 30 Ml Oral.Susp) 30 ml PO DAILY PRN PRN Reason: Constipation Melatonin (Melatonin 3 Mg Tablet) 6 mg PO BEDTIME PRN PRN Reason: Insomnia Omeprazole (Omeprazole 20 Mg Capsule.Dr) 20 mg PO DAILY [facility] Last Admin: 11/16/24 09:10 Dose: 20 mg Documented By: KIEL Ondansetron HCl (Ondansetron Hcl 4 Mg/2 Ml Vial) 4 mg IVPUSH Q8H PRN PRN Reason: Nausea and Vomiting Potassium Chloride (Potassium Chloride Packet 20 Meq Packet) 20 meq PO BID [facility] Stop: 11/16/24 21:01 Last Admin: 11/16/24 09:09 Dose: 20 meq Documented By: KIEL Senna (Sennosides 8.6 Mg Tablet) 17.2 mg PO BEDTIME [facility] Last Admin: 11/15/24 21:38 Dose: 17.2 mg Documented By: GRETCHEN Sodium Biphosphate/Sodium Phosphate (Sodium Phosphate,[place]-Dibasic 133 Ml Enema) 133 ml DC ONCE PRN PRN Reason: Constipation Sodium Chloride (0.9 % Sodium Chloride Flush 3 Ml Syringe) 3 ml IVFLUSH QSHIFT [facility] Last Admin: 11/16/24 09:01 Dose: 3 ml Documented By: KIEL Tizanidine HCl (Tizanidine Hcl 4 Mg Tablet) 2 mg PO Q8H PRN PRN Reason: Muscle Spasm Labs 11/16/24 05:28 11/17/24 06:05 Labs: Laboratory Results - last 24 hr 11/15/24 11/16/24 11/16/24 17:40 05:28 13:53 MCV 100.0 H MCH 32.7 MCHC 32.7 RDW 14.6 Plt Count 156 L MPV 9.7 Immature Gran % (Auto) 1.8 H Neut % (Auto) 86.2 H Lymph % (Auto) 3.2 L [place] % (Auto) 7.7 Eos % (Auto) 0.5 Baso % (Auto) 0.6 Lymph # (Auto) 0.3 L [place] # (Auto) 0.6 Eos # (Auto) 0.0 Baso # (Auto) 0.1 Abs Immat Gran (auto) 0.15 H Absolute Neuts (auto) 7.0 Absolute Nucleated RBC 0.000 Nucleated RBC % (auto) 0.0 Anion Gap 11 L 11 L 11 L Estim Creat Clear Calc 60.7 59.9 78.8 Estimated GFR > 60 > 60 > 60 Random Glucose 97 83 113 Calcium 8.7 8.4 8.6 Magnesium 2.3 Assessment and Plan (1) Pulmonary embolism: Status: Acute (2) FTT (failure to thrive) in adult: Status: Acute (3) Hearing loss: Status: Acute (4) Decreased visual acuity: Status: Acute (5) Chronic lower back pain: Status: Acute (6) Low back pain: Status: Acute (7) Chronic confusion: Status: Acute (8) Compression fracture of L5 vertebra: Status: Acute (9) Multiple pulmonary nodules: Status: Acute Plan 64 yo female with PMH glioblastoma left temporal lobe s/p chemoradiation [facility] Morris, FTT with weakness requiring 24/7 care, seizure disorder, chronic back pain and back spasms 2/2 multiple compression fractures on chronic opioids, hypothyroidism, thyroid cancer, osteopenia, presenting with worsening pain in back and abdomen, admitted with stercoral colitis due to severe opioid/functional constipation & pain management. Constipation - Opioid induced - Functional Stercoral colitis Patient recently started narcotics for chronic back pain Patient was using called liver oil and glycerin suppositories with good effect until this past Tuesday CT scan negative for bowel obstruction Disimpaction attempted in the ED, stool burden too high Patient is started on lactulose and magnesium citrate. Patient is passing gas. Dulcolax suppository also ordered. Fleets enema p.r.n. Patient has multiple large stools with the use of laxatives. PLAN - continue laxatives while opioids - encourage hydration - hold off antibiotics at this time Acute on chronic low back pain/spasms Multiple spinal compression fractures Chronic pain syndrome Chronic opioid use Per healthcare proxy patient takes tizanidine with good effect - but sedating. Intolerant of pain; received hydromorphone and benzodiazepines, which led to patient's sedation. PLAN - Tylenol - cyclobenzaprine 5 mg t.i.d. increased to 10 mg t.i.d. - continue oxycodone 5 mg q.i.d. p.r.n. for severe pain - start OxyContin 10mg b.i.d. for basal dosing - Hold tizanidine - On laxative therapy currently - Encourage hydration Glioblastoma left temporal lobe completed chemoradiation with noted deficits to include hearing loss, decreased visual acuity left eye, chronic confusion and need for redirection, patient requires 24/7 care Patient follows with [facility] Patient has expressed to healthcare proxy that she is not ready to make decision for hospice and palliative care at this time Patient will continue to follow with the Oncology group as an outpatient Appears the patient is on dexamethasone daily and temozolomide Seizure secondary to glioblastoma Per healthcare proxy patient has been taking Keppra twice daily, currently being managed by Oncology group. Patient has not been evaluated by a neurologist. Most recent seizure was November 05 Since being on Keppra patient has had no seizures Seizure precautions ordered noting most recent seizure Hypothyroidism with history of thyroid cancer Check TSH with reflex Continue levothyroxine [employer]ITY [employer] - VTE: Enoxaparin - CODE STATUS: Full code - DIET: Regular diet Total time managing care of this patient today: 60 minutes. Quality Stroke Does the patient have a stroke diagnosis?: No Reason for No Anti-thrombotic by Day Two: N/A - Med Ordered VTE Prior VTE?: No VTE Risk Level:: Medical - moderate - high VTE Device Contraindication: N/A - Device Ordered VTE Drug Contraindication: N/A - Med Ordered
[2024-11-16 15:16] VITALS: BP 119/66; PULSE 63; RESP 18; TEMP 36.3; O2SAT 93
--- NOTE | 2024-11-16 15:27 | MHC.CM.PN ---
PER ROUNDS PT IS NOT MEDICALLY READY FOR DC DC PLans [facility] home
--- NOTE | 2024-11-16 18:52 | PM.GIPN ---
Subjective Subjective Date of Service: 11/16/24 Interval History: History from patient, but mainly from her cousin, Ofe, who is at the bedside. Patient had BM's last evening with the bowel regimen and has been passing flatus today. She has had problems with urinary retention. She denies abdominal pain. There has been no report of bleeding, vomiting, or significant nausea. Critical Care Time (minutes): 0 Physical Exam Vital Signs: Vital Signs: Last Vital Signs Temp 97.3 F 11/16/24 15:16 Pulse 63 11/16/24 15:16 Resp 18 11/16/24 15:16 BP 119/66 11/16/24 15:16 Pulse Ox 93 11/16/24 15:16 O2 Del Method Room Air 11/16/24 15:16 BMI result Body Mass Index 21.4 Const: General: cooperative, comfortable, no acute distress, alert and awake GI: Other: Diminished BS, tympanitic to percussion, fairly soft, NT Objective Data Labs 11/16/24 05:28 11/16/24 13:53 Labs: Laboratory Results - last 24 hr 11/16/24 11/16/24 05:28 13:53 WBC 8.1 RBC 4.01 L Hgb 13.1 Hct 40.1 MCV 100.0 H MCH 32.7 MCHC 32.7 RDW 14.6 Plt Count 156 L MPV 9.7 Immature Gran % (Auto) 1.8 H Neut % (Auto) 86.2 H Lymph % (Auto) 3.2 L [place] % (Auto) 7.7 Eos % (Auto) 0.5 Baso % (Auto) 0.6 Lymph # (Auto) 0.3 L [place] # (Auto) 0.6 Eos # (Auto) 0.0 Baso # (Auto) 0.1 Abs Immat Gran (auto) 0.15 H Absolute Neuts (auto) 7.0 Absolute Nucleated RBC 0.000 Nucleated RBC % (auto) 0.0 Sodium 143 138 Potassium 2.6 L* D 4.1 D Chloride 101 104 Carbon Dioxide 34 H 27 Anion Gap 11 L 11 L BUN 14 13 Creatinine 0.75 0.57 Estim Creat Clear Calc 59.9 78.8 Estimated GFR > 60 > 60 Random Glucose 83 113 Calcium 8.4 8.6 Magnesium 2.3 Imaging Abdominal x-ray: Radiologist's impression: November 2024. Correlated to CT dated November 14, 2024. TECHNIQUE: AP view of the abdomen. FINDINGS: Gas filled prominent small bowel large intestine. Gas throughout the intestine. No gross air-fluid levels. No metallic or radiopaque foreign body. Multilevel spondylosis. Osteopenia versus osteoporosis. XR/XR abdomen 1V IMPRESSION: Distal bowel obstruction versus pseudoobstruction versus ileus. Electronically signed by: Deep Lopez MD 11/16/2024 09:12 AM EDT RP Procedures Date of Service Date of Service: 11/16/24 Progress Note: A&P Assessment and plan (1) Constipation: Status: Acute Assessment and Plan: Imp/Plan: Her constipation seems to have responded to yesterday's bowel regimen, although her abdominal exam remains tympanitic. She does not show any signs of obstruction. I would continue her diet as tolerated and continue a bowel regimen to some degree, although can either increase or cut back as needed based on her response. Continue to replete potassium as needed. D/W her cousin, Ofe, in detail. Time Spent With Patient Time: Total time managing care of this patient today ____ minutes. Quality Stroke Does the patient have a stroke diagnosis?: No Reason for No Anti-thrombotic by Day Two: N/A - Med Ordered VTE Prior VTE?: No VTE Risk Level:: Medical - moderate - high VTE Device Contraindication: N/A - Device Ordered VTE Drug Contraindication: N/A - Med Ordered
[2024-11-16 19:46] VITALS: BP 115/69; PULSE 100; RESP 18; TEMP 36.3; O2SAT 94
[2024-11-16] MEDS: oxyCODONE HCl ER 10 MG TAB.ER.12H PO (21:22)
--- NOTE | 2024-11-17 03:32 | PC.NURSE ---
Addendum entered by Kristyn Salter RN 11/17/24 04:38: Whyte may need to be placed per MD Zuluaga. Wants to wait until am to let pt rest to see if pt will void on her own. Addendum entered by Kristyn Salter RN 11/17/24 04:10: 0405 pt bladder scan for 244 mL. MD Zuluaga notified as pt was straight cathed three times on 11/16 Original Note: 1930 pt bladder scan for 145 mL 0127 pt bladder scan for 217 mL
[2024-11-17 03:56] VITALS: BP 151/64; PULSE 77; RESP 18; TEMP 36.3; O2SAT 94
[2024-11-17 07:21] VITALS: BP 124/69; PULSE 75; RESP 16; TEMP 36.2; O2SAT 94
[2024-11-17 07:43] LABS: Anion Gap 10 (12-20); Blood Urea Nitrogen 18 mg/dL (9-16); Calcium 8.4 mg/dL (8.4-10.2); Carbon Dioxide 29 mmol/L (22-29); Chloride 104 mmol/L (96-108); Creatinine Clr Calc Pharmacy 64.2; Estimated Glomerular Filt Rate > 60; Magnesium 2.0 mg/dL (1.6-2.6); Potassium 3.6 mmol/L (3.3-5.1); Sodium 139 mmol/L (135-145)
[2024-11-17] MEDS: oxyCODONE HCl ER 10 MG TAB.ER.12H PO (08:21)
[2024-11-17] MEDS: 0.9 % Sodium Chloride Flush 3 ML SYRINGE IVFLUSH (08:22)
--- NOTE | 2024-11-17 11:04 | PM.DS ---
DS: Providers Provider Date of Service: 11/17/24 Date of admission: 11/15/24 00:47 Date of discharge: 11/17/24 Primary care physician: Juan David Yanez DO Consults: 11/15/24 01:53 Consult to Gastroenterology Routine Consulting Provider: Joseph Nunez Reason for consultation: recent narcotic for pain mgmt, constipation Has provider been notified: No 11/15/24 12:06 Addiction Medicine Provider Routine Consulting Provider: Addiction Covering Reason for consultation: analgesia & pain relief DS: Diagnosis Discharge Diagnosis (1) Pulmonary embolism: Status: Acute (2) FTT (failure to thrive) in adult: Status: Acute (3) Hearing loss: Status: Acute (4) Decreased visual acuity: Status: Acute (5) Chronic lower back pain: Status: Acute (6) Low back pain: Status: Acute (7) Chronic confusion: Status: Acute (8) Compression fracture of L5 vertebra: Status: Acute (9) Multiple pulmonary nodules: Status: Acute DS: Summary Hospital Course Hospital Course: 64 yo female with PMH glioblastoma left temporal lobe completed chemotherapy and radiation and has had history of surgery being managed at [facility], decreased visual acuity left eye, hearing loss secondary to cancer treatment, FTT with weakness requiring 24/7 care, chronic back pain and back spasms 2/2 multiple compression fractures, hypothyroidism, thyroid cancer, osteopenia recently started on narcotics for pain, seizure secondary to cancer diagnosis on Kera was BIBA for worsening pain in both the back and abdomen and profound constipation with no bowel movements since this past Tuesday. Constipation - Opioid induced - Functional Patient recently started narcotics for chronic back pain Patient was using called liver oil and glycerin suppositories with good effect until this past Tuesday CT scan reveals very high stool burden, without evidence of bowel obstruction Disimpaction attempted in ED, unsuccessful. Patient is started on lactulose and magnesium citrate. Dulcolax suppository also ordered. Fleets enema p.r.n. Patient had multiple large bowel motions, with significant relief. Etiology likely 2/2 opioids, without compliance laxative regimen. Chronic low back pain Multiple compression fractures Chronic pain syndrome Muscle spasms Per healthcare proxy patient takes tizanidine with good effect - but sedating. Has been taking opioids in the outpatient setting, but self-discontinued provider presentation to hospital. Analgesia regimen was started in inpatient setting to relieve the patient's multifactorial pain. Patient was started on cyclobenzaprine 10 mg t.i.d., OxyContin 10 mg b.i.d. p.o., oxycodone 5 mg q.i.d. p.r.n., Tylenol; with good success. Tizanidine was discontinued. RECOMMENDATIONS -Continue analgesia regimen -Follow up with pain specialist outpatient setting -Follow up palliative care service outpatient setting (discussed with the patient and proxy, all in agreement) -Ensure appropriate laxative regimen to be taken daily to prevent recurrence of constipation -Set up neurosurgery appointment/consultation for assistance with analgesia Uncomplicated urinary tract infection Started on Augmentin for 5 days Status at Discharge Functional status at discharge: wheelchair bound Overall status at discharge: patient is back to baseline Time Attestation Total time managing care of this patient today: 45 mintues. Discharge Coordination Time (in mins): 35 Quality: Safe Use of Opioids Does Pt have an Active Cancer Diagnosis on the Problem List?: Yes Opioid Measure Date for [facility] Report: 10/18/24 Opioid Measure Time for [facility] Report: 11:10 Quality: Stroke Does the patient have a stroke diagnosis?: No Physical Exam Exam: Exam: General: A&O x3, oriented to time place person and situation, comfortable, no pain - hard of hearing Cardiac: S1, S2 auscultated with no S3/4, no MRG. Well perfused. Respiratory: Normal breath sounds auscultated throughout all lung zones, without wheezing, rales. Normal rate. GI/ : Abdominal distention throughout abdomen, nontender to palpation, bowel sounds normal, borygorbori noted. No hepatosplenomegaly MSK: Normal ambulation without pain at bony prominences or musculature. Significant muscular atrophy noted throughout upper and lower extremities Neurological: Normal neurological examination on overview, without obvious CN II-XII abnormalities. Vital Signs: Vital Signs: Last Vital Signs Temp 97.2 F 11/17/24 07:21 Pulse 75 11/17/24 07:21 Resp 16 11/17/24 07:21 BP 124/69 11/17/24 07:21 Pulse Ox 94 11/17/24 07:21 O2 Del Method Room Air 11/17/24 07:21 BMI result Body Mass Index 21.4 DS: Data Data Completed and Pending Labs on day of discharge: Laboratory Results - last 24 hr 11/16/24 11/17/24 13:53 06:05 Hold Purple Top SEE NOTE Sodium 138 139 Potassium 4.1 D 3.6 Chloride 104 104 Carbon Dioxide 27 29 Anion Gap 11 L 10 L BUN 13 18 H Creatinine 0.57 0.70 Estim Creat Clear Calc 78.8 64.2 Estimated GFR > 60 > 60 Random Glucose 113 85 Calcium 8.6 8.4 Magnesium 2.0 Discharge Plan Discharge Anticipated Discharge Date/Time: 11/17/24 11:11 Patient Disposition: Home Health Service Discharge Diagnosis: Severe opioid induced/functional constipation, with acute exacerbation of chronic pain syndrome Referrals: Juan David Yanez DO [Primary Care Provider, Internal Medicine] - 1 Week Discharge Medications: New cyclobenzaprine 10 mg Tablet 10 mg PO TID 14 Days Qty: 42 0RF acetaminophen 325 mg Tablet 650 mg PO Q6H PRN (Reason: Pain, Mild 1-3,Fever,Headache) 14 Days Qty: 54 0RF oxycodone [OxyContin] 10 mg Tablet,Oral Only,Ext.Rel.12 Hr 10 mg PO BID 14 Days Qty: 28 0RF Rx Instructions: Partial Fill upon patient request. magnesium hydroxide [Milk of Magnesia] 400 mg/5 mL Suspension 30 ml PO DAILY PRN (Reason: Constipation) 14 Days Qty: 355 1RF docusate sodium 100 mg Capsule 100 mg PO BID 14 Days Qty: 28 0RF sennosides [Senna Lax] 8.6 mg Tablet 17.2 mg PO BEDTIME 14 Days Qty: 28 0RF amoxicillin-pot clavulanate [Augmentin] 500-125 mg tablet 1 tab PO BID 5 Days Qty: 10 0RF Continued levetiracetam 750 mg tablet 750 mg PO BID Eliquis 5 mg tablet 5 mg PO BID acetaminophen 325 mg Tablet 650 mg PO Q6H PRN (Reason: Pain) furosemide 20 mg tablet 20 - 40 mg PO DAILY PRN (Reason: Leg Swelling) cyanocobalamin (vitamin B-12) [Vitamin B-12] 1,000 mcg Tablet 1,000 mcg PO DAILY levothyroxine 88 mcg tablet 88 mcg PO DAILY dexamethasone 4 mg tablet 4 mg PO DAILY esomeprazole magnesium 20 mg capsule,delayed release(DR/EC) 20 mg PO DAILY Discontinued tizanidine 2 mg tablet 2 - 4 mg PO Q8H PRN (Reason: muscle spasm) hydrocodone-acetaminophen 5-325 mg tablet 1 tab PO Q6H PRN (Reason: Pain) ibuprofen 200 mg Tablet 400 mg PO Q6H PRN (Reason: Pain) Discharge Orders: Discharge Order (Routine); Ordered 11/17/24 Ordered By: Scar Andres Diet: Advance to usual diet Activity on Discharge: As tolerated Stand Alone Forms: Patient Portal Discharge page Print Language: [place] Care Plan Goals: As above Health Concerns: As above Plan of Treatment: Follow up PCP within 1 week of discharge Palliative care outpatient Neurosurgery outpatient Pain specialist outpatient Assessment: Hemodynamically stable for discharge
--- NOTE | 2024-11-17 11:54 | MHC.CM.PN ---
Addendum entered by Mary Gill 11/19/24 12:21: PT ALSO ACTIVE WITH [facility] SENT TO THEM Original Note: PT CLEARED FOR DC HOME WITH RESUMPTION OF 06/09 CARE BLS TRANSPORT BOOKED WITH [facility] FOR 1530 HOURS CM MET WITH SISTER/HCP AND ONE OF PTS CARETAKERS AT BEDSIDE THEY ARE AWARE OF TRANSPORT AND REQUESTED NAMES OF LOCAL TRANSPORT OPTIONS FOR PTS APPTS LIST PROVIDED
[2024-11-17 15:32] VITALS: BP 110/71; PULSE 87; RESP 18; TEMP 36.2; O2SAT 93
[2024-11-22 11:23] LABS: Levetiracetam Keppra 13.5 mcg/mL (6.0-46.0)
--- NOTE | 2024-11-27 09:26 | P.CDIM_ITS ---
PROVIDER RESPONSE TEXT: To clarify, the appropriate diagnosis supported by the clinical indicators: Hypokalemia: diagnosed with hypokalemia QUERY TEXT: PHYSICIAN'S DOCUMENTATION REQUEST Date of Query: 11/16/2024 11:32 AM EDT Patient Name: Bee Zhou Admit Date: 11/15/2024 Dear Scar Andres MD, A review of the medical record indicates additional documentation may be needed. Please review below and update the documentation accordingly. Clinical Indicators: LABS: Potassium 3.0 L 3.6 2.6 L IV Potassium Chloride, Klor-Con Based on the above, is there a diagnosis that correlates with these findings? Hypokalemia possible, probable, suspected etc. Labs indicate a diagnosis of (please specify) Other (explain) Clinically unable to determine (explain) Thank you, Maria E Rod, CCS, CDIS Use of terms such as suspected, likely, concern for, or probable (associated with a specific diagnosis that is being evaluated, monitored, or treated as if it exists) are acceptable and can be coded in the inpatient setting, when documented at the time of discharge. Please use your independent medical judgment in providing your response. THIS QUERY IS PART OF THE PERMANENT MEDICAL RECORD
--- NOTE | 2024-11-27 09:26 | P.CDIM_ITS ---
PROVIDER RESPONSE TEXT: To clarify, the appropriate diagnosis supported by the clinical indicators: Clinically unable to determine (explain): unable to determine if patient has baseline osteoporosis or osteopenia. This would not be unanticipated if the patient did have that medical issue; but it is mostly a radiological diagnosis that requires specification if observed on imaging. QUERY TEXT: PHYSICIAN'S DOCUMENTATION REQUEST Date of Query: 11/16/2024 09:17 AM EDT Patient Name: Bee Zhou Admit Date: 11/15/2024 Dear Scar Andres MD, A review of the medical record indicates additional documentation may be needed. Please review below and update the documentation accordingly. Clinical Indicators: Progress notes: Chronic back pain and back spasms 2/2 multiple compression fractures. Patient's sister stated that patient may have a compression fracture based on the x-ray done at [facility]. Osteoporosis IV Dilaudid She does have a age indeterminate L5 compression fracture.. CT scan 11/14/24 - Moderate to severe height loss of the L5 compression fracture is age indeterminate by CT and likely old/chronic given sclerosis. Please provide the following additional clarification regarding the compression fracture - Etiology and Type: Pathologic due to osteoporosis Pathologic due to neoplastic disease Pathologic due to other disease (please specify) Nontraumatic Traumatic Other (explain) Clinically unable to determine (explain) Thank you, Maria E Rod, CCS, CDIS Use of terms such as suspected, likely, concern for, or probable (associated with a specific diagnosis that is being evaluated, monitored, or treated as if it exists) are acceptable and can be coded in the inpatient setting, when documented at the time of discharge. Please use your independent medical judgment in providing your response. THIS QUERY IS PART OF THE PERMANENT MEDICAL RECORD
== END 2024-11-17 15:54 | disposition home health service (06) | DRG 254 ==
LOC: HO.ED 18:43 → HO.EDOVER 11-15 01:23 → HO.S3 11-15 11:53
PROVIDERS: Nurse Practitioner Family; Admitting Provider Internal Medicine; Emergency Provider Student in an Organized Health Care Education/Training Program; PCP Pediatrics; Visit Provider Hospitalist
DX: K59.03 Drug induced constipation (principal); C71.2 Malignant neoplasm of temporal lobe; R56.9 Unspecified convulsions; E87.6 Hypokalemia; E89.0 Postprocedural hypothyroidism; G89.4 Chronic pain syndrome; R13.10 Dysphagia, unspecified; M48.56XA Collapsed vertebra, not elsewhere classified, lumbar region, initial encounter for fracture; K52.89 Other specified noninfective gastroenteritis and colitis; T40.2X5A Adverse effect of other opioids, initial encounter; M54.50 Low back pain, unspecified; Z85.850 Personal history of malignant neoplasm of thyroid; Z79.01 Long term (current) use of anticoagulants; Z79.890 Hormone replacement therapy; Z79.899 Other long term (current) drug therapy
CPT/HCPCS: 36415; 72132; 74018; 74177; 80048; 80053; 80177; 81001; 83735; 84443; 85025; 85027; 93005; 99221; 99285; J1171; J1650; J3480; J8540; Q9967

== ENCOUNTER → 2024-11-14 15:31 | Outpatient (BNV) | payer MEDICAID, SELFPAY | PROVIDERS: Admitting Provider Internal Medicine; Emergency Provider Student in an Organized Health Care Education/Training Program; PCP Pediatrics; Visit Provider Internal Medicine | DX: I45.10 Unspecified right bundle-branch block (principal) | CPT/HCPCS: 93010 ==

== ENCOUNTER → 2024-11-14 16:36 | Outpatient (BNV) | payer MEDICAID, SELFPAY | PROVIDERS: Emergency Provider Student in an Organized Health Care Education/Training Program; PCP Pediatrics; Visit Provider Radiology Neuroradiology | DX: K59.00 Constipation, unspecified (principal); M51.369 Other intervertebral disc degeneration, lumbar region without mention of lumbar back pain or lower extremity pain; M47.816 Spondylosis without myelopathy or radiculopathy, lumbar region | CPT/HCPCS: 72132; 74177 ==

== ENCOUNTER 2024-11-15 00:47 | Outpatient (BNV) | payer MEDICAID, SELFPAY | END 2024-11-16 07:00 | PROVIDERS: Admitting Provider Internal Medicine; Emergency Provider Student in an Organized Health Care Education/Training Program; PCP Pediatrics; Visit Provider Radiology Diagnostic Radiology | DX: K59.00 Constipation, unspecified (principal); R14.0 Abdominal distension (gaseous) | CPT/HCPCS: 74018 ==

== ENCOUNTER 2024-11-15 00:47 | Outpatient (BNV) | payer MEDICAID, SELFPAY | END 2024-11-15 08:10 | PROVIDERS: Admitting Provider Internal Medicine; Emergency Provider Student in an Organized Health Care Education/Training Program; PCP Pediatrics; Visit Provider Radiology Diagnostic Radiology | DX: K59.00 Constipation, unspecified (principal) | CPT/HCPCS: 74018 ==

== ENCOUNTER → 2024-11-15 00:47 | Outpatient (BNV) | payer MEDICAID, SELFPAY | PROVIDERS: Admitting Provider Internal Medicine; Emergency Provider Student in an Organized Health Care Education/Training Program; PCP Pediatrics; Visit Provider Nurse Practitioner Family | DX: I26.99 Other pulmonary embolism without acute cor pulmonale (principal); R62.7 Adult failure to thrive; H91.90 Unspecified hearing loss, unspecified ear; H54.7 Unspecified visual loss; M54.50 Low back pain, unspecified; G89.29 Other chronic pain; R41.0 Disorientation, unspecified; S32.050A Wedge compression fracture of fifth lumbar vertebra, initial encounter for closed fracture; R91.8 Other nonspecific abnormal finding of lung field | CPT/HCPCS: 99222; 99233; 99239; 99499 ==